=== PATIENT | female | born 1965 | race Caucasian/White ===

== ENCOUNTER 2020-07-16 10:24 | Emergency (ER) | payer OTHER, SELFPAY ==
[2020-07-16 10:58] VITALS: BP 149/71; PULSE 76; RESP 18; TEMP 36.6; O2SAT 99; BMI 25.2
--- NOTE | 2020-07-16 10:58 | ED_ITS ---
HPI - General Adult General Chief complaint: Back Pain/Injury Stated complaint: BODY PAIN Time Seen by Provider: 07/16/20 10:48 Source: patient Mode of arrival: ambulatory Limitations: language barrier (Cymro-speaking) History of Present Illness HPI narrative: 54yoF c PMHx of fibromyalgia presenting to the ED with complaints of a fibromyalgia flare up body aches to her entire body for the past 2 weeks worse today. Reports she was seen at [facility] over a week ago and was prescribed tramadol and no symptomatic relief. Then went to her primary care provider a telehealth call and they prescribed her muscle relaxer Robaxin and she has been taking that along with Motrin Tylenol and no symptomatic relief. She reports she is also taking gabapentin in the past and no symptomatic relief of her fibromyalgia. Denies any additional complaints or concerns at this time. Reports she has not followed up with a acidity tester. Related Data Previous Rx's Medication Instructions Recorded oxycodone-acetaminophen [Percocet] 1 tab PO Q6H PRN #10 tab 07/16/20 prednisone 40 mg PO DAILY 5 Days #10 tab 07/16/20 Allergies Allergy/AdvReac Type Severity Reaction Status Date / Time duloxetine [From CYMBALTA] Allergy Mild ITCHING Unverified 05/18/20 18:40 ibuprofen [From MOTRIN] Allergy Unknown ITCHING Verified 07/16/20 11:01 ibuprofen Allergy Unknown Unknown Uncoded 07/16/20 11:01 Review of Systems Review of Systems: Constitutional : No trauma, No Weight loss, No Fever, No Chills, ENT/Mouth : No Hearing loss, No Ear Pain, No Nasal Congestion, No Sinus Pain, No Hoarseness, No sore throat, No Rhinorrhea, No Swallowing Difficulty Cardiovascular : No Chest Pain, No SOB Respiratory : No Cough, No Dyspnea Gastrointestinal : No Nausea, No Vomiting, No Diarrhea, No abdominal Pain, No Hematochezia, No Melena Genitourinary : No Dysuria, No Urinary Frequency, No Hematuria, No Urinary or Bowel Incontinence/retention Musculoskeletal : + Back pain, + neck pain, + joint stiffness, No joint swelling Skin : No Skin Lesions, No rash or signs of infection Neuro : No Weakness, No radiation, No Numbness, No Paresthesias, No headache, no loss of bowel or bladder incontinence, no saddle anesthesia Denies history of IV drug usage. Yes all other systems are reviewed and are negative [facility] Past Medical History Attestation statement: The following information was validated with the patient. Medical History (Updated 07/16/20 @ 11:05 by RHIANNA Hernandez) Anxiety Asthma Depression Fibromyalgia Insomnia Surgical History History of partial hysterectomy Social History Social History Advance Directives: No Advance Directives Information Provided: Yes Physical Exam Vital Signs: Vital Signs: vital signs have been reviewed as normal and appeared to be correct. Blood pressure normal. Heart rate normal. Respiration rate normal. Temperature normal. Oxygen saturation normal. Appearance: Alert. Oriented X3. No acute distress. Head: Normal external exam. Normocephalic. Atraumatic. No Covarrubias signs noted. No raccoon eyes noted Eyes: PERRLA. EOMI. Conjunctiva and sclera normal. Eyelids normal. ENT: EAC normal. TM's Normal. Pharynx normal. Uvula midline. Moist mucous membranes. No trismus noted. No drooling noted. No muffled voice noted. Neck: Normal inspection. Neck supple. FROM. No adenopathy. Thyroid Normal. No meningeal signs. No neck mass noted. CVS: Normal heart rate and rhythm. Heart sound normal. No murmurs noted. Pulses normal throughout. Respiratory: No respiratory distress. Painless inspiration. Breath sounds normal. No wheezes/rales/rhonchi noted. Chest nontender. No accessory muscle usage noted or decreased air movement noted. Abdomen: Soft and nontender. Bowel sounds normal in all 4 quadrants. No distention noted. No organomegaly noted. No visible injury noted. Back: No CVA tenderness. Full range of motion noted. No obvious deformities, or edema. Mild para-spinal muscular tenderness from lumbar region to coccyx. Full ROM in back and lower extremities. 5/5 strength hip extension/flexion, abduction, adduction. Mild Lumbar pain with hip flexion against resistance. Straight leg raise test negative on right; Straight leg raise test negative on left; Reflexes normal ankle and knee bilaterally; EHL motor strength normal bilaterally Skin: Skin warm and dry. Normal skin color. Normal skin turgor. No rashes/lesions/lacerations noted. Extremities: No lower extremity edema. Extremities exhibit normal range of motion. Extremities nontender. Neuro: Oriented X 3. No motor deficit. No sensory deficit. Reflexes normal. Course Course Course Narrative: Pt c likely muscular pain/fibromyalgia flare up, but could be herniated disc. Neuro exam shows no deficits. Not c/w AAA/epidural abscess/dissection.No high risk Hx (Incont, fever, immunosupp, recent surgery/LP, coag, signif trauma, wt loss, puls mass, hx/o Ca, TB, or IVDU) to warrant MRI/CT today. Not c/w Pyelo/UTI/kidney stone/spinal fx. Not cauda equina syndrome. DC c meds and f/u. Medical Decision Making Medical Records Medical records reviewed: Yes I reviewed the patient's medical records. Discharge Plan Discharge Clinical Impression: Fibromyalgia, Muscle ache Patient Disposition: Home, Self-Care Instructions: Fibromyalgia (ED), Trigger Point Pain (ED), Trigger Point Injection (DC) Additional Instructions: Francisco klein [facility] en [address] [place] [address], [address] en [facility]. Mclain n?dougie es [phone]. You should follow-up with Rheumatology at [address] [place] [address], [address] in [facility]. Their number is [phone]. Prescriptions: New oxycodone-acetaminophen [Percocet] 5-325 mg tablet 1 tab PO Q6H PRN (Reason: pain) Qty: 10 RF: 0 prednisone 20 mg tablet 40 mg PO DAILY 5 Days Qty: 10 RF: 0 Referrals: Han Curiel MD [Physician] - 2 days Bobby Araujo MD [Physician] - 2 days Print Language: Cymro
== END 2020-07-16 11:10 | disposition home or self-care (01) ==
LOC: HO.ED 11:06
PROVIDERS: Emergency Provider Emergency Medicine; PCP Internal Medicine
DX: M79.7 Fibromyalgia (principal); Z79.899 Other long term (current) drug therapy
CPT/HCPCS: 99283

== ENCOUNTER 2020-11-05 15:43 | Emergency (ER) | payer OTHER, SELFPAY ==
--- NOTE | ~2020-11-05 | XR_ITS ---
EXAMINATION: XR ABDOMEN KUB CLINICAL INDICATION: Assess stool burden COMPARISON: None TECHNIQUE: AP view of the abdomen. FINDINGS: Relative mild stool burden throughout the colon. The bowel gas pattern is normal with no evidence of ileus or obstruction. No unusual soft tissue calcifications are noted. The bones are unremarkable. XR/XR KUB IMPRESSION: As above.
[2020-11-05 16:04] VITALS: PULSE 86; RESP 16; TEMP 37.3; BMI 25.4
[2020-11-05 18:38] LABS: Glucose Urine UA NEG (NEG); Leukocyte Esterase Urine NEG (NEG); Nitrite Urine NEG (NEG); PH 5.5 (5.0-8.0); Specific Gravity - Urine 1.025 (1.005-1.025); Urine Blood NEG (NEG); Urine Ketones NEG (NEG); Urine Protein NEG (NEG-TRACE)
[2020-11-05 18:40] LABS: Appearance Urine CLEAR; Color Urine YELLOW
--- NOTE | 2020-11-05 18:51 | ED.ABDPAIN ---
HPI - Abdominal Pain General Chief Complaint: Abdominal Pain Stated Complaint: Abdominal pain Time Seen by Provider: 11/05/20 18:50 Source: patient and certified court interpreter Mode of arrival: ambulatory Limitations: no limitations and language barrier History of Present Illness HPI narrative: 55 yo female with past medical history of anxiety, asthma, depression, fibromyalgia, insomnia, gastric ulcers on prilosec here with complaints of LUQ abdominal pain x 3 days with nausea, constipation. Worsened with eating so decreased PO intake. No vomiting, urinary symptoms, fevers, chills. Related Data Previous Rx's Medication Instructions Recorded oxycodone-acetaminophen [Percocet] 1 tab PO Q6H PRN #10 tab 07/16/20 prednisone 40 mg PO DAILY 5 Days #10 tab 07/16/20 docusate sodium [Colace] 100 mg PO BID #20 cap 11/05/20 polyethylene glycol 3350 [Miralax] 17 g PO DAILY #119 g 11/05/20 sucralfate [Carafate] 1 g PO TID #20 tab 11/05/20 Allergies Allergy/AdvReac Type Severity Reaction Status Date / Time duloxetine [From CYMBALTA] Allergy Mild ITCHING Unverified 05/18/20 18:40 ibuprofen [From MOTRIN] Allergy Unknown ITCHING Verified 07/16/20 11:01 ibuprofen Allergy Unknown Unknown Uncoded 07/16/20 11:01 Review of Systems Review of Systems Yes all other systems are reviewed and are negative Constitutional: Reports no additional constitutional complaints, Denies body ache(s), Denies chills, Denies fever(s), Denies headache(s) and Denies weakness Eyes: Reports no additional eye complaints and Denies change in vision Reports system reviewed and no additional complaints, except as documented, Denies dizziness, Denies headache(s), Denies nasal congestion, Denies nasal discharge and Denies neck pain Cardiovascular: Reports no additional cardiovascular complaints, Denies chest pain, Denies leg edema and Denies dyspnea Respiratory: Reports no additional respiratory complaints, Denies cough and Denies dyspnea Gastrointestinal: Reports no additional gastrointestinal complaints, Reports abdominal pain, Reports constipation, Denies diarrhea, Reports nausea and Denies vomiting Genitourinary: Reports no additional female genitourinary complaints and Denies urinary incontinence Musculoskeletal: Reports no additional musculoskeletal complaints, Denies back pain, Denies arthralgias, Denies joint swelling, Denies neck pain, Denies numbness and Denies tingling Skin/Breast: Reports system reviewed and no additional complaints, except as docu and Denies rash Reports system reviewed and no additional complaints, except as documented, Denies Abnormal speech present, Denies dizziness, Denies headache(s), Denies numbness, Denies tingling and Denies weakness Physical Exam Vital Signs: Vital Signs: Last Vital Signs Temp 99.2 F 11/05/20 16:04 Pulse 86 11/05/20 16:04 Resp 16 11/05/20 20:59 BP 152/88 H 11/05/20 20:59 Body Mass Index 25.4 Const: General: cooperative, healthy appearing, comfortable and no acute distress Orientation/consciousness: patient oriented x3 Limitations: no limitations HENMT: Head: Yes normal to inspection Ears: hearing grossly normal bilaterally General nose exam: Normal external nose present Face and sinus: Yes normal facial exam Mouth: Normal oral and palatal mucosa present Throat: Yes posterior oropharynx normal Eyes: General: appearance normal, both eyes and all related structures Pupils: Equal, round and reactive pupils present Neck: Neck: Yes normal visual inspection Chest: Chest palpation & inspection: normal inspection of the chest Resp: Effort & Inspection: normal respiratory effort Auscultation: clear to auscultation bilaterally Cardio: Rate: regular rate Rhythm: regular rhythm Peripheral pulses: Peripheral pulses 2+ throughout GI: Inspection: Yes normal to inspection Palpation (GI): Soft to palpation and Tenderness to palpation present (GI) (mild LUQ and epigastric. No rebound or guarding. ) Auscultation: normal bowel sounds Back/Spine/Pelvis: Thoracic/Lumbar Spine: thoracic and lumbar spine normal to inspection Skin: General skin exam: no rashes or lesions noted Neuro: General: patient oriented x3, no focal motor deficits and normal sensation to monofilament Cranial nerves: Yes Equal, round and reactive pupils present Cognition (Neuro): normal cognition Speech: No Abnormal speech present Gait exam (Neuro): Normal gait present Motor exam (neuro): 5/5 motor strength present throughout Extrem: General: Yes normal to inspection Course Course Course Narrative: 55 yo female here with LUQ abdominal pain, nausea, and constipation x 3 days. No rebound or guarding. Will need labs, UA, EKG, PPI/antiemetic/Gi cocktail. 2129-labs unremarkable. Urine negative. KUB consistent constipation. Patient reports pain resolved. Tolerating p.o.. Currently on omeprazole. Will add Carafate refer to GI. Reviewed worrisome signs symptoms would return to the emergency department. comfortable with discharge home. MDM - Abdominal Pain MDM Narrative Medical decision making narrative: pancreatitis, renal colic, pyelo, gastritis vs gerd less likely pancreatitis with normal lipase, improving symptoms, less likely renal colic/pyelo with normal UA Medical Records Attestation: I reviewed the patient's medical records. Lab Data Attestation: I reviewed the patient's lab results. Result diagrams: 11/05/20 18:47 11/05/20 18:47 Labs: Lab Results 11/05/20 11/05/20 11/05/20 Range/Units 18:31 18:47 18:47 WBC 7.1 (4.8-10.8) X10*3/uL RBC 4.56 (4.20-5.50) X10*6/uL Hgb 12.9 (12.0-16.0) g/dl Hct 39.1 (37-47) % MCV 85.7 (80-98) fL MCH 28.3 (27.0-33.0) pg MCHC 33.0 (31.0-35.0) g/dl RDW 13.4 (11.0-16.0) % Plt Count 309 (160-400) X10*3/uL MPV 9.6 (9.4-12.3) fL Immature Gran % (Auto) 0.3 (0.0-0.4) % Neut % (Auto) 54.7 (45-73) % Lymph % (Auto) 34.0 (20-40) % Bacon % (Auto) 7.9 (2-11) % Eos % (Auto) 2.8 (0-4) % Baso % (Auto) 0.3 (0-2) % Lymph # (Auto) 2.4 (1.2-4.9) X10*3/uL Bacon # (Auto) 0.6 (0.1-1.2) X10*3/uL Eos # (Auto) 0.2 (0.0-0.4) X10*3/uL Baso # (Auto) 0.0 (0.0-0.2) X10*3/uL Abs Immat Gran (auto) 0.02 (0.00-0.03) X10*3/uL Absolute Neuts (auto) 3.9 (2.0-8.3) X10*3/uL Absolute Nucleated RBC 0.000 (0.0-0.012) X10*3/uL Nucleated RBC % (auto) 0.0 (0.0-0.2) /100WBC Hold Blue Top SEE NOTE Sodium (135-145) mmol/L Potassium (3.3-5.1) mmol/L Chloride (96-108) mmol/L Carbon Dioxide (22-29) mmol/L Anion Gap (12-20) BUN (9-16) mg/dL Creatinine (0.5-1.4) mg/dL Estim Creat Clear Calc Estimated GFR Random Glucose (60-115) mg/dL Calcium (8.4-10.2) mg/dL Total Bilirubin (0.0-1.0) mg/dL Direct Bilirubin (0.0-0.5) mg/dL AST (5-31) U/L ALT (0-31) U/L Alkaline Phosphatase (39-117) U/L Total Protein (6.5-8.0) g/dL Albumin (3.5-5.0) g/dL Lipase (8-78) U/L Urine Color YELLOW Urine Appearance CLEAR Urine pH 5.5 (5.0-8.0) Ur Specific Gaines 1.025 (1.005-1.025) Urine Protein NEG (NEG-TRACE) MG/DL Urine Glucose (UA) NEG (NEG) MG/DL Urine Ketones NEG (NEG) MG/DL Urine Blood NEG (NEG) Urine Nitrite NEG (NEG) Ur Leukocyte Esterase NEG (NEG) 11/05/20 Range/Units 18:47 WBC (4.8-10.8) X10*3/uL RBC (4.20-5.50) X10*6/uL Hgb (12.0-16.0) g/dl Hct (37-47) % MCV (80-98) fL MCH (27.0-33.0) pg MCHC (31.0-35.0) g/dl RDW (11.0-16.0) % Plt Count (160-400) X10*3/uL MPV (9.4-12.3) fL Immature Gran % (Auto) (0.0-0.4) % Neut % (Auto) (45-73) % Lymph % (Auto) (20-40) % Bacon % (Auto) (2-11) % Eos % (Auto) (0-4) % Baso % (Auto) (0-2) % Lymph # (Auto) (1.2-4.9) X10*3/uL Bacon # (Auto) (0.1-1.2) X10*3/uL Eos # (Auto) (0.0-0.4) X10*3/uL Baso # (Auto) (0.0-0.2) X10*3/uL Abs Immat Gran (auto) (0.00-0.03) X10*3/uL Absolute Neuts (auto) (2.0-8.3) X10*3/uL Absolute Nucleated RBC (0.0-0.012) X10*3/uL Nucleated RBC % (auto) (0.0-0.2) /100WBC Hold Blue Top Sodium 140 (135-145) mmol/L Potassium 4.1 (3.3-5.1) mmol/L Chloride 104 (96-108) mmol/L Carbon Dioxide 25 (22-29) mmol/L Anion Gap 15 (12-20) BUN 14 (9-16) mg/dL Creatinine 0.77 (0.5-1.4) mg/dL Estim Creat Clear Calc 73.7 Estimated GFR > 60 Random Glucose 128 H (60-115) mg/dL Calcium 9.3 (8.4-10.2) mg/dL Total Bilirubin 0.2 (0.0-1.0) mg/dL Direct Bilirubin < 0.2 (0.0-0.5) mg/dL AST 32 H (5-31) U/L ALT 36 H (0-31) U/L Alkaline Phosphatase 84 (39-117) U/L Total Protein 7.5 (6.5-8.0) g/dL Albumin 4.5 (3.5-5.0) g/dL Lipase 42 (8-78) U/L Urine Color Urine Appearance Urine pH (5.0-8.0) Ur Specific Gaines (1.005-1.025) Urine Protein (NEG-TRACE) MG/DL Urine Glucose (UA) (NEG) MG/DL Urine Ketones (NEG) MG/DL Urine Blood (NEG) Urine Nitrite (NEG) Ur Leukocyte Esterase (NEG) Imaging Data Abdominal x-ray: Attestation: I personally reviewed and interpreted this imaging study as follows: Radiologist's impression: EXAMINATION: XR ABDOMEN KUB CLINICAL INDICATION: Assess stool burden COMPARISON: None TECHNIQUE: AP view of the abdomen. FINDINGS: Relative mild stool burden throughout the colon. The bowel gas pattern is normal with no evidence of ileus or obstruction. No unusual soft tissue calcifications are noted. The bones are unremarkable. XR/XR KUB IMPRESSION: As above. Discharge Plan Discharge Clinical Impression: Constipation, Gastritis Patient Disposition: Home, Self-Care Instructions: Gastritis (ED), Constipation (ED) Prescriptions: New polyethylene glycol 3350 [Miralax] 17 gram/dose powder 17 g PO DAILY Qty: 119 RF: 0 docusate sodium [Colace] 100 mg capsule 100 mg PO BID Qty: 20 RF: 0 sucralfate [Carafate] 1 gram tablet 1 g PO TID Qty: 20 RF: 0 No Action oxycodone-acetaminophen [Percocet] 5-325 mg tablet 1 tab PO Q6H PRN (Reason: pain) Qty: 10 RF: 0 prednisone 20 mg tablet 40 mg PO DAILY 5 Days Qty: 10 RF: 0 Referrals: Jeff Ontiveros MD [Physician] - 2 days Interventions: ED Discharge Assessment Last Done: 11/05/20 22:14 Discharge Date/Time: 11/05/20 22:15 Print Language: English [facility] Past Medical History Attestation statement: The following information was validated with the patient. Source: old records reviewed and nursing notes reviewed Medical History Anxiety Asthma Depression Fibromyalgia Insomnia Surgical History History of partial hysterectomy Social History Social History Smoked in Last 30 Days: No Advance Directives: No Advance Directives Information Provided: Yes
[2020-11-05 18:55] LABS: MANUAL DIFF FLAG NO
[2020-11-05 18:56] LABS: Basophils Percent Auto 0.3 % (0-2); Eosinophils Absolute Auto 0.2 X10*3/uL (0.0-0.4); Eosinophils Percent Auto 2.8 % (0-4); Hematocrit 39.1 % (37-47); Hemoglobin 12.9 g/dl (12.0-16.0); Imm Gran Abs Auto 0.02 X10*3/uL (0.00-0.03); Imm Gran Pct Auto 0.3 % (0.0-0.4); Lymphocytes Absolute Auto 2.4 X10*3/uL (1.2-4.9); Mean Corpuscular Hemoglobin 28.3 pg (27.0-33.0); Mean Corpuscular Volume 85.7 fL (80-98); Mean Platelet Volume 9.6 fL (9.4-12.3); Monocytes Absolute Auto 0.6 X10*3/uL (0.1-1.2); Monocytes Percent Auto 7.9 % (2-11); Neutrophils Absolute Auto 3.9 X10*3/uL (2.0-8.3); Neutrophils Percent Auto 54.7 % (45-73); Platelet Count 309 X10*3/uL (160-400); Red Blood Count 4.56 X10*6/uL (4.20-5.50); Red Cell Distribution Width 13.4 % (11.0-16.0); White Blood Count 7.1 X10*3/uL (4.8-10.8)
--- NOTE | 2020-11-05 18:56 | ECG_ITS ---
Test Reason : ABD PAIN Blood Pressure : / mmHG Vent. Rate : 073 BPM Atrial Rate : 073 BPM P-R Int : 160 ms QRS Dur : 080 ms QT Int : 390 ms P-R-T Axes : 046 062 042 degrees QTc Int : 429 ms Normal sinus rhythm Normal ECG No previous ECGs available Referred By: Millicent Knox Electronically Signed By:Willian Melissa
[2020-11-05] MEDS: Lidocaine HCl Viscous 2 % 15 ML SOLUTION MUCOUS MEM (19:12)
[2020-11-05] MEDS: Magnesium Hydrox/Alum Hydrox 30 ML ORAL.SUSP PO (19:12)
[2020-11-05] MEDS: ondansetron HCL 4 MG/2 ML VIAL IVPUSH (19:12)
[2020-11-05] MEDS: Famotidine/PF 20 MG/2 ML VIAL IVPUSH (19:12)
[2020-11-05 19:23] LABS: Alanine Aminotransferase 36 U/L (0-31); Albumin Level 4.5 g/dL (3.5-5.0); Alkaline Phosphatase 84 U/L (39-117); Anion Gap 15 (12-20); Aspartate Amino Transferase 32 U/L (5-31); Bilirubin Direct < 0.2 mg/dL (0.0-0.5); Bilirubin Total 0.2 mg/dL (0.0-1.0); Blood Urea Nitrogen 14 mg/dL (9-16); Calcium 9.3 mg/dL (8.4-10.2); Carbon Dioxide 25 mmol/L (22-29); Chloride 104 mmol/L (96-108); Creatinine Clr Calc Pharmacy 73.7; Estimated Glomerular Filt Rate > 60; Glucose Random 128 mg/dL (60-115); Potassium 4.1 mmol/L (3.3-5.1); Sodium 140 mmol/L (135-145); Total Protein 7.5 g/dL (6.5-8.0)
[2020-11-05 20:18] LABS: Lipase 42 U/L (8-78)
[2020-11-05 20:59] VITALS: BP 152/88; RESP 16
== END 2020-11-05 22:15 | disposition home or self-care (01) ==
PROVIDERS: Nurse Practitioner Family; Emergency Provider Internal Medicine
DX: K59.00 Constipation, unspecified (principal); K29.70 Gastritis, unspecified, without bleeding; J45.909 Unspecified asthma, uncomplicated; F41.9 Anxiety disorder, unspecified
CPT/HCPCS: 36415; 74018; 80053; 80076; 81003; 82248; 83690; 85025; 93005; 96374; 96375; 99284; J2405

== ENCOUNTER 2020-11-15 10:57 | Outpatient (REF) | payer OTHER, SELFPAY ==
--- NOTE | ~2020-11-15 | XR_ITS ---
EXAMINATION: THORACIC AND LUMBAR SPINE X-RAY CLINICAL INFORMATION: Pain COMPARISON: None TECHNIQUE: 2 views of the thoracic spine and 3 views of the lumbar spine FINDINGS: Thoracic spine: Bone alignment is normal. No fracture or dislocation is seen. Disc spaces are normal. Paraspinal soft tissues are normal. Lumbar spine: Bone alignment is normal. No fracture or dislocation is seen. Disc spaces are normal. There may be facet arthritis of the lower lumbar spine. XR/XR thoracic spine 2V IMPRESSION: Thoracic spine: Unremarkable exam. Mild facet arthritis of the lower lumbar spine.
--- NOTE | ~2020-11-15 | XR_ITS ---
EXAMINATION: THORACIC AND LUMBAR SPINE X-RAY CLINICAL INFORMATION: Pain COMPARISON: None TECHNIQUE: 2 views of the thoracic spine and 3 views of the lumbar spine FINDINGS: Thoracic spine: Bone alignment is normal. No fracture or dislocation is seen. Disc spaces are normal. Paraspinal soft tissues are normal. Lumbar spine: Bone alignment is normal. No fracture or dislocation is seen. Disc spaces are normal. There may be facet arthritis of the lower lumbar spine. XR/XR lumbar spine 2-3V IMPRESSION: Thoracic spine: Unremarkable exam. Mild facet arthritis of the lower lumbar spine.
[2020-11-15 12:49] LABS: MANUAL DIFF FLAG NO
[2020-11-15 12:54] LABS: Basophils Percent Auto 0.4 % (0-2); Eosinophils Percent Auto 0.4 % (0-4); Hematocrit 41.6 % (37-47); Hemoglobin 13.2 g/dl (12.0-16.0); Imm Gran Abs Auto 0.03 X10*3/uL (0.00-0.03); Imm Gran Pct Auto 0.4 % (0.0-0.4); Lymphocytes Absolute Auto 1.6 X10*3/uL (1.2-4.9); Lymphocytes Percent Auto 21.5 % (20-40); Mean Corpuscular HGB Conc 31.7 g/dl (31.0-35.0); Mean Corpuscular Hemoglobin 27.7 pg (27.0-33.0); Mean Corpuscular Volume 87.2 fL (80-98); Mean Platelet Volume 9.7 fL (9.4-12.3); Monocytes Absolute Auto 0.5 X10*3/uL (0.1-1.2); Monocytes Percent Auto 7.4 % (2-11); Neutrophils Absolute Auto 5.1 X10*3/uL (2.0-8.3); Neutrophils Percent Auto 69.9 % (45-73); Platelet Count 355 X10*3/uL (160-400); Red Blood Count 4.77 X10*6/uL (4.20-5.50); Red Cell Distribution Width 13.2 % (11.0-16.0); White Blood Count 7.3 X10*3/uL (4.8-10.8)
[2020-11-15 13:13] LABS: Alanine Aminotransferase 19 U/L (0-31); Albumin Level 4.9 g/dL (3.5-5.0); Alkaline Phosphatase 88 U/L (39-117); Anion Gap 14 (12-20); Aspartate Amino Transferase 21 U/L (5-31); Bilirubin Total 0.4 mg/dL (0.0-1.0); Blood Urea Nitrogen 20 mg/dL (9-16); C Reactive Protein 0.37 mg/dL (< or = 0.50); Calcium 10.1 mg/dL (8.4-10.2); Carbon Dioxide 29 mmol/L (22-29); Chloride 102 mmol/L (96-108); Estimated Glomerular Filt Rate > 60; Glucose Random 122 mg/dL (60-115); Potassium 4.7 mmol/L (3.3-5.1); Sodium 140 mmol/L (135-145); Total Protein 7.9 g/dL (6.5-8.0)
[2020-11-15 13:50] LABS: Thyroid Stimulating Hormone 0.44 uIU/mL (0.32-4.0)
[2020-11-15 13:53] LABS: Erythrocyte Sedimentation Rate 11 MM/HR (0-20)
[2020-11-17 13:57] LABS: Anti Nuclear Antibody Screen NEGATIVE (NEGATIVE)
[2020-11-19 22:02] LABS: Cyclic Citrullinated Peptide <16 UNITS
[2020-11-24 07:22] LABS: Vitamin D 25-OH, D2 5 ng/mL; Vitamin D 25-OH, D3 12 ng/mL; Vitamin D 25-OH, Total 17 ng/mL (30-100)
== END 2020-11-15 10:58 | disposition home or self-care (01) ==
LOC: HO.LAB 10:57
PROVIDERS: PCP Internal Medicine; Visit Provider Student in an Organized Health Care Education/Training Program
DX: M25.50 Pain in unspecified joint (principal); M79.7 Fibromyalgia
CPT/HCPCS: 36415; 72070; 72100; 80053; 82306; 84443; 85025; 85652; 86038; 86039; 86140; 86200; 99202

== ENCOUNTER 2021-01-08 11:13 | Outpatient (REF) | payer OTHER, SELFPAY ==
[2021-01-08 11:37] LABS: COVID-19 Test Negative (Negative)
== END 2021-01-08 11:14 | disposition home or self-care (01) ==
LOC: HO.LAB 11:13
PROVIDERS: Visit Provider Internal Medicine
DX: Z20.822 Contact with and (suspected) exposure to COVID-19 (principal)
CPT/HCPCS: 36415; 87635; C9803

== ENCOUNTER 2021-01-24 09:35 | Emergency (ER) | payer OTHER, SELFPAY ==
--- NOTE | ~2021-01-24 | XR_ITS ---
EXAMINATION: LEFT HAND AND WRIST X-RAY CLINICAL INFORMATION: Pain post fall COMPARISON: None TECHNIQUE: 4 views of the left hand and wrist FINDINGS: Bone alignment is normal. No fracture or dislocation is seen. Joint spaces are normal. Soft tissues are normal. XR/XR hand wrist LT IMPRESSION: Unremarkable exam.
[2021-01-24 09:43] VITALS: BP 137/89; PULSE 83; RESP 18; TEMP 36.3; O2SAT 97; BMI 27.2
--- NOTE | 2021-01-24 10:03 | ED.EXTPRO ---
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 No head injury or loss of consciousness. Here with persistent pain despite Tylenol <KWABENA Ramirez Last Filed: 01/24/21 12:04> Related Data Home medications: Home Medications Medication Instructions Recorded Confirmed alprazolam 2 mg tablet 2 mg PO BEDTIME 11/15/20 11/15/20 sertraline 50 mg tablet 50 mg PO DAILY 11/15/20 11/15/20 zolpidem 10 mg tablet 10 mg PO BEDTIME PRN 11/15/20 11/15/20 Previous Rx's Medication Instructions Recorded docusate sodium [Colace] 100 mg PO BID #20 cap 11/05/20 polyethylene glycol 3350 [Miralax] 17 g PO DAILY #119 g 11/05/20 cholecalciferol (vitamin D3) 50 50 mcg PO DAILY #90 cap 01/26/21 mcg (2,000 unit) capsule <KWABENA Ramirez Last Filed: 01/24/21 12:04> Allergies/Adverse reactions: Allergies Allergy/AdvReac Type Severity Reaction Status Date / Time duloxetine [From CYMBALTA] Allergy Mild ITCHING Verified 01/26/21 08:46 ibuprofen [From MOTRIN] Allergy Unknown ITCHING Verified 01/26/21 08:46 ibuprofen Allergy Unknown Unknown Uncoded 07/16/20 11:01 <Nisha Rocha NP - Last Filed: 01/24/21 12:04> Review of Systems Review of Systems: Yes all other systems are reviewed and are negative <Nisha Rocha NP - Last Filed: 01/24/21 12:04> Constitutional: Constitutional: Reports no additional constitutional complaints, Denies body ache(s), Denies chills, Denies fever(s), Denies headache(s) and Denies weakness <Nisha Rocha NP - Last Filed: 01/24/21 12:04> Eyes: Eyes: Reports no additional eye complaints and Denies change in vision <Nisha Rocha NP - Last Filed: 01/24/21 12:04> ENT: Reports system reviewed and no additional complaints, except as documented, Denies dizziness, Denies headache(s), Denies nasal congestion, Denies nasal discharge and Denies neck pain <Nisha Rocha NP - Last Filed: 01/24/21 12:04> Cardiovascular: Cardiovascular: Reports no additional cardiovascular complaints, Denies chest pain, Denies leg edema and Denies dyspnea <Nisha Rocha NP - Last Filed: 01/24/21 12:04> Respiratory: Respiratory: Reports no additional respiratory complaints, Denies cough and Denies dyspnea <Nisha Rocha NP - Last Filed: 01/24/21 12:04> Gastrointestinal: Gastrointestinal: Reports no additional gastrointestinal complaints, Denies abdominal pain, Denies diarrhea, Denies nausea and Denies vomiting <Nisha Rocha NP - Last Filed: 01/24/21 12:04> Genitourinary: Genitourinary: Reports no additional female genitourinary complaints and Denies urinary incontinence <Nisha Rocha NP - Last Filed: 01/24/21 12:04> Musculoskeletal: Musculoskeletal: Reports no additional musculoskeletal complaints, Denies back pain, Reports arthralgias, Reports joint swelling, Reports limited range of motion, Denies neck pain, Denies numbness and Denies tingling <Nisha Rocha NP - Last Filed: 01/24/21 12:04> Integumentary/Breasts: Skin/Breast: Reports system reviewed and no additional complaints, except as docu and Denies rash <Nisha Rocha NP - Last Filed: 01/24/21 12:04> Neurologic: Reports system reviewed and no additional complaints, except as documented, Denies Abnormal speech present, Denies dizziness, Denies headache(s), Denies numbness, Denies tingling and Denies weakness <Nisha Rocha NP - Last Filed: 01/24/21 12:04> [facility] Past Medical History Attestation statement: The following information was validated with the patient. <Nisha Rocha NP - Last Filed: 01/24/21 12:04> Source: old records reviewed and nursing notes reviewed <Nisha Rocha NP - Last Filed: 01/24/21 12:04> Medical History: Medical History Anxiety Asthma Depression Fibromyalgia Insomnia <Nisha Rocha NP - Last Filed: 01/24/21 12:04> Surgical History: Surgical History H/O knee surgery History of partial hysterectomy Hx of tubal ligation <Nisha Rocha NP - Last Filed: 01/24/21 12:04> Family History Family History: Family History Mother Diabetes HTN (hypertension) CVD (cardiovascular disease) Father Arthritis CVD (cardiovascular disease) <Nisha Rocha NP - Last Filed: 01/24/21 12:04> Social History Social History: Social History (Updated 01/26/21 @ 08:47 by Leslie Strange CMA) Household Members: Spouse Housing: Apartment Alcohol intake: current Patient Tobacco Use Status: Never used Tobacco Use of substances other than those prescribed or required for medical reasons: No Current occupational status: disabled <Nisha Rocha NP - Last Filed: 01/24/21 12:04> Physical Exam Vital Signs: Vital Signs: Last Vital Signs Temp 97.4 F 01/24/21 09:43 Pulse 83 01/24/21 09:43 Resp 18 01/24/21 09:43 BP 137/89 01/24/21 09:43 Pulse Ox 97 01/24/21 09:43 Body Mass Index 27.2 <Nisha Rocha NP - Last Filed: 01/24/21 12:04> Vital Signs: Last Vital Signs Temp 97.4 F 01/24/21 09:43 Pulse 83 01/24/21 09:43 Resp 18 01/24/21 09:43 BP 137/89 01/24/21 09:43 Pulse Ox 97 01/24/21 09:43 Body Mass Index 27.2 <Siddhartha Webber MD - Last Filed: 02/16/21 15:08> Const: General: cooperative, healthy appearing, comfortable and no acute distress <Nisha Rocha NP - Last Filed: 01/24/21 12:04> Orientation/consciousness: patient oriented x3 <Nisha Rocha NP - Last Filed: 01/24/21 12:04> Limitations: no limitations <Nisha Rocha NP - Last Filed: 01/24/21 12:04> HENMT: Head: Yes normal to inspection <Nisha Rocha NP - Last Filed: 01/24/21 12:04> Ears: hearing grossly normal bilaterally <Nisha Rocha NP - Last Filed: 01/24/21 12:04> General nose exam: Normal external nose present <Nisha Rocha NP - Last Filed: 01/24/21 12:04> Face and sinus: Yes normal facial exam <Nisha Rocha NP - Last Filed: 01/24/21 12:04> Mouth: Normal oral and palatal mucosa present <Nisha Rocha NP - Last Filed: 01/24/21 12:04> Throat: Yes posterior oropharynx normal <Nisha Rocha NP - Last Filed: 01/24/21 12:04> Eyes: General: appearance normal, both eyes and all related structures <Nisha Rocha NP - Last Filed: 01/24/21 12:04> Pupils: Equal, round and reactive pupils present <Nisha Rocha NP - Last Filed: 01/24/21 12:04> Neck: Neck: Yes normal visual inspection <Nisha Rocha NP - Last Filed: 01/24/21 12:04> Chest: Chest palpation & inspection: normal inspection of the chest <Nisha Rocha NP - Last Filed: 01/24/21 12:04> Resp: Effort & Inspection: normal respiratory effort <Nisha Rocha NP - Last Filed: 01/24/21 12:04> Auscultation: clear to auscultation bilaterally <Nisha Rocha NP - Last Filed: 01/24/21 12:04> Cardio: Rate: regular rate <Nisha Rocha NP - Last Filed: 01/24/21 12:04> Rhythm: regular rhythm <Nisha Rocha NP - Last Filed: 01/24/21 12:04> Peripheral pulses: Peripheral pulses 2+ throughout <Nisha Rocha NP - Last Filed: 01/24/21 12:04> GI: Inspection: Yes normal to inspection <Nisha Rocha NP - Last Filed: 01/24/21 12:04> Palpation (GI): Soft to palpation and nontender <Nisha Rocha NP - Last Filed: 01/24/21 12:04> Auscultation: normal bowel sounds <Nisha Rocha NP - Last Filed: 01/24/21 12:04> Back/Spine/Pelvis: Thoracic/Lumbar Spine: thoracic and lumbar spine normal to inspection <Nisha Rocha NP - Last Filed: 01/24/21 12:04> Skin: General skin exam: no rashes or lesions noted <Nisha Rocha NP - Last Filed: 01/24/21 12:04> Neuro: General: patient oriented x3, no focal motor deficits and normal sensation to monofilament <Nisha Rocha NP - Last Filed: 01/24/21 12:04> Cranial nerves: Yes Equal, round and reactive pupils present <Nisha Rocha NP - Last Filed: 01/24/21 12:04> Cognition (Neuro): normal cognition <Nisha Rocha NP - Last Filed: 01/24/21 12:04> Speech: No Abnormal speech present <KWABENA Ramirez Last Filed: 01/24/21 12:04> Gait exam (Neuro): Normal gait present <Nisha Rocha NP - Last Filed: 01/24/21 12:04> Motor exam (neuro): 5/5 motor strength present throughout <Nisha Rocha NP - Last Filed: 01/24/21 12:04> Extrem: Other: Tenderness over the distal radial aspect of the left wrist extending to the 1st digit with pain with flexion and extension of the digit. No obvious deformity, swelling. Normal cap refill No snuffbox tenderness <KWABENA Ramirez Last Filed: 01/24/21 12:04> General: Yes normal to inspection <KWABENA Ramirez Last Filed: 01/24/21 12:04> Course Course Course Narrative: Mechanical fall now with left hand and wrist pain. Will need x-rays 1200-X-RAY SHOWS NO ACUTE FINDING. LIKELY SPRAIN. Patient placed in a wrist splint. Will have follow-up with primary care doctor for continued pain. Reviewed worrisome signs symptoms and when to return to the emergency department. Comfortable discharge home. <Nisha Rocha NP - Last Filed: 01/24/21 12:04> I have reviewed the chart <Siddhartha Webber MD - Last Filed: 02/16/21 15:08> Procedures Procedure Narrative Procedure Narrative: Velcro wrist splint <Nisha Rocha NP - Last Filed: 01/24/21 12:04> MDM - Extremity (Nontraumatic) Medical Records Attestation: I reviewed the patient's medical records. <Nisha Rocha NP - Last Filed: 01/24/21 12:04> Lab Data Attestation: I reviewed the patient's lab results. <KWABENA Ramirez Last Filed: 01/24/21 12:04> Imaging Data left hand/wrist x-ray: Attestation: I personally reviewed and interpreted this imaging study as follows: <Nisha Rocha NP - Last Filed: 01/24/21 12:04> Radiologist's impression: [place] [id number] [facility] [place], [place] [id number] ReportSigned Patient: Sis CelestinMR#: [id number]: [id number]:[id number]/Sex: 55 / FADM Date: 01/24/21Loc: HO.EDAttending Dr: Ordering Physician: NISHA ROCHA NP Date of Service: 01/24/21 Procedure(s): XR hand wrist LT Accession Number(s): [id number] cc: NISHA ROCHA NP~ EXAMINATION: LEFT HAND AND WRIST X-RAY CLINICAL INFORMATION: Pain post fall COMPARISON: None TECHNIQUE: 4 views of the left hand and wrist FINDINGS: Bone alignment is normal. No fracture or dislocation is seen. Joint spaces are normal. Soft tissues are normal. XR/XR hand wrist LT IMPRESSION: Unremarkable exam. <Nisha Rocha NP - Last Filed: 01/24/21 12:04> Discharge Plan Discharge Clinical Impression: Sprain and strain of wrist <Nisha Rocha NP - Last Filed: 01/24/21 12:04> Patient Disposition: Home, Self-Care <Nisha Rocha NP - Last Filed: 01/24/21 12:04> Instructions: Wrist Sprain (ED) <Nisha Rocha NP - Last Filed: 01/24/21 12:04> Additional Instructions: Ice, elevation, splint for comfort, continue Tylenol Follow-up with primary care doctor 1-2 days for persistent pain <Nisha Rocha NP - Last Filed: 01/24/21 12:04> Prescriptions: No Action polyethylene glycol 3350 [Miralax] 17 gram/dose powder 17 g PO DAILY Qty: 119 RF: 0 docusate sodium [Colace] 100 mg capsule 100 mg PO BID Qty: 20 RF: 0 alprazolam [Xanax] 2 mg tablet 2 mg PO BEDTIME RF: 0 zolpidem [Ambien] 10 mg tablet 10 mg PO BEDTIME PRNRF: 0 sertraline [Zoloft] 50 mg tablet 50 mg PO DAILY RF: 0 cholecalciferol (vitamin D3) 50 mcg (2,000 unit) capsule 50 mcg PO DAILY Qty: 90 RF: 1 <Nisha Rocha NP - Last Filed: 01/24/21 12:04> Referrals: Physician,Unknown [Primary Care Provider] - 2 days <Nisha Rocha NP - Last Filed: 01/24/21 12:04> Interventions: ED Discharge Assessment Last Done: 01/24/21 10:39 <Nisha Rocha NP - Last Filed: 01/24/21 12:04> Discharge Date/Time: 01/24/21 10:39 <Nisha Rocha NP - Last Filed: 01/24/21 12:04> Print Language: Georgian <Nisha Rocha NP - Last Filed: 01/24/21 12:04>
== END 2021-01-24 10:39 | disposition home or self-care (01) ==
PROVIDERS: Emergency Provider Emergency Medicine
DX: S69.92XA Unspecified injury of left wrist, hand and finger(s), initial encounter (principal); M25.532 Pain in left wrist; W01.0XXA Fall on same level from slipping, tripping and stumbling without subsequent striking against object, initial encounter; Y93.9 Activity, unspecified; Y92.9 Unspecified place or not applicable; Y99.9 Unspecified external cause status; Z79.899 Other long term (current) drug therapy
CPT/HCPCS: 29125; 73110; 73130; 99284

== ENCOUNTER → 2021-01-26 08:40 | Outpatient (BNVA) | payer OTHER, SELFPAY | PROVIDERS: Visit Provider Student in an Organized Health Care Education/Training Program | DX: M25.50 Pain in unspecified joint (principal); M79.7 Fibromyalgia; Z79.899 Other long term (current) drug therapy | CPT/HCPCS: 99212 ==

== ENCOUNTER 2022-09-24 14:23 | Emergency (ER) | payer OTHER, SELFPAY ==
--- NOTE | ~2022-09-24 | XR_ITS ---
EXAMINATION: XR CHEST CLINICAL INFORMATION: Short of breath. Cough. COMPARISON: None TECHNIQUE: Frontal view of the chest was obtained. FINDINGS: The lungs are well expanded. There is no focal consolidation, edema, or effusion. No pneumothorax. The cardiomediastinal silhouette is within normal limits. No acute osseous abnormality. XR/XR chest 1V IMPRESSION: Clear lungs.
[2022-09-24 14:33] VITALS: BP 141/80; BP 148/90; PULSE 80; PULSE 82; RESP 18; TEMP 37.2; O2SAT 100; O2SAT 99; BMI 27.4
--- NOTE | 2022-09-24 16:31 | ED.URI ---
HPI - URI/Sore Throat General Chief Complaint: Upper Respiratory Symptoms Stated Complaint: +COVID,SOB,NAUSEA,DIARRHEA Time Seen by Provider: 09/24/22 15:56 Source: patient Mode of arrival: EMS Limitations: no limitations History of Present Illness HPI Narrative: Patient comes to the emergency room complaining of cough. Patient states that a week ago she tested positive for COVID. Since then he continues coughing. Patient has history of asthma and has been using her inhaler more than usual. Patient denies shortness of breath or chest pain. Patient states she is tired of coughing, when she coughs all her muscles in the back hurt, states that she has fibromyalgia and coughing exacerbates the pain Related Data Home Medications Medication Instructions Recorded Confirmed alprazolam 2 mg tablet (Xanax) 2 mg PO BEDTIME 11/15/20 11/15/20 sertraline 50 mg tablet (Zoloft) 50 mg PO DAILY 11/15/20 11/15/20 zolpidem 10 mg tablet (Ambien) 10 mg PO BEDTIME PRN 11/15/20 11/15/20 Previous Rx's Medication Instructions Recorded docusate sodium 100 mg capsule 100 mg PO BID #20 caps 11/05/20 (Colace) polyethylene glycol 3350 17 17 g PO DAILY #119 grams 11/05/20 gram/dose oral powder (Miralax) cholecalciferol (vitamin D3) 50 50 mcg PO DAILY #90 caps 01/26/21 mcg (2,000 unit) capsule albuterol sulfate 90 mcg/actuation 2 puff inhalation Q4-6H PRN 09/24/22 aerosol inhaler shortness of breath or wheezing #8.5 grams codeine 10 mg-guaifenesin 200 mg/5 10 ml PO Q4-6H PRN cough #473 mL 09/24/22 mL oral liquid (Coditussin AC) prednisone 50 mg tablet 50 mg PO DAILY #5 tabs 09/24/22 Allergies Allergy/AdvReac Type Severity Reaction Status Date / Time duloxetine [From CYMBALTA] Allergy Mild ITCHING Verified 01/26/21 08:46 ibuprofen [From MOTRIN] Allergy Unknown ITCHING Verified 01/26/21 08:46 ibuprofen Allergy Unknown Unknown Uncoded 07/16/20 11:01 Review of Systems Review of Systems: Constitutional : No Weight loss, No Fever, No Chills, No Night Sweats, No Fatigue, No Malaise ENT/Mouth : No Hearing loss, No Ear Pain, No Nasal Congestion, No Sinus Pain, No Hoarseness, No sore throat, No Rhinorrhea, No Swallowing Difficulty Eyes: No Eye Pain, No Swelling, No Redness, No Foreign Body, No Discharge, No Vision Changes Cardiovascular : No Chest Pain, No SOB, No Dyspnea on Exertion, No Orthopnea, No Edema, No Palpitations Respiratory : Complaining of productive cough, wheezing that responded well to albuterol Gastrointestinal : No Nausea, No Vomiting, No Diarrhea, No Constipation, No abdominal Pain, No Hematochezia, No Melena Genitourinary : no irregular bleeding, No Dysuria, No Urinary Frequency, No Hematuria, No Urinary Incontinence, No Urgency, No Flank Pain, No Urinary Flow Changes, No Hesitancy Musculoskeletal : No joint pain, No Myalgias, No Joint Swelling Skin : No Skin Lesions, No rash Neuro : No Weakness, No Numbness, No Paresthesias, No Loss of Consciousness, No Dizziness, No Headache Psych : No Anxiety/Panic, No Depression, No SI/HI/AH/VH, No Social Issues, Heme/Lymph: No Bruising, No Bleeding,No Lymphadenopathy Endocrine : No Polyuria, No Polydipsia, No Temperature Intolerance [facility] Past Medical History Medical History Anxiety Asthma Depression Fibromyalgia Insomnia Surgical History H/O knee surgery History of partial hysterectomy Hx of tubal ligation Family History Family History Mother Diabetes HTN (hypertension) CVD (cardiovascular disease) Father Arthritis CVD (cardiovascular disease) Social History Social History (Updated 01/26/21 @ 08:47 by Leslie Strange CMA) Household Members: Spouse Housing: Apartment Alcohol intake: current Patient Tobacco Use Status: Never used Tobacco Advance Directives: No Advance Directives Information Provided: Yes Current occupational status: disabled Physical Exam Vital Signs: Vital Signs: Last Vital Signs Temp 98.9 F 09/24/22 14:33 Pulse 82 09/24/22 14:33 Resp 18 09/24/22 14:33 BP 148/90 H 09/24/22 14:33 Pulse Ox 100 09/24/22 14:33 O2 Del Method 09/24/22 14:33 BMI result Body Mass Index 27.4 Const: Other: Appearance: Alert. Oriented X3. No acute distress. Well-appearing Eyes: Pupils equal, round and reactive to light. ENT: Pharynx normal. Neck: Normal inspection. Neck supple. No lymph nodes noted. No crepitus CVS: Normal heart rate and rhythm. Pulses normal. Normal S1 and S2 Respiratory: No respiratory distress. Breath sounds normal. No Wheezing. No rales Abdomen: Soft and nontender. No rigidity. No distention. Skin: Skin warm and dry. Normal skin color. Normal skin turgor. Extremities: No lower extremity edema. No Lacerations. No Rash Neuro: Oriented X 3. No motor deficit. No sensory deficit. Moving all extremities. No slurred speech. CN 2 through 12 grossly intact Psych: calm, cooperative, anxious Course Course Course Narrative: -discussed chest x-ray with the patient, no acute findings. -vitals normal, blood pressure 148/90, heart rate 82, respirations 18, temperature 98.9 degrees, oxygen saturation 100% on room air -discussed with the patient the coughing last for several more weeks. -wells criteria for pulmonary embolism is 0. Patient has no symptoms of PE Medical Decision Making Medical Decision Making MDM Narrative: Patient likely has viral bronchitis Differential Diagnosis Differential Diagnoses: The differential diagnosis associated with the presentation includes (COVID, viral URI, pneumonia, bronchitis) Independent Interpretation I performed an independent interpretation of an: Plain X-Ray (My interpretation of chest x-ray: No infiltrates) Radiology Impression Discussion of test interpretation with radiology: I have reviewed the radiologist's reading. Radiologist Impression: FINDINGS: Right hand: No fracture or dislocation. Appropriate alignment. Joint spaces are maintained. Soft tissue gas in the thenar region. No radiopaque foreign body. Left hand: No fracture or dislocation. Appropriate alignment. Joint spaces are maintained. The soft tissues are unremarkable. No radiopaque foreign body. XR/XR hand LT min 3V IMPRESSION: Soft tissue gas in the right thenar region. No radiopaque foreign body. No fracture or malalignment. Discharge Plan Discharge Clinical Impression: Viral bronchitis Patient Disposition: Home, Self-Care Instructions: Acute Bronchitis (ED) Additional Instructions: Please follow-up with your primary care physician tomorrow. If you have any worsening or new symptoms, please return to the emergency room or call 911 Prescriptions: New Coditussin AC 10-200 mg/5 mL liquid 10 ml PO Q4-6H PRN (Reason: cough) Qty: 473 0RF prednisone 50 mg tablet 50 mg PO DAILY Qty: 5 0RF albuterol sulfate 90 mcg/actuation HFA aerosol inhaler 2 puff inhalation Q4-6H PRN (Reason: shortness of breath or wheezing) Qty: 8.5 0RF No Action polyethylene glycol 3350 [Miralax] 17 gram/dose powder 17 g PO DAILY Qty: 119 0RF docusate sodium [Colace] 100 mg capsule 100 mg PO BID Qty: 20 0RF alprazolam [Xanax] 2 mg tablet 2 mg PO BEDTIME zolpidem [Ambien] 10 mg tablet 10 mg PO BEDTIME PRN sertraline [Zoloft] 50 mg tablet 50 mg PO DAILY cholecalciferol (vitamin D3) 50 mcg (2,000 unit) capsule 50 mcg PO DAILY Qty: 90 1RF
[2022-09-24 16:41] VITALS: BP 141/84; PULSE 70; RESP 20; TEMP 36.7; O2SAT 99
[2022-09-24] MEDS: predniSONE 20 MG TABLET 60 MG PO (16:43)
== END 2022-09-24 16:54 | disposition home or self-care (01) ==
PROVIDERS: Emergency Provider Emergency Medicine
DX: U07.1 COVID-19 (principal); J20.8 Acute bronchitis due to other specified organisms; R05.9 Cough, unspecified
CPT/HCPCS: 71045; 99283; 99284

== ENCOUNTER 2022-11-24 06:50 | Inpatient (IN) | payer OTHER, SELFPAY ==
[2022-11-24] VITALS (10 sets, daily range): BP systolic 116–173; BP diastolic 67–90; PULSE 78–128; RESP 15–27; TEMP 36.4–38.2; O2SAT 96–98; BMI 26.5
--- NOTE | 2022-11-24 | ECG_ITS ---
Test Reason : CP Blood Pressure : / mmHG Vent. Rate : 128 BPM Atrial Rate : 128 BPM P-R Int : 134 ms QRS Dur : 078 ms QT Int : 310 ms P-R-T Axes : 057 059 -11 degrees QTc Int : 452 ms Sinus tachycardia Cannot rule out Inferior infarct , age undetermined Nonspecific ST and T wave abnormality Abnormal ECG When compared with ECG of 24-NOV-2022 07:46, Vent. rate has increased BY 47 BPM Non-specific change in ST segment in Anterior leads T wave inversion now evident in Inferior leads Nonspecific T wave abnormality now evident in Anterolateral leads Referred By: Ryne Ford Electronically Signed By:HAIDER WYMAN
--- NOTE | ~2022-11-24 | XR_ITS ---
EXAMINATION: XR CHEST CLINICAL INFORMATION: Altered mental status COMPARISON: None chest x-ray 09/24/2022 TECHNIQUE: Frontal view of the chest was obtained. FINDINGS: The lungs are well-expanded and clear of acute process. There is an 8 mm oval density right midlung, question calcified nodule. Heart size and progress clarities normal. No gross bony abnormality seen. XR/XR chest 1V IMPRESSION: 1. No acute cardiopulmonary process seen. 2. 8 mm oval density right midlung, question calcified nodule. It is new since last exam 09/24/2022. Likely artifact.
--- NOTE | ~2022-11-24 | US_ITS ---
EXAMINATION: US ABDOMEN LIMITED CLINICAL INFORMATION: Altered mental status. Elevated LFTs. COMPARISON: None available. TECHNIQUE: Real-time imaging of the right upper quadrant abdominal viscera. FINDINGS: PANCREAS: The head and the body of the pancreas are homogeneous. The tail is obscured by overlying gas. LIVER: The liver is normal in size. The liver contour is normal. Parenchymal echogenicity is mildly increased. No focal hepatic lesion. There is no intrahepatic biliary duct dilatation seen. GALLBLADDER: Normal. The gallbladder is physiologically distended without evidence of stones, sludge, polyps, wall thickening or pericholecystic fluid. COMMON BILE DUCT: Normal in caliber measuring 0.3 cm in diameter. RIGHT KIDNEY: No hydronephrosis. No renal calculi or focal parenchymal lesions. The kidney measures 9.3 cm in maximum dimension. There is an echogenic stone midpole measuring 0.4 x 0.2 x 0.2 cm. FREE FLUID: None. US/US abdomen limited IMPRESSION: 1. Mildly echogenic liver without focal lesion. 2. Small echogenic stone midpole right kidney without caliectasis or hydronephrosis. 3. The visualized pancreas, gallbladder, CBD, and the right kidney are unremarkable.
--- NOTE | ~2022-11-24 | CT_ITS ---
EXAMINATION: CT HEAD WITHOUT CONTRAST CLINICAL INFORMATION: Hallucinations COMPARISON: None available. TECHNIQUE: Contiguous axial imaging was performed from the skull base to vertex without intravenous administration of contrast. This CT examination was performed using dose optimization techniques as appropriate, variously including the following: *Automated exposure control *Adjustment of mA and/or kV according to patient size (this includes techniques or standardized protocols for targeted exams where dose is matched to indication/reason for exam; i.e. extremities or head) *Use of iterative reconstruction technique DLP: 680 mGy-cm FINDINGS: The brain parenchyma has normal attenuation. The melissa-white matter differentiation is well preserved. No evidence of an acute major vascular territory infarction. No intracranial hemorrhage, extra-axial fluid collection, focal mass effect or midline shift. The ventricles have normal size and configuration; no hydrocephalus. The brainstem and cerebellum have a normal appearance. The cerebellar tonsils are in normal position. The calvarium is intact. The visualized paranasal sinuses, mastoid air cells and middle ear cavities are well aerated. The orbits and globes are unremarkable. The temporomandibular joints are normal. CT/CT head/brain wo IV con IMPRESSION: No evidence of mass, hemorrhage or infarction. No acute intracranial pathology.
--- NOTE | 2022-11-24 07:37 | ECG_ITS ---
Test Reason : AMS Blood Pressure : / mmHG Vent. Rate : 081 BPM Atrial Rate : 081 BPM P-R Int : 146 ms QRS Dur : 088 ms QT Int : 396 ms P-R-T Axes : 052 045 043 degrees QTc Int : 460 ms Normal sinus rhythm Normal ECG When compared with ECG of 05-NOV-2020 21:04, No significant change was found Referred By: Bharat Parry Electronically Signed By:SHYAM PARRISH MD
--- NOTE | 2022-11-24 07:39 | ED.AMS ---
HPI - Altered Mental Status General Chief Complaint: Altered Mental Status Stated Complaint: AMS,HALLUCINATING,SSO PER EMS Time Seen by Provider: 11/24/22 07:52 Source: patient, EMS and translator/interpreter Mode of arrival: EMS Limitations: no limitations History of Present Illness HPI narrative: A 57-year-old female history of fibromyalgia, anxiety, depression presented today for feeling confused and visual hallucinations sometimes. Patient with known history of anxiety and depression taking antipsychotic medication that the patient stopped 1 week ago without consulting her doctor, patient has been feeling disoriented and confused, patient sometimes have a visual hallucination seeing people at home that they do not exist, no auditory hallucination, patient feels spacey. Patient at the moment declined any headache, nausea, vomiting, CP, abdominal pain, fever, chills. Patient had headache 2 days ago but resolved now. No SI, no HI. Related Data Home Medications Medication Instructions Recorded Confirmed alprazolam 2 mg tablet (Xanax) 2 mg PO BEDTIME 11/15/20 11/15/20 sertraline 50 mg tablet (Zoloft) 50 mg PO DAILY 11/15/20 11/15/20 zolpidem 10 mg tablet (Ambien) 10 mg PO BEDTIME PRN 11/15/20 11/15/20 Previous Rx's Medication Instructions Recorded docusate sodium 100 mg capsule 100 mg PO BID #20 caps 11/05/20 (Colace) polyethylene glycol 3350 17 17 g PO DAILY #119 grams 11/05/20 gram/dose oral powder (Miralax) cholecalciferol (vitamin D3) 50 50 mcg PO DAILY #90 caps 01/26/21 mcg (2,000 unit) capsule albuterol sulfate 90 mcg/actuation 2 puff inhalation Q4-6H PRN 09/24/22 aerosol inhaler shortness of breath or wheezing #8.5 grams benzonatate 100 mg capsule 100 mg PO TID PRN cough #10 caps 09/24/22 codeine 10 mg-guaifenesin 100 mg/5 5 ml PO Q6H PRN cough #118 mL 09/24/22 mL oral liquid codeine 10 mg-guaifenesin 200 mg/5 10 ml PO Q4-6H PRN cough #473 mL 09/24/22 mL oral liquid (Coditussin AC) prednisone 50 mg tablet 50 mg PO DAILY #5 tabs 09/24/22 Allergies Allergy/AdvReac Type Severity Reaction Status Date / Time duloxetine [From CYMBALTA] Allergy Mild ITCHING Verified 01/26/21 08:46 ibuprofen [From MOTRIN] Allergy Unknown ITCHING Verified 01/26/21 08:46 ibuprofen Allergy Unknown Unknown Uncoded 07/16/20 11:01 Review of Systems Review of Systems: All other systems are reviewed and are negative Constitutional: Reports as per HPI and Reports no additional constitutional complaints Eyes: Reports as per HPI and Reports no additional eye complaints Reports system reviewed and no additional complaints, except as documented Cardiovascular: Reports as per HPI and Reports no additional cardiovascular complaints Respiratory: Reports as per HPI and Reports no additional respiratory complaints Gastrointestinal: Reports as per HPI and Reports no additional gastrointestinal complaints Genitourinary: Reports no additional female genitourinary complaints Musculoskeletal: Reports no additional musculoskeletal complaints Skin/Breast: Reports system reviewed and no additional complaints, except as docu Psychiatric: Reports no additional psychiatric complaints Endocrine: Reports no additional endocrine complaints Hematologic/Lymphatic: Reports no additional hematologic/lymphatic complaints Allergic/Immunologic: Reports no additional allergic/immunologic complaints Reports system reviewed and no additional complaints, except as documented and Reports Abnormal speech present [facility] Past Medical History Medical History Anxiety Asthma Depression Fibromyalgia Insomnia Surgical History H/O knee surgery History of partial hysterectomy Hx of tubal ligation Family History Family History Mother Diabetes HTN (hypertension) CVD (cardiovascular disease) Father Arthritis CVD (cardiovascular disease) Social History Social History Household Members: Spouse Housing: Apartment Alcohol intake: current Alcohol intake frequency: does not drink Patient Tobacco Use Status: Never used Tobacco Smoked in Last 30 Days: No Use of substances other than those prescribed or required for medical reasons: No Advance Directives: No Advance Directives Information Provided: No Current occupational status: disabled Physical Exam ED Vital Signs: Vital Signs - 24 hr 11/24/22 07:13 11/24/22 07:26 11/24/22 11:14 Temperature 97.9 F 97.9 F 99.7 F Pulse Rate 80 80 85 Respiratory Rate 16 16 19 Blood Pressure 150/76 H 150/76 H 147/79 H Pulse Oximetry 97 97 96 Oxygen Delivery Method Room Air Room Air Room Air BMI result Body Mass Index 26.5 Vital signs have been reviewed as appeared to be correct. Blood pressure normal. Heart rate normal. Respiration rate normal. Temperature normal. Oxygen saturation normal. Appearance: Alert. Oriented X3. No acute distress. Head: Normal external exam. Normocephalic. Atraumatic. No Covarrubias signs noted. No raccoon eyes noted Eyes: PERRLA. EOMI. Conjunctiva and sclera normal. Eyelids normal. ENT: TM's Normal. Pharynx normal. Uvula midline. Moist mucous membranes. No trismus noted. No drooling noted. No muffled voice noted. Neck: Normal inspection. Neck supple. FROM. No adenopathy. Thyroid Normal. No meningeal signs. No neck mass noted. CVS: Normal heart rate and rhythm. Heart sound normal. No murmurs noted. Pulses normal throughout. Respiratory: No respiratory distress. Painless inspiration. Breath sounds normal. No wheezes/rales/rhonchi noted. Chest nontender. No accessory muscle usage noted or decreased air movement noted. Abdomen: Soft and nontender. Bowel sounds normal in all 4 quadrants. No distention noted. No organomegaly noted. No visible injury noted. Back: No CVA tenderness. Full range of motion noted. Skin: Skin warm and dry. Normal skin color. Normal skin turgor. No rashes/lesions/lacerations noted. Extremities: No lower extremity edema. Extremities exhibit normal range of motion. Extremities nontender. Neuro: Oriented X 3. Cranial nerve exam: II-XII are grossly intact No motor deficit. No sensory deficit. Reflexes normal. Course Course Course Narrative: Acute mental status change, patient discontinued her own anti depression medications including Xanax patient may be suffering from benzo withdrawal. Acute elevation of LFTs hepatic panel is pending with nonsignificant hepatic ultrasound, hypokalemia will replete potassium, patient with UTI no SIRs criteria. Elevation of troponin with no delta change. Medical Decision Making Differential Diagnosis Differential Diagnoses: The differential diagnosis associated with the presentation includes (Acute psychosis, benzos withdrawal, acute liver disease, UTI, sepsis.) Admission/Observation Consideration of admission/observation: Escalation of care including admission/observation considered Consult Healthcare Provider Management of the patient was discussed with: Hospitalist Lab Data MDM Lab Attestation statement: I reviewed the patient's lab results. 11/24/22 07:56 11/24/22 07:56 Labs: Lab Results 11/24/22 11/24/22 11/24/22 Range/Units 07:56 07:56 07:56 WBC 13.9 H (4.8-10.8) X10*3/uL RBC 4.86 (4.20-5.50) X10*6/uL Hgb 13.1 (12.0-16.0) g/dl Hct 39.3 (37.0-47.0) % MCV 80.9 (80.0-98.0) fL MCH 27.0 (27.0-33.0) pg MCHC 33.3 (31.0-35.0) g/dl RDW 14.4 (11.0-16.0) % Plt Count 324 (160-400) X10*3/uL MPV 9.7 (9.4-12.3) fL Immature Gran % (Auto) 0.6 H (0.0-0.4) % Neut % (Auto) 80.4 H (45-73) % Lymph % (Auto) 9.7 L (20-40) % [place]ke[place] % (Auto) 9.1 (2-11) % Eos % (Auto) 0.1 (0-4) % Baso % (Auto) 0.1 (0-2) % Lymph # (Auto) 1.4 (1.2-4.9) X10*3/uL [place] # (Auto) 1.3 H (0.1-1.2) X10*3/uL Eos # (Auto) 0.0 (0.0-0.4) X10*3/uL Baso # (Auto) 0.0 (0.0-0.2) X10*3/uL Abs Immat Gran (auto) 0.09 H (0.00-0.03) X10*3/uL Absolute Neuts (auto) 11.2 H (2.0-8.3) x10*3/uL Absolute Nucleated RBC 0.000 (0.0-0.012) X10*3/uL Nucleated RBC % (auto) 0.0 (0.0-0.2) /100WBC Sodium 134 L (135-145) mmol/L Potassium 3.2 L D (3.3-5.1) mmol/L Chloride 98 (96-108) mmol/L Carbon Dioxide 22 (22-29) mmol/L Anion Gap 17 (12-20) BUN 10 (9-16) mg/dL Creatinine 0.80 (0.5-1.4) mg/dL Estim Creat Clear Calc 70.6 Estimated GFR > 60 Random Glucose 113 (60-115) mg/dL Calcium 9.3 D (8.4-10.2) mg/dL Total Bilirubin 0.7 (0.0-1.0) mg/dL Direct Bilirubin 0.2 (0.0-0.5) mg/dL AST 249 H (5-31) U/L ALT 66 H (0-31) U/L Alkaline Phosphatase 69 (39-117) U/L Ammonia (13-55) umol/L Troponin I High Sens 45.8 H (<3.5-17.0) ng/L Total Protein 7.2 (6.5-8.0) g/dL Albumin 4.6 (3.5-5.0) g/dL Lipase 14 (8-78) U/L Urine Color Urine Appearance Urine pH (5.0-9.0) Ur Specific [place] (1.005-1.025) Urine Protein (Neg-Trace) mg/dL Urine Glucose (UA) (Negative) mg/dL Urine Ketones (Negative) mg/dL Urine Blood (Negative) Urine Nitrite (Negative) Ur Leukocyte Esterase (Negative) Urine RBC (0-2) /HPF Urine WBC (0-5) /HPF Ur Squamous Epith Cells (0-2) /HPF Urine Bacteria (None Seen) Hyaline Casts (0-2) /LPF 11/24/22 11/24/22 11/24/22 Range/Units 11:22 11:22 11:22 WBC (4.8-10.8) X10*3/uL RBC (4.20-5.50) X10*6/uL Hgb (12.0-16.0) g/dl Hct (37.0-47.0) % MCV (80.0-98.0) fL MCH (27.0-33.0) pg MCHC (31.0-35.0) g/dl RDW (11.0-16.0) % Plt Count (160-400) X10*3/uL MPV (9.4-12.3) fL Immature Gran % (Auto) (0.0-0.4) % Neut % (Auto) (45-73) % Lymph % (Auto) (20-40) % [place]ke[place] % (Auto) (2-11) % Eos % (Auto) (0-4) % Baso % (Auto) (0-2) % Lymph # (Auto) (1.2-4.9) X10*3/uL [place] # (Auto) (0.1-1.2) X10*3/uL Eos # (Auto) (0.0-0.4) X10*3/uL Baso # (Auto) (0.0-0.2) X10*3/uL Abs Immat Gran (auto) (0.00-0.03) X10*3/uL Absolute Neuts (auto) (2.0-8.3) x10*3/uL Absolute Nucleated RBC (0.0-0.012) X10*3/uL Nucleated RBC % (auto) (0.0-0.2) /100WBC Sodium (135-145) mmol/L Potassium (3.3-5.1) mmol/L Chloride (96-108) mmol/L Carbon Dioxide (22-29) mmol/L Anion Gap (12-20) BUN (9-16) mg/dL Creatinine (0.5-1.4) mg/dL Estim Creat Clear Calc Estimated GFR Random Glucose (60-115) mg/dL Calcium (8.4-10.2) mg/dL Total Bilirubin (0.0-1.0) mg/dL Direct Bilirubin (0.0-0.5) mg/dL AST (5-31) U/L ALT (0-31) U/L Alkaline Phosphatase (39-117) U/L Ammonia 26 (13-55) umol/L Troponin I High Sens 44.3 H (<3.5-17.0) ng/L Total Protein (6.5-8.0) g/dL Albumin (3.5-5.0) g/dL Lipase (8-78) U/L Urine Color Yellow Urine Appearance Cloudy Urine pH 6.5 (5.0-9.0) Ur Specific [place] 1.020 (1.005-1.025) Urine Protein 30 (1+) H (Neg-Trace) mg/dL Urine Glucose (UA) Negative (Negative) mg/dL Urine Ketones >=160 (Negative) mg/dL Urine Blood Moderate (2+) H (Negative) Urine Nitrite Negative (Negative) Ur Leukocyte Esterase Small (1+) H (Negative) Urine RBC 0-2 (0-2) /HPF Urine WBC 11-20 H (0-5) /HPF Ur Squamous Epith Cells 6-10 (0-2) /HPF Urine Bacteria 3+ (None Seen) Hyaline Casts 6-10 (0-2) /LPF Independent Interpretation I performed an independent interpretation of an: EKG (Normal sinus rhythm at 81 beats per minute, normal intervals, normal axis deviation, no ST-T changes.), Plain X-Ray (Chest: No acute intrathoracic pathology.), Ultrasound (Hepatobiliary ultrasound: No acute pathology.) and CT Scan (Head: No acute intracranial pathology.) Radiology Impression Discussion of test interpretation with radiology: I have reviewed the radiologist's reading. Prescription Management I considered prescription management with: Other (Anxiety) Discharge Plan Discharge Clinical Impression: LFT elevation, Acute alteration in mental status, Hypokalemia, UTI (urinary tract infection) Patient Disposition: Admitted As Inpatient Prescriptions: No Action polyethylene glycol 3350 [Miralax] 17 gram/dose powder 17 g PO DAILY Qty: 119 0RF docusate sodium [Colace] 100 mg capsule 100 mg PO BID Qty: 20 0RF Coditussin AC 10-200 mg/5 mL liquid 10 ml PO Q4-6H PRN (Reason: cough) Qty: 473 0RF prednisone 50 mg tablet 50 mg PO DAILY Qty: 5 0RF albuterol sulfate 90 mcg/actuation HFA aerosol inhaler 2 puff inhalation Q4-6H PRN (Reason: shortness of breath or wheezing) Qty: 8.5 0RF codeine-guaifenesin 10-100 mg/5 mL liquid 5 ml PO Q6H PRN (Reason: cough) Qty: 118 0RF benzonatate 100 mg capsule 100 mg PO TID PRN (Reason: cough) Qty: 10 0RF alprazolam [Xanax] 2 mg tablet 2 mg PO BEDTIME zolpidem [Ambien] 10 mg tablet 10 mg PO BEDTIME PRN sertraline [Zoloft] 50 mg tablet 50 mg PO DAILY cholecalciferol (vitamin D3) 50 mcg (2,000 unit) capsule 50 mcg PO DAILY Qty: 90 1RF
[2022-11-24 08:00] LABS: MANUAL DIFF FLAG NO
[2022-11-24 08:19] LABS: Alanine Aminotransferase 66 U/L (0-31); Albumin Level 4.6 g/dL (3.5-5.0); Alkaline Phosphatase 69 U/L (39-117); Anion Gap 17 (12-20); Aspartate Amino Transferase 249 U/L (5-31); Bilirubin Direct 0.2 mg/dL (0.0-0.5); Bilirubin Total 0.7 mg/dL (0.0-1.0); Blood Urea Nitrogen 10 mg/dL (9-16); Calcium 9.3 mg/dL (8.4-10.2); Carbon Dioxide 22 mmol/L (22-29); Chloride 98 mmol/L (96-108); Creatinine Clr Calc Pharmacy 70.6; Estimated Glomerular Filt Rate > 60; Glucose Random 113 mg/dL (60-115); Lipase 14 U/L (8-78); Potassium 3.2 mmol/L (3.3-5.1); Sodium 134 mmol/L (135-145); Total Protein 7.2 g/dL (6.5-8.0)
[2022-11-24 08:22] LABS: Troponin-I High Sensitivity 45.8 ng/L (<3.5-17.0)
[2022-11-24 08:24] LABS: Basophils Percent Auto 0.1 % (0-2); Eosinophils Percent Auto 0.1 % (0-4); Hematocrit 39.3 % (37.0-47.0); Hemoglobin 13.1 g/dl (12.0-16.0); Imm Gran Abs Auto 0.09 X10*3/uL (0.00-0.03); Imm Gran Pct Auto 0.6 % (0.0-0.4); Lymphocytes Absolute Auto 1.4 X10*3/uL (1.2-4.9); Lymphocytes Percent Auto 9.7 % (20-40); Mean Corpuscular HGB Conc 33.3 g/dl (31.0-35.0); Mean Corpuscular Volume 80.9 fL (80.0-98.0); Mean Platelet Volume 9.7 fL (9.4-12.3); Monocytes Absolute Auto 1.3 X10*3/uL (0.1-1.2); Monocytes Percent Auto 9.1 % (2-11); Neutrophils Absolute Auto 11.2 x10*3/uL (2.0-8.3); Neutrophils Percent Auto 80.4 % (45-73); Platelet Count 324 X10*3/uL (160-400); Red Blood Count 4.86 X10*6/uL (4.20-5.50); Red Cell Distribution Width 14.4 % (11.0-16.0); White Blood Count 13.9 X10*3/uL (4.8-10.8)
--- NOTE | 2022-11-24 09:21 | PC.NURSE ---
Patient resting comfortably easily aroused . Portuguese speaking reports right sided neck pain 9/10 will CTM
--- NOTE | 2022-11-24 09:48 | PC.NURSE ---
Patient sleeping is easily aroused no distress noted will CTM
--- NOTE | 2022-11-24 10:14 | PC.NURSE ---
Bedside Us performed will CTM
--- NOTE | 2022-11-24 11:23 | PC.NURSE ---
Pt one assisted to bathroom, obtained urine specimen. Pt asking if she is at [facility] or [facility] Pt lying in bed with eyes closed talking to herself. Unable to assess mental status at this time properly due to Guinean speaking. Patient able to follow commands and understand some vincentian. Pt denies pain at this time.
[2022-11-24 11:28] LABS: Appearance Urine Cloudy; Color Urine Yellow; Glucose Urine UA Negative (Negative); Leukocyte Esterase Urine Small (1+) (Negative); Nitrite Urine Negative (Negative); PH 6.5 (5.0-9.0); UMIC TRIGGER UACC YES; Urine Blood Moderate (2+) (Negative); Urine Ketones >=160 mg/dL (Negative); Urine Protein 30 (1+) mg/dL (Neg-Trace)
[2022-11-24 11:34] LABS: Ammonia 26 umol/L (13-55)
[2022-11-24 11:42] LABS: Bacteria Urine 3+ (None Seen); RBC Urine 0-2 /HPF (0-2); UACC Culture Trigger YES
[2022-11-24 11:51] LABS: Troponin-I High Sensitivity 44.3 ng/L (<3.5-17.0)
--- NOTE | 2022-11-24 12:42 | PM.IMHP ---
History of Present Illness Date of Service: 11/24/22 Attending physician on admission: Ryne Ford Chief Complaint: AMS Pt is a 57-year-old female with a PMH significant for?fibromyalgia, anxiety, and depression who presents to the ED by EMS with?confusion and auditory and visual hallucinations. Patient is a poor historian and HPI difficult to obtain. It is also unclear what events precipitated the call to EMS or who even made the call. Pt apparently lives alone in an apartment. Patient's daughter listed as primary contact. Attempt was made to speak with her to get a better medical and psychological history of her mother, but so far have not been able to make contact. Patient is alert to person only. Patient observed looking at and speaking to people who are not present. Patient states that she is hearing voices that tell her to run back and forth in the hallway. Denies the voices are telling her to harm herself or others. Patient states that she has been hearing voices and seeing people ?since my ?. Patient states that she has not been taking her medications for over a week stating they are ?trash? and ?from the devil? and wishes them to be out of her system. Of note, patient has been taking 2 mg of Xanax daily. Patient also states she has been drinking heavily until she loses consciousness for a long time though she is uncertain how long it has been since her last drink. Complains of dizziness and lightheadedness with standing, and occasional palpitations. In the ED patient was afebrile but slightly hypertensive at 150/76. Labs were significant for leukocytosis of 13.9, sodium of 134, potassium 3.2, transaminitis of AST 249, ALT of 66, bilirubin and alk false WNL, ammonia WNL in 26, troponin elevated at 45.8 with repeat flat at 44.3. UA positive for protein, blood, small amount of leukocyte esterase, WBC 11-20, bacteria 3+. CXR showed no acute cardiopulmonary process seen, though reveals a new 8 mm oval density in the right midlung new since last exam on 09/24/2022, likely artifact. CT?negative for acute intracranial pathology: No evidence of mass, hemorrhage, or infarction. Abdominal ultrasound largely unremarkable: showed mildly echogenic liver without focal lesion, and nonobstructing echogenic stone pole right kidney. EKG demonstrated normal sinus rhythm with no evidence of ST elevations or depressions. Pt was treated with IVF, potassium chloride, and ceftriaxone. Pt will be admitted to the hospital for further evaluation and treatment of altered mental status. Review of Systems Review of Systems: Difficult to obtain due to patient's mentation [facility] Medical History Anxiety Asthma Depression Fibromyalgia Insomnia Family History Mother Diabetes HTN (hypertension) CVD (cardiovascular disease) Father Arthritis CVD (cardiovascular disease) Surgical History H/O knee surgery History of partial hysterectomy Hx of tubal ligation Social History Household Members: Spouse Housing: Apartment Alcohol intake: current Alcohol intake frequency: does not drink Patient Tobacco Use Status: Never used Tobacco Smoked in Last 30 Days: No Use of substances other than those prescribed or required for medical reasons: No Advance Directives: No Advance Directives Information Provided: No Current occupational status: disabled Meds Allergies Allergy/AdvReac Type Severity Reaction Status Date / Time duloxetine [From CYMBALTA] Allergy Mild ITCHING Verified 01/26/21 08:46 ibuprofen [From MOTRIN] Allergy Unknown ITCHING Verified 01/26/21 08:46 ibuprofen Allergy Unknown Unknown Uncoded 07/16/20 11:01 Active Medications: Current Medications Ceftriaxone Sodium 1 gm/ (Sodium Chloride) 50 mls @ 100 mls/hr IV ONCE ONE Stop: 11/24/22 12:49 Sodium Chloride (Ns) 1,000 mls @ 999 mls/hr IV .Q1H1M ONE Stop: 11/24/22 13:28 Pharmacy Consult (Consult Rx Perform Med Rec) 1 each MISCELLANE ONCE PRN PRN Reason: Consult order Home Medications Medication Instructions Recorded Confirmed Last Taken Type alprazolam 2 mg tablet (Xanax) 2 mg PO BEDTIME 11/15/20 11/15/20 Unknown History sertraline 50 mg tablet (Zoloft) 50 mg PO DAILY 11/15/20 11/15/20 Unknown History zolpidem 10 mg tablet (Ambien) 10 mg PO BEDTIME PRN 11/15/20 11/15/20 Unknown History Physical Exam Vital Signs and Narrative: Vital Signs: Last Vital Signs Temp 99.7 F 11/24/22 11:14 Pulse 85 11/24/22 11:14 Resp 19 11/24/22 11:14 BP 147/79 H 11/24/22 11:14 Pulse Ox 96 11/24/22 11:14 O2 Del Method Room Air 11/24/22 11:14 BMI result Body Mass Index 26.5 Constitutional: Alert, confused, in no acute distress. No tremors noted. Mental Status: Oriented to person only. Eyes: Pupils are equal, round, and reactive to light. Ear, Nose, and Throat: Oropharynx clear, mucous membranes moist. Ears and nose without deformities. Trachea midline. Respiratory: Clear to auscultation bilaterally. No wheezing, rales, or rhonchi. Cardiovascular: S1, S2 regular. No murmurs, rubs, or gallops. Gastrointestinal: Abdomen soft, non-distended, with mild left-sided tenderness. Normal bowel sounds. Neurologic: Cranial nerves II-XII are grossly intact bilaterally. No focal neurological deficits. Moves all extremities spontaneously. Skin: No rashes or lesions noted. Musculoskeletal: No cyanosis or clubbing. Extremities: No edema. Psychiatric: Pt seen speaking and looking at people not in the room. Results Labs 11/24/22 07:56 11/24/22 07:56 Labs: Laboratory Results - last 24 hr 11/24/22 11/24/22 11/24/22 07:56 07:56 07:56 MCV 80.9 MCH 27.0 MCHC 33.3 RDW 14.4 Plt Count 324 MPV 9.7 Immature Gran % (Auto) 0.6 H Neut % (Auto) 80.4 H Lymph % (Auto) 9.7 L Major % (Auto) 9.1 Eos % (Auto) 0.1 Baso % (Auto) 0.1 Lymph # (Auto) 1.4 Major # (Auto) 1.3 H Eos # (Auto) 0.0 Baso # (Auto) 0.0 Abs Immat Gran (auto) 0.09 H Absolute Neuts (auto) 11.2 H Absolute Nucleated RBC 0.000 Nucleated RBC % (auto) 0.0 Anion Gap 17 Estim Creat Clear Calc 70.6 Estimated GFR > 60 Random Glucose 113 Calcium 9.3 D Total Bilirubin 0.7 Direct Bilirubin 0.2 AST 249 H ALT 66 H Alkaline Phosphatase 69 Ammonia Troponin I High Sens 45.8 H Total Protein 7.2 Albumin 4.6 Lipase 14 Urine Color Urine Appearance Urine pH Ur Specific [place] Urine Protein Urine Glucose (UA) Urine Ketones Urine Blood Urine Nitrite Ur Leukocyte Esterase Urine RBC Urine WBC Ur Squamous Epith Cells Urine Bacteria Hyaline Casts 11/24/22 11/24/22 11/24/22 11:22 11:22 11:22 MCV MCH MCHC RDW Plt Count MPV Immature Gran % (Auto) Neut % (Auto) Lymph % (Auto) Major % (Auto) Eos % (Auto) Baso % (Auto) Lymph # (Auto) Major # (Auto) Eos # (Auto) Baso # (Auto) Abs Immat Gran (auto) Absolute Neuts (auto) Absolute Nucleated RBC Nucleated RBC % (auto) Anion Gap Estim Creat Clear Calc Estimated GFR Random Glucose Calcium Total Bilirubin Direct Bilirubin AST ALT Alkaline Phosphatase Ammonia 26 Troponin I High Sens 44.3 H Total Protein Albumin Lipase Urine Color Yellow Urine Appearance Cloudy Urine pH 6.5 Ur Specific [place] 1.020 Urine Protein 30 (1+) H Urine Glucose (UA) Negative Urine Ketones >=160 Urine Blood Moderate (2+) H Urine Nitrite Negative Ur Leukocyte Esterase Small (1+) H Urine RBC 0-2 Urine WBC 11-20 H Ur Squamous Epith Cells 6-10 Urine Bacteria 3+ Hyaline Casts 6-10 Imaging Radiologist's Impressions: Impressions Chest X-Ray 11/24/22 07:44 IMPRESSION: 1. No acute cardiopulmonary process seen. 2. 8 mm oval density right midlung, question calcified nodule. It is new since last exam 09/24/2022. Likely artifact. Head CT 11/24/22 08:11 IMPRESSION: No evidence of mass, hemorrhage or infarction. No acute intracranial pathology. Abdomen Ultrasound 11/24/22 10:08 IMPRESSION: 1. Mildly echogenic liver without focal lesion. 2. Small echogenic stone midpole right kidney without caliectasis or hydronephrosis. 3. The visualized pancreas, gallbladder, CBD, and the right kidney are unremarkable. Assessment and Plan (1) Acute alteration in mental status: Status: Acute Plan Pt is a 57-year-old female with a PMH significant for?fibromyalgia, anxiety, and depression who presents to the ED by EMS with?confusion and auditory and visual hallucinations. Patient be admitted to the hospital for treatment further evaluation of acute altered mental status of unclear etiology. Altered mental status Etiology unclear: psychosis vs benzo withdrawal vs encephalopathy Pt with confusion, auditory and visual hallucinations Will check tox screen including acetaminophen, alcohol, and salicylate levels Ammonia WNL Lactic acid WNL Monitor CIWA scale Psychiatry consult Admit to telemetry Transaminitis AST elevated at 249 and ALT of 66 Alk-phos, bilirubin, ammonia WNL Abdominal ultrasound unremarkable Will check hepatitis panel Follow CMP Question of UTI UA positive for protein, moderate blood, small leukocyte esterase, WBC 11-20, 6-10 epithelial cells, and 3+ bacteria. ?contaminated Patient cannot provide accurate HPI Will treat empirically with ceftriaxone Follow cultures Full Code Attending:?Dr. Ford DVT Prophylaxis: Lovenox Pt will require a hospitalization of at least two nights for treatment and further evaluation of?acute altered mental status of unclear etiology. Time Spent With Patient Time: Total time managing care of this patient today ____ minutes. Quality Stroke Does the patient have a stroke diagnosis?: No VTE Prior VTE?: No VTE Risk Level:: Medical - moderate - high VTE Device Contraindication: Treatment Not Indicated VTE Drug Contraindication: N/A - Med Ordered
[2022-11-24] MEDS: 0.9 % Sodium Chloride 1,000 ML 999 ML IV (13:08)
[2022-11-24 13:19] LABS: Lactic Acid 0.8 mmol/L (0.5-2.0)
[2022-11-24 13:19] LABS: COVID-19 Test Negative (Negative); IDNOW Serial# 08D9AD1C
[2022-11-24 14:00] LABS: Acetaminophen LAB < 17 mcg/mL (<30); Salicylate < 5.0 mg/dL (15-30)
[2022-11-24] MEDS: Potassium Chloride Packet 20 MEQ PACKET 40 MEQ PO (14:00)
[2022-11-24] MEDS: cefTRIAXone sodium 1 GM in 0.9 % Sodium Chloride 50 ML IV (14:01)
[2022-11-24 14:05] LABS: Amphetamine Screen Urine Not Detected (Not Detect); Barbiturates, Urine Not Detected (Not Detect); Benzodiazepines Screen Urine POSITIVE (Not Detect); Cannabinoid Screen Urine POSITIVE (Not Detect); Cocaine Screen Urine Not Detected (Not Detect); Fentanyl, urine Not Detected (Not Detect); Opiate Screen Urine Not Detected (Not Detect); Phencyclidine Screen Urine Not Detected (Not Detect)
--- NOTE | 2022-11-24 14:15 | PC.NURSE ---
Pt medicated per provider order. Pt continues to talk to herself.
[2022-11-24 14:19] LABS: Ethanol < 10 mg/dL
--- NOTE | 2022-11-24 14:32 | PHA.MEDREC ---
Pharmacy Consult ? Medication Reconciliation Pharmacy has completed the medication reconciliation. Utilized freelance interpreter/translator services. Spoke to patient to confirm meds, however patient did not seem fully reliable. Patient didn't know any medications names on their own, but would seem to remember and confirm the medication if the name was provided and what it was for. Used claim history and called patient's pharmacy to confirm medications. Patient states that they take both ramelteon and zolpidem, with both medications prescribed by the same Dr. Muñoz and have been filled for months as per claim history.
--- NOTE | 2022-11-24 14:41 | PC.NURSE ---
Pt vitals taken and patient now febrile, hypertensive.
[2022-11-24 14:44] LABS: INTERNATIONAL NORM RATIO 1.2 (0.9-1.1); Prothrombin Time 14.2 SEC (10.0-13.1)
[2022-11-24] MEDS: Enoxaparin Sodium 40 MG/0.4 ML SYRINGE SUBCUT (14:46)
--- NOTE | 2022-11-24 15:03 | PC.NURSE ---
Pt medicated per provider order. Provider at bedside updated on patient status. Pt currently oriented to person, with auditory hallucinations. No new orders at this time.
[2022-11-24 15:16] LABS: Alanine Aminotransferase 70 U/L (0-31); Albumin Level 4.7 g/dL (3.5-5.0); Alkaline Phosphatase 72 U/L (39-117); Anion Gap 23 (12-20); Aspartate Amino Transferase 242 U/L (5-31); Bilirubin Total 0.7 mg/dL (0.0-1.0); Blood Urea Nitrogen 9 mg/dL (9-16); C Reactive Protein 3.64 mg/dL (< or = 0.50); Calcium 9.1 mg/dL (8.4-10.2); Carbon Dioxide 18 mmol/L (22-29); Chloride 100 mmol/L (96-108); Creatinine Clr Calc Pharmacy 73.4; Estimated Glomerular Filt Rate > 60; Glucose Random 114 mg/dL (60-115); Potassium 3.5 mmol/L (3.3-5.1); Sodium 137 mmol/L (135-145); Total Protein 7.4 g/dL (6.5-8.0)
--- NOTE | 2022-11-24 15:24 | PC.NURSE ---
RN to RN report given.
--- NOTE | 2022-11-24 15:25 | PC.NURSE ---
pt remains oriented to person, tachycardic on monitor, appears more agitated increased hallucinations, grabbing at the air, flushed appearance, afebrile, provider notified, pt transporting to unit.
[2022-11-24 15:37] LABS: Procalcitonin 0.02 ng/mL
[2022-11-24] MEDS: 0.9 % Sodium Chloride Flush 3 ML SYRINGE IVFLUSH ×2 (16:21→20:52)
[2022-11-24] MEDS: LORazepam 2 MG/ML VIAL IVPUSH (16:21)
[2022-11-24] MEDS: Thiamine HCL 500 MG in 0.9 % Sodium Chloride 100 ML 210 MG IV (17:42)
[2022-11-24] MEDS: Acetaminophen 325 MG TABLET 650 MG PO (20:51)
[2022-11-25] MEDS: Thiamine HCL 500 MG in 0.9 % Sodium Chloride 100 ML 210 MG IV ×3 (00:21→16:27)
[2022-11-25 03:44] VITALS: BP 121/67; PULSE 99; RESP 16; TEMP 36.2; O2SAT 97
[2022-11-25 03:53] LABS: HBS Num1 2.42 mIU/mL (0-7.99); HBc Num1 0.15 S/CO (0.00-0.79); HBsAGNum1 0.51 S/CO (0.00-0.99); Hepatitis B Core Antibody Nonreactive (Nonreactive); Hepatitis B Surface Antigen Negative (Negative); ~HepC Num1 0.14 S/CO (0.00-0.79); ~Hepatitis B Surface Antibody NONREACTIVE (Nonreactive); ~Hepatitis C Antibody Nonreactive (Nonreactive)
[2022-11-25 05:14] LABS: Hepatitis A Antibody IgM 0.18 Index (0-0.79); ~Hepatitis A Antibody IgM Nonreactive (Nonreactive)
[2022-11-25] MEDS: Omeprazole 20 MG CAPSULE.DR PO (05:56)
--- NOTE | 2022-11-25 06:27 | PM.EVENT ---
Event Note Date of Service: 11/25/22 Event Note: Blood cultures came back this morning positive for Gram-positive cocci in clusters. Patient started on vancomycin, blood cultures repeated Time Spent With Patient Time: Total time managing care of this patient today ____ minutes.
[2022-11-25] MEDS: 0.9 % Sodium Chloride Flush 3 ML SYRINGE IVFLUSH ×3 (07:52→20:40)
[2022-11-25 07:54] VITALS: BP 124/69; PULSE 96; RESP 18; O2SAT 96
[2022-11-25] MEDS: Cholecalciferol (Vitamin D3) 25 MCG TABLET 50 MCG PO (08:08)
[2022-11-25] MEDS: Pravastatin Sodium 20 MG TABLET PO (08:08)
[2022-11-25 08:18] LABS: Hematocrit 35.6 % (37.0-47.0); Hemoglobin 12.1 g/dl (12.0-16.0); Mean Corpuscular Volume 82.4 fL (80.0-98.0); Mean Platelet Volume 10.3 fL (9.4-12.3); Platelet Count 311 X10*3/uL (160-400); Red Blood Count 4.32 X10*6/uL (4.20-5.50); Red Cell Distribution Width 14.6 % (11.0-16.0); White Blood Count 9.2 X10*3/uL (4.8-10.8)
[2022-11-25] MEDS: vancomycin HCL 1,000 MG, vancomycin HCL 750 MG in 0.9 % Sodium Chloride 500 ML 267.5 MG IV (09:05)
[2022-11-25 09:06] LABS: Alanine Aminotransferase 67 U/L (0-31); Alkaline Phosphatase 62 U/L (39-117); Anion Gap 14 (12-20); Aspartate Amino Transferase 190 U/L (5-31); Bilirubin Total 0.8 mg/dL (0.0-1.0); Blood Urea Nitrogen 10 mg/dL (9-16); Calcium 8.6 mg/dL (8.4-10.2); Carbon Dioxide 23 mmol/L (22-29); Chloride 108 mmol/L (96-108); Creatinine Clr Calc Pharmacy 78.5; Estimated Glomerular Filt Rate > 60; Glucose Random 113 mg/dL (60-115); Potassium 3.7 mmol/L (3.3-5.1); Sodium 141 mmol/L (135-145); Total Protein 6.2 g/dL (6.5-8.0)
--- NOTE | 2022-11-25 09:33 | PHA.PROG ---
Admission Date/Time: November 24, 2022 13:50 Indication: Bacteremia Weight in k.771 kg Adjusted body weight in K.368 [place] body weight in K.56 Obesity Dosing Indication % IBW:Not obese Serum Creatinine - Last 168 Hours 11/24/22 11/24/22 11/25/22 07:56 14:02 07:39 Creatinine 0.80 0.77 0.72 Estimated CrCl and GFR - Last 168 Hours 11/24/22 11/24/22 11/25/22 07:56 14:02 07:39 Estim Creat Clear Calc 70.6 73.4 78.5 Estimated GFR > 60 > 60 > 60 Vancomycin Loading Dose: 1750 mg Current Vancomycin Dosing Regimen: 1000 mg Q12H Vancomycin Monitoring using AUC goal of 400 - 600 range with trough as surrogate marker: 548 mg/L/hr Date and Time for next Vancomycin Level to be drawn: 11/26 @1900 Pharmacist Comments on Vancomycin Plan: Vancomycin dosing will take advantage of [employer] as a clinical decision support tool that uses Bayesian modeling to calculate individual patient's pharmacokinetic parameters and forecast the patient's drug concentration time course with the target goal AUC 24 range of 400 - 600 mg/L/hr.
[2022-11-25 11:12] VITALS: BP 129/67; PULSE 89; RESP 17; TEMP 37.7; O2SAT 96
--- NOTE | 2022-11-25 11:56 | MHC.CM.PN ---
with interprtator met with pt who lives alone pt has no servcies and will need a ride home she says her brother has her marion ..pt is covid vax doesnt remember her pcp dc plan home ,pt needs to be seen by care team
--- NOTE | 2022-11-25 12:17 | P.PNIM_ITS ---
Subjective Subjective Date of Service: 11/25/22 Review of Systems Follow-up encephalopathy Feeling better but just tired Denies nausea, vomiting, diarrhea Physical Exam Vital Signs: Vital Signs: Last Vital Signs Temp 99.8 F 11/25/22 11:12 Pulse 89 11/25/22 11:12 Resp 17 11/25/22 11:12 BP 129/67 11/25/22 11:12 Pulse Ox 96 11/25/22 11:12 O2 Del Method Room Air 11/25/22 11:12 BMI result Body Mass Index 26.5 Appearing in no acute distress lung sounds are clear to auscultation heart regular rate rhythm, clear S1, S2 positive bowel sounds, abdomen is soft, nontender neuro patient is alert x3, no focal deficits Objective Data Active Medications Acetaminophen (Acetaminophen 325 Mg Tablet) 650 mg PO Q8H PRN PRN Reason: Fever Last Admin: 11/24/22 20:51 Dose: 650 mg Documented By: MARIA G Albuterol Sulfate (Albuterol Sulfate 90 Mcg 8 Gm Inhaler) 2 puff INHALE Q4H PRN PRN Reason: shortness of breath or wheezing Enoxaparin Sodium (Enoxaparin Sodium 40 Mg/0.4 Ml Syringe) 40 mg SUBCUT Q24H [facility] Last Admin: 11/24/22 14:46 Dose: 40 mg Documented By: WENDY Thiamine HCl 500 mg/ Sodium (Chloride) 105 mls @ 210 mls/hr IV Q8H [facility] Stop: 11/26/22 08:29 Last Infusion: 11/25/22 09:03 Dose: 0 mls/hr Documented By: NOHEMY Thiamine HCl 250 mg/ Sodium (Chloride) 102.5 mls @ 202 mls/hr IV DAILY@1600 [facility] Stop: 11/30/22 16:31 Ceftriaxone Sodium 1 gm/ (Sodium Chloride) 50 mls @ 100 mls/hr IV Q24H [facility] Vancomycin HCl 1,000 mg/ (Sodium Chloride) 270 mls @ 270 mls/hr IV Q12H [facility] Loratadine (Loratadine 10 Mg Tablet) 10 mg PO DAILY PRN PRN Reason: allergies Lorazepam (Lorazepam 2 Mg/Ml Vial) 1 mg IVPUSH Q4H PRN PRN Reason: CIWA of 8 or greater Omeprazole (Omeprazole 20 Mg Capsule.Dr) 20 mg PO DAILY@0630 [facility] Last Admin: 11/25/22 05:56 Dose: 20 mg Documented By: MARIA G Pharmacy Consult (Consult Rx Perform Med Rec) 1 each MISCELLANE ONCE PRN PRN Reason: Consult order Pharmacy Consult (Consult Rx Vancomycin Dosing) 1 each MISCELLANE DAILY PRN PRN Reason: Consult order Pravastatin Sodium (Pravastatin Sodium 20 Mg Tablet) 20 mg PO DAILY [facility] Last Admin: 11/25/22 08:08 Dose: 20 mg Documented By: NOHEMY Sodium Chloride (0.9 % Sodium Chloride Flush 3 Ml Syringe) 3 ml IVFLUSH QSHIFT [facility] Last Admin: 11/25/22 07:52 Dose: 3 ml Documented By: NOHEMY Thiamine HCl (Thiamine Hcl 100 Mg Tablet) 100 mg PO DAILY [facility] Vitamin D (Cholecalciferol (Vitamin D3) 25 Mcg Tablet) 50 mcg PO DAILY [facility] Last Admin: 11/25/22 08:08 Dose: 50 mcg Documented By: NOHEMY Labs 11/25/22 07:39 11/25/22 07:39 Labs: Laboratory Results - last 24 hr 11/24/22 11/24/22 11/24/22 07:56 11:22 11:22 MCV MCH MCHC RDW Plt Count MPV Absolute Nucleated RBC Nucleated RBC % (auto) PT INR Anion Gap Estim Creat Clear Calc Estimated GFR Random Glucose Lactic Acid Calcium Total Bilirubin AST ALT Alkaline Phosphatase C-Reactive Protein Total Protein Albumin Procalcitonin Salicylates Urine Opiates Screen Not Detected Urine Fentanyl Screen Not Detected Acetaminophen Ur Barbiturates Screen Not Detected Ur Phencyclidine Scrn Not Detected Ur Amphetamines Screen Not Detected U Benzodiazepines Scrn POSITIVE H Urine Cocaine Screen Not Detected U Marijuana (THC) Screen POSITIVE H Ethyl Alcohol < 10 COVID-19 ([facility]) COVID-19 Clin Com Hepatitis A IgM Ab Nonreactive Hep Bs Antigen Negative Hep Bs Antibody NONREACTIVE Hep B Core Total Ab Nonreactive Hepatitis C Ab (EIA) Nonreactive 11/24/22 11/24/22 11/24/22 12:51 12:52 13:27 MCV MCH MCHC RDW Plt Count MPV Absolute Nucleated RBC Nucleated RBC % (auto) PT INR Anion Gap Estim Creat Clear Calc Estimated GFR Random Glucose Lactic Acid 0.8 Calcium Total Bilirubin AST ALT Alkaline Phosphatase C-Reactive Protein Total Protein Albumin Procalcitonin Salicylates < 5.0 L Urine Opiates Screen Urine Fentanyl Screen Acetaminophen < 17 Ur Barbiturates Screen Ur Phencyclidine Scrn Ur Amphetamines Screen U Benzodiazepines Scrn Urine Cocaine Screen U Marijuana (THC) Screen Ethyl Alcohol COVID-19 ([facility]) Negative COVID-19 Clin Com See Note Hepatitis A IgM Ab Hep Bs Antigen Hep Bs Antibody Hep B Core Total Ab Hepatitis C Ab (EIA) 11/24/22 11/24/22 11/25/22 14:02 14:25 07:39 MCV 82.4 MCH 28.0 MCHC 34.0 RDW 14.6 Plt Count 311 MPV 10.3 Absolute Nucleated RBC 0.000 Nucleated RBC % (auto) 0.0 PT 14.2 H INR 1.2 H Anion Gap 23 H Estim Creat Clear Calc 73.4 Estimated GFR > 60 Random Glucose 114 Lactic Acid Calcium 9.1 Total Bilirubin 0.7 AST 242 H ALT 70 H Alkaline Phosphatase 72 C-Reactive Protein 3.64 H Total Protein 7.4 Albumin 4.7 Procalcitonin 0.02 Salicylates Urine Opiates Screen Urine Fentanyl Screen Acetaminophen Ur Barbiturates Screen Ur Phencyclidine Scrn Ur Amphetamines Screen U Benzodiazepines Scrn Urine Cocaine Screen U Marijuana (THC) Screen Ethyl Alcohol COVID-19 ([facility]) COVID-19 Clin Com Hepatitis A IgM Ab Hep Bs Antigen Hep Bs Antibody Hep B Core Total Ab Hepatitis C Ab (EIA) 11/25/22 07:39 MCV MCH MCHC RDW Plt Count MPV Absolute Nucleated RBC Nucleated RBC % (auto) PT INR Anion Gap 14 Estim Creat Clear Calc 78.5 Estimated GFR > 60 Random Glucose 113 Lactic Acid Calcium 8.6 Total Bilirubin 0.8 AST 190 H ALT 67 H Alkaline Phosphatase 62 C-Reactive Protein Total Protein 6.2 L Albumin 4.0 Procalcitonin Salicylates Urine Opiates Screen Urine Fentanyl Screen Acetaminophen Ur Barbiturates Screen Ur Phencyclidine Scrn Ur Amphetamines Screen U Benzodiazepines Scrn Urine Cocaine Screen U Marijuana (THC) Screen Ethyl Alcohol COVID-19 ([facility]) COVID-19 Clin Com Hepatitis A IgM Ab Hep Bs Antigen Hep Bs Antibody Hep B Core Total Ab Hepatitis C Ab (EIA) Microbiology Microbiology Results: Microbiology 11/24/22 Unknown Urine Culture - Preliminary Urine clean catch - Urine melissa top Culture too young to evaluate. 11/24/22 12:51 Blood Culture - Preliminary Blood - Venous Prelim: GPC Gram Stain only Assessment and Plan (1) Acute alteration in mental status: Status: Acute Plan 57-year-old female with a PMH significant for?fibromyalgia, anxiety, and depression who presents to the ED by EMS with?confusion and auditory and visual hallucinations.? Patient be admitted to the hospital for treatment further evaluation of acute altered mental status of unclear etiology. GPC bacteremia 1/2 empirically treat with Vancomycin If positive and not a contaminant, obtain echo Acute encephalopathy, likely secondary to benzodiazepine withdrawal Pt with confusion, auditory and visual hallucinations which have resolved Will check tox screen including acetaminophen, alcohol, and salicylate levels Ammonia WNL Monitor CIWA scale Psychiatry consult pending for medication management Admit to telemetry IV thiamine Transaminitis echogenic liver AST elevated at 249 and ALT of 66 Alk-phos, bilirubin, ammonia WNL Abdominal ultrasound unremarkable hepatitis panel neg UTI Rocephin Follow cultures Hx of alcohol abuse patient reported not drinking since August 2022 utox neg Full Code Attending:?Dr. Ford DVT Prophylaxis: Lovenox Pt will require a hospitalization of at least two nights for treatment and further evaluation of?acute altered?mental status of unclear etiology. Time Spent With Patient Time: Total time managing care of this patient today ____ minutes. Quality Stroke Does the patient have a stroke diagnosis?: No VTE Prior VTE?: No VTE Risk Level:: Medical - moderate - high VTE Device Contraindication: Treatment Not Indicated VTE Drug Contraindication: N/A - Med Ordered
[2022-11-25] MEDS: Enoxaparin Sodium 40 MG/0.4 ML SYRINGE SUBCUT (13:56)
[2022-11-25] MEDS: cefTRIAXone sodium 1 GM in 0.9 % Sodium Chloride 50 ML IV (13:56)
[2022-11-25] MEDS: Acetaminophen 325 MG TABLET 650 MG PO (14:26)
[2022-11-25] MEDS: Throat Lozenge, Medicated LOZENGE 1 LOZENGE MUCOUS MEM (14:30)
[2022-11-25 15:27] VITALS: BP 137/78; PULSE 90; RESP 18; TEMP 37.1; O2SAT 98
[2022-11-25] MEDS: LORazepam 2 MG/ML VIAL 1 MG IVPUSH ×2 (16:34→20:27)
[2022-11-25 19:53] VITALS: BP 145/89; PULSE 98; RESP 18; TEMP 37; O2SAT 99
[2022-11-25] MEDS: vancomycin HCL 1,000 MG in 0.9 % Sodium Chloride 250 ML 270 MG IV (20:34)
[2022-11-26] VITALS: BP 108/67; PULSE 87; RESP 15; TEMP 36.7; O2SAT 97
[2022-11-26] MEDS: Thiamine HCL 500 MG in 0.9 % Sodium Chloride 100 ML 210 MG IV ×2 (02:16→10:01)
[2022-11-26] MEDS: LORazepam 2 MG/ML VIAL 1 MG IVPUSH ×2 (02:16→10:00)
[2022-11-26 03:41] VITALS: BP 116/61; PULSE 87; RESP 15; O2SAT 97
[2022-11-26] MEDS: Omeprazole 20 MG CAPSULE.DR PO (05:40)
[2022-11-26 07:40] VITALS: BP 138/79; PULSE 87; RESP 20; TEMP 37; O2SAT 97
[2022-11-26 08:02] LABS: Alanine Aminotransferase 64 U/L (0-31); Albumin Level 3.5 g/dL (3.5-5.0); Alkaline Phosphatase 53 U/L (39-117); Anion Gap 12 (12-20); Aspartate Amino Transferase 149 U/L (5-31); Bilirubin Direct 0.2 mg/dL (0.0-0.5); Bilirubin Total 0.4 mg/dL (0.0-1.0); Blood Urea Nitrogen 8 mg/dL (9-16); Calcium 8.3 mg/dL (8.4-10.2); Carbon Dioxide 25 mmol/L (22-29); Chloride 110 mmol/L (96-108); Creatinine Clr Calc Pharmacy 81.9; Creatinine Clr Calc Pharmacy 85.7; Estimated Glomerular Filt Rate > 60; Glucose Random 103 mg/dL (60-115); Potassium 3.8 mmol/L (3.3-5.1); Sodium 143 mmol/L (135-145); Total Protein 5.5 g/dL (6.5-8.0)
[2022-11-26] MEDS: 0.9 % Sodium Chloride Flush 3 ML SYRINGE IVFLUSH ×2 (10:01→13:15)
[2022-11-26] MEDS: Cholecalciferol (Vitamin D3) 25 MCG TABLET 50 MCG PO (10:01)
[2022-11-26] MEDS: Pravastatin Sodium 20 MG TABLET PO (10:02)
[2022-11-26] MEDS: vancomycin HCL 1,000 MG in 0.9 % Sodium Chloride 250 ML 270 MG IV (10:46)
--- NOTE | 2022-11-26 10:57 | P.CNPS_ITS ---
History of Present Illness Date of Service: 11/26/2022 Chief Complaint: anxiety, depression Reason for Consult: Auditory and visual perceptual alterations. Requesting physician: Johnathan Asif Sources of Information: patient interviewed and chart reviewed Additional Sources of Information: Pb Muñoz MOTH EXTERMINATOR- Out patient prescribing clinician, Pt has been in treatment for many years, history dates to 2019. She has never stopped medications. Trials that did not help included mirtazapine, escitalopram. Pt is highly anxious, team has attempted to stop benzodiazepines in the past- tapering will be supported by her team. Alprazolam, Duloxetine, Ambien, Ramelteon since [address] and stable[address] Discussed alternatives- possible viibryd, trintellix and change to prn low dose klonopin. HPI Narrative: 57 yo female, history of fibromyalgia, anxiety depression, presented with auditory and visual perceptual alterations. Pt asked and received ebd teacher services. Reports to team stopping Alprazolam 2 mg tid prn 2 days prior to admission, along with Duloxetine, Ambien, Ramelteon. Reports drinking alcohol as well. Found to have leukocytosis, transamniasemia, fever and probable UTI which is being treated. States she felt tired and nauseated as rationale for stopping medications. States she did not know she could not stop Alprazolam without withdrawal risk. Reports her living situation increases her anxiety as she lives in public housing with several neighbors with addiction issues-she stays mostly in her home, but needs to walk her dogs and finds drugs, needles and feels increasingly unsafe in the area. She would like to continue with Mr. Muñoz, begin psychotherapy, and begin work with a team to help her find safe housing. Past Psychiatric History: IP: Denies OP: Pb Muñoz-psychopharmacology [phone] Medical Evaluation Reviewed: Yes Personal & Social History: Lives alone in public housing. Two daughters, one brother who live close by and are a good support. [facility] Medical History (Updated 11/26/22 @ 11:38 by Haily Dotson APRN) Alcohol abuse Anxiety Asthma Depression Fibromyalgia Insomnia Surgical History H/O knee surgery History of partial hysterectomy Hx of tubal ligation Family History: denies Social History: Lives alone with her dogs Two daughters and one brother are a support Substance History: BAL <10. 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 Denies regular use of alcohol. AST- 242, 190, 149 ALT 70, 67, 64 Trauma History: identifies current housing situation as traumatic Diagnostics Vital Signs (24Hr): Vital Signs - 24 hr 11/25/22 11:12 11/25/22 15:27 11/25/22 19:53 Temperature 99.8 F 98.7 F 98.6 F Pulse Rate 89 90 98 Respiratory Rate 17 18 18 Blood Pressure 129/67 137/78 145/89 H Pulse Oximetry 96 98 99 Oxygen Delivery Method Room Air Room Air Room Air 11/26/22 00:00 11/26/22 03:41 11/26/22 07:40 Temperature 98.0 F 98.6 F Pulse Rate 87 87 87 Respiratory Rate 15 15 20 Blood Pressure 108/67 116/61 138/79 Pulse Oximetry 97 97 97 Oxygen Delivery Method Room Air Room Air Room Air BMI result Body Mass Index 26.5 Labs 11/25/22 07:39 11/26/22 07:37 Labs: Laboratory Results - last 48 hr 11/24/22 11/24/22 11/24/22 07:56 11:22 11:22 WBC RBC Hgb Hct MCV MCH MCHC RDW Plt Count MPV Absolute Nucleated RBC Nucleated RBC % (auto) PT INR Sodium Potassium Chloride Carbon Dioxide Anion Gap BUN Creatinine Estim Creat Clear Calc Estimated GFR Random Glucose Lactic Acid Calcium Total Bilirubin Direct Bilirubin AST ALT Alkaline Phosphatase Ammonia 26 Troponin I High Sens C-Reactive Protein Total Protein Albumin Procalcitonin Urine Color Urine Appearance Urine pH Ur Specific [place] Urine Protein Urine Glucose (UA) Urine Ketones Urine Blood Urine Nitrite Ur Leukocyte Esterase Urine RBC Urine WBC Ur Squamous Epith Cells Urine Bacteria Hyaline Casts Salicylates Urine Opiates Screen Urine Fentanyl Screen Acetaminophen Ur Barbiturates Screen Ur Phencyclidine Scrn Ur Amphetamines Screen U Benzodiazepines Scrn Urine Cocaine Screen U Marijuana (THC) Screen Ethyl Alcohol < 10 COVID-19 ([facility]) COVID-19 Clin Com Hepatitis A IgM Ab Nonreactive Hep Bs Antigen Negative Hep Bs Antibody NONREACTIVE Hep B Core Total Ab Nonreactive Hepatitis C Ab (EIA) Nonreactive 11/24/22 11/24/22 11/24/22 11:22 11:22 11:22 WBC RBC Hgb Hct MCV MCH MCHC RDW Plt Count MPV Absolute Nucleated RBC Nucleated RBC % (auto) PT INR Sodium Potassium Chloride Carbon Dioxide Anion Gap BUN Creatinine Estim Creat Clear Calc Estimated GFR Random Glucose Lactic Acid Calcium Total Bilirubin Direct Bilirubin AST ALT Alkaline Phosphatase Ammonia Troponin I High Sens 44.3 H C-Reactive Protein Total Protein Albumin Procalcitonin Urine Color Yellow Urine Appearance Cloudy Urine pH 6.5 Ur Specific [place] 1.020 Urine Protein 30 (1+) H Urine Glucose (UA) Negative Urine Ketones >=160 Urine Blood Moderate (2+) H Urine Nitrite Negative Ur Leukocyte Esterase Small (1+) H Urine RBC 0-2 Urine WBC 11-20 H Ur Squamous Epith Cells 6-10 Urine Bacteria 3+ Hyaline Casts 6-10 Salicylates Urine Opiates Screen Not Detected Urine Fentanyl Screen Not Detected Acetaminophen Ur Barbiturates Screen Not Detected Ur Phencyclidine Scrn Not Detected Ur Amphetamines Screen Not Detected U Benzodiazepines Scrn POSITIVE H Urine Cocaine Screen Not Detected U Marijuana (THC) Screen POSITIVE H Ethyl Alcohol COVID-19 ([facility]) COVID-19 Clin Com Hepatitis A IgM Ab Hep Bs Antigen Hep Bs Antibody Hep B Core Total Ab Hepatitis C Ab (EIA) 11/24/22 11/24/22 11/24/22 12:51 12:52 13:27 WBC RBC Hgb Hct MCV MCH MCHC RDW Plt Count MPV Absolute Nucleated RBC Nucleated RBC % (auto) PT INR Sodium Potassium Chloride Carbon Dioxide Anion Gap BUN Creatinine Estim Creat Clear Calc Estimated GFR Random Glucose Lactic Acid 0.8 Calcium Total Bilirubin Direct Bilirubin AST ALT Alkaline Phosphatase Ammonia Troponin I High Sens C-Reactive Protein Total Protein Albumin Procalcitonin Urine Color Urine Appearance Urine pH Ur Specific [place] Urine Protein Urine Glucose (UA) Urine Ketones Urine Blood Urine Nitrite Ur Leukocyte Esterase Urine RBC Urine WBC Ur Squamous Epith Cells Urine Bacteria Hyaline Casts Salicylates < 5.0 L Urine Opiates Screen Urine Fentanyl Screen Acetaminophen < 17 Ur Barbiturates Screen Ur Phencyclidine Scrn Ur Amphetamines Screen U Benzodiazepines Scrn Urine Cocaine Screen U Marijuana (THC) Screen Ethyl Alcohol COVID-19 ([facility]) Negative COVID-19 Clin Com See Note Hepatitis A IgM Ab Hep Bs Antigen Hep Bs Antibody Hep B Core Total Ab Hepatitis C Ab (EIA) 11/24/22 11/24/22 11/25/22 14:02 14:25 07:39 WBC 9.2 RBC 4.32 Hgb 12.1 Hct 35.6 L MCV 82.4 MCH 28.0 MCHC 34.0 RDW 14.6 Plt Count 311 MPV 10.3 Absolute Nucleated RBC 0.000 Nucleated RBC % (auto) 0.0 PT 14.2 H INR 1.2 H Sodium 137 Potassium 3.5 Chloride 100 Carbon Dioxide 18 L Anion Gap 23 H BUN 9 Creatinine 0.77 Estim Creat Clear Calc 73.4 Estimated GFR > 60 Random Glucose 114 Lactic Acid Calcium 9.1 Total Bilirubin 0.7 Direct Bilirubin AST 242 H ALT 70 H Alkaline Phosphatase 72 Ammonia Troponin I High Sens C-Reactive Protein 3.64 H Total Protein 7.4 Albumin 4.7 Procalcitonin 0.02 Urine Color Urine Appearance Urine pH Ur Specific [place] Urine Protein Urine Glucose (UA) Urine Ketones Urine Blood Urine Nitrite Ur Leukocyte Esterase Urine RBC Urine WBC Ur Squamous Epith Cells Urine Bacteria Hyaline Casts Salicylates Urine Opiates Screen Urine Fentanyl Screen Acetaminophen Ur Barbiturates Screen Ur Phencyclidine Scrn Ur Amphetamines Screen U Benzodiazepines Scrn Urine Cocaine Screen U Marijuana (THC) Screen Ethyl Alcohol COVID-19 ([facility]) COVID-19 Clin Com Hepatitis A IgM Ab Hep Bs Antigen Hep Bs Antibody Hep B Core Total Ab Hepatitis C Ab (EIA) 11/25/22 11/26/22 11/26/22 07:39 07:37 07:37 WBC RBC Hgb Hct MCV MCH MCHC RDW Plt Count MPV Absolute Nucleated RBC Nucleated RBC % (auto) PT INR Sodium 141 143 Potassium 3.7 3.8 Chloride 108 110 H Carbon Dioxide 23 25 Anion Gap 14 12 BUN 10 8 L Creatinine 0.72 0.69 0.66 Estim Creat Clear Calc 78.5 81.9 85.7 Estimated GFR > 60 > 60 > 60 Random Glucose 113 103 Lactic Acid Calcium 8.6 8.3 L Total Bilirubin 0.8 0.4 Direct Bilirubin 0.2 AST 190 H 149 H ALT 67 H 64 H Alkaline Phosphatase 62 53 Ammonia Troponin I High Sens C-Reactive Protein Total Protein 6.2 L 5.5 L Albumin 4.0 3.5 Procalcitonin Urine Color Urine Appearance Urine pH Ur Specific [place] Urine Protein Urine Glucose (UA) Urine Ketones Urine Blood Urine Nitrite Ur Leukocyte Esterase Urine RBC Urine WBC Ur Squamous Epith Cells Urine Bacteria Hyaline Casts Salicylates Urine Opiates Screen Urine Fentanyl Screen Acetaminophen Ur Barbiturates Screen Ur Phencyclidine Scrn Ur Amphetamines Screen U Benzodiazepines Scrn Urine Cocaine Screen U Marijuana (THC) Screen Ethyl Alcohol COVID-19 ([facility]) COVID-19 Clin Com Hepatitis A IgM Ab Hep Bs Antigen Hep Bs Antibody Hep B Core Total Ab Hepatitis C Ab (EIA) Imaging Radiology Impressions: ITS Impressions Chest X-Ray 11/24/22 07:44 IMPRESSION: 1. No acute cardiopulmonary process seen. 2. 8 mm oval density right midlung, question calcified nodule. It is new since last exam 09/24/2022. Likely artifact. Head CT 11/24/22 08:11 IMPRESSION: No evidence of mass, hemorrhage or infarction. No acute intracranial pathology. Abdomen Ultrasound 11/24/22 10:08 IMPRESSION: 1. Mildly echogenic liver without focal lesion. 2. Small echogenic stone midpole right kidney without caliectasis or hydronephrosis. 3. The visualized pancreas, gallbladder, CBD, and the right kidney are unremarkable. Mental Status Exam Mental Status Exam Patient Appearance: Fatigued Patient Orientation: Person, Place, Time and Situation Level of Consciousness: Alert Patient Behavior: Talkative and Good Eye Contact Mood Description: Withdrawn, Anxious, Sad and Apprehensive Affect Description: Flat Patient Cognition Impaired: No Ability to Follow Directions: Good Speech Pattern: Spontaneous Speech Memory Description: Episodic Impaired Hallucinations: None (denies today) Delusions: Not Present Thought Process: Distracted and Rumination Thought Content: positive for Circumstantial and positive for Suicidal Ideation (denies) Judgement: Fair Medications Medications Current Medications Acetaminophen (Acetaminophen 325 Mg Tablet) 650 mg PO Q8H PRN PRN Reason: Fever Last Admin: 11/25/22 14:26 Dose: 650 mg Albuterol Sulfate (Albuterol Sulfate 90 Mcg 8 Gm Inhaler) 2 puff INHALE Q4H PRN PRN Reason: shortness of breath or wheezing Benzocaine (Throat Lozenge, Medicated Lozenge) 1 lozenge MUCOUS MEM Q2H PRN PRN Reason: Sore Throat Last Admin: 11/25/22 14:30 Dose: 1 lozenge Enoxaparin Sodium (Enoxaparin Sodium 40 Mg/0.4 Ml Syringe) 40 mg SUBCUT Q24H REINIER Last Admin: 11/25/22 13:56 Dose: 40 mg Thiamine HCl 250 mg/ Sodium (Chloride) 102.5 mls @ 202 mls/hr IV DAILY@1600 [facility] Stop: 11/30/22 16:31 Ceftriaxone Sodium 1 gm/ (Sodium Chloride) 50 mls @ 100 mls/hr IV Q24H [facility] Last Infusion: 11/25/22 14:32 Dose: Infused Vancomycin HCl 1,000 mg/ (Sodium Chloride) 270 mls @ 270 mls/hr IV Q12H [facility] Last Admin: 11/26/22 10:46 Dose: 270 mls/hr Loratadine (Loratadine 10 Mg Tablet) 10 mg PO DAILY PRN PRN Reason: allergies Lorazepam (Lorazepam 2 Mg/Ml Vial) 1 mg IVPUSH Q4H PRN PRN Reason: CIWA of 8 or greater Last Admin: 11/26/22 10:00 Dose: 1 mg Omeprazole (Omeprazole 20 Mg Capsule.Dr) 20 mg PO DAILY@0630 [facility] Last Admin: 11/26/22 05:40 Dose: 20 mg Pharmacy Consult (Consult Rx Perform Med Rec) 1 each MISCELLANE ONCE PRN PRN Reason: Consult order Pharmacy Consult (Consult Rx Vancomycin Dosing) 1 each MISCELLANE DAILY PRN PRN Reason: Consult order Pravastatin Sodium (Pravastatin Sodium 20 Mg Tablet) 20 mg PO DAILY [facility] Last Admin: 11/26/22 10:02 Dose: 20 mg Sodium Chloride (0.9 % Sodium Chloride Flush 3 Ml Syringe) 3 ml IVFLUSH QSHIFT [facility] Last Admin: 11/26/22 10:01 Dose: 3 ml Thiamine HCl (Thiamine Hcl 100 Mg Tablet) 100 mg PO DAILY [facility] Vitamin D (Cholecalciferol (Vitamin D3) 25 Mcg Tablet) 50 mcg PO DAILY [facility] Last Admin: 11/26/22 10:01 Dose: 50 mcg Allergies Allergies Allergy/AdvReac Type Severity Reaction Status Date / Time duloxetine [From CYMBALTA] Allergy Mild ITCHING Verified 01/26/21 08:46 ibuprofen [From MOTRIN] Allergy Unknown ITCHING Verified 01/26/21 08:46 ibuprofen Allergy Unknown Unknown Uncoded 07/16/20 11:01 Assessment & Plan Assessment & Plan (1) Depression: Status: Acute Code(s): F32.9 - Major depressive disorder, single episode, unspecified (2) Anxiety: Status: Acute Code(s): F41.9 - Anxiety disorder, unspecified (3) UTI (urinary tract infection): Status: Acute Code(s): N39.0 - Urinary tract infection, site not specified (4) Fibromyalgia: Status: Acute Code(s): M79.7 - Fibromyalgia (5) Alcohol abuse: Status: Acute Code(s): F10.10 - Alcohol abuse, uncomplicated Plan 57 yo female, history of fibromyalgia, depression, anxiety to [facility] with auditory and visual perceptual alterations, most likely due to abrupt cessation of med regime-Alprazolam, Ambien, Ramelteon, Cymbalta she reports due to feeling tired and with nausea. Pt responded to treatment for withdrawal and UTI rx. She asks to change medication regime as she believes current combination is not helpful. Care discussed with termite exterminator out patient prescribing clinician Pb Muñoz APRN. Discussed low dose Klonopin, and Viibryd or Trintellix trial as pt has had previous trials that have not been a success. Plan: Viibryd 10 mg daily Klonopin 0.25 mg tid prn anxiety Addiction consult-?debt recovery officer for increased support Pt requests assignment of a psychotherapist-Discussed with her medication provider's office. They will refer her when she is discharged. MVI 1 daily Total time managing care of this patient today 60 minutes. Patient educated on: medication risk/benefits Informed Consent: further education needed
--- NOTE | 2022-11-26 11:00 | MHC.RECOVRN ---
Met with pt in 470, along with educational interpreter, after consult placed to Addiction Medicine for alcohol use. Pt sitting in bed, awake, alert, easily engages in conversation. Pt reports feeling okay, continues to experience benzodiazepine withdrawal. Pt denies alcohol use, reports historically has consumed alcohol socially. Pt reports being prescribed alprazolam, 2 mg TID x years. Pt reports taking medications as prescribed and has never purchased illicit benzodiazepines. Pt reports at this time she just wants to stop taking so many pills. She reports stopping the medication on Friday, 11/22, and began feeling withdrawal symptoms over the weekend and came to the hospital. Pt educated on risks involved with benzodiazepine withdrawal, verbalizes understanding. Pt denies questions or concerns for t/w. Provided with t/w contact information if needed.
[2022-11-26 11:19] VITALS: BP 133/67; PULSE 86; RESP 17; TEMP 36.8; O2SAT 97
--- NOTE | 2022-11-26 13:00 | HO.PM.IMPN ---
Subjective Subjective Date of Service: 11/26/22 Review of Systems Follow-up encephalopathy Feeling better Denies nausea, vomiting, diarrhea Physical Exam Vital Signs: Vital Signs: Last Vital Signs Temp 98.3 F 11/26/22 11:19 Pulse 86 11/26/22 11:19 Resp 17 11/26/22 11:19 BP 133/67 11/26/22 11:19 Pulse Ox 97 11/26/22 11:19 O2 Del Method Room Air 11/26/22 11:19 BMI result Body Mass Index 26.5 Objective Data Active Medications Acetaminophen (Acetaminophen 325 Mg Tablet) 650 mg PO Q8H PRN PRN Reason: Fever Last Admin: 11/25/22 14:26 Dose: 650 mg Documented By: NOHEMY Albuterol Sulfate (Albuterol Sulfate 90 Mcg 8 Gm Inhaler) 2 puff INHALE Q4H PRN PRN Reason: shortness of breath or wheezing Benzocaine (Throat Lozenge, Medicated Lozenge) 1 lozenge MUCOUS MEM Q2H PRN PRN Reason: Sore Throat Last Admin: 11/25/22 14:30 Dose: 1 lozenge Documented By: NOHEMY Clonazepam (Clonazepam 0.125 Mg Tab.Rapdis) 0.25 mg PO TID PRN PRN Reason: Anxiety Enoxaparin Sodium (Enoxaparin Sodium 40 Mg/0.4 Ml Syringe) 40 mg SUBCUT Q24H [facility] Last Admin: 11/25/22 13:56 Dose: 40 mg Documented By: NOHEMY Thiamine HCl 250 mg/ Sodium (Chloride) 102.5 mls @ 202 mls/hr IV DAILY@1600 [facility] Stop: 11/30/22 16:31 Ceftriaxone Sodium 1 gm/ (Sodium Chloride) 50 mls @ 100 mls/hr IV Q24H [facility] Last Infusion: 11/25/22 14:32 Dose: 0 mls/hr Documented By: NOHEMY Vancomycin HCl 1,000 mg/ (Sodium Chloride) 270 mls @ 270 mls/hr IV Q12H [facility] Last Infusion: 11/26/22 11:53 Dose: 0 mls/hr Documented By: VIN Loratadine (Loratadine 10 Mg Tablet) 10 mg PO DAILY PRN PRN Reason: allergies Lorazepam (Lorazepam 2 Mg/Ml Vial) 1 mg IVPUSH Q4H PRN PRN Reason: CIWA of 8 or greater Last Admin: 11/26/22 10:00 Dose: 1 mg Documented By: VIN Multivitamins/Vitamin C (Multivitamin Tablet) 1 tab PO DAILY [facility] Omeprazole (Omeprazole 20 Mg Capsule.) 20 mg PO DAILY@0630 [facility] Last Admin: 11/26/22 05:40 Dose: 20 mg Documented By: BELKYS Pharmacy Consult (Consult Rx Perform Med Rec) 1 each MISCELLANE ONCE PRN PRN Reason: Consult order Pharmacy Consult (Consult Rx Vancomycin Dosing) 1 each MISCELLANE DAILY PRN PRN Reason: Consult order Pravastatin Sodium (Pravastatin Sodium 20 Mg Tablet) 20 mg PO DAILY [facility] Last Admin: 11/26/22 10:02 Dose: 20 mg Documented By: VIN Sodium Chloride (0.9 % Sodium Chloride Flush 3 Ml Syringe) 3 ml IVFLUSH QSHIFT [facility] Last Admin: 11/26/22 10:01 Dose: 3 ml Documented By: VIN Thiamine HCl (Thiamine Hcl 100 Mg Tablet) 100 mg PO DAILY [facility] Vilazodone HCl (Vilazodone Hcl 10 Mg Tablet) 10 mg PO DAILY [facility] Vitamin D (Cholecalciferol (Vitamin D3) 25 Mcg Tablet) 50 mcg PO DAILY [facility] Last Admin: 11/26/22 10:01 Dose: 50 mcg Documented By: VIN Labs 11/25/22 07:39 11/26/22 07:37 Labs: Laboratory Results - last 24 hr 11/26/22 11/26/22 07:37 07:37 Anion Gap 12 Estim Creat Clear Calc 81.9 85.7 Estimated GFR > 60 > 60 Random Glucose 103 Calcium 8.3 L Total Bilirubin 0.4 Direct Bilirubin 0.2 AST 149 H ALT 64 H Alkaline Phosphatase 53 Total Protein 5.5 L Albumin 3.5 Microbiology Microbiology Results: Microbiology 11/25/22 07:39 Blood Culture - Preliminary Blood - Venous No growth after 24 hours. 11/25/22 07:39 Blood Culture - Preliminary Blood - Venous No growth after 24 hours. 11/24/22 Unknown Urine Culture - Final Urine clean catch - Urine melissa top 11/24/22 12:51 Blood Culture - Final Blood - Venous Coag negative Staphylococcus 11/24/22 13:27 Blood Culture - Preliminary Blood - Venous No growth after 24 hours. Assessment and Plan Time Spent With Patient Time: Total time managing care of this patient today ____ minutes. Quality Stroke Does the patient have a stroke diagnosis?: No VTE Prior VTE?: No VTE Risk Level:: Medical - moderate - high VTE Device Contraindication: Treatment Not Indicated VTE Drug Contraindication: N/A - Med Ordered
--- NOTE | 2022-11-26 13:03 | P.DS_ITS ---
DS: Providers Provider Date of Service: 11/26/22 Date of admission: 11/24/22 13:50 Primary care physician: [facility] Consults: 11/24/22 13:50 Consult to Psychiatry Routine Consulting Provider: Psych Covering Reason for consultation: AMS, auditory and visual hallucinations 11/24/22 15:57 Addiction Medicine Routine Consulting Provider: Addiction Covering Reason for consultation: etoh 11/26/22 08:08 Consult to Psychiatry Routine Consulting Provider: Psych Covering Reason for consultation: medication management Has provider been notified: No 11/26/22 11:48 Addiction Medicine Routine Consulting Provider: Addiction Covering Reason for consultation: alcohol, benzodiazepine use Has provider been notified: No DS: Diagnosis Discharge Diagnosis (1) Depression: Status: Acute (2) Anxiety: Status: Acute (3) UTI (urinary tract infection): Status: Acute (4) Fibromyalgia: Status: Acute (5) Alcohol abuse: Status: Acute DS: Summary Hospital Course Hospital Course: HP as per admitting provider Pt is a 57-year-old female with a PMH significant for?fibromyalgia, anxiety, and depression who presents to the ED by EMS with?confusion and auditory and visual hallucinations.? Patient is a poor historian and HPI difficult to obtain.? It is also unclear what events precipitated the call to EMS or who even made the call. Pt apparently lives alone in an apartment. Patient's daughter listed as primary contact.? Attempt was made to speak with her to get a better medical and psychological history of her mother, but so far have not been able to make contact. Patient is alert to person only.? Patient observed looking at and speaking to people who are not present.? Patient states that she is hearing voices that tell her to run back and forth in the hallway.? Denies the voices are telling her to harm herself or others.? Patient states that she has been hearing voices and seeing people ?since my ?.? Patient states that she has not been taking her medications for over a week stating they are ?trash? and ?from the devil? and wishes them to be out of her system.? Of note, patient has been taking 2 mg of Xanax daily.? Patient also states she has been drinking heavily until she loses consciousness for a long time though she is uncertain how long it has been since her last drink. Complains of dizziness and lightheadedness with standing, and occasional palpitations. In the ED patient was afebrile but slightly hypertensive at 150/76. Labs were significant for leukocytosis of 13.9, sodium of 134, potassium 3.2, transaminitis of AST 249, ALT of 66, bilirubin and alk false WNL, ammonia WNL in 26, troponin elevated at 45.8 with repeat flat at 44.3.? UA positive for protein, blood, small amount of leukocyte esterase, WBC 11-20, bacteria 3+. CXR showed no acute cardiopulmonary process seen, though reveals a new 8 mm oval density in the right midlung new since last exam on 09/24/2022, likely artifact. CT?negative for acute intracranial pathology:? No evidence of mass, hemorrhage, or infarction.? Abdominal ultrasound largely unremarkable: showed mildly echogenic liver without focal lesion, and nonobstructing echogenic stone pole right kidney. EKG demonstrated normal sinus rhythm with no evidence of ST elevations or depressions. Pt was treated with IVF, potassium chloride, and ceftriaxone. Pt will be admitted to the hospital for further evaluation and treatment of altered mental status . Acute encephalopathy, likely secondary to benzodiazepine withdrawal.Pt with confusion, auditory and visual hallucinations which have resolved. Ammonia, CIWA, U tox negative. Seen and evaluated by psychiatric team. Started on as needed Klonopin and Viibryd. She is to follow-up with her outpatient therapist Transaminitis. Past history of alcohol abuse. Echogenic liver. Liver enzymes trending down. Abdominal ultrasound unremarkable. Hepatitis panel negative. UTI. Ceftin 3 days History of alcohol abuse. Patient reported not drinking since August of 2022, U tox negative Time Spent with Patient Time attestation: Total time managing care of this patient today ____ minutes. Discharge coordination time: Greater than 30 minutes Quality: Safe Use of Opioids Does Pt have an Active Cancer Diagnosis on the Problem List?: No Quality: Stroke Does the patient have a stroke diagnosis?: No Physical Exam Vital Signs: Vital Signs: Last Vital Signs Temp 98.3 F 11/26/22 11:19 Pulse 86 11/26/22 11:19 Resp 17 11/26/22 11:19 BP 133/67 11/26/22 11:19 Pulse Ox 97 11/26/22 11:19 O2 Del Method Room Air 11/26/22 11:19 BMI result Body Mass Index 26.5 Appearing in no acute distress head is normocephalic atraumatic eyes pupils are PERRLA sclera is anicteric mouth throat mucous membranes are intact and moist neck is supple no lymphadenopathy, no JVD noted lung sounds are clear to auscultation heart regular rate rhythm, clear S1, S2 positive bowel sounds, abdomen is soft, nontender neuro patient is alert x3, no focal deficits DS: Data Data Completed and Pending Labs on day of discharge: Laboratory Results - last 24 hr 11/26/22 11/26/22 07:37 07:37 Sodium 143 Potassium 3.8 Chloride 110 H Carbon Dioxide 25 Anion Gap 12 BUN 8 L Creatinine 0.69 0.66 Estim Creat Clear Calc 81.9 85.7 Estimated GFR > 60 > 60 Random Glucose 103 Calcium 8.3 L Total Bilirubin 0.4 Direct Bilirubin 0.2 AST 149 H ALT 64 H Alkaline Phosphatase 53 Total Protein 5.5 L Albumin 3.5 Preliminary micro results at discharge 11/25/22 07:39 Blood Culture - Preliminary Blood - Venous No growth after 24 hours. 11/25/22 07:39 Blood Culture - Preliminary Blood - Venous No growth after 24 hours. 11/24/22 13:27 Blood Culture - Preliminary Blood - Venous No growth after 24 hours. Discharge Plan Discharge Anticipated Discharge Date/Time: 11/26/22 13:03 Patient Disposition: Home, Self-Care Discharge Diagnosis: Acute encephalopathy Benzodiazepine withdrawal Transaminitis UTI Referrals: [place],[facility], [facility] [Primary Care Provider] - 1 Week Discharge Medications: New clonazepam 0.125 mg Tablet,Disintegrating 0.25 mg PO TID PRN (Reason: Anxiety) Qty: 24 0RF vilazodone [Viibryd] 10 mg Tablet 10 mg PO DAILY Qty: 30 0RF cefuroxime axetil 500 mg tablet 500 mg PO Q12H Qty: 9 0RF Continued albuterol sulfate 90 mcg/actuation HFA aerosol inhaler 2 puff inhalation Q4-6H PRN (Reason: shortness of breath or wheezing) Qty: 8.5 0RF omeprazole 20 mg capsule,delayed release(DR/EC) 20 mg PO DAILY@0630 pravastatin 20 mg tablet 20 mg PO DAILY alprazolam 2 mg tablet 2 mg PO TID PRN (Reason: anxiety) celecoxib 100 mg capsule 100 mg PO BID fluticasone propionate 50 mcg/actuation spray,suspension 2 spray intranasal DAILY loratadine 10 mg tablet 10 mg PO DAILY PRN (Reason: allergies) duloxetine 30 mg capsule,delayed release(DR/EC) 30 mg PO DAILY Rx Instructions: take with 60mg dose duloxetine 60 mg capsule,delayed release(DR/EC) 60 mg PO BID ramelteon 8 mg tablet 8 mg PO BEDTIME zolpidem [Ambien] 10 mg tablet 10 mg PO BEDTIME PRN (Reason: Insomnia) cholecalciferol (vitamin D3) 50 mcg (2,000 unit) capsule 50 mcg PO DAILY Qty: 90 1RF Discharge Orders: Discharge Order (Routine); Ordered 11/26/22 Ordered By: Tricia Mar Diet: Advance to usual diet Activity on Discharge: As tolerated Stand Alone Forms: Patient Portal Discharge page Care Plan Goals: Complete resolution of symptoms Health Concerns: Acute encephalopathy Benzodiazepine withdrawal Transaminitis UTI Plan of Treatment: Follow-up with primary care provider as needed Follow-up with medication administration support for referral for a therapist Take all medications as prescribed Assessment: See discharge summary Discharge Date/Time: 11/26/22 14:55
[2022-11-26] MEDS: Acetaminophen 325 MG TABLET 650 MG PO (13:09)
[2022-11-26] MEDS: cefTRIAXone sodium 1 GM in 0.9 % Sodium Chloride 50 ML IV (13:10)
[2022-11-26] MEDS: Enoxaparin Sodium 40 MG/0.4 ML SYRINGE SUBCUT (13:10)
--- NOTE | 2022-11-26 13:32 | MHC.CM.PN ---
DP: PT HAS BEEN MEDICALLY CLEARED FOR DC HOME, NO SERVICES. RN AWARE. DAUGHTER WILL TRANSPORT HOME.
== END 2022-11-26 14:55 | disposition home or self-care (01) | DRG 52 ==
LOC: HO.ED 12:31 → HO.EDOVER 13:59 → HO.IMC 14:17
PROVIDERS: Family Medicine; Internal Medicine; Admitting Provider Student in an Organized Health Care Education/Training Program; Emergency Provider Emergency Medicine; Visit Provider Nurse Practitioner Acute Care
DX: G92.8 Other toxic encephalopathy (principal); E87.6 Hypokalemia; T42.4X6A Underdosing of benzodiazepines, initial encounter; N39.0 Urinary tract infection, site not specified; M79.7 Fibromyalgia; F17.210 Nicotine dependence, cigarettes, uncomplicated; F10.11 Alcohol abuse, in remission; F41.9 Anxiety disorder, unspecified; F13.931 Sedative, hypnotic or anxiolytic use, unspecified with withdrawal delirium; F32.9 Major depressive disorder, single episode, unspecified; Z20.822 Contact with and (suspected) exposure to COVID-19; Z71.6 Tobacco abuse counseling; Z88.6 Allergy status to analgesic agent; Z88.8 Allergy status to other drugs, medicaments and biological substances; Z79.51 Long term (current) use of inhaled steroids; Z79.899 Other long term (current) drug therapy
CPT/HCPCS: 36415; 70450; 71045; 76705; 80048; 80053; 80076; 80143; 80179; 80307; 81001; 82077; 82140; 82565; 83605; 83690; 84145; 84484; 85025; 85027; 85610; 86140; 86704; 86706; 86709; 86803; 87040; 87086; 87147; 87205; 87340; 87635; 93005; 96360; 99285; J0696; J1650; J2060; J3370; J3411

== ENCOUNTER 2023-01-11 11:21 | Emergency (ER) | payer OTHER, SELFPAY ==
--- NOTE | ~2023-01-11 | CT_ITS ---
EXAMINATION: Head and cervical spine CT without IV contrast CLINICAL INFORMATION: Fall COMPARISON: Previous head CT October 2022 TECHNIQUE: Axial images through the head and cervical spine without IV contrast. Sagittal and coronal reconstructions on the technologist workstation were performed. This CT examination was performed using dose optimization techniques as appropriate, variously including the following: *Automated exposure control *Adjustment of mA and/or kV according to patient size (this includes techniques or standardized protocols for targeted exams where dose is matched to indication/reason for exam; i.e. extremities or head) *Use of iterative reconstruction technique DLP 9 6 2 mg/cm FINDINGS: Head CT: There is no evidence of an extra-axial collection. There is no evidence of intra-axial or extra-axial hemorrhage. The ventricles and extra-axial CSF spaces are appropriate. Condon-white matter differentiation is normal. No mass, mass effect or infarct. Review of bone windows is normal. No skull fracture. Cervical spine CT: Bone alignment is normal. No fracture or dislocation. There is degenerative spondylosis at C4-C5 and C5-C6. There is disc space narrowing at C5-C6. Prevertebral soft tissues are normal. Visualized lung apices are clear. CT/CT head/brain wo IV con IMPRESSION: Head CT: Unremarkable exam Cervical spine CT: Degenerative changes. No fracture or dislocation.
--- NOTE | ~2023-01-11 | XR_ITS ---
EXAMINATION: XR KNEE, RIGHT CLINICAL INFORMATION: Pain post fall COMPARISON: None available. TECHNIQUE: Two views of the right knee. FINDINGS: Bones and soft tissues are normal. No fracture or joint effusion. Alignment is anatomic. Joint spaces are well maintained. No abnormal soft tissue calcification. XR/XR knee RT 2V IMPRESSION: Normal right knee.
--- NOTE | ~2023-01-11 | CT_ITS ---
EXAMINATION: Head and cervical spine CT without IV contrast CLINICAL INFORMATION: Fall COMPARISON: Previous head CT October 2022 TECHNIQUE: Axial images through the head and cervical spine without IV contrast. Sagittal and coronal reconstructions on the technologist workstation were performed. This CT examination was performed using dose optimization techniques as appropriate, variously including the following: *Automated exposure control *Adjustment of mA and/or kV according to patient size (this includes techniques or standardized protocols for targeted exams where dose is matched to indication/reason for exam; i.e. extremities or head) *Use of iterative reconstruction technique DLP 9 6 2 mg/cm FINDINGS: Head CT: There is no evidence of an extra-axial collection. There is no evidence of intra-axial or extra-axial hemorrhage. The ventricles and extra-axial CSF spaces are appropriate. Condon-white matter differentiation is normal. No mass, mass effect or infarct. Review of bone windows is normal. No skull fracture. Cervical spine CT: Bone alignment is normal. No fracture or dislocation. There is degenerative spondylosis at C4-C5 and C5-C6. There is disc space narrowing at C5-C6. Prevertebral soft tissues are normal. Visualized lung apices are clear. CT/CT cervical spine wo IV con IMPRESSION: Head CT: Unremarkable exam Cervical spine CT: Degenerative changes. No fracture or dislocation.
--- NOTE | ~2023-01-11 | XR_ITS ---
EXAMINATION: XR HIP, RIGHT CLINICAL INFORMATION: Fall. Right hip pain. COMPARISON: None available. TECHNIQUE: Two views of the right hip and one view of the pelvis. FINDINGS: Bones and soft tissues are normal. No fracture. Alignment is anatomic. Hip joint space is maintained. XR/XR hip RT w [id number] IMPRESSION: Normal right hip.
[2023-01-11 11:27] VITALS: BP 126/73; BP 129/82; PULSE 76; PULSE 82; RESP 16; TEMP 36.6; O2SAT 98; O2SAT 99; BMI 27.8
--- NOTE | 2023-01-11 12:08 | ED.FALL ---
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 Patient was watering her plants outside wearing slipper patient missed a step and fell backward hitting her head and neck and having pain and in a right hip and right knee. No LOC but patient feels dizzy. No CP, no SOB. Related Data Home Medications Medication Instructions Recorded Confirmed zolpidem 10 mg tablet (Ambien) 10 mg PO BEDTIME PRN Insomnia 11/15/20 11/24/22 alprazolam 2 mg tablet 2 mg PO TID PRN anxiety 11/24/22 11/24/22 celecoxib 100 mg capsule 100 mg PO BID 11/24/22 11/24/22 duloxetine 30 mg capsule,delayed 30 mg PO DAILY 11/24/22 11/24/22 release duloxetine 60 mg capsule,delayed 60 mg PO BID 11/24/22 11/24/22 release fluticasone propionate 50 2 spray intranasal DAILY 11/24/22 11/24/22 mcg/actuation nasal spray,suspension loratadine 10 mg tablet 10 mg PO DAILY PRN allergies 11/24/22 11/24/22 omeprazole 20 mg capsule,delayed 20 mg PO DAILY@0630 11/24/22 11/24/22 release pravastatin 20 mg tablet 20 mg PO DAILY 11/24/22 11/24/22 ramelteon 8 mg tablet 8 mg PO BEDTIME 11/24/22 11/24/22 Previous Rx's Medication Instructions Recorded cholecalciferol (vitamin D3) 50 50 mcg PO DAILY #90 caps 01/26/21 mcg (2,000 unit) capsule albuterol sulfate 90 mcg/actuation 2 puff inhalation Q4-6H PRN 09/24/22 aerosol inhaler shortness of breath or wheezing #8.5 grams cefuroxime axetil 500 mg tablet 500 mg PO Q12H #9 tabs 11/26/22 clonazepam 0.125 mg disintegrating 0.25 mg PO TID PRN Anxiety #24 tabs 11/26/22 tablet vilazodone 10 mg tablet (Viibryd) 10 mg PO DAILY #30 tabs 11/26/22 Allergies Allergy/AdvReac Type Severity Reaction Status Date / Time duloxetine [From CYMBALTA] Allergy Mild ITCHING Verified 01/11/23 11:31 ibuprofen [From MOTRIN] Allergy Unknown ITCHING Verified 01/11/23 11:31 ibuprofen Allergy Unknown Unknown Uncoded 01/11/23 11:31 Review of Systems Review of Systems: All other systems are reviewed and are negative Constitutional: Reports as per HPI and Reports no additional constitutional complaints Eyes: Reports as per HPI and Reports no additional eye complaints Reports system reviewed and no additional complaints, except as documented Cardiovascular: Reports as per HPI and Reports no additional cardiovascular complaints Respiratory: Reports as per HPI and Reports no additional respiratory complaints Gastrointestinal: Reports as per HPI and Reports no additional gastrointestinal complaints Genitourinary: Reports no additional female genitourinary complaints Musculoskeletal: Reports no additional musculoskeletal complaints Skin/Breast: Reports system reviewed and no additional complaints, except as docu Psychiatric: Reports no additional psychiatric complaints Endocrine: Reports no additional endocrine complaints Hematologic/Lymphatic: Reports no additional hematologic/lymphatic complaints Allergic/Immunologic: Reports no additional allergic/immunologic complaints Reports system reviewed and no additional complaints, except as documented and Reports Abnormal speech present [facility] Past Medical History Medical History Alcohol abuse Anxiety Asthma Depression Fibromyalgia Insomnia Surgical History H/O knee surgery History of partial hysterectomy Hx of tubal ligation Family History Family History Mother Diabetes HTN (hypertension) CVD (cardiovascular disease) Father Arthritis CVD (cardiovascular disease) Social History Social History Household Members: None Housing: Apartment Do you presently have visiting nurse or other home services: Yes Unable to assess alcohol history related to: Unknown Alcohol intake: current Alcohol intake frequency: a few times a month Patient Tobacco Use Status: Current someday Tobacco user Smoked in Last 30 Days: No Use of substances other than those prescribed or required for medical reasons: No Advance Directives: Yes Advance Directives on File: Yes Advance Directives Date on File: 11/27/22 service: No Current occupational status: disabled Physical Exam Vital Signs: Vital Signs: Last Vital Signs Temp 97.9 F 01/11/23 11:27 Pulse 82 01/11/23 11:27 Resp 16 01/11/23 11:27 BP 126/73 01/11/23 11:27 Pulse Ox 99 01/11/23 11:27 BMI result Body Mass Index 27.8 Vital signs have been reviewed as appeared to be correct. Blood pressure normal. Heart rate normal. Respiration rate normal. Temperature normal. Oxygen saturation normal. Appearance: Alert. Oriented X3. No acute distress. Head: Normal external exam. Normocephalic. Atraumatic. No Covarrubias signs noted. No raccoon eyes noted Eyes: PERRLA. EOMI. Conjunctiva and sclera normal. Eyelids normal. ENT: TM's Normal. Pharynx normal. Uvula midline. Moist mucous membranes. No trismus noted. No drooling noted. No muffled voice noted. Neck: Normal inspection. Neck supple. FROM. No adenopathy. Thyroid Normal. No meningeal signs. No neck mass noted. CVS: Normal heart rate and rhythm. Heart sound normal. No murmurs noted. Pulses normal throughout. Respiratory: No respiratory distress. Painless inspiration. Breath sounds normal. No wheezes/rales/rhonchi noted. Chest nontender. No accessory muscle usage noted or decreased air movement noted. Abdomen: Soft and nontender. Bowel sounds normal in all 4 quadrants. No distention noted. No organomegaly noted. No visible injury noted. Back: No CVA tenderness. Full range of motion noted. Skin: Skin warm and dry. Normal skin color. Normal skin turgor. No rashes/lesions/lacerations noted. Extremities: No lower extremity edema. Extremities exhibit normal range of motion. Extremities nontender. Neuro: Oriented X 3. Cranial nerve exam: II-XII are grossly intact No motor deficit. No sensory deficit. Reflexes normal. Course Course Course Narrative: 57-year-old female status post mechanical fall unremarkable radiographic studies, able to tolerate p.o. intake and able to ambulate in the emergency department. Medications Administered Discontinued Medications Generic Name Dose Route Start Last Admin Trade Name Freq PRN Reason Stop Dose Admin Oxycodone HCl 5 mg 01/11/23 12:57 01/11/23 13:32 Oxycodone Hcl Immed Release 5 Mg Tablet PO 01/11/23 12:58 5 mg ONCE ONE Administration Medical Decision Making Differential Diagnosis Differential Diagnoses: The differential diagnosis associated with the presentation includes (Mechanical fall, intracranial bleed, cervical spine injury, right hip fracture, right knee fracture.) Independent Interpretation I performed an independent interpretation of an: Plain X-Ray (Right hip/right knee: No fracture dislocation.) and CT Scan (Head and cervical spine: No acute intracranial or C-spine injuries.) Radiology Impression Discussion of test interpretation with radiology: I have reviewed the radiologist's reading. Discharge Plan Discharge Clinical Impression: Closed head injury, Contusion of neck, Contusion of hip, right, Contusion of right knee Patient Disposition: Home, Self-Care Instructions: Head Injury (ED), Contusion in Adults (ED), Hip Contusion (ED) Additional Instructions: Take Tylenol 500 mg tablet every 8 hours if needed pain Prescriptions: No Action albuterol sulfate 90 mcg/actuation HFA aerosol inhaler 2 puff inhalation Q4-6H PRN (Reason: shortness of breath or wheezing) Qty: 8.5 0RF omeprazole 20 mg capsule,delayed release(DR/EC) 20 mg PO DAILY@0630 pravastatin 20 mg tablet 20 mg PO DAILY alprazolam 2 mg tablet 2 mg PO TID PRN (Reason: anxiety) celecoxib 100 mg capsule 100 mg PO BID fluticasone propionate 50 mcg/actuation spray,suspension 2 spray intranasal DAILY loratadine 10 mg tablet 10 mg PO DAILY PRN (Reason: allergies) duloxetine 30 mg capsule,delayed release(DR/EC) 30 mg PO DAILY Rx Instructions: take with 60mg dose duloxetine 60 mg capsule,delayed release(DR/EC) 60 mg PO BID ramelteon 8 mg tablet 8 mg PO BEDTIME clonazepam 0.125 mg Tablet,Disintegrating 0.25 mg PO TID PRN (Reason: Anxiety) Qty: 24 0RF vilazodone [Viibryd] 10 mg Tablet 10 mg PO DAILY Qty: 30 0RF cefuroxime axetil 500 mg tablet 500 mg PO Q12H Qty: 9 0RF zolpidem [Ambien] 10 mg tablet 10 mg PO BEDTIME PRN (Reason: Insomnia) cholecalciferol (vitamin D3) 50 mcg (2,000 unit) capsule 50 mcg PO DAILY Qty: 90 1RF Referrals: Jodie Farnsworth MD [Primary Care Provider] -
[2023-01-11] MEDS: oxyCODONE HCl Immed Release 5 MG TABLET PO (13:32)
[2023-01-11 15:25] VITALS: BP 130/74; PULSE 72; RESP 16; TEMP 36.4; O2SAT 99
[2023-01-11 18:00] VITALS: BP 130/81; PULSE 91; RESP 16; TEMP 36.5; O2SAT 98
== END 2023-01-11 18:34 | disposition home or self-care (01) ==
PROVIDERS: Emergency Provider Emergency Medicine; PCP Internal Medicine
DX: S09.90XA Unspecified injury of head, initial encounter (principal); S10.93XA Contusion of unspecified part of neck, initial encounter; S70.01XA Contusion of right hip, initial encounter; S80.01XA Contusion of right knee, initial encounter; W10.9XXA Fall (on) (from) unspecified stairs and steps, initial encounter; Y93.89 Activity, other specified; Y92.017 Garden or yard in single-family (private) house as the place of occurrence of the external cause; Y99.9 Unspecified external cause status
CPT/HCPCS: 70450; 72125; 73502; 73560; 99284

== ENCOUNTER 2023-02-20 12:37 | Emergency (ER) | payer OTHER, SELFPAY ==
--- NOTE | 2023-02-20 | ECG_ITS ---
Test Reason : DIZZINESS Blood Pressure : / mmHG Vent. Rate : 061 BPM Atrial Rate : 061 BPM P-R Int : 170 ms QRS Dur : 086 ms QT Int : 414 ms P-R-T Axes : 016 029 035 degrees QTc Int : 416 ms Normal sinus rhythm Normal ECG When compared with ECG of 24-NOV-2022 19:54, Vent. rate has decreased BY 67 BPM Nonspecific T wave abnormality no longer evident in Lateral leads Referred By: Generic ED Physician Electronically Signed By:HAIDER WYMAN
--- NOTE | ~2023-02-20 | CT_ITS ---
EXAMINATION: CT ANGIOGRAM NECK WITH CONTRAST CT ANGIOGRAM BRAIN WITH CONTRAST CLINICAL INFORMATION: Severe headache. Reports left-sided weakness. COMPARISON: Head CT 01/11/2023. TECHNIQUE: Test bolus sequences followed by intravenous administration 70 mL of Omnipaque 350. Helical imaging was performed in the axial plane from the thoracic inlet to the skull vertex. Delayed postcontrast imaging of the head was also performed. The data was processed at the seating and mobility technologist workstation for generation of MIP sequences. Angled MIPs and volume rendered reformatted images were also generated at an offline 3D workstation. Stenoses are assessed in accordance with NASCET criteria unless otherwise indicated. This CT examination was performed using dose optimization techniques as appropriate, variously including the following: *Automated exposure control *Adjustment of mA and/or kV according to patient size (this includes techniques or standardized protocols for targeted exams where dose is matched to indication/reason for exam; i.e. extremities or head) *Use of iterative reconstruction technique DLP: 2106 mGy-cm FINDINGS: Head CT: There is no intracranial hemorrhage, large acute infarction, or mass lesion. The ventricles are normal in size and configuration without evidence of hydrocephalus. There is no abnormal intracranial enhancement. The dural venous sinuses appear patent. The visualized paranasal sinuses and mastoid air cells are clear. Neck CTA: Mild atheromatous changes are seen at the carotid bifurcations. The common and internal carotid arteries are patent. Both vertebral arteries are patent. Head CTA: No large vessel occlusion is seen. The vertebral basilar system and rigging slinger are patent. Both posterior communicating arteries are present. The intracranial ICAs, ACAs, and MCAs are patent. No aneurysm is seen. Non-vascular findings: Cervical soft tissues are within normal limits. There is no consolidation within the upper lungs. Multilevel degenerative changes are seen within the spine. CT/CT angio head neck IMPRESSION: CT HEAD: No intracranial hemorrhage or large acute infarction. CTA NECK: No hemodynamically significant stenosis in the major arteries of the neck. CTA HEAD: No large vessel occlusion or significant stenosis within the intracranial circulation. This critical result was discussed with Dr. Lepe on 02/20/2023 4:24 PM, and it was ascertained that the content and urgency of the report was understood at the time of direct communication.
[2023-02-20 12:43] VITALS: BP 119/79; PULSE 70; O2SAT 100
[2023-02-20 12:48] VITALS: BP 130/83; PULSE 66; RESP 20; TEMP 37.1; O2SAT 100; BMI 27.3
[2023-02-20 13:11] LABS: Hematocrit 36.8 % (37.0-47.0); Hemoglobin 12.2 g/dl (12.0-16.0); Mean Corpuscular HGB Conc 33.2 g/dl (31.0-35.0); Mean Corpuscular Hemoglobin 27.2 pg (27.0-33.0); Mean Corpuscular Volume 82.1 fL (80.0-98.0); Mean Platelet Volume 9.7 fL (9.4-12.3); Platelet Count 273 X10*3/uL (160-400); Red Blood Count 4.48 X10*6/uL (4.20-5.50); Red Cell Distribution Width 13.7 % (11.0-16.0); White Blood Count 5.7 X10*3/uL (4.8-10.8)
[2023-02-20 13:25] LABS: Alanine Aminotransferase 11 U/L (0-31); Albumin Level 4.1 g/dL (3.5-5.0); Alkaline Phosphatase 66 U/L (39-117); Anion Gap 14 (12-20); Aspartate Amino Transferase 19 U/L (5-31); Bilirubin Total 0.3 mg/dL (0.0-1.0); Blood Urea Nitrogen 10 mg/dL (9-16); Calcium 9.7 mg/dL (8.4-10.2); Carbon Dioxide 22 mmol/L (22-29); Chloride 107 mmol/L (96-108); Creatinine Clr Calc Pharmacy 88.9; Estimated Glomerular Filt Rate > 60; Glucose Fasting 101 mg/dL (60-99); Potassium 3.6 mmol/L (3.3-5.1); Sodium 139 mmol/L (135-145); Total Protein 6.9 g/dL (6.5-8.0)
--- NOTE | 2023-02-20 13:50 | ED.NEUROSD ---
HPI - Neuro Symptoms/Deficit General Chief Complaint: Neuro Symptoms/Deficit Stated Complaint: left sided headache, numbness and dizziness Time Seen by Provider: 02/20/23 12:58 Source: patient, old records reviewed (DC summary from October) and drawer in Mode of arrival: EMS Limitations: other (very poor historian) History of Present Illness HPI Narrative: 57 yo female with hx of fibromyalgia prior ETOH abuse, asthma, GERD, benzo withdrawal, who comes in with c/o 1 week L sided numbness, weakness and severe headache that was atrauamtic. She denies new falls, not on thinners. She has not had fevers she is very vague about her symptoms and states she was here just last month and that she was admitted and it was due to seizure medications. She states she lives alone but her daughter checks on her. She cannot tell me much else about why today she came in if it has been 1 week. Onset (ago): week(s) (1) Location: left face, left arm, left leg and ataxia History of same: No Severity: moderate Quality: weak and numb Relieving factors: rest Context: other (patient cannot quantify) On Anticoagulants: No Associated symptoms: headaches and vertigo Treatments Prior to Arrival: none Related Data Home Medications Medication Instructions Recorded Confirmed zolpidem 10 mg tablet (Ambien) 10 mg PO BEDTIME PRN Insomnia 11/15/20 11/24/22 alprazolam 2 mg tablet 2 mg PO TID PRN anxiety 11/24/22 11/24/22 celecoxib 100 mg capsule 100 mg PO BID 11/24/22 11/24/22 duloxetine 30 mg capsule,delayed 30 mg PO DAILY 11/24/22 11/24/22 release duloxetine 60 mg capsule,delayed 60 mg PO BID 11/24/22 11/24/22 release fluticasone propionate 50 2 spray intranasal DAILY 11/24/22 11/24/22 mcg/actuation nasal spray,suspension loratadine 10 mg tablet 10 mg PO DAILY PRN allergies 11/24/22 11/24/22 omeprazole 20 mg capsule,delayed 20 mg PO DAILY@0630 11/24/22 11/24/22 release pravastatin 20 mg tablet 20 mg PO DAILY 11/24/22 11/24/22 ramelteon 8 mg tablet 8 mg PO BEDTIME 11/24/22 11/24/22 Previous Rx's Medication Instructions Recorded cholecalciferol (vitamin D3) 50 50 mcg PO DAILY #90 caps 01/26/21 mcg (2,000 unit) capsule albuterol sulfate 90 mcg/actuation 2 puff inhalation Q4-6H PRN 09/24/22 aerosol inhaler shortness of breath or wheezing #8.5 grams cefuroxime axetil 500 mg tablet 500 mg PO Q12H #9 tabs 11/26/22 clonazepam 0.125 mg disintegrating 0.25 mg PO TID PRN Anxiety #24 tabs 11/26/22 tablet vilazodone 10 mg tablet (Viibryd) 10 mg PO DAILY #30 tabs 11/26/22 Allergies Allergy/AdvReac Type Severity Reaction Status Date / Time duloxetine [From CYMBALTA] Allergy Mild ITCHING Verified 01/11/23 11:31 ibuprofen [From MOTRIN] Allergy Unknown ITCHING Verified 01/11/23 11:31 ibuprofen Allergy Unknown Unknown Uncoded 01/11/23 11:31 Review of Systems Review of Systems: Constitutional : No Fever, No Chills, No Fatigue ENT/Mouth : No sore throat, No Rhinorrhea Eyes: No Eye Pain, No Swelling, No Redness Cardiovascular : No Chest Pain, No SOB, No Dyspnea on Exertion Respiratory : No Cough, No Sputum Gastrointestinal : No Nausea, No Vomiting, No Diarrhea, No abdominal Pain Genitourinary : No Dysuria, No Urinary Frequency, No Hematuria, Musculoskeletal : No joint pain, No Myalgias, No Joint Swelling Skin : No Skin Lesions, No rash Neuro : pos Weakness, pos Numbness, pos Dizziness, positive Headache Psych : No Anxiety/Panic, No Depression Heme/Lymph: No Bruising, No Bleeding,No Lymphadenopathy Endocrine : No Polyuria, No Polydipsia All other systems reviewed and are negative [facility] Past Medical History Medical History Alcohol abuse Anxiety Asthma Depression Fibromyalgia Insomnia Surgical History H/O knee surgery History of partial hysterectomy Hx of tubal ligation Family History Family History Mother Diabetes HTN (hypertension) CVD (cardiovascular disease) Father Arthritis CVD (cardiovascular disease) Social History Social History Household Members: None Housing: Apartment Do you presently have visiting nurse or other home services: Yes Unable to assess alcohol history related to: Unknown Alcohol intake: current Alcohol intake frequency: a few times a month Patient Tobacco Use Status: Current someday Tobacco user Advance Directives: Yes Advance Directives on File: Yes Advance Directives Date on File: 11/27/22 service: No Current occupational status: disabled Physical Exam Vital Signs: Vital Signs: Last Vital Signs Temp 97.6 F 02/20/23 16:15 Pulse 65 02/20/23 16:15 Resp 14 02/20/23 16:15 BP 151/84 H 02/20/23 16:15 Pulse Ox 99 02/20/23 16:15 O2 Del Method Room Air 02/20/23 16:15 BMI result Body Mass Index 27.3 Const: Other: Appearance: Alert. Oriented X3. No acute distress. anxious Eyes: Pupils equal, round and reactive to light. ENT: Pharynx normal. Neck: Normal inspection. Neck supple. CVS: Normal heart rate and rhythm. Pulses normal. Respiratory: No respiratory distress. Breath sounds normal. Abdomen: Soft and nontender. Skin: Skin warm and dry. Normal skin color. Normal skin turgor. Extremities: No lower extremity edema. No calf ttp Neuro: Oriented X 3. very poor effort on exam she initially had symmetric face during the whole interview but then when asked to smile she seemed to be trying to make the L side of the face droop, poor effort in all extremities throughout, poor attempt at legs. Course Course Course Narrative: spoke to patient about CTA no deficits now acting normal no facial droop - doubt with 1 week of symptoms and negative CTA that she has had a stroke with the c/o L sided deficits that she reportedly had which are now resolved, she is no longer having her facial droop which seemed force and she is symmetric Medications Administered Discontinued Medications Generic Name Dose Route Start Last Admin Trade Name Freq PRN Reason Stop Dose Admin Sodium Chloride 1,000 mls @ 999 mls/hr 02/20/23 14:00 02/20/23 15:23 Ns IV 02/20/23 15:00 Infused .Q1H1M REINIER Infusion Iohexol 100 ml 02/20/23 15:24 02/20/23 15:24 Iohexol 350 Mg/Ml 100 Ml Infus..Btl IV 02/20/23 15:25 70 ml ONCE ONE Administration Medical Decision Making Medical Decision Making [facility] Narrative: 57 yo female with hx of fibromyalgia prior ETOH abuse, asthma, GERD, benzo withdrawal here with severe headache and reported L sided weakness x 1 week though she is not giving me a good effort at all right now and she seems to be trying to make the L side of the face droop. At this time I will try to contact the family as she is a poor historian. I am going to obtain labs, hydrate her and given symptoms x 1 week I will get CTA of the head and neck which should show some pathology of it has been 7 days. Possible stroke, depression, intoxication, electrolyte abnormality. Differential Diagnosis Differential Diagnoses: The differential diagnosis associated with the presentation includes withdrawal, stroke, toxic or metabolic encephalopathy, migraine, depression Lab Data [facility] Lab Attestation statement: I reviewed the patient's lab results. 02/20/23 13:04 02/20/23 13:04 Labs: Lab Results 02/20/23 02/20/23 02/20/23 Range/Units 13:04 13:04 13:53 WBC 5.7 (4.8-10.8) X10*3/uL RBC 4.48 (4.20-5.50) X10*6/uL Hgb 12.2 (12.0-16.0) g/dl Hct 36.8 L (37.0-47.0) % MCV 82.1 (80.0-98.0) fL MCH 27.2 (27.0-33.0) pg MCHC 33.2 (31.0-35.0) g/dl RDW 13.7 (11.0-16.0) % Plt Count 273 (160-400) X10*3/uL MPV 9.7 (9.4-12.3) fL Absolute Nucleated RBC 0.000 (0.0-0.012) X10*3/uL Nucleated RBC % (auto) 0.0 (0.0-0.2) /100WBC PT 12.1 (10.0-13.1) SEC INR 1.1 (0.9-1.1) Sodium 139 (135-145) mmol/L Potassium 3.6 (3.3-5.1) mmol/L Chloride 107 (96-108) mmol/L Carbon Dioxide 22 (22-29) mmol/L Anion Gap 14 (12-20) BUN 10 (9-16) mg/dL Creatinine 0.67 (0.5-1.4) mg/dL Estim Creat Clear Calc 88.9 Estimated GFR > 60 Fasting Glucose 101 H (60-99) mg/dL Calcium 9.7 D (8.4-10.2) mg/dL Magnesium (1.6-2.6) mg/dL Total Bilirubin 0.3 (0.0-1.0) mg/dL AST 19 (5-31) U/L ALT 11 (0-31) U/L Alkaline Phosphatase 66 (39-117) U/L Troponin I High Sens (<3.5-17.0) ng/L Total Protein 6.9 (6.5-8.0) g/dL Albumin 4.1 (3.5-5.0) g/dL Urine Color Urine Appearance Urine pH (5.0-9.0) Ur Specific Warren (1.005-1.025) Urine Protein (Neg-Trace) mg/dL Urine Glucose (UA) (Negative) mg/dL Urine Ketones (Negative) mg/dL Urine Blood (Negative) Urine Nitrite (Negative) Ur Leukocyte Esterase (Negative) Salicylates (15-30) mg/dL Urine Opiates Screen (Not Detect) Urine Fentanyl Screen (Not Detect) Acetaminophen (<30) mcg/mL Ur Barbiturates Screen (Not Detect) Ur Phencyclidine Scrn (Not Detect) Ur Amphetamines Screen (Not Detect) U Benzodiazepines Scrn (Not Detect) Urine Cocaine Screen (Not Detect) U Marijuana (THC) Screen (Not Detect) Ethyl Alcohol mg/dL 02/20/23 02/20/23 02/20/23 Range/Units 13:53 13:53 13:53 WBC (4.8-10.8) X10*3/uL RBC (4.20-5.50) X10*6/uL Hgb (12.0-16.0) g/dl Hct (37.0-47.0) % MCV (80.0-98.0) fL MCH (27.0-33.0) pg MCHC (31.0-35.0) g/dl RDW (11.0-16.0) % Plt Count (160-400) X10*3/uL MPV (9.4-12.3) fL Absolute Nucleated RBC (0.0-0.012) X10*3/uL Nucleated RBC % (auto) (0.0-0.2) /100WBC PT (10.0-13.1) SEC INR (0.9-1.1) Sodium (135-145) mmol/L Potassium (3.3-5.1) mmol/L Chloride (96-108) mmol/L Carbon Dioxide (22-29) mmol/L Anion Gap (12-20) BUN (9-16) mg/dL Creatinine (0.5-1.4) mg/dL Estim Creat Clear Calc Estimated GFR Fasting Glucose (60-99) mg/dL Calcium (8.4-10.2) mg/dL Magnesium 2.1 (1.6-2.6) mg/dL Total Bilirubin (0.0-1.0) mg/dL AST (5-31) U/L ALT (0-31) U/L Alkaline Phosphatase (39-117) U/L Troponin I High Sens < 2.7 D (<3.5-17.0) ng/L Total Protein (6.5-8.0) g/dL Albumin (3.5-5.0) g/dL Urine Color Urine Appearance Urine pH (5.0-9.0) Ur Specific Warren (1.005-1.025) Urine Protein (Neg-Trace) mg/dL Urine Glucose (UA) (Negative) mg/dL Urine Ketones (Negative) mg/dL Urine Blood (Negative) Urine Nitrite (Negative) Ur Leukocyte Esterase (Negative) Salicylates < 5.0 L (15-30) mg/dL Urine Opiates Screen (Not Detect) Urine Fentanyl Screen (Not Detect) Acetaminophen < 17 (<30) mcg/mL Ur Barbiturates Screen (Not Detect) Ur Phencyclidine Scrn (Not Detect) Ur Amphetamines Screen (Not Detect) U Benzodiazepines Scrn (Not Detect) Urine Cocaine Screen (Not Detect) U Marijuana (THC) Screen (Not Detect) Ethyl Alcohol < 10 mg/dL 02/20/23 02/20/23 Range/Units 14:28 14:28 WBC (4.8-10.8) X10*3/uL RBC (4.20-5.50) X10*6/uL Hgb (12.0-16.0) g/dl Hct (37.0-47.0) % MCV (80.0-98.0) fL MCH (27.0-33.0) pg MCHC (31.0-35.0) g/dl RDW (11.0-16.0) % Plt Count (160-400) X10*3/uL MPV (9.4-12.3) fL Absolute Nucleated RBC (0.0-0.012) X10*3/uL Nucleated RBC % (auto) (0.0-0.2) /100WBC PT (10.0-13.1) SEC INR (0.9-1.1) Sodium (135-145) mmol/L Potassium (3.3-5.1) mmol/L Chloride (96-108) mmol/L Carbon Dioxide (22-29) mmol/L Anion Gap (12-20) BUN (9-16) mg/dL Creatinine (0.5-1.4) mg/dL Estim Creat Clear Calc Estimated GFR Fasting Glucose (60-99) mg/dL Calcium (8.4-10.2) mg/dL Magnesium (1.6-2.6) mg/dL Total Bilirubin (0.0-1.0) mg/dL AST (5-31) U/L ALT (0-31) U/L Alkaline Phosphatase (39-117) U/L Troponin I High Sens (<3.5-17.0) ng/L Total Protein (6.5-8.0) g/dL Albumin (3.5-5.0) g/dL Urine Color Yellow Urine Appearance Clear Urine pH 7.0 (5.0-9.0) Ur Specific Warren <= 1.005 (1.005-1.025) Urine Protein Negative (Neg-Trace) mg/dL Urine Glucose (UA) Negative (Negative) mg/dL Urine Ketones Negative (Negative) mg/dL Urine Blood Negative (Negative) Urine Nitrite Negative (Negative) Ur Leukocyte Esterase Negative (Negative) Salicylates (15-30) mg/dL Urine Opiates Screen Not Detected (Not Detect) Urine Fentanyl Screen Not Detected (Not Detect) Acetaminophen (<30) mcg/mL Ur Barbiturates Screen Not Detected (Not Detect) Ur Phencyclidine Scrn Not Detected (Not Detect) Ur Amphetamines Screen Not Detected (Not Detect) U Benzodiazepines Scrn POSITIVE H (Not Detect) Urine Cocaine Screen Not Detected (Not Detect) U Marijuana (THC) Screen Not Detected (Not Detect) Ethyl Alcohol mg/dL Independent Interpretation I performed an independent interpretation of an: EKG and CT Scan Interpretation: Rate:61 Rhythm: NSR [place]: normal Normal P waves. Normal CELIO. Normal QRS complex. ST T wave : normal no KEM qTC: normal prior studies: no acute ischemia The study has been interpreted contemporaneously by me. Radiology Impression Discussion of test interpretation with radiology: I discussed test interpretation with the radiologist and I have reviewed the radiologist's reading. Radiologist Impression: no acute findings on CT scan per radiologist Independent Historian Clinical information obtained from an independent historian. History obtained from or confirmed by: Other (daughter Ruby) daughter notes that the patient has been off this week and she has had a headache and has been dizzy - daughter notes she was walking off yesterday. External Record Review External record reviewed: Inpatient record DC summary from October Social Determinants Patient?s care significantly limited by Social Determinants of Health including: Problems related to primary support group Discharge Plan Discharge Clinical Impression: Acute headache Qualifiers: Headache type: unspecified Intractability: not intractable Qualified Code(s): R51.9 - Headache, unspecified Patient Disposition: Home, Self-Care Instructions: Acute Headache (ED) Additional Instructions: mary an?lisis de esme y las tomograf?as computarizadas de hooper letha y terri, incluidos los vasos sangu?neos, fueron normales. usted no tiene signos de accidente cerebrovascular leandro. regrese si los s?ntomas empeoran, el dolor, la confusi?n, el aumento de los s?ntomas o cualquier otra inquietud. Prescriptions: No Action albuterol sulfate 90 mcg/actuation HFA aerosol inhaler 2 puff inhalation Q4-6H PRN (Reason: shortness of breath or wheezing) Qty: 8.5 0RF omeprazole 20 mg capsule,delayed release(DR/EC) 20 mg PO DAILY@0630 pravastatin 20 mg tablet 20 mg PO DAILY alprazolam 2 mg tablet 2 mg PO TID PRN (Reason: anxiety) celecoxib 100 mg capsule 100 mg PO BID fluticasone propionate 50 mcg/actuation spray,suspension 2 spray intranasal DAILY loratadine 10 mg tablet 10 mg PO DAILY PRN (Reason: allergies) duloxetine 30 mg capsule,delayed release(DR/EC) 30 mg PO DAILY Rx Instructions: take with 60mg dose duloxetine 60 mg capsule,delayed release(DR/EC) 60 mg PO BID ramelteon 8 mg tablet 8 mg PO BEDTIME clonazepam 0.125 mg Tablet,Disintegrating 0.25 mg PO TID PRN (Reason: Anxiety) Qty: 24 0RF vilazodone [Viibryd] 10 mg Tablet 10 mg PO DAILY Qty: 30 0RF cefuroxime axetil 500 mg tablet 500 mg PO Q12H Qty: 9 0RF zolpidem [Ambien] 10 mg tablet 10 mg PO BEDTIME PRN (Reason: Insomnia) cholecalciferol (vitamin D3) 50 mcg (2,000 unit) capsule 50 mcg PO DAILY Qty: 90 1RF Print Language: Yoruba
[2023-02-20 13:55] VITALS: BP 122/75; PULSE 66; RESP 18; O2SAT 94
[2023-02-20 14:05] LABS: INTERNATIONAL NORM RATIO 1.1 (0.9-1.1); Prothrombin Time 12.1 SEC (10.0-13.1)
[2023-02-20] MEDS: 0.9 % Sodium Chloride 1,000 ML 999 ML IV (14:24)
[2023-02-20 14:36] LABS: Appearance Urine Clear; Color Urine Yellow; Glucose Urine UA Negative (Negative); Leukocyte Esterase Urine Negative (Negative); Nitrite Urine Negative (Negative); Specific Gravity - Urine <= 1.005 (1.005-1.025); Urine Blood Negative (Negative); Urine Ketones Negative (Negative); Urine Protein Negative (Neg-Trace)
[2023-02-20 14:44] LABS: Ethanol < 10 mg/dL; Magnesium 2.1 mg/dL (1.6-2.6)
--- NOTE | 2023-02-20 14:44 | PC.NURSE ---
able to stand and pivot to use commode, steady on feet
[2023-02-20 14:45] LABS: Troponin-I High Sensitivity < 2.7 ng/L (<3.5-17.0)
[2023-02-20 14:49] LABS: Amphetamine Screen Urine Not Detected (Not Detect); Barbiturates, Urine Not Detected (Not Detect); Benzodiazepines Screen Urine POSITIVE (Not Detect); Cannabinoid Screen Urine Not Detected (Not Detect); Cocaine Screen Urine Not Detected (Not Detect); Fentanyl, urine Not Detected (Not Detect); Opiate Screen Urine Not Detected (Not Detect); Phencyclidine Screen Urine Not Detected (Not Detect)
[2023-02-20 15:02] VITALS: BP 153/86; PULSE 63; RESP 12; TEMP 36.6; O2SAT 100
[2023-02-20] MEDS: iohexoL 350 MG/ML 100 ML INFUS..BTL IV (15:24)
[2023-02-20 15:47] LABS: Acetaminophen LAB < 17 mcg/mL (<30); Salicylate < 5.0 mg/dL (15-30)
[2023-02-20 16:15] VITALS: BP 151/84; PULSE 65; RESP 14; TEMP 36.4; O2SAT 99
--- NOTE | 2023-02-20 16:39 | PC.NURSE ---
ambulated with strong steady gait
== END 2023-02-20 16:53 | disposition home or self-care (01) ==
PROVIDERS: Emergency Provider Emergency Medicine; PCP Internal Medicine
DX: R51.9 Headache, unspecified (principal); F17.200 Nicotine dependence, unspecified, uncomplicated; Z79.899 Other long term (current) drug therapy
CPT/HCPCS: 36415; 70496; 70498; 80053; 80143; 80179; 80307; 81003; 83735; 84484; 85027; 85610; 93005; 96360; 99284; 99285; Q9967

== ENCOUNTER 2023-04-09 08:18 | Outpatient (REF) | payer OTHER, SELFPAY ==
--- NOTE | ~2023-04-09 | XR_ITS ---
EXAMINATION: XR KNEE, LEFT XR SHOULDER, LEFT CLINICAL INDICATION: Pain. COMPARISON: None available. TECHNIQUE: Left knee 4 views and left shoulder 4 views. FINDINGS: LEFT KNEE: The tricompartment joint space is maintained normal. No visible acute fracture, dislocation or subluxation seen. No bony erosive changes. The soft tissues are normal. LEFT SHOULDER: The glenohumeral and AC joint space is normal. No visible fracture, dislocation or subluxation seen. There is a round soft tissue calcification adjacent to the greater tuberosity likely calcific bursitis. There are more linear calcifications seen deeper to the round calcification on axillary view may represent calcific tendinitis as well. XR/XR shoulder LT min 2V IMPRESSION: Unremarkable left knee. Likely calcific bursitis lateral to humeral head. Suspect calcific tendinitis as well. No acute fracture or dislocation seen.
--- NOTE | ~2023-04-09 | XR_ITS ---
EXAMINATION: XR KNEE, LEFT XR SHOULDER, LEFT CLINICAL INDICATION: Pain. COMPARISON: None available. TECHNIQUE: Left knee 4 views and left shoulder 4 views. FINDINGS: LEFT KNEE: The tricompartment joint space is maintained normal. No visible acute fracture, dislocation or subluxation seen. No bony erosive changes. The soft tissues are normal. LEFT SHOULDER: The glenohumeral and AC joint space is normal. No visible fracture, dislocation or subluxation seen. There is a round soft tissue calcification adjacent to the greater tuberosity likely calcific bursitis. There are more linear calcifications seen deeper to the round calcification on axillary view may represent calcific tendinitis as well. XR/XR knee LT 3V IMPRESSION: Unremarkable left knee. Likely calcific bursitis lateral to humeral head. Suspect calcific tendinitis as well. No acute fracture or dislocation seen.
== END 2023-04-09 08:19 | disposition home or self-care (01) ==
LOC: HO.XRAY 08:18
PROVIDERS: PCP Internal Medicine; Visit Provider Internal Medicine Rheumatology
DX: M25.512 Pain in left shoulder (principal); M25.562 Pain in left knee
CPT/HCPCS: 73030; 73562; 99212

== ENCOUNTER 2023-04-09 08:18 | Outpatient (AMB) | payer OTHER, SELFPAY ==
[2023-04-09 08:21] VITALS: BP 118/72; PULSE 62; TEMP 36.6; O2SAT 98; BMI 26.4
--- NOTE | 2023-04-09 08:21 | MHC.OFFVIS ---
Intake Vital Signs 04/09/23 08:21 Height 5 ft 3 in Weight 148 lb 12.992 oz BMI 26.4 BP 118/72 Blood Pressure Location Rt brachial Position Sitting Pulse 62 Pulse Source Pulse Oximeter Temp 97.9 F Temp Source Skin Pulse Oximetry (%) 98 Intake Visit Reasons: joint pain Intake Note: Pt seen today for joint pain. C/o pain in neck, shoulders and legs. 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 Drum Operator Name: Chelle [id number] Information Interpreted: clinical only Accompanied by: Daughter Allergies duloxetine [From CYMBALTA] Allergy (Mild, Verified 04/09/23 08:23) ITCHING ibuprofen [From MOTRIN] Allergy (Unknown, Verified 04/09/23 08:23) ITCHING ibuprofen Allergy (Unknown, Uncoded 04/09/23 08:23) Unknown Medication List - Last Reconciled 04/09/23 by Danny Flowers MD albuterol sulfate 90 mcg/actuation 2 puffs inhalation Q4-6H PRN alprazolam 2 mg PO TID PRN cholecalciferol (vitamin D3) 50 mcg PO DAILY fluticasone propionate 50 mcg/actuation 2 sprays intranasal DAILY gabapentin 200 mg PO BID loratadine 10 mg PO DAILY PRN omeprazole 20 mg PO DAILY@0630 pravastatin 20 mg PO DAILY zolpidem (Ambien) 10 mg PO BEDTIME PRN HPI HPI Comments History of Present Illness Details The patient returns to Rheumatology for evaluation of her fibromyalgia. The visit is facilitated through the use of the translating service. 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 The patient had been seen in the past for fibromyalgia. She had been on Cymbalta and gabapentin in the past. Notes from the primary office indicates she was put on some Celebrex and Cymbalta but apparently she had side effects so she stopped the Cymbalta. She does not recall ever starting the Celebrex. She is presently taking 100 mg daily of the gabapentin and it is not helping her much. She had been in the hospital in October with confusion. There was suspicion that she had benzodiazepine withdrawal symptoms. She claims to be taking some Ambien at night but does not recall any other prescriptions that she is on. She says her widespread pains continue in the neck, shoulders, hands, lower back, lateral hips and knees. Most problematic seems to be the upper arms. This is painful when she lifts her arms up to the horizontal. There is also some hand paresthesias at times accompanying the arm pain. She also has some right buttock and left knee pain. [facility] Medical History (Updated 04/09/23 @ 09:10 by Danny Flowers MD) Alcohol abuse Anxiety Asthma Depression Fibromyalgia Insomnia Surgical History H/O knee surgery History of partial hysterectomy Hx of tubal ligation Family History Mother Diabetes HTN (hypertension) CVD (cardiovascular disease) Father Arthritis CVD (cardiovascular disease) Social History Household Members: None Housing: Apartment Do you presently have visiting nurse or other home services: Yes Unable to assess alcohol history related to: Unknown Alcohol intake: current Alcohol intake frequency: a few times a month Patient Tobacco Use Status: Current someday Tobacco user Advance Directives Date on File: 11/27/22 service: No Current occupational status: disabled Review of Systems Const Details: Low energy. Negative for appetite change, weight change, fever, chills, malaise Eyes Details: Negative for vision change, dry eyes,headaches and dizziness Card Details: Negative chest pain, edema and syncope Resp Details: Negative for SOB, cough and wheezing GI Details: Negative indigestion/heartburn, nausea, abdominal pain, bowel changes, diarrhea, constipation and bloody stool. Psych Details: Anxiety and depression symptoms continue. She does see psychiatry. Endo Details: Negative for polyuria and polydypsia Chiki/Lymph Details: Negative for excessive bruising or bleeding. Physical Exam Vital Signs: Last Vital Signs Temp 97.9 F 04/09/23 08:21 Pulse 62 04/09/23 08:21 BP 118/72 04/09/23 08:21 Pulse Ox 98 04/09/23 08:21 BMI result Body Mass Index 26.4 APPEARANCE: Patient in no acute distress EYES no redness, pupils equal and reactive to light, eyelids normal. No temporal artery tenderness, redness or swelling. EXTREMITIES: No edema, no calf tenderness, normal peripheral pulses. NEURO: Oriented and alert x3. No focal weakness. Reflexes symmetric. Gait normal. SKIN: No inflammatory or neoplastic lesions. Normal color and turgor JOINT EXAM:?? Cervical Spine:.? Mild pain with more than 10 degrees of lateral abduction or 15 degrees of rotation. Fibt-ok-vtgsfvjd cervical muscle tenderness. Thoracic Spine:.? No scoliosis.? No tenderness on palpation. Lumbar Spine:.? Alignment normal.? Lumbar pain with flexion at 45 degrees or any attempted hyperextension. Iqdk-cn-dwtikgmd muscle tenderness. Chest Wall:.? No tenderness, swelling, increased warmth or erythema. Hands:.? There is pain with any motion of the fingers and rather diffuse tenderness in joints, soft tissues, and tendons. No areas of bony or soft tissue swelling, increased warmth or erythema. Able to make a full fist and has a good network security officer strength. Wrists:.? Mild pain with flexion or extension at 75 degrees. Mild dorsal tenderness without swelling, increased warmth or erythema. Elbows:. Normal pain-free range of motion with mild lateral epicondylar tenderness. Over the joint spaces there is no tenderness, swelling, increased warmth or erythema. Shoulders:.? Mild to moderate pain with abduction at 90 degrees or with any attempted internal or external rotation. There is kuxw-lp-yhudzrnc anterior, subacromial and posterior tenderness. There is no swelling or adenopathy. Weakness is hard to assess because of the pain. Hips:.? Lzdb-bo-edlozpfb lumbar pain with attempts at internal or external rotation. No groin pain with motion. Hip bursa:.? Moderate bilateral trochanteric tenderness. Knees:.??Right: Normal pain-free range of motion without tenderness or swelling. Left: Mild to moderate pain with more than 45 degrees flexion or extension. Most pains on the medial and lateral aspects. There is slight medial tenderness without redness or effusion. No popliteal swelling or tenderness. Ankles:.? Normal pain-free range of motion without tenderness, swelling, increased warmth or erythema. Feet:.? Normal pain-free range of motion with mild tenderness across the instep and MTP region. No areas of swelling, increased warmth or erythema. Tender points:teaw-mi-nymdzvnj tenderness to digital palpation at the occiput, trapezius, second rib, lateral epicondyle, knees, greater trochanter and gluteal area bilaterally. ? Assessment & Plan Assessment & Plan (1) Shoulder pain, bilateral: Code(s): M25.511 - Pain in right shoulder; M25.512 - Pain in left shoulder (2) Knee pain, left: Code(s): M25.562 - Pain in left knee (3) Fibromyalgia: Code(s): M79.7 - Fibromyalgia Plan She again has many areas of tenderness and many areas of pain. This is all consistent with fibromyalgia. The shoulders have some painful range of motion suggesting some rotator cuff tendinitis and/or impingement. The left knee has more pain than the right, also suggesting perhaps other pathology. I suspect she is worse because she is now off an antidepressant. It is unclear why that was not resumed or whether there was a side effect with the Cymbalta. I would encourage her to follow through with behavioral health and her primary doctor to perhaps get her back on an antidepressant regimen. We will get x-rays of the shoulders and that left knee. We might consider physical therapy to help her out or a corticosteroid injection if there is inflammatory symptoms. The lack of swelling today goes more for fibromyalgia and perhaps some OA. I will get back to her with recommendations after the lab and x-rays return. Today's visit including reviewing her old record, history, and exam took 42 minutes. Orders: Orders C Reactive Protein Today M25.511 - Pain in right shoulder, M25.512 - Pain in left shoulder Erythrocyte Sedimentation Rate Today M25.511 - Pain in right shoulder, M25.512 - Pain in left shoulder XR shoulder LT min 2V Today M25.511 - Pain in right shoulder, M25.512 - Pain in left shoulder XR knee LT 3V Today M25.562 - Pain in left knee PT Evaluation and Treatment 12/06/20 M25.50 - Pain in unspecified joint, M79.7 - Fibromyalgia Coding Level of Care Code Est Pt Level 5 (57851) Diagnoses Shoulder pain, bilateral M25.511; M25.512 Knee pain, left M25.562 Fibromyalgia M79.7
== END 2023-04-09 09:19 | disposition home or self-care (01) ==
PROVIDERS: PCP Internal Medicine; Visit Provider Internal Medicine Rheumatology
DX: M79.7 Fibromyalgia (principal); M25.511 Pain in right shoulder; M25.512 Pain in left shoulder; M25.562 Pain in left knee
CPT/HCPCS: 99215

== ENCOUNTER 2023-04-09 09:23 | Outpatient (REF) | payer OTHER, SELFPAY ==
[2023-04-09 11:31] LABS: Erythrocyte Sedimentation Rate 13 MM/HR (0-20)
== END 2023-04-09 09:24 | disposition home or self-care (01) ==
LOC: HO.10HDL 09:23
PROVIDERS: Visit Provider Internal Medicine Rheumatology
DX: M25.511 Pain in right shoulder (principal); M25.512 Pain in left shoulder
CPT/HCPCS: 36415; 85652; 86140

== ENCOUNTER 2023-07-20 23:01 | Emergency (ER) | payer OTHER, SELFPAY ==
--- NOTE | 2023-07-20 | ECG_ITS ---
Test Reason : SOB, DIZZINESS Blood Pressure : / mmHG Vent. Rate : 072 BPM Atrial Rate : 072 BPM P-R Int : 176 ms QRS Dur : 086 ms QT Int : 396 ms P-R-T Axes : 034 047 037 degrees QTc Int : 433 ms Normal sinus rhythm Normal ECG When compared with ECG of 20-FEB-2023 12:55, No significant change was found Referred By: Oidlia Ramirez Electronically Signed By:LADARIUS TABARES MD
--- NOTE | ~2023-07-20 | XR_ITS ---
EXAMINATION: XR CHEST CLINICAL INFORMATION: Chest pain COMPARISON: 11/24/2022 TECHNIQUE: Frontal view of the chest was obtained. FINDINGS: No significant abnormality is noted involving the heart, lungs, mediastinum, bony thorax or soft tissues. The previously seen seen ovoid density in the right midlung is not seen on the current study XR/XR chest 1V IMPRESSION: No acute intrathoracic disease.
[2023-07-20 23:03] VITALS: O2SAT 98
[2023-07-20 23:07] VITALS: BMI 27.5
[2023-07-20 23:14] VITALS: BP 168/85; PULSE 75; RESP 20; TEMP 36.9; O2SAT 100
[2023-07-20 23:31] LABS: MANUAL DIFF FLAG NO
[2023-07-20 23:32] LABS: Basophils Percent Auto 0.1 % (0-2); Eosinophils Percent Auto 0.1 % (0-4); Hematocrit 37.4 % (37.0-47.0); Hemoglobin 12.4 g/dl (12.0-16.0); Imm Gran Abs Auto 0.04 X10*3/uL (0.00-0.03); Imm Gran Pct Auto 0.4 % (0.0-0.4); Lymphocytes Absolute Auto 1.5 X10*3/uL (1.2-4.9); Lymphocytes Percent Auto 14.3 % (20-40); Mean Corpuscular HGB Conc 33.2 g/dl (31.0-35.0); Mean Corpuscular Hemoglobin 27.3 pg (27.0-33.0); Mean Corpuscular Volume 82.2 fL (80.0-98.0); Mean Platelet Volume 9.9 fL (9.4-12.3); Monocytes Absolute Auto 1.1 X10*3/uL (0.1-1.2); Monocytes Percent Auto 10.3 % (2-11); Neutrophils Absolute Auto 7.9 x10*3/uL (2.0-8.3); Neutrophils Percent Auto 74.8 % (45-73); Platelet Count 220 X10*3/uL (160-400); Red Blood Count 4.55 X10*6/uL (4.20-5.50); Red Cell Distribution Width 14.9 % (11.0-16.0); White Blood Count 10.6 X10*3/uL (4.8-10.8)
[2023-07-20 23:49] LABS: Alanine Aminotransferase 15 U/L (0-31); Albumin Level 4.4 g/dL (3.5-5.0); Alkaline Phosphatase 77 U/L (39-117); Anion Gap 18 (12-20); Aspartate Amino Transferase 22 U/L (5-31); Bilirubin Total 0.4 mg/dL (0.0-1.0); Blood Urea Nitrogen 8 mg/dL (9-16); Calcium 9.6 mg/dL (8.4-10.2); Carbon Dioxide 22 mmol/L (22-29); Chloride 105 mmol/L (96-108); Creatinine Clr Calc Pharmacy 71.8; Estimated Glomerular Filt Rate > 60; Glucose Random 137 mg/dL (60-115); Magnesium 1.9 mg/dL (1.6-2.6); Sodium 141 mmol/L (135-145); Total Protein 7.9 g/dL (6.5-8.0)
[2023-07-20 23:55] LABS: Troponin-I High Sensitivity 10.3 ng/L (<3.5-17.0)
--- NOTE | 2023-07-21 00:01 | ED_ITS ---
HPI - General Adult General Chief complaint: Dyspnea Stated complaint: diff breathing Time Seen by Provider: 07/20/23 23:06 Source: patient Mode of arrival: EMS Limitations: no limitations History of Present Illness HPI narrative: The emergency room complaining of 1 day of chest tightness, shortness of breath. Patient states that she does have history of asthma. Patient states that she does not have any albuterol inhalers at home. Patient states the last week she was placed on antibiotics for a sinus infection. Related Data Home Medications Medication Instructions Recorded Confirmed zolpidem 10 mg tablet (Ambien) 10 mg PO BEDTIME PRN Insomnia 11/15/20 04/09/23 alprazolam 2 mg tablet 2 mg PO TID PRN anxiety 11/24/22 04/09/23 fluticasone propionate 50 2 spray intranasal DAILY 11/24/22 04/09/23 mcg/actuation nasal spray,suspension loratadine 10 mg tablet 10 mg PO DAILY PRN allergies 11/24/22 04/09/23 omeprazole 20 mg capsule,delayed 20 mg PO DAILY@0630 11/24/22 04/09/23 release pravastatin 20 mg tablet 20 mg PO DAILY 11/24/22 04/09/23 gabapentin 100 mg capsule 200 mg PO BID 04/09/23 04/09/23 Previous Rx's Medication Instructions Recorded cholecalciferol (vitamin D3) 50 50 mcg PO DAILY #90 caps 01/26/21 mcg (2,000 unit) capsule albuterol sulfate 90 mcg/actuation 2 puff inhalation Q4-6H PRN 09/24/22 aerosol inhaler shortness of breath or wheezing #8.5 grams albuterol sulfate 90 mcg/actuation 2 puff inhalation Q4-6H PRN 07/21/23 aerosol inhaler shortness of breath or wheezing #6.7 grams prednisone 50 mg tablet 50 mg PO DAILY #4 tabs 07/21/23 Allergies Allergy/AdvReac Type Severity Reaction Status Date / Time duloxetine [From CYMBALTA] Allergy Mild ITCHING Verified 04/09/23 08:23 ibuprofen [From MOTRIN] Allergy Unknown ITCHING Verified 04/09/23 08:23 ibuprofen Allergy Unknown Unknown Uncoded 04/09/23 08:23 Review of Systems 2 Review of Systems: Constitutional : No Weight loss, No Fever, No Chills, No Night Sweats, No Fatigue, No Malaise ENT/Mouth : No Hearing loss, No Ear Pain, No Nasal Congestion, No Sinus Pain, No Hoarseness, No sore throat, No Rhinorrhea, No Swallowing Difficulty Eyes: No Eye Pain, No Swelling, No Redness, No Foreign Body, No Discharge, No Vision Changes Cardiovascular : No Chest Pain, No SOB, No Dyspnea on Exertion, No Orthopnea, No Edema, No Palpitations Respiratory : No Cough, No Sputum, Complaining of chest tightness and wheezing, no dyspnea Gastrointestinal : No Nausea, No Vomiting, No Diarrhea, No Constipation, No abdominal Pain, No Hematochezia, No Melena Genitourinary : no irregular bleeding, No Dysuria, No Urinary Frequency, No Hematuria, No Urinary Incontinence, No Urgency, No Flank Pain, No Urinary Flow Changes, No Hesitancy Musculoskeletal : No joint pain, No Myalgias, No Joint Swelling Skin : No Skin Lesions, No rash Neuro : No Weakness, No Numbness, No Paresthesias, No Loss of Consciousness, No Dizziness, No Headache Psych : No Anxiety/Panic, No Depression, No SI/HI/AH/VH, No Social Issues, Heme/Lymph: No Bruising, No Bleeding,No Lymphadenopathy Endocrine : No Polyuria, No Polydipsia, No Temperature Intolerance [facility] Past Medical History Medical History Alcohol abuse Asthma Anxiety Insomnia Depression Fibromyalgia Surgical History H/O knee surgery History of partial hysterectomy Hx of tubal ligation Family History Family History Mother Diabetes HTN (hypertension) CVD (cardiovascular disease) Father Arthritis CVD (cardiovascular disease) Social History Social History Household Members: None Housing: Apartment Do you presently have visiting nurse or other home services: Yes Unable to assess alcohol history related to: Unknown Alcohol intake: current Alcohol intake frequency: a few times a month Patient Tobacco Use Status: Current someday Tobacco user Advance Directives: Yes Advance Directives on File: Yes Advance Directives Date on File: 11/27/22 service: No Current occupational status: disabled Physical Exam ED Vital Signs: Vital Signs - 24 hr 07/20/23 23:14 Temperature 98.4 F Pulse Rate 75 Respiratory Rate 20 Blood Pressure 168/85 H Pulse Oximetry 100 Oxygen Delivery Method Room Air BMI result Body Mass Index 27.5 Const Other: Appearance: Alert. Oriented X3. No acute distress. Eyes: Pupils equal, round and reactive to light. ENT: Pharynx normal. Neck: Normal inspection. Neck supple. No lymph nodes noted. No crepitus CVS: Normal heart rate and rhythm. Pulses normal. Normal S1 and S2 Respiratory: No respiratory distress. minimal bilateral wheezing, good air movement, no rales or crackles, oxygen saturation 100% on room air. Abdomen: Soft and nontender. No rigidity. No distention. Skin: Skin warm and dry. Normal skin color. Normal skin turgor. Extremities: No lower extremity edema. No Lacerations. No Rash Neuro: Oriented X 3. No motor deficit. No sensory deficit. Moving all extremities. No slurred speech. CN 2 through 12 grossly intact Psych: calm, cooperative, normal affect Course Course Course Narrative: - I discussed the physical exam with the patient, patient has mild wheezing, mild asthma exacerbation. - Patient receiving IV Solu-Medrol, nebulization treatment. - Of patient's vital stable. Medications Administered Discontinued Medications Generic Name Dose Route Start Last Admin Trade Name Freq PRN Reason Stop Dose Admin Methylprednisolone Sodium Succinate 125 mg 07/20/23 23:57 07/21/23 00:11 Methylprednisolone Sod Succ 125 Mg/2 Ml Vial IVPUSH 07/20/23 23:58 125 mg ONCE ONE Administration Medical Decision Making Medical Decision Making [facility] Narrative: - My interpretation of labs: Normal hematology and chemistry, troponin negative. - My interpretation of chest x-ray: No pneumonia, no infiltrates or fractured ribs - my interpretation EKG, normal sinus rhythm, heart rate 72, no ST segment depression or elevation, no T-wave inversion, nonspecific T-wave inversion in III, QTC 433 - patient had very mild symptoms on arrival, no hypoxia, patient improved with the above-mentioned treatment. Differential Diagnosis Differential Diagnoses: The differential diagnosis associated with the presentation includes ( Asthma, pneumonia, viral syndrome ACS) Admission/Observation Consideration of admission/observation: Escalation of care including admission/observation considered ( given patient's history constellation of symptoms, admission was considered on arrival) Lab Data [facility] Lab Attestation statement: I reviewed the patient's lab results. 07/20/23 23:27 07/20/23 23:27 Labs: Lab Results 07/20/23 Range/Units 23:27 WBC 10.6 (4.8-10.8) X10*3/uL RBC 4.55 (4.20-5.50) X10*6/uL Hgb 12.4 (12.0-16.0) g/dl Hct 37.4 (37.0-47.0) % MCV 82.2 (80.0-98.0) fL MCH 27.3 (27.0-33.0) pg MCHC 33.2 (31.0-35.0) g/dl RDW 14.9 (11.0-16.0) % Plt Count 220 (160-400) X10*3/uL MPV 9.9 (9.4-12.3) fL Immature Gran % (Auto) 0.4 (0.0-0.4) % Neut % (Auto) 74.8 H (45-73) % Lymph % (Auto) 14.3 L (20-40) % [place] % (Auto) 10.3 (2-11) % Eos % (Auto) 0.1 (0-4) % Baso % (Auto) 0.1 (0-2) % Lymph # (Auto) 1.5 (1.2-4.9) X10*3/uL [place] # (Auto) 1.1 (0.1-1.2) X10*3/uL Eos # (Auto) 0.0 (0.0-0.4) X10*3/uL Baso # (Auto) 0.0 (0.0-0.2) X10*3/uL Abs Immat Gran (auto) 0.04 H (0.00-0.03) X10*3/uL Absolute Neuts (auto) 7.9 (2.0-8.3) x10*3/uL Absolute Nucleated RBC 0.000 (0.0-0.012) X10*3/uL Nucleated RBC % (auto) 0.0 (0.0-0.2) /100WBC APTT 24.0 L (26.0-36.4) SEC Sodium 141 (135-145) mmol/L Potassium 4.0 (3.3-5.1) mmol/L Chloride 105 (96-108) mmol/L Carbon Dioxide 22 (22-29) mmol/L Anion Gap 18 (12-20) BUN 8 L (9-16) mg/dL Creatinine 0.80 (0.5-1.4) mg/dL Estim Creat Clear Calc 71.8 Estimated GFR > 60 Random Glucose 137 H (60-115) mg/dL Calcium 9.6 (8.4-10.2) mg/dL Magnesium 1.9 (1.6-2.6) mg/dL Total Bilirubin 0.4 (0.0-1.0) mg/dL AST 22 (5-31) U/L ALT 15 (0-31) U/L Alkaline Phosphatase 77 (39-117) U/L Troponin I High Sens 10.3 D (<3.5-17.0) ng/L Total Protein 7.9 (6.5-8.0) g/dL Albumin 4.4 (3.5-5.0) g/dL Independent Interpretation I performed an independent interpretation of an: Plain X-Ray Radiology Impression Discussion of test interpretation with radiology: I have reviewed the radiologist's reading. Radiologist Impression: FINDINGS: No significant abnormality is noted involving the heart, lungs, mediastinum, bony thorax or soft tissues. The previously seen seen ovoid density in the right midlung is not seen on the current study XR/XR chest 1V IMPRESSION: No acute intrathoracic disease. Discharge Plan Discharge Clinical Impression: Asthma Patient Disposition: Home, Self-Care Instructions: Asthma (ED) Additional Instructions: Please follow-up with your primary care physician tomorrow. If you have any worsening or new symptoms, please return to the emergency room or call 911 Prescriptions: New prednisone 50 mg tablet 50 mg PO DAILY Qty: 4 0RF albuterol sulfate 90 mcg/actuation HFA aerosol inhaler 2 puff inhalation Q4-6H PRN (Reason: shortness of breath or wheezing) Qty: 6.7 0RF No Action albuterol sulfate 90 mcg/actuation HFA aerosol inhaler 2 puff inhalation Q4-6H PRN (Reason: shortness of breath or wheezing) Qty: 8.5 0RF omeprazole 20 mg capsule,delayed release(DR/EC) 20 mg PO DAILY@0630 pravastatin 20 mg tablet 20 mg PO DAILY alprazolam 2 mg tablet 2 mg PO TID PRN (Reason: anxiety) fluticasone propionate 50 mcg/actuation spray,suspension 2 spray intranasal DAILY loratadine 10 mg tablet 10 mg PO DAILY PRN (Reason: allergies) zolpidem [Ambien] 10 mg tablet 10 mg PO BEDTIME PRN (Reason: Insomnia) cholecalciferol (vitamin D3) 50 mcg (2,000 unit) capsule 50 mcg PO DAILY Qty: 90 1RF gabapentin 100 mg capsule 200 mg PO BID
[2023-07-21] MEDS: methylPREDNISolone Sod Succ 125 MG/2 ML VIAL IVPUSH (00:11)
[2023-07-21] MEDS: Albuterol Sulfate (0.083%) 2.5 MG/3 ML VIAL.NEB INHALE (00:16)
[2023-07-21 00:17] VITALS: PULSE 75; RESP 18; O2SAT 100
[2023-07-21 00:39] LABS: COVID-19 Test Negative (Negative); IDNOW Serial# 08D9AD1C; IDNOW Serial# BCCEAD1C; Influenza A Negative (Negative); Influenza B2 Negative (Negative)
== END 2023-07-21 01:42 | disposition home or self-care (01) ==
PROVIDERS: Emergency Provider Emergency Medicine; PCP Internal Medicine
DX: R06.02 Shortness of breath (principal); R42 Dizziness and giddiness; F17.210 Nicotine dependence, cigarettes, uncomplicated; Z71.6 Tobacco abuse counseling; Z11.52 Encounter for screening for COVID-19; Z20.822 Contact with and (suspected) exposure to COVID-19; Z79.899 Other long term (current) drug therapy
CPT/HCPCS: 36415; 71045; 80053; 83735; 84484; 85025; 85730; 87502; 87635; 93005; 94640; 99285; J2930

== ENCOUNTER 2023-07-23 00:21 | Emergency (ER) | payer OTHER, SELFPAY ==
[2023-07-23 00:42] VITALS: BP 146/72; BP 148/90; PULSE 84; PULSE 98; RESP 18; TEMP 36.8; O2SAT 96; O2SAT 98; BMI 28.3
--- NOTE | 2023-07-23 01:31 | ED.GENADULT ---
HPI - General Adult General Chief complaint: General Medical Stated complaint: Hyporhermia Time Seen by Provider: 07/23/23 00:42 History of Present Illness HPI narrative: Patient is a 57-year-old female with a history of being homeless. Was out in the cold rain in snow. Subsequently was noted to have a low temperature. Sent to the emergency department for further evaluation. Patient has no specific complaint other than feeling cold. Related Data Home Medications Medication Instructions Recorded Confirmed zolpidem 10 mg tablet (Ambien) 10 mg PO BEDTIME PRN Insomnia 11/15/20 04/09/23 alprazolam 2 mg tablet 2 mg PO TID PRN anxiety 11/24/22 04/09/23 fluticasone propionate 50 2 spray intranasal DAILY 11/24/22 04/09/23 mcg/actuation nasal spray,suspension loratadine 10 mg tablet 10 mg PO DAILY PRN allergies 11/24/22 04/09/23 omeprazole 20 mg capsule,delayed 20 mg PO DAILY@0630 11/24/22 04/09/23 release pravastatin 20 mg tablet 20 mg PO DAILY 11/24/22 04/09/23 gabapentin 100 mg capsule 200 mg PO BID 04/09/23 04/09/23 Previous Rx's Medication Instructions Recorded cholecalciferol (vitamin D3) 50 50 mcg PO DAILY #90 caps 01/26/21 mcg (2,000 unit) capsule albuterol sulfate 90 mcg/actuation 2 puff inhalation Q4-6H PRN 09/24/22 aerosol inhaler shortness of breath or wheezing #8.5 grams albuterol sulfate 90 mcg/actuation 2 puff inhalation Q4-6H PRN 07/21/23 aerosol inhaler shortness of breath or wheezing #6.7 grams prednisone 50 mg tablet 50 mg PO DAILY #4 tabs 07/21/23 Allergies Allergy/AdvReac Type Severity Reaction Status Date / Time duloxetine [From CYMBALTA] Allergy Mild ITCHING Verified 07/23/23 00:42 ibuprofen [From MOTRIN] Allergy Unknown ITCHING Verified 07/23/23 00:42 ibuprofen Allergy Unknown Unknown Uncoded 04/09/23 08:23 Review of Systems Review of Systems: No fever no chills no chest pain or shortness breath PMFSH Past Medical History Attestation statement: The following information was validated with the patient. Medical History Alcohol abuse Asthma Anxiety Insomnia Depression Fibromyalgia Surgical History H/O knee surgery Hx of tubal ligation History of partial hysterectomy Family History Family History Mother Diabetes HTN (hypertension) CVD (cardiovascular disease) Father Arthritis CVD (cardiovascular disease) Social History Household Members: None Housing: Apartment Do you presently have visiting nurse or other home services: Yes Unable to assess alcohol history related to: Unknown Alcohol intake: current Alcohol intake frequency: a few times a month Patient Tobacco Use Status: Current someday Tobacco user Advance Directives: Yes Advance Directives on File: Yes Advance Directives Date on File: 11/27/22 service: No Current occupational status: disabled Physical Exam ED Vital Signs: Vital Signs - 24 hr 07/23/23 00:42 Temperature 98.2 F Pulse Rate 84 Respiratory Rate 18 Blood Pressure 146/72 H Pulse Oximetry 96 Oxygen Delivery Method Room Air BMI result Body Mass Index 28.3 Appearance: Alert. Oriented X3. No acute distress. Eyes: Pupils equal, round and reactive to light. ENT: Pharynx normal. Neck: Normal inspection. Neck supple. No lymph nodes noted. No crepitus CVS: Normal heart rate and rhythm. Pulses normal. Normal S1 and S2 Respiratory: No respiratory distress. Breath sounds normal. No Wheezing. No rales Abdomen: Soft and nontender. No rigidity. No distention. good BS x4 Skin: Skin warm and dry. Normal skin color. Normal skin turgor. Extremities: No lower extremity edema. Neurovascular intact to all extremities. No Lacerations. No Rash Neuro: Oriented X 3. No motor deficit. No sensory deficit. Moving all extermities. No slurred speech Medical Decision Making Medical Decision Making MDM Narrative: Patient's temperature in the emergency department was 98.2. There is no evidence for hypothermia. Patient was given warm drinks and food. Monitor in the emergency department. Will discharge patient to the waiting room. The patient can be kept for residence a cold night. She is currently in stable condition. Differential Diagnosis Differential Diagnoses: The differential diagnosis associated with the presentation includes Hypothermia secondary to exposure Admission/Observation Consideration of admission/observation: Escalation of care including admission/observation considered No need for admission Lab Data MDM Lab Attestation statement: I reviewed the patient's lab results. Discharge Plan Discharge Clinical Impression: Hypothermia Patient Disposition: Home, Self-Care Instructions: Acute Hypothermia (ED) Prescriptions: No Action albuterol sulfate 90 mcg/actuation HFA aerosol inhaler 2 puff inhalation Q4-6H PRN (Reason: shortness of breath or wheezing) Qty: 8.5 0RF omeprazole 20 mg capsule,delayed release(DR/EC) 20 mg PO DAILY@0630 pravastatin 20 mg tablet 20 mg PO DAILY alprazolam 2 mg tablet 2 mg PO TID PRN (Reason: anxiety) fluticasone propionate 50 mcg/actuation spray,suspension 2 spray intranasal DAILY loratadine 10 mg tablet 10 mg PO DAILY PRN (Reason: allergies) prednisone 50 mg tablet 50 mg PO DAILY Qty: 4 0RF albuterol sulfate 90 mcg/actuation HFA aerosol inhaler 2 puff inhalation Q4-6H PRN (Reason: shortness of breath or wheezing) Qty: 6.7 0RF zolpidem [Ambien] 10 mg tablet 10 mg PO BEDTIME PRN (Reason: Insomnia) cholecalciferol (vitamin D3) 50 mcg (2,000 unit) capsule 50 mcg PO DAILY Qty: 90 1RF gabapentin 100 mg capsule 200 mg PO BID
--- NOTE | 2023-07-23 02:07 | PC.NURSE ---
Pt A&Ox3, denies any pain, denies SI/HI. Attempt made to contact family member but no answer. Wet clothing sent to pod to be dried.
== END 2023-07-23 02:15 | disposition home or self-care (01) ==
PROVIDERS: Emergency Provider Emergency Medicine Emergency Medical Services
DX: T68.XXXA Hypothermia, initial encounter (principal); X31.XXXA Exposure to excessive natural cold, initial encounter
CPT/HCPCS: 99282; 99284

== ENCOUNTER 2023-07-23 03:47 | Inpatient (IN) | payer OTHER, SELFPAY ==
--- NOTE | 2023-07-23 | ECG_ITS ---
Test Reason : MED CLEAR Blood Pressure : / mmHG Vent. Rate : 080 BPM Atrial Rate : 080 BPM P-R Int : 148 ms QRS Dur : 078 ms QT Int : 372 ms P-R-T Axes : 054 053 049 degrees QTc Int : 429 ms Normal sinus rhythm Normal ECG When compared with ECG of 20-JUL-2023 23:18, No significant change was found Referred By: Arlette Lepe Electronically Signed By:LADARIUS TABARES MD
--- NOTE | ~2023-07-23 | CT_ITS ---
EXAMINATION: CT HEAD WITHOUT CONTRAST CLINICAL INFORMATION: Fall, hit back of head, some confusion COMPARISON: CTA head and neck on 02/20/2023 TECHNIQUE: Contiguous axial imaging was performed from the skull base to vertex without intravenous administration of contrast. This CT examination was performed using dose optimization techniques as appropriate, variously including the following: *Automated exposure control *Adjustment of mA and/or kV according to patient size (this includes techniques or standardized protocols for targeted exams where dose is matched to indication/reason for exam; i.e. extremities or head) *Use of iterative reconstruction technique DLP: 581.34 mGy-cm FINDINGS: No acute intracranial hemorrhage or infarct. The melissa-white matter differentiation is preserved. No midline shift or hydrocephalus. No acute extra-axial fluid collections. The osseous structures are unremarkable. No orbital pathology. The paranasal sinuses and mastoid air cells are clear. CT/CT head/brain wo IV con IMPRESSION: No acute intracranial pathology.
--- NOTE | ~2023-07-23 | XR_ITS ---
EXAMINATION: XR ELBOW, LEFT CLINICAL INFORMATION: Fall COMPARISON: None available. TECHNIQUE: Four views of the left elbow. FINDINGS: The alignment is normal. No evidence of joint fluid. No acute fracture. No suspicious focal lesion. There are proliferative changes associated with the lateral epicondyles and the medial aspect of the proximal ulna XR/XR elbow LT min 3V IMPRESSION: No acute fracture or subluxation. No evidence of hemarthrosis
[2023-07-23 03:53] VITALS: BP 182/82; PULSE 102; RESP 20; TEMP 36.9; O2SAT 99; BMI 26.5
[2023-07-23 04:00] VITALS: BP 144/84; PULSE 83; RESP 17; TEMP 36.9; O2SAT 98
--- NOTE | 2023-07-23 04:16 | MHC.EDTECH ---
Patient is changed over into Behavioral Health attire. All items are in Laundry room
--- NOTE | 2023-07-23 04:22 | PC.NURSE ---
Pt is unable to provide urine sample at this time.
[2023-07-23 04:27] LABS: Hematocrit 36.7 % (37.0-47.0); Hemoglobin 12.3 g/dl (12.0-16.0); Mean Corpuscular HGB Conc 33.5 g/dl (31.0-35.0); Mean Corpuscular Hemoglobin 27.5 pg (27.0-33.0); Mean Corpuscular Volume 81.9 fL (80.0-98.0); Mean Platelet Volume 9.3 fL (9.4-12.3); Platelet Count 314 X10*3/uL (160-400); Red Blood Count 4.48 X10*6/uL (4.20-5.50); White Blood Count 13.1 X10*3/uL (4.8-10.8)
[2023-07-23 04:42] LABS: Alanine Aminotransferase 18 U/L (0-31); Albumin Level 4.7 g/dL (3.5-5.0); Alkaline Phosphatase 75 U/L (39-117); Anion Gap 17 (12-20); Aspartate Amino Transferase 31 U/L (5-31); Bilirubin Total 0.4 mg/dL (0.0-1.0); Blood Urea Nitrogen 19 mg/dL (9-16); Calcium 9.6 mg/dL (8.4-10.2); Carbon Dioxide 24 mmol/L (22-29); Chloride 105 mmol/L (96-108); Creatinine Clr Calc Pharmacy 72.5; Estimated Glomerular Filt Rate > 60; Ethanol < 10 mg/dL; Glucose Random 125 mg/dL (60-115); Potassium 3.2 mmol/L (3.3-5.1); Sodium 143 mmol/L (135-145); Total Protein 7.9 g/dL (6.5-8.0)
[2023-07-23 04:43] LABS: COVID-19 Test Negative (Negative); IDNOW Serial# BCCEAD1C
--- NOTE | 2023-07-23 05:58 | PC.NURSE ---
Pt sleeping at the bedside in no apparent distress when suddenly pt is screaming and yelling as if pt is arguing with someone. Upon doing the assessment pt is noted to be having an angry outburst in her sleep. This episode lasted about a minute.
--- NOTE | 2023-07-23 06:22 | ED.PSYCH ---
HPI - Psych General Chief Complaint: Psychiatric Symptoms Stated Complaint: crisis eval Time Seen by Provider: 07/23/23 04:02 History of Present Illness HPI Narrative: Patient is a 57-year-old female with a history of depression, fibromyalgia, anxiety patient recently lost her home. Was found earlier to be extremely cold. Upon arrival in the emergency department earlier patient temperature was actually normal. She was discharged. She was not looking right at the waiting room. With increasing anxiety. Patient appears agitated. She was sent back in to the emergency department for further evaluation Related Data Home Medications Medication Instructions Recorded Confirmed zolpidem 10 mg tablet (Ambien) 10 mg PO BEDTIME PRN Insomnia 11/15/20 04/09/23 alprazolam 2 mg tablet 2 mg PO TID PRN anxiety 11/24/22 04/09/23 fluticasone propionate 50 2 spray intranasal DAILY 11/24/22 04/09/23 mcg/actuation nasal spray,suspension loratadine 10 mg tablet 10 mg PO DAILY PRN allergies 11/24/22 04/09/23 omeprazole 20 mg capsule,delayed 20 mg PO DAILY@0630 11/24/22 04/09/23 release pravastatin 20 mg tablet 20 mg PO DAILY 11/24/22 04/09/23 gabapentin 100 mg capsule 200 mg PO BID 04/09/23 04/09/23 Previous Rx's Medication Instructions Recorded cholecalciferol (vitamin D3) 50 50 mcg PO DAILY #90 caps 01/26/21 mcg (2,000 unit) capsule albuterol sulfate 90 mcg/actuation 2 puff inhalation Q4-6H PRN 09/24/22 aerosol inhaler shortness of breath or wheezing #8.5 grams albuterol sulfate 90 mcg/actuation 2 puff inhalation Q4-6H PRN 07/21/23 aerosol inhaler shortness of breath or wheezing #6.7 grams prednisone 50 mg tablet 50 mg PO DAILY #4 tabs 07/21/23 Allergies Allergy/AdvReac Type Severity Reaction Status Date / Time duloxetine [From CYMBALTA] Allergy Mild ITCHING Verified 07/23/23 00:42 ibuprofen [From MOTRIN] Allergy Unknown ITCHING Verified 07/23/23 00:42 ibuprofen Allergy Unknown Unknown Uncoded 04/09/23 08:23 Review of Systems Review of Systems: No fever or chills no chest pain or shortness of breath no nausea no vomiting Yes all other systems are reviewed and are negative [facility] Past Medical History Medical History Alcohol abuse Asthma Anxiety Insomnia Depression Fibromyalgia Surgical History H/O knee surgery Hx of tubal ligation History of partial hysterectomy Family History Family History Mother Diabetes HTN (hypertension) CVD (cardiovascular disease) Father Arthritis CVD (cardiovascular disease) Social History Household Members: None Housing: Apartment Do you presently have visiting nurse or other home services: Yes Unable to assess alcohol history related to: Unknown Alcohol intake: current Alcohol intake frequency: does not drink Patient Tobacco Use Status: Current someday Tobacco user Smoked in Last 30 Days: No Use of substances other than those prescribed or required for medical reasons: No Advance Directives: Yes Advance Directives on File: Yes Advance Directives Date on File: 11/27/22 Patient : No service: No Current occupational status: disabled Physical Exam Vital Signs: Vital Signs: Last Vital Signs Temp 98.5 F 07/23/23 04:00 Pulse 83 07/23/23 04:00 Resp 17 07/23/23 04:00 BP 144/84 H 07/23/23 04:00 Pulse Ox 98 07/23/23 04:00 O2 Del Method Room Air 07/23/23 04:00 BMI result Body Mass Index 26.5 Appearance: Alert. Oriented X3. No acute distress. Eyes: Pupils equal, round and reactive to light. ENT: Pharynx normal. Neck: Normal inspection. Neck supple. No lymph nodes noted. No crepitus CVS: Normal heart rate and rhythm. Pulses normal. Normal S1 and S2 Respiratory: No respiratory distress. Breath sounds normal. No Wheezing. No rales Abdomen: Soft and nontender. No rigidity. No distention. good BS x4 Skin: Skin warm and dry. Normal skin color. Normal skin turgor. Extremities: No lower extremity edema. Neurovascular intact to all extremities. No Lacerations. No Rash Neuro: Oriented X 3. No motor deficit. No sensory deficit. Moving all extermities. No slurred speech Medical Decision Making Medical Decision Making MDM Narrative: Patient well appearing no acute distress. Positive anxiety positive depression not suicidal will get crisis to evaluate patient Differential Diagnosis Depression anxiety Lab Data 07/23/23 04:20 07/23/23 04:20 Labs: Lab Results 07/23/23 Range/Units 04:20 WBC 13.1 H (4.8-10.8) X10*3/uL RBC 4.48 (4.20-5.50) X10*6/uL Hgb 12.3 (12.0-16.0) g/dl Hct 36.7 L (37.0-47.0) % MCV 81.9 (80.0-98.0) fL MCH 27.5 (27.0-33.0) pg MCHC 33.5 (31.0-35.0) g/dl RDW 15.0 (11.0-16.0) % Plt Count 314 D (160-400) X10*3/uL MPV 9.3 L (9.4-12.3) fL Absolute Nucleated RBC 0.000 (0.0-0.012) X10*3/uL Nucleated RBC % (auto) 0.0 (0.0-0.2) /100WBC Sodium 143 (135-145) mmol/L Potassium 3.2 L (3.3-5.1) mmol/L Chloride 105 (96-108) mmol/L Carbon Dioxide 24 (22-29) mmol/L Anion Gap 17 (12-20) BUN 19 H (9-16) mg/dL Creatinine 0.78 (0.5-1.4) mg/dL Estim Creat Clear Calc 72.5 Estimated GFR > 60 Random Glucose 125 H (60-115) mg/dL Calcium 9.6 (8.4-10.2) mg/dL Total Bilirubin 0.4 (0.0-1.0) mg/dL AST 31 (5-31) U/L ALT 18 (0-31) U/L Alkaline Phosphatase 75 (39-117) U/L Total Protein 7.9 (6.5-8.0) g/dL Albumin 4.7 (3.5-5.0) g/dL Ethyl Alcohol < 10 mg/dL COVID-19 ([facility]) Negative (Negative) COVID-19 Clin Com See Note Discharge Plan Discharge Clinical Impression: Depression, Anxiety Patient Disposition: Still a Patient Prescriptions: No Action albuterol sulfate 90 mcg/actuation HFA aerosol inhaler 2 puff inhalation Q4-6H PRN (Reason: shortness of breath or wheezing) Qty: 8.5 0RF omeprazole 20 mg capsule,delayed release(DR/EC) 20 mg PO DAILY@0630 pravastatin 20 mg tablet 20 mg PO DAILY alprazolam 2 mg tablet 2 mg PO TID PRN (Reason: anxiety) fluticasone propionate 50 mcg/actuation spray,suspension 2 spray intranasal DAILY loratadine 10 mg tablet 10 mg PO DAILY PRN (Reason: allergies) prednisone 50 mg tablet 50 mg PO DAILY Qty: 4 0RF albuterol sulfate 90 mcg/actuation HFA aerosol inhaler 2 puff inhalation Q4-6H PRN (Reason: shortness of breath or wheezing) Qty: 6.7 0RF zolpidem [Ambien] 10 mg tablet 10 mg PO BEDTIME PRN (Reason: Insomnia) cholecalciferol (vitamin D3) 50 mcg (2,000 unit) capsule 50 mcg PO DAILY Qty: 90 1RF gabapentin 100 mg capsule 200 mg PO BID Interventions: [place]-Suicide Risk Severity Scale Last Done: 07/23/23 04:21
[2023-07-23] MEDS: Haloperidol Lactate 5 MG/ML VIAL IM (07:37)
[2023-07-23] MEDS: LORazepam 2 MG/ML VIAL IM (07:37)
[2023-07-23 08:14] LABS: Amphetamine Screen Urine Not Detected (Not Detect); Barbiturates, Urine Not Detected (Not Detect); Benzodiazepines Screen Urine Not Detected (Not Detect); Cannabinoid Screen Urine Not Detected (Not Detect); Cocaine Screen Urine Not Detected (Not Detect); Fentanyl, urine Not Detected (Not Detect); Opiate Screen Urine Not Detected (Not Detect); Phencyclidine Screen Urine Not Detected (Not Detect)
[2023-07-23 09:52] VITALS: BP 119/69; PULSE 84; RESP 16; TEMP 36.6; O2SAT 97
--- NOTE | 2023-07-24 01:51 | PC.ADMIT ---
Sis is a 57 year old female admitted to [facility] with a signed CV at 2310 via W/C from the POD, chemical restrained in the ER D/T increase in agitation at 0730. Precipitating factors for admit was increase in anxiety, irritability and agitation. Recent homelessness, and loss of car. DX Depression. She is [place]e speaking but is able to understand some [place]. POC goal includes mood stabilization, medication evaluation and diagnostic clarification. Sis completed admission assessment, she is A/O, calm/cooperative, denies thoughts of self harm, VSS, afebrile, gait steady with good trunk control. No prescribed HS meds at this time. Denies SI, Reports AH in the form of whispers. Skin assessment /sharps check completed, noted wound to RA elbow area, sustained from fall 2 weeks ago, estimated [id number], with yellow exudate, area cleansed and dressed, no other skin issues assessed. She denies having family, although crisis assessment notes two adult daughters. Sis was given tour of unit, provided with snacks, and retired to her assigned room. Order in place for 15 min unit safety observation.
[2023-07-24] MEDS: Omeprazole 20 MG CAPSULE.DR PO (06:12)
[2023-07-24] MEDS: Cholecalciferol (Vitamin D3) 25 MCG TABLET 50 MCG PO (08:36)
[2023-07-24] MEDS: Pravastatin Sodium 20 MG TABLET PO (08:36)
[2023-07-24] MEDS: Gabapentin 300 MG CAPSULE PO ×3 (08:37→23:05)
[2023-07-24 08:40] VITALS: BP 116/71; PULSE 88; RESP 18; TEMP 36.2; O2SAT 97
[2023-07-24 08:48] LABS: Estimated Average Glucose 120 mg/dL; Hemoglobin A1c % 5.8 % (<6.0)
[2023-07-24 08:58] LABS: Cholesterol 186 mg/dL (<200); HDL Cholesterol 62 mg/dL (>40); LDL Cholesterol Calculated 113 mg/dL (<100); Magnesium 2.2 mg/dL (1.6-2.6); Triglycerides 55 mg/dL (<150)
--- NOTE | 2023-07-24 09:00 | HO.PSYADMNOT ---
HPI Date of Service: 07/24/23 Chief Complaint: Depression Sources of Information: patient interviewed, chart reviewed and crisis/core team assessment reviewed HPI Subjective Notes: Espinal Warning and Conditional Voluntary Narrative: Seen with woods manager Patient is a 57-year-old, Hungarian-speaking female with history of depression, anxiety, fibromyalgia, seen for consult 11/26/2022, who was found outside, cold and confused and brought to the emergency room, and now presents for depression, SI and some confusion. Patient reports that about 1 month ago, while walking her dog, she fell outside and hit the back of her head. She said she did not go to the hospital. Othwerwise, Patient reports that she was taking her medications and overall doing okay until last week when she lost her apartment, saying she could not afford rent was evicted. Since then she has been streets and not taking any medications. She says she cannot remember how she got to the hospital and is not sure how long she has been here. Patient reports that she became depressed, wanting to . She endorses auditory hallucinations from time to time that her only present when she is upset. She denies any alcohol or drug use saying she only used years ago (though during consult in October patient acknowledged drinking alcohol, using drugs though past/present UDS negative). Discussed depression and patient says that typically she does not like medications for depression or anxiety since it only makes her worse however she reports insomnia, low appetite and agrees to start Remeron since it can also help with depression and anxiety. Alert/oriented: Patient knows the month, day of the week, holiday, year, that she is in [place] at the hospital, her name, and address Past Psychiatric History: IP: Denies OP: [facility] [phone] Medical Evaluation Reviewed: Yes [facility] Medical History (Updated 07/24/23 @ 12:03 by Ousmane Terrazas MD) MDD (major depressive disorder), recurrent, severe, with psychosis Alcohol abuse Asthma Anxiety Insomnia Depression Fibromyalgia Surgical History H/O knee surgery Hx of tubal ligation History of partial hysterectomy Family History: denies Social History: Lives alone with her dogs Currently says no family support; in the past patient reported Two daughters and one brother are a support Substance History: Reports alcohol/drugs years ago Trauma History: identifies current housing situation as traumatic Diagnostics Vital Signs (24Hr): Vital Signs - 24 hr 07/23/23 09:52 Temperature 97.9 F Pulse Rate 84 Respiratory Rate 16 Blood Pressure 119/69 Pulse Oximetry 97 Oxygen Delivery Method Room Air BMI result Body Mass Index 26.5 Labs 07/23/23 04:20 07/23/23 04:20 Labs: Laboratory Results - last 48 hr 07/23/23 07/23/23 07/24/23 04:20 07:56 08:29 WBC 13.1 H RBC 4.48 Hgb 12.3 Hct 36.7 L MCV 81.9 MCH 27.5 MCHC 33.5 RDW 15.0 Plt Count 314 D MPV 9.3 L Absolute Nucleated RBC 0.000 Nucleated RBC % (auto) 0.0 Sodium 143 Potassium 3.2 L Chloride 105 Carbon Dioxide 24 Anion Gap 17 BUN 19 H Creatinine 0.78 Estim Creat Clear Calc 72.5 Estimated GFR > 60 Random Glucose 125 H Estimat Average Glucose 120 Hemoglobin A1c % 5.8 Calcium 9.6 Magnesium 2.2 Total Bilirubin 0.4 AST 31 ALT 18 Alkaline Phosphatase 75 Total Protein 7.9 Albumin 4.7 Triglycerides 55 Cholesterol 186 LDL Cholesterol, Calc 113 H HDL Cholesterol 62 Urine Opiates Screen Not Detected Urine Fentanyl Screen Not Detected Ur Barbiturates Screen Not Detected Ur Phencyclidine Scrn Not Detected Ur Amphetamines Screen Not Detected U Benzodiazepines Scrn Not Detected Urine Cocaine Screen Not Detected U Marijuana (THC) Screen Not Detected Ethyl Alcohol < 10 COVID-19 ([facility]) Negative COVID-19 Clin Com See Note Meds/Allergies Meds Home Medications Medication Instructions Recorded Confirmed Type alprazolam 2 mg tablet 2 mg PO TID PRN anxiety 07/23/23 07/23/23 History cholecalciferol (vitamin D3) 50 50 mcg PO DAILY 07/23/23 07/23/23 History mcg (2,000 unit) tablet (Vitamin D3) cyanocobalamin (vitamin B-12) 500 500 mcg PO DAILY 07/23/23 07/23/23 History mcg tablet (Vitamin B-12) duloxetine 60 mg capsule,delayed 120 mg PO DAILY 07/23/23 07/23/23 History release fluticasone propionate 50 2 spray intranasal DAILY 07/23/23 07/23/23 History mcg/actuation nasal spray,suspension gabapentin 300 mg capsule 300 mg PO TID 07/23/23 07/23/23 History omeprazole 20 mg capsule,delayed 20 mg PO DAILY 07/23/23 07/23/23 History release pravastatin 20 mg tablet 20 mg DAILY 07/23/23 07/23/23 History ramelteon 8 mg tablet 8 mg PO BEDTIME 07/23/23 07/23/23 History zolpidem 10 mg tablet 10 mg PO BEDTIME PRN Insomnia 07/23/23 07/23/23 History Allergies Allergies Allergy/AdvReac Type Severity Reaction Status Date / Time duloxetine [From CYMBALTA] Allergy Mild ITCHING Verified 07/23/23 00:42 ibuprofen [From MOTRIN] Allergy Unknown ITCHING Verified 07/23/23 00:42 ibuprofen Allergy Unknown Unknown Uncoded 04/09/23 08:23 Mental Status Exam Mental Status Exam Narrative: Pt is alert and oriented; behavior is cooperative, calm, isolative lying in bed;patient is not in distress; dressed in hospital attire with unkempt hair, face mask over her chin; mood is described as depressed and affect congruent, downcast, tearful; eye contact appropriate; Speech a little latent, soft spoken, low volume, normal prosody some; psychomotor retardation present; thought process goal directed; Thought content is on being homeless, depressed; otherwise pertinent to relevant topics and without any delusional content, paranoid ideations or grandiosity; positive for SI saying I want to ; no HI. Intermittent AH. Patients insight and judgment impaired Assessment & Plan Assessment & Plan (1) MDD (major depressive disorder), recurrent, severe, with psychosis: Status: Acute Code(s): F33.3 - Major depressive disorder, recurrent, severe with psychotic symptoms (2) Confusion: Status: Acute Code(s): R41.0 - Disorientation, unspecified (3) Fibromyalgia: Status: Acute Code(s): M79.7 - Fibromyalgia Plan Seen with woods manager Patient is a 57-year-old, Hungarian-speaking female with history of depression, anxiety, fibromyalgia, seen for consult 11/26/2022, who was found outside, cold and confused and brought to the emergency room, and now presents for depression, SI and some confusion. Patient reports that about 1 month ago, while walking her dog, she fell outside and hit the back of her head. She said she did not go to the hospital. Othwerwise, Patient reports that she was taking her medications and overall doing okay until last week when she lost her apartment, saying she could not afford rent was evicted. Since then she has been streets and not taking any medications. She says she cannot remember how she got to the hospital and is not sure how long she has been here. Patient reports that she became depressed, wanting to . She endorses auditory hallucinations from time to time that her only present when she is upset. She denies any alcohol or drug use saying she only used years ago (though during consult in October patient acknowledged drinking alcohol, using drugs though past/present UDS negative). Discussed depression and patient says that typically she does not like medications for depression or anxiety since it only makes her worse however she reports insomnia, low appetite and agrees to start Remeron since it can also help with depression and anxiety. Alert/oriented: Patient knows the month, day of the week, holiday, year, that she is in [place] at the hospital, her name, and address Impression/plan: Vital stable; benign neuro exam in the ED; UA/UDS WNL; labs grossly WNL however mildly hypokalemic; will see if can do an added on for potassium and will redraw labs including CBC Patient did hit her head about a month ago; discussed with hospitalist who agreed with there being some utility for head CT; discussed this with patient, including exposure to radiation and she agreed with procedure Will otherwise continue home medications and start mirtazapine for depression/anxiety and insomnia and low appetite Currently says no family support; in the past patient reported Two daughters and one brother are a support Plan: CV Q 15 minute checks Ordered head CT since patient fell and hit back of head a month ago and presents now with some confusion Home medications restarted Will add mirtazapine 7.5 q.h.s. for depression/anxiety/insomnia and low appetite Ordered added on to labs drawn today to check potassium Repeat CMP, CBC Patient educated on: diagnosis, medication risk/benefits, substance abuse and medical condition Informed Consent: understands, does not understand and further education needed Reason for continued inpatient stay Substantial Risk for: inability to function and rapid decompensation Statement Statement: I have reviewed the history and physical and performed a pertinent examination on my patient. No changes have occurred unless specified. If the History and Physical was not performed prior to admission, the Hospitalist's service will be consulted for completing the admission physical. Time Spent With Patient Time: Total time managing care of this patient today ____ minutes.
[2023-07-24 09:15] LABS: Free T4 (Free Thyroxine) 1.14 ng/dL (0.71-1.85); Thyroid Stimulating Hormone 0.83 uIU/mL (0.32-4.0)
[2023-07-24 09:30] LABS: Folate 14.3 ng/mL (> or = 4.0); Vitamin B12 824 pg/mL (200-900)
[2023-07-24] MEDS: Cyanocobalamin (Vitamin B-12) 500 MCG TABLET PO (10:47)
[2023-07-24] MEDS: Fluticasone Propionate Nasal 16 GM SPRAY 2 SPRAY NOSTRIL-B (10:47)
[2023-07-24 12:23] LABS: Potassium 3.7 mmol/L (3.3-5.1)
[2023-07-24] MEDS: Acetaminophen 325 MG TABLET 650 MG PO (15:49)
[2023-07-24 18:00] VITALS: BP 125/67; PULSE 78; RESP 16; TEMP 36.8; O2SAT 99
[2023-07-24] MEDS: Albuterol Sulfate 90 MCG 8 GM INHALER 2 PUFF INHALE (18:31)
[2023-07-24 19:30] VITALS: BP 126/67; PULSE 120
[2023-07-24 21:15] VITALS: BP 136/70; PULSE 87
[2023-07-24] MEDS: LORazepam 1 MG TABLET PO (21:35)
[2023-07-24] MEDS: Mirtazapine 7.5 MG TABLET PO (23:04)
[2023-07-25] MEDS: Omeprazole 20 MG CAPSULE.DR PO (06:55)
[2023-07-25] MEDS: Cyanocobalamin (Vitamin B-12) 500 MCG TABLET PO (08:13)
[2023-07-25] MEDS: Fluticasone Propionate Nasal 16 GM SPRAY 2 SPRAY NOSTRIL-B (08:13)
[2023-07-25] MEDS: Pravastatin Sodium 20 MG TABLET PO (08:13)
[2023-07-25] MEDS: Gabapentin 300 MG CAPSULE PO ×3 (08:13→21:04)
[2023-07-25] MEDS: Cholecalciferol (Vitamin D3) 25 MCG TABLET 50 MCG PO (08:13)
[2023-07-25 08:14] LABS: MANUAL DIFF FLAG NO
[2023-07-25 08:15] VITALS: BP 147/71; PULSE 75; RESP 18; TEMP 36.6; O2SAT 97
[2023-07-25 08:17] LABS: Basophils Percent Auto 0.8 % (0-2); Eosinophils Absolute Auto 0.1 X10*3/uL (0.0-0.4); Eosinophils Percent Auto 2.1 % (0-4); Hematocrit 36.3 % (37.0-47.0); Hemoglobin 11.8 g/dl (12.0-16.0); Imm Gran Abs Auto 0.02 X10*3/uL (0.00-0.03); Imm Gran Pct Auto 0.4 % (0.0-0.4); Lymphocytes Absolute Auto 2.2 X10*3/uL (1.2-4.9); Lymphocytes Percent Auto 41.3 % (20-40); Mean Corpuscular HGB Conc 32.5 g/dl (31.0-35.0); Mean Corpuscular Hemoglobin 27.8 pg (27.0-33.0); Mean Corpuscular Volume 85.6 fL (80.0-98.0); Mean Platelet Volume 9.6 fL (9.4-12.3); Monocytes Absolute Auto 0.6 X10*3/uL (0.1-1.2); Monocytes Percent Auto 10.8 % (2-11); Neutrophils Absolute Auto 2.4 x10*3/uL (2.0-8.3); Neutrophils Percent Auto 44.6 % (45-73); Platelet Count 283 X10*3/uL (160-400); Red Blood Count 4.24 X10*6/uL (4.20-5.50); Red Cell Distribution Width 14.9 % (11.0-16.0); White Blood Count 5.3 X10*3/uL (4.8-10.8)
[2023-07-25 08:32] LABS: Alanine Aminotransferase 20 U/L (0-31); Albumin Level 3.8 g/dL (3.5-5.0); Alkaline Phosphatase 59 U/L (39-117); Anion Gap 10 (12-20); Aspartate Amino Transferase 29 U/L (5-31); Bilirubin Total 0.4 mg/dL (0.0-1.0); Blood Urea Nitrogen 12 mg/dL (9-16); Carbon Dioxide 30 mmol/L (22-29); Chloride 109 mmol/L (96-108); Creatinine Clr Calc Pharmacy 70.6; Estimated Glomerular Filt Rate > 60; Glucose Random 107 mg/dL (60-115); Potassium 4.1 mmol/L (3.3-5.1); Sodium 145 mmol/L (135-145); Total Protein 6.6 g/dL (6.5-8.0)
--- NOTE | 2023-07-25 09:35 | HO.PSYCHPN ---
Subjective Subjective Date of Service: 07/25/23 Reason For Visit: Depression Interim History: met with patient; discussed with team: Seen with tower supervisor Patient remains depressed. Remains anxious. Passive wish. Talks little. Gave permission to call her daughter Reviewed Head CT and unremarkable; reviewed labs, WBC, potassium WNL Mental Status Exam Mental Status Exam Narrative: Pt is alert and oriented; behavior is cooperative, calm, isolative;patient is not in distress; dressed in hospital attire with unkempt; mood is described as depressed and affect congruent, downcast, tearful; eye contact appropriate; Speech a little latent, soft spoken, low volume, normal prosody some; psychomotor retardation present; thought process goal directed; Thought content is on being homeless, depressed; otherwise pertinent to relevant topics and without any delusional content, paranoid ideations or grandiosity; No current SI expressed. No HI. No AH. Patients insight and judgment impaired Diagnostics Vital Signs (24Hr): Vital Signs - 24 hr 07/24/23 18:00 07/24/23 19:30 07/24/23 21:15 Temperature 98.2 F Pulse Rate 78 120 H 87 Respiratory Rate 16 Blood Pressure 125/67 126/67 136/70 Pulse Oximetry 99 Oxygen Delivery Method Room Air 07/25/23 08:15 Temperature 97.8 F Pulse Rate 75 Respiratory Rate 18 Blood Pressure 147/71 H Pulse Oximetry 97 Oxygen Delivery Method Room Air BMI result Body Mass Index 26.5 Labs 07/25/23 08:08 07/25/23 08:08 Labs: Laboratory Results - last 48 hr 07/24/23 07/25/23 08:29 08:08 WBC 5.3 RBC 4.24 Hgb 11.8 L Hct 36.3 L MCV 85.6 MCH 27.8 MCHC 32.5 RDW 14.9 Plt Count 283 MPV 9.6 Immature Gran % (Auto) 0.4 Neut % (Auto) 44.6 L Lymph % (Auto) 41.3 H [place] % (Auto) 10.8 Eos % (Auto) 2.1 Baso % (Auto) 0.8 Lymph # (Auto) 2.2 [place] # (Auto) 0.6 Eos # (Auto) 0.1 Baso # (Auto) 0.0 Abs Immat Gran (auto) 0.02 Absolute Neuts (auto) 2.4 Absolute Nucleated RBC 0.000 Nucleated RBC % (auto) 0.0 Sodium 145 Potassium 3.7 4.1 Chloride 109 H Carbon Dioxide 30 H Anion Gap 10 L BUN 12 Creatinine 0.80 Estim Creat Clear Calc 70.6 Estimated GFR > 60 Random Glucose 107 Estimat Average Glucose 120 Hemoglobin A1c % 5.8 Calcium 9.0 D Magnesium 2.2 Total Bilirubin 0.4 AST 29 ALT 20 Alkaline Phosphatase 59 Total Protein 6.6 Albumin 3.8 Triglycerides 55 Cholesterol 186 LDL Cholesterol, Calc 113 H HDL Cholesterol 62 Vitamin B12 824 Folate 14.3 TSH 0.83 Free T4 1.14 Imaging Radiology Impressions: ITS Impressions Head CT 07/24/23 11:53 IMPRESSION: No acute intracranial pathology. Medications Medications Current Medications Acetaminophen (Acetaminophen 325 Mg Tablet) 650 mg PO Q6H PRN PRN Reason: Headache/Pain Mild Scale (1-3) Last Admin: 07/24/23 15:49 Dose: 650 mg Al Hydroxide/Mg Hydroxide (Magnesium Hydrox/Alum Hydrox 30 Ml Oral.Susp) 30 ml PO Q6H PRN PRN Reason: Heartburn/Nausea Albuterol Sulfate (Albuterol Sulfate 90 Mcg 8 Gm Inhaler) 2 puff INHALE RQ4H PRN PRN Reason: Shortness of Breath Last Admin: 07/24/23 18:31 Dose: 2 puff Cyanocobalamin (Cyanocobalamin (Vitamin B-12) 500 Mcg Tablet) 500 mcg PO DAILY [facility] Last Admin: 07/25/23 08:13 Dose: 500 mcg Fluticasone Propionate (Fluticasone Propionate Nasal 16 Gm [place]) 2 spray NOSTRIL-B DAILY [facility] Last Admin: 07/25/23 08:13 Dose: 2 spray Gabapentin (Gabapentin 300 Mg Capsule) 300 mg PO TID [facility] Last Admin: 07/25/23 08:13 Dose: 300 mg Haloperidol (Haloperidol 5 Mg Tablet) 5 mg PO Q4H PRN PRN Reason: agitation Hydroxyzine HCl (Hydroxyzine Hcl 25 Mg Tablet) 25 mg PO Q6H PRN PRN Reason: Anxiety Magnesium Hydroxide (Milk Of Magnesia 30 Ml Oral.Susp) 30 ml PO DAILY PRN PRN Reason: Constipation Mirtazapine (Mirtazapine 7.5 Mg Tablet) 7.5 mg PO BEDTIME [facility] Last Admin: 07/24/23 23:04 Dose: 7.5 mg Omeprazole (Omeprazole 20 Mg Capsule.) 20 mg PO DAILY@0630 [facility] Last Admin: 07/25/23 06:55 Dose: 20 mg Pravastatin Sodium (Pravastatin Sodium 20 Mg Tablet) 20 mg PO DAILY [facility] Last Admin: 07/25/23 08:13 Dose: 20 mg Trazodone HCl (Trazodone Hcl 50 Mg Tablet) 50 mg PO BEDTIME MRX1 PRN PRN Reason: Insomnia Vitamin D (Cholecalciferol (Vitamin D3) 25 Mcg Tablet) 50 mcg PO DAILY [facility] Last Admin: 07/25/23 08:13 Dose: 50 mcg Allergies Allergies Allergy/AdvReac Type Severity Reaction Status Date / Time duloxetine [From CYMBALTA] Allergy Mild ITCHING Verified 07/23/23 00:42 ibuprofen [From MOTRIN] Allergy Unknown ITCHING Verified 07/23/23 00:42 ibuprofen Allergy Unknown Unknown Uncoded 04/09/23 08:23 Assessment & Plan Assessment & Plan (1) MDD (major depressive disorder), recurrent, severe, with psychosis: Status: Acute Code(s): F33.3 - Major depressive disorder, recurrent, severe with psychotic symptoms (2) Confusion: Status: Acute Code(s): R41.0 - Disorientation, unspecified (3) Fibromyalgia: Status: Acute Code(s): M79.7 - Fibromyalgia Plan Seen with tower supervisor Patient is a 57-year-old, Lao-speaking female with history of depression, anxiety, fibromyalgia, seen for consult 11/26/2022, who was found outside, cold and confused and brought to the emergency room, and now presents for depression, SI and some confusion. Patient reports that about 1 month ago, while walking her dog, she fell outside and hit the back of her head. She said she did not go to the hospital. Othwerwise, Patient reports that she was taking her medications and overall doing okay until last week when she lost her apartment, saying she could not afford rent was evicted. Since then she has been streets and not taking any medications. She says she cannot remember how she got to the hospital and is not sure how long she has been here. Patient reports that she became depressed, wanting to . She endorses auditory hallucinations from time to time that her only present when she is upset. She denies any alcohol or drug use saying she only used years ago (though during consult in October patient acknowledged drinking alcohol, using drugs though past/present UDS negative). Discussed depression and patient says that typically she does not like medications for depression or anxiety since it only makes her worse however she reports insomnia, low appetite and agrees to start Remeron since it can also help with depression and anxiety. Alert/oriented: Patient knows the month, day of the week, holiday, year, that she is in [place] at the hospital, her name, and address Impression/plan: Vital stable; benign neuro exam in the ED; UA/UDS WNL; labs grossly WNL however mildly hypokalemic; will see if can do an added on for potassium and will redraw labs including CBC Patient did hit her head about a month ago; discussed with hospitalist who agreed with there being some utility for head CT; discussed this with patient, including exposure to radiation and she agreed with procedure Will otherwise continue home medications and start mirtazapine for depression/anxiety and insomnia and low appetite Currently says no family support; in the past patient reported Two daughters and one brother are a support Hospital course: 07/25 continue current treatment plan Reviewed Head CT and unremarkable; reviewed labs, WBC, potassium WNL Plan: CV Q [address]: unremarkable Home medications restarted Continue mirtazapine 7.5 q.h.s. for depression/anxiety/insomnia and low appetite Ordered added on to labs drawn today to check potassium Repeat CMP, CBC Patient educated on: diagnosis and medication risk/benefits Informed Consent: understands Reason for continued inpatient stay Substantial Risk for: harm to self Time Spent With Patient Time: Total time managing care of this patient today ____ minutes.
[2023-07-25] MEDS: Acetaminophen 325 MG TABLET 650 MG PO (16:25)
[2023-07-25] MEDS: hydrOXYzine HCL 25 MG TABLET PO (16:25)
[2023-07-25 16:55] VITALS: BP 134/76; PULSE 83; RESP 18; TEMP 36.6; O2SAT 99
[2023-07-25] MEDS: Mirtazapine 7.5 MG TABLET PO (21:04)
[2023-07-26] MEDS: Omeprazole 20 MG CAPSULE.DR PO (06:29)
[2023-07-26] MEDS: Pravastatin Sodium 20 MG TABLET PO (08:38)
[2023-07-26] MEDS: Gabapentin 300 MG CAPSULE PO ×3 (08:38→21:08)
[2023-07-26] MEDS: Cholecalciferol (Vitamin D3) 25 MCG TABLET 50 MCG PO (08:38)
[2023-07-26] MEDS: Cyanocobalamin (Vitamin B-12) 500 MCG TABLET PO (08:38)
[2023-07-26 09:13] VITALS: BP 137/70; PULSE 70; RESP 18; TEMP 36.6; O2SAT 98
[2023-07-26] MEDS: Fluticasone Propionate Nasal 16 GM SPRAY 2 SPRAY NOSTRIL-B (09:32)
--- NOTE | 2023-07-26 16:01 | HO.PSYCHPN ---
Subjective Subjective Date of Service: 07/26/23 Reason For Visit: Depression Subjective Notes: Conditional Voluntary Healthcare Proxy: No Guardianship: No Medical Problems Affecting Mental Status: No Interim History: met with patient. Discussed with Nursing. Overall patient has been tearful. Reports feeling that she is not doing that well. Significant difficulty explaining why. Did endorse feeling scared. Again difficulty elaborating on same. Reports sleep has been broken. Was asking about speaking with family and felt reassured when shown pay phones in the hallway. No evidence of SI or overt psychosis. Medication Compliance: Yes Side effects from medications: No Attending Groups: Intermittent Review of Systems Acute medical concerns: No Review of Systems Review of Systems Unremarkable Mental Status Exam Mental Status Exam Narrative: Pt is alert and oriented; behavior is cooperative, calm, isolative lying in bed;patient is not in distress; dressed in hospital attire with unkempt hair, mood is described as depressed and affect congruent, downcast, tearful; eye contact appropriate; Speech a little latent, soft spoken, low volume, normal prosody some; psychomotor retardation present; thought process goal directed; Thought content is on being homeless, depressed; otherwise pertinent to relevant topics and without any delusional content, paranoid ideations or grandiosity; No current SI epressed. No HI. Denied AH today. Patients insight and judgment impaired Diagnostics Vital Signs (24Hr): Vital Signs - 24 hr 07/25/23 16:55 07/26/23 09:13 Temperature 97.8 F 98 F Pulse Rate 83 70 Respiratory Rate 18 18 Blood Pressure 134/76 137/70 Pulse Oximetry 99 98 Oxygen Delivery Method Room Air Room Air BMI result Body Mass Index 26.5 Labs 07/25/23 08:08 07/25/23 08:08 Labs: Laboratory Results - last 48 hr 07/25/23 08:08 WBC 5.3 RBC 4.24 Hgb 11.8 L Hct 36.3 L MCV 85.6 MCH 27.8 MCHC 32.5 RDW 14.9 Plt Count 283 MPV 9.6 Immature Gran % (Auto) 0.4 Neut % (Auto) 44.6 L Lymph % (Auto) 41.3 H [place] % (Auto) 10.8 Eos % (Auto) 2.1 Baso % (Auto) 0.8 Lymph # (Auto) 2.2 [place] # (Auto) 0.6 Eos # (Auto) 0.1 Baso # (Auto) 0.0 Abs Immat Gran (auto) 0.02 Absolute Neuts (auto) 2.4 Absolute Nucleated RBC 0.000 Nucleated RBC % (auto) 0.0 Sodium 145 Potassium 4.1 Chloride 109 H Carbon Dioxide 30 H Anion Gap 10 L BUN 12 Creatinine 0.80 Estim Creat Clear Calc 70.6 Estimated GFR > 60 Random Glucose 107 Calcium 9.0 D Total Bilirubin 0.4 AST 29 ALT 20 Alkaline Phosphatase 59 Total Protein 6.6 Albumin 3.8 Imaging Radiology Impressions: ITS Impressions Head CT 07/24/23 11:53 IMPRESSION: No acute intracranial pathology. Medications Medications Current Medications Acetaminophen (Acetaminophen 325 Mg Tablet) 650 mg PO Q6H PRN PRN Reason: Headache/Pain Mild Scale (1-3) Last Admin: 07/25/23 16:25 Dose: 650 mg Al Hydroxide/Mg Hydroxide (Magnesium Hydrox/Alum Hydrox 30 Ml Oral.Susp) 30 ml PO Q6H PRN PRN Reason: Heartburn/Nausea Albuterol Sulfate (Albuterol Sulfate 90 Mcg 8 Gm Inhaler) 2 puff INHALE RQ4H PRN PRN Reason: Shortness of Breath Last Admin: 07/24/23 18:31 Dose: 2 puff Cyanocobalamin (Cyanocobalamin (Vitamin B-12) 500 Mcg Tablet) 500 mcg PO DAILY [facility] Last Admin: 07/26/23 08:38 Dose: 500 mcg Fluticasone Propionate (Fluticasone Propionate Nasal 16 Gm [place]) 2 spray NOSTRIL-B DAILY [facility] Last Admin: 07/26/23 09:32 Dose: 2 spray Gabapentin (Gabapentin 300 Mg Capsule) 300 mg PO TID [facility] Last Admin: 07/26/23 14:47 Dose: 300 mg Haloperidol (Haloperidol 5 Mg Tablet) 5 mg PO Q4H PRN PRN Reason: agitation Hydroxyzine HCl (Hydroxyzine Hcl 25 Mg Tablet) 25 mg PO Q6H PRN PRN Reason: Anxiety Last Admin: 07/25/23 16:25 Dose: 25 mg Magnesium Hydroxide (Milk Of Magnesia 30 Ml Oral.Susp) 30 ml PO DAILY PRN PRN Reason: Constipation Mirtazapine (Mirtazapine 7.5 Mg Tablet) 7.5 mg PO BEDTIME [facility] Last Admin: 07/25/23 21:04 Dose: 7.5 mg Omeprazole (Omeprazole 20 Mg Capsule.) 20 mg PO DAILY@0630 [facility] Last Admin: 07/26/23 06:29 Dose: 20 mg Pravastatin Sodium (Pravastatin Sodium 20 Mg Tablet) 20 mg PO DAILY [facility] Last Admin: 07/26/23 08:38 Dose: 20 mg Trazodone HCl (Trazodone Hcl 50 Mg Tablet) 50 mg PO BEDTIME MRX1 PRN PRN Reason: Insomnia Vitamin D (Cholecalciferol (Vitamin D3) 25 Mcg Tablet) 50 mcg PO DAILY [facility] Last Admin: 07/26/23 08:38 Dose: 50 mcg Allergies Allergies Allergy/AdvReac Type Severity Reaction Status Date / Time duloxetine [From CYMBALTA] Allergy Mild ITCHING Verified 07/23/23 00:42 ibuprofen [From MOTRIN] Allergy Unknown ITCHING Verified 07/23/23 00:42 ibuprofen Allergy Unknown Unknown Uncoded 04/09/23 08:23 Assessment & Plan Assessment & Plan (1) MDD (major depressive disorder), recurrent, severe, with psychosis: Status: Acute Code(s): F33.3 - Major depressive disorder, recurrent, severe with psychotic symptoms (2) Confusion: Status: Acute Code(s): R41.0 - Disorientation, unspecified (3) Fibromyalgia: Status: Acute Code(s): M79.7 - Fibromyalgia Plan Seen with county extension agent Patient is a 57-year-old, Argentine-speaking female with history of depression, anxiety, fibromyalgia, seen for consult 11/26/2022, who was found outside, cold and confused and brought to the emergency room, and now presents for depression, SI and some confusion. Patient reports that about 1 month ago, while walking her dog, she fell outside and hit the back of her head. She said she did not go to the hospital. Othwerwise, Patient reports that she was taking her medications and overall doing okay until last week when she lost her apartment, saying she could not afford rent was evicted. Since then she has been streets and not taking any medications. She says she cannot remember how she got to the hospital and is not sure how long she has been here. Patient reports that she became depressed, wanting to . She endorses auditory hallucinations from time to time that her only present when she is upset. She denies any alcohol or drug use saying she only used years ago (though during consult in October patient acknowledged drinking alcohol, using drugs though past/present UDS negative). Discussed depression and patient says that typically she does not like medications for depression or anxiety since it only makes her worse however she reports insomnia, low appetite and agrees to start Remeron since it can also help with depression and anxiety. Alert/oriented: Patient knows the month, day of the week, holiday, year, that she is in [place] at the hospital, her name, and address Impression/plan: Vital stable; benign neuro exam in the ED; UA/UDS WNL; labs grossly WNL however mildly hypokalemic; will see if can do an added on for potassium and will redraw labs including CBC Patient did hit her head about a month ago; discussed with hospitalist who agreed with there being some utility for head CT; discussed this with patient, including exposure to radiation and she agreed with procedure Will otherwise continue home medications and start mirtazapine for depression/anxiety and insomnia and low appetite Currently says no family support; in the past patient reported Two daughters and one brother are a support Plan: CV Q 15 minute checks Ordered head CT since patient fell and hit back of head a month ago and presents now with some confusion Home medications restarted Will add mirtazapine 7.5 q.h.s. for depression/anxiety/insomnia and low appetite Ordered added on to labs drawn today to check potassium Repeat CMP, CBC 07/26/23: no changes as just started remeron Reason for continued inpatient stay Substantial Risk for: harm to self Time Spent With Patient Time: Total time managing care of this patient today ____ minutes.
[2023-07-26 16:25] VITALS: BP 131/68; PULSE 77; RESP 16; TEMP 36.8; O2SAT 99
[2023-07-26] MEDS: Mirtazapine 7.5 MG TABLET PO (21:08)
[2023-07-26] MEDS: HaloperidoL 5 MG TABLET PO (21:21)
[2023-07-26] MEDS: hydrOXYzine HCL 25 MG TABLET PO (21:21)
[2023-07-26] MEDS: Magnesium Hydrox/Alum Hydrox 30 ML ORAL.SUSP PO (21:22)
[2023-07-27] MEDS: Omeprazole 20 MG CAPSULE.DR PO (06:01)
[2023-07-27] MEDS: Cyanocobalamin (Vitamin B-12) 500 MCG TABLET PO (08:41)
[2023-07-27] MEDS: Gabapentin 300 MG CAPSULE PO ×3 (08:41→22:12)
[2023-07-27] MEDS: Pravastatin Sodium 20 MG TABLET PO (08:41)
[2023-07-27] MEDS: Cholecalciferol (Vitamin D3) 25 MCG TABLET 50 MCG PO (08:41)
[2023-07-27 08:45] VITALS: BP 127/69; PULSE 93; RESP 18; TEMP 36.6; O2SAT 97
[2023-07-27] MEDS: HaloperidoL 5 MG TABLET PO ×2 (09:09→22:10)
[2023-07-27] MEDS: Fluticasone Propionate Nasal 16 GM SPRAY 2 SPRAY NOSTRIL-B (09:18)
--- NOTE | 2023-07-27 14:59 | P.PNPSI_ITS ---
Subjective Subjective Date of Service: 07/27/23 Reason For Visit: Depression Interim History: Met with patient. Discussed with Nursing. Tearful and complaining of AH today (non command- name) Feeling scared. No SI. Did endorse feeling scared. Sleep very poor. Depressed. Agreed to med changes- haldol scheduled and remeron increased at bedtime. Review of Systems Review of Systems Unremarkable Mental Status Exam Mental Status Exam Narrative: Pt is alert and oriented; behavior is cooperative, calm, isolative lying in bed;patient is in distress; dressed in hospital attire with unkempt hair, mood is described as depressed and affect congruent, downcast, tearful; eye contact appropriate; Speech a little latent, soft spoken, low volume, normal prosody some; psychomotor retardation present; thought process goal directed; Thought content is on being homeless, depressed; otherwise pertinent to relevant topics and without any delusional content, paranoid ideations or grandiosity; No current SI expressed. No HI. Endorsed AH today. Patients insight and judgment impaired Diagnostics Vital Signs (24Hr): Vital Signs - 24 hr 07/26/23 16:25 07/27/23 08:45 Temperature 98.2 F 97.8 F Pulse Rate 77 93 Respiratory Rate 16 18 Blood Pressure 131/68 127/69 Pulse Oximetry 99 97 Oxygen Delivery Method Room Air Room Air BMI result Body Mass Index 26.5 Labs 07/25/23 08:08 07/25/23 08:08 Imaging Radiology Impressions: ITS Impressions Head CT 07/24/23 11:53 IMPRESSION: No acute intracranial pathology. Medications Medications Current Medications Acetaminophen (Acetaminophen 325 Mg Tablet) 650 mg PO Q6H PRN PRN Reason: Headache/Pain Mild Scale (1-3) Last Admin: 07/25/23 16:25 Dose: 650 mg Al Hydroxide/Mg Hydroxide (Magnesium Hydrox/Alum Hydrox 30 Ml Oral.Susp) 30 ml PO Q6H PRN PRN Reason: Heartburn/Nausea Last Admin: 07/26/23 21:22 Dose: 30 ml Albuterol Sulfate (Albuterol Sulfate 90 Mcg 8 Gm Inhaler) 2 puff INHALE RQ4H PRN PRN Reason: Shortness of Breath Last Admin: 07/24/23 18:31 Dose: 2 puff Cyanocobalamin (Cyanocobalamin (Vitamin B-12) 500 Mcg Tablet) 500 mcg PO DAILY [facility] Last Admin: 07/27/23 08:41 Dose: 500 mcg Fluticasone Propionate (Fluticasone Propionate Nasal 16 Gm [place]) 2 spray NOSTRIL-B DAILY [facility] Last Admin: 07/27/23 09:18 Dose: 2 spray Gabapentin (Gabapentin 300 Mg Capsule) 300 mg PO TID [facility] Last Admin: 07/27/23 14:37 Dose: 300 mg Haloperidol (Haloperidol 5 Mg Tablet) 5 mg PO Q4H PRN PRN Reason: agitation Last Admin: 07/27/23 09:09 Dose: 5 mg Hydroxyzine HCl (Hydroxyzine Hcl 25 Mg Tablet) 25 mg PO Q6H PRN PRN Reason: Anxiety Last Admin: 07/26/23 21:21 Dose: 25 mg Magnesium Hydroxide (Milk Of Magnesia 30 Ml Oral.Susp) 30 ml PO DAILY PRN PRN Reason: Constipation Mirtazapine (Mirtazapine 7.5 Mg Tablet) 7.5 mg PO BEDTIME [facility] Last Admin: 07/26/23 21:08 Dose: 7.5 mg Omeprazole (Omeprazole 20 Mg Capsule.Dr) 20 mg PO DAILY@0630 [facility] Last Admin: 07/27/23 06:01 Dose: 20 mg Pravastatin Sodium (Pravastatin Sodium 20 Mg Tablet) 20 mg PO DAILY [facility] Last Admin: 07/27/23 08:41 Dose: 20 mg Trazodone HCl (Trazodone Hcl 50 Mg Tablet) 50 mg PO BEDTIME MRX1 PRN PRN Reason: Insomnia Vitamin D (Cholecalciferol (Vitamin D3) 25 Mcg Tablet) 50 mcg PO DAILY [facility] Last Admin: 07/27/23 08:41 Dose: 50 mcg Allergies Allergies Allergy/AdvReac Type Severity Reaction Status Date / Time duloxetine [From CYMBALTA] Allergy Mild ITCHING Verified 07/23/23 00:42 ibuprofen [From MOTRIN] Allergy Unknown ITCHING Verified 07/23/23 00:42 ibuprofen Allergy Unknown Unknown Uncoded 04/09/23 08:23 Assessment & Plan Assessment & Plan (1) MDD (major depressive disorder), recurrent, severe, with psychosis: Status: Acute Code(s): F33.3 - Major depressive disorder, recurrent, severe with psychotic symptoms (2) Confusion: Status: Acute Code(s): R41.0 - Disorientation, unspecified (3) Fibromyalgia: Status: Acute Code(s): M79.7 - Fibromyalgia Plan Seen with art glass setter Patient is a 57-year-old, Korean-speaking female with history of depression, anxiety, fibromyalgia, seen for consult 11/26/2022, who was found outside, cold and confused and brought to the emergency room, and now presents for depression, SI and some confusion. Patient reports that about 1 month ago, while walking her dog, she fell outside and hit the back of her head. She said she did not go to the hospital. Othwerwise, Patient reports that she was taking her medications and overall doing okay until last week when she lost her apartment, saying she could not afford rent was evicted. Since then she has been streets and not taking any medications. She says she cannot remember how she got to the hospital and is not sure how long she has been here. Patient reports that she became depressed, wanting to . She endorses auditory hallucinations from time to time that her only present when she is upset. She denies any alcohol or drug use saying she only used years ago (though during consult in October patient acknowledged drinking alcohol, using drugs though past/present UDS negative). Discussed depression and patient says that typically she does not like medications for depression or anxiety since it only makes her worse however she reports insomnia, low appetite and agrees to start Remeron since it can also help with depression and anxiety. Alert/oriented: Patient knows the month, day of the week, holiday, year, that she is in [place] at the hospital, her name, and address Impression/plan: Vital stable; benign neuro exam in the ED; UA/UDS WNL; labs grossly WNL however mildly hypokalemic; will see if can do an added on for potassium and will redraw labs including CBC Patient did hit her head about a month ago; discussed with hospitalist who agreed with there being some utility for head CT; discussed this with patient, including exposure to radiation and she agreed with procedure Will otherwise continue home medications and start mirtazapine for depression/anxiety and insomnia and low appetite Currently says no family support; in the past patient reported Two daughters and one brother are a support Plan: CV Q 15 minute checks Ordered head CT since patient fell and hit back of head a month ago and presents now with some confusion Home medications restarted Will add mirtazapine 7.5 q.h.s. for depression/anxiety/insomnia and low appetite Ordered added on to labs drawn today to check potassium Repeat CMP, CBC 07/26/23: no changes as just started remeron 07/27/23: Agreed to med changes- haldol 5 scheduled and remeron increased to 15 at bedtime. Reason for continued inpatient stay Substantial Risk for: inability to function Time Spent With Patient Time: Total time managing care of this patient today ____ minutes.
[2023-07-27 16:16] VITALS: BP 120/51; PULSE 91; RESP 17; TEMP 36.8; O2SAT 97
[2023-07-27 19:13] LABS: COVID-19 Test Negative (Negative); IDNOW Serial# 6674DD1D
--- NOTE | 2023-07-27 19:18 | PC.NURSE ---
PT WAS FOUND VOMITING IN HER BATHROOM. SHE ALSO REPORTED THE CHILLS. COVID SWAB NEGATIVE. VSS.
[2023-07-27] MEDS: Mirtazapine 15 MG TABLET PO (22:11)
[2023-07-28] MEDS: Omeprazole 20 MG CAPSULE.DR PO (06:00)
[2023-07-28 08:26] VITALS: BP 126/64; PULSE 82; RESP 16; TEMP 36.9; O2SAT 96
--- NOTE | 2023-07-28 08:40 | P.PNPSI_ITS ---
Subjective Subjective Date of Service: 07/28/23 Reason For Visit: Depression Interim History: Met with patient; discussed with team; seen with american sign language interpreter Remains depressed; says can hear auditory hallucinations of her name. Reports much trouble sleeping. Denies any SI. Reviewed medications and changes made over the weekend. Patient agreed to DC Haldol and try Zyprexa instead due to insomnia. Social work obtain collateral from patient's daughter who reports that patient lost son 5 years ago; more recently patient lost mother with whom she lived likely significantly contributing to the depression. But also, daughter reports patient has not not lost her home or car.... Which is what patient reported. Daughter says patient has history of abusing alcohol and her medication and thinks this is what has been occurring. Mental Status Exam Mental Status Exam Narrative: Pt is alert and oriented; behavior is cooperative, calm, isolative; patient is not in distress; dressed in hospital attire with unkempt; mood is described as depressed and affect congruent, downcast, anxious; eye contact appropriate; Speech a little latent, soft spoken, low volume, normal prosody; psychomotor retardation present; thought process goal directed; Thought content is on depression; No SI; No HI. Continues to report AH. Patients insight and judgment impaired Diagnostics Vital Signs (24Hr): Vital Signs - 24 hr 07/27/23 08:45 07/27/23 16:16 07/28/23 08:26 Temperature 97.8 F 98.2 F 96.9 F Pulse Rate 93 91 82 Respiratory Rate 18 17 16 Blood Pressure 127/69 120/51 L 126/64 Pulse Oximetry 97 97 96 Oxygen Delivery Method Room Air Room Air Room Air BMI result Body Mass Index 26.5 Labs 07/25/23 08:08 07/25/23 08:08 Labs: Laboratory Results - last 48 hr 07/27/23 18:54 COVID-19 ([facility]) Negative COVID-19 Clin Com See Note Imaging Radiology Impressions: ITS Impressions Head CT 07/24/23 11:53 IMPRESSION: No acute intracranial pathology. Medications Medications Current Medications Acetaminophen (Acetaminophen 325 Mg Tablet) 650 mg PO Q6H PRN PRN Reason: Headache/Pain Mild Scale (1-3) Last Admin: 07/25/23 16:25 Dose: 650 mg Al Hydroxide/Mg Hydroxide (Magnesium Hydrox/Alum Hydrox 30 Ml Oral.Susp) 30 ml PO Q6H PRN PRN Reason: Heartburn/Nausea Last Admin: 07/26/23 21:22 Dose: 30 ml Albuterol Sulfate (Albuterol Sulfate 90 Mcg 8 Gm Inhaler) 2 puff INHALE RQ4H PRN PRN Reason: Shortness of Breath Last Admin: 07/24/23 18:31 Dose: 2 puff Cyanocobalamin (Cyanocobalamin (Vitamin B-12) 500 Mcg Tablet) 500 mcg PO DAILY [facility] Last Admin: 07/27/23 08:41 Dose: 500 mcg Fluticasone Propionate (Fluticasone Propionate Nasal 16 Gm [place]) 2 spray NOSTRIL-B DAILY [facility] Last Admin: 07/27/23 09:18 Dose: 2 spray Gabapentin (Gabapentin 300 Mg Capsule) 300 mg PO TID [facility] Last Admin: 07/27/23 22:12 Dose: 300 mg Haloperidol (Haloperidol 5 Mg Tablet) 5 mg PO Q4H PRN PRN Reason: agitation Last Admin: 07/27/23 09:09 Dose: 5 mg Haloperidol (Haloperidol 5 Mg Tablet) 5 mg PO BEDTIME [facility] Last Admin: 07/27/23 22:10 Dose: 5 mg Hydroxyzine HCl (Hydroxyzine Hcl 25 Mg Tablet) 25 mg PO Q6H PRN PRN Reason: Anxiety Last Admin: 07/26/23 21:21 Dose: 25 mg Magnesium Hydroxide (Milk Of Magnesia 30 Ml Oral.Susp) 30 ml PO DAILY PRN PRN Reason: Constipation Mirtazapine (Mirtazapine 15 Mg Tablet) 15 mg PO BEDTIME [facility] Last Admin: 07/27/23 22:11 Dose: 15 mg Omeprazole (Omeprazole 20 Mg Capsule.Dr) 20 mg PO DAILY@0630 [facility] Last Admin: 07/28/23 06:00 Dose: 20 mg Pravastatin Sodium (Pravastatin Sodium 20 Mg Tablet) 20 mg PO DAILY [facility] Last Admin: 07/27/23 08:41 Dose: 20 mg Trazodone HCl (Trazodone Hcl 50 Mg Tablet) 50 mg PO BEDTIME MRX1 PRN PRN Reason: Insomnia Vitamin D (Cholecalciferol (Vitamin D3) 25 Mcg Tablet) 50 mcg PO DAILY [facility] Last Admin: 07/27/23 08:41 Dose: 50 mcg Allergies Allergies Allergy/AdvReac Type Severity Reaction Status Date / Time duloxetine [From CYMBALTA] Allergy Mild ITCHING Verified 07/23/23 00:42 ibuprofen [From MOTRIN] Allergy Unknown ITCHING Verified 07/23/23 00:42 ibuprofen Allergy Unknown Unknown Uncoded 04/09/23 08:23 Assessment & Plan Assessment & Plan (1) MDD (major depressive disorder), recurrent, severe, with psychosis: Status: Acute Code(s): F33.3 - Major depressive disorder, recurrent, severe with psychotic symptoms (2) Confusion: Status: Acute Code(s): R41.0 - Disorientation, unspecified (3) Fibromyalgia: Status: Acute Code(s): M79.7 - Fibromyalgia Plan Seen with american sign language interpreter Patient is a 57-year-old, [place]inamese-speaking female with history of depression, anxiety, fibromyalgia, seen for consult 11/26/2022, who was found outside, cold and confused and brought to the emergency room, and now presents for depression, SI and some confusion. Patient reports that about 1 month ago, while walking her dog, she fell outside and hit the back of her head. She said she did not go to the hospital. Othwerwise, Patient reports that she was taking her medications and overall doing okay until last week when she lost her apartment, saying she could not afford rent was evicted. Since then she has been streets and not taking any medications. She says she cannot remember how she got to the hospital and is not sure how long she has been here. Patient reports that she became depressed, wanting to . She endorses auditory hallucinations from time to time that her only present when she is upset. She denies any alcohol or drug use saying she only used years ago (though during consult in October patient acknowledged drinking alcohol, using drugs though past/present UDS negative). Discussed depression and patient says that typically she does not like medications for depression or anxiety since it only makes her worse however she reports insomnia, low appetite and agrees to start Remeron since it can also help with depression and anxiety. Alert/oriented: Patient knows the month, day of the week, holiday, year, that she is in [place] at the hospital, her name, and address Impression/plan: Vital stable; benign neuro exam in the ED; UA/UDS WNL; labs grossly WNL however mildly hypokalemic; will see if can do an added on for potassium and will redraw labs including CBC Patient did hit her head about a month ago; discussed with hospitalist who agreed with there being some utility for head CT; discussed this with patient, including exposure to radiation and she agreed with procedure Will otherwise continue home medications and start mirtazapine for depression/anxiety and insomnia and low appetite Currently says no family support; in the past patient reported Two daughters and one brother are a support Hospital course: 07/25 continue current treatment plan Reviewed Head CT and unremarkable; reviewed labs, WBC, potassium WNL 07/28 Over the weekend patient started on Haldol for AH and mirtazapine increased. Remains depressed; says can hear auditory hallucinations of her name being called. Reports much trouble sleeping. Denies any SI. Reviewed medications and changes made over the weekend. Patient agreed to DC Haldol and try Zyprexa instead due to insomnia. Social work obtain collateral from patient's daughter who reports that patient lost son 5 years ago; more recently patient lost mother with whom she lived likely significantly contributing to the depression. But also, daughter reports patient has not not lost her home or car.... Which is what patient reported. Daughter says patient has history of abusing alcohol and her medication and thinks this is what has been occurring. -will taper and dc gabapentin -order MOCA Plan: CV Q 15 minute checks DC Haldol; patient remains with AH Will start Zyprexa 5 mg q.h.s. for AH and insomnia Will taper off gabapentin; although patient has fibromyalgia, concern remains that patient is abusing her medication, along with alcohol, significantly contributing to psychiatric problems head CT: unremarkable Home medications restarted Continue mirtazapine 15 q.h.s. for depression/anxiety/insomnia and low appetite Ordered added on to labs drawn today to check potassium Repeat CMP, CBC Patient educated on: diagnosis and medication risk/benefits Informed Consent: understands, does not understand and further education needed Reason for continued inpatient stay Substantial Risk for: inability to function Time Spent With Patient Time: Total time managing care of this patient today ____ minutes.
[2023-07-28] MEDS: Cholecalciferol (Vitamin D3) 25 MCG TABLET 50 MCG PO (09:33)
[2023-07-28] MEDS: Fluticasone Propionate Nasal 16 GM SPRAY 2 SPRAY NOSTRIL-B (09:34)
[2023-07-28] MEDS: Cyanocobalamin (Vitamin B-12) 500 MCG TABLET PO (09:34)
[2023-07-28] MEDS: Gabapentin 300 MG CAPSULE PO ×2 (09:34→14:14)
[2023-07-28] MEDS: Pravastatin Sodium 20 MG TABLET PO (09:34)
[2023-07-28] MEDS: Acetaminophen 325 MG TABLET 650 MG PO (09:44)
[2023-07-28] MEDS: Magnesium Hydrox/Alum Hydrox 30 ML ORAL.SUSP PO (09:44)
[2023-07-28 18:55] VITALS: BP 142/65; PULSE 86; RESP 16; TEMP 2.3; TEMP 36.2; O2SAT 96
[2023-07-28] MEDS: OLANZapine 5 MG TABLET PO (20:24)
[2023-07-28] MEDS: Gabapentin 100 MG CAPSULE 200 MG PO (20:24)
[2023-07-28] MEDS: Mirtazapine 15 MG TABLET PO (20:24)
[2023-07-29] MEDS: Omeprazole 20 MG CAPSULE.DR PO (06:14)
[2023-07-29 08:00] VITALS: BP 141/61; PULSE 87; RESP 16; TEMP 36.9; O2SAT 99
[2023-07-29] MEDS: Acetaminophen 325 MG TABLET 650 MG PO (08:55)
[2023-07-29] MEDS: Gabapentin 100 MG CAPSULE 200 MG PO ×3 (08:56→19:54)
[2023-07-29] MEDS: Cholecalciferol (Vitamin D3) 25 MCG TABLET 50 MCG PO (08:56)
[2023-07-29] MEDS: Cyanocobalamin (Vitamin B-12) 500 MCG TABLET PO (08:57)
[2023-07-29] MEDS: Pravastatin Sodium 20 MG TABLET PO (08:57)
[2023-07-29] MEDS: Fluticasone Propionate Nasal 16 GM SPRAY 2 SPRAY NOSTRIL-B (08:59)
[2023-07-29 11:59] LABS: Influenza A PCR NEGATIVE (Negative); Influenza B PCR NEGATIVE (Negative); Resp Syncy Virus RNA Qual PCR NEGATIVE (Negative); SARS COV2 PCR INHOUSE NEGATIVE (Negative)
--- NOTE | 2023-07-29 14:03 | PC.NURSE ---
Pt participated in [facility] screen on this date, pt scored 19/30 indicatinf mild cognitive impairment. MD and nursing aware of results
[2023-07-29 16:40] VITALS: BP 141/79; PULSE 88; RESP 16; TEMP 36.6; O2SAT 99
--- NOTE | 2023-07-29 17:19 | P.PNPSI_ITS ---
Subjective Subjective Date of Service: 07/29/23 Reason For Visit: Depression Interim History: Met with patient; discussed with team P atient?reports?feeling?a?little?better?today.??Still?AH?but?not?as?loud;?VH?of?s eeing?shadows. S ays?she?is?less?depressed?and?no?SI?but?still?pretty?anxious.??Shared?daughter's ?report?that?patient?is?not?evicted A nd?still?has?her?car?which?was?relieving?for?patient.??Paper Cleaner?asked?why?she?was? confused?about?this. P atient?is?not?sure?why?and?says?that?she?was?depressed,?went?into?the?street?wit h?her?medications?and?maybe I t?was?because?she?did?not?take?enough?medication;?mortgage underwriter?offered?that?maybe?she? took?too?much?to?which?she?agreed?was?possible. Patient?continues?to?deny?any?alcohol?or?drug?abuse. Patient?has?a?personal?care?attendant;?helps?her?with?groceries,?other?daily?tomi ing?activities [place]?done?and? Mental Status Exam Mental Status Exam Narrative: Pt is alert and oriented; behavior is cooperative, calm, isolative; patient is not in distress; dressed in hospital attire with unkempt; mood is described as little?better and affect congruent, downcast, anxious; eye contact appropriate; Speech a little latent, soft spoken, low volume, normal prosody; psychomotor retardation present; thought process goal directed; Thought content is on depression; No SI; No HI. Continues to report AH?but?less. Patients insight and judgment impaired Diagnostics Vital Signs (24Hr): Vital Signs - 24 hr 07/28/23 18:55 07/29/23 08:00 Temperature 36.2 F L 98.4 F Pulse Rate 86 87 Respiratory Rate 16 16 Blood Pressure 142/65 H 141/61 H Pulse Oximetry 96 99 Oxygen Delivery Method Room Air Room Air BMI result Body Mass Index 26.5 Labs 07/25/23 08:08 07/25/23 08:08 Labs: Laboratory Results - last 48 hr 07/27/23 07/29/23 18:54 Unknown COVID-19 ([facility]) Negative COVID-19 Clin Com See Note Influenza Type A (PCR) NEGATIVE Influenza Type B (PCR) NEGATIVE RSV RNA Qual (PCR) NEGATIVE SARS-CoV-2 RNA (RT-PCR) NEGATIVE Imaging Radiology Impressions: ITS Impressions Head CT 07/24/23 11:53 IMPRESSION: No acute intracranial pathology. Medications Medications Current Medications Acetaminophen (Acetaminophen 325 Mg Tablet) 650 mg PO Q6H PRN PRN Reason: Headache/Pain Mild Scale (1-3) Last Admin: 07/29/23 08:55 Dose: 650 mg Al Hydroxide/Mg Hydroxide (Magnesium Hydrox/Alum Hydrox 30 Ml Oral.Susp) 30 ml PO Q6H PRN PRN Reason: Heartburn/Nausea Last Admin: 07/28/23 09:44 Dose: 30 ml Albuterol Sulfate (Albuterol Sulfate 90 Mcg 8 Gm Inhaler) 2 puff INHALE RQ4H PRN PRN Reason: Shortness of Breath Last Admin: 07/24/23 18:31 Dose: 2 puff Clonidine HCl (Clonidine Hcl 0.1 Mg Tablet) 0.1 mg PO BEDTIME REINIER; Protocol Cyanocobalamin (Cyanocobalamin (Vitamin B-12) 500 Mcg Tablet) 500 mcg PO DAILY [facility] Last Admin: 07/29/23 08:57 Dose: 500 mcg Fluticasone Propionate (Fluticasone Propionate Nasal 16 Gm [place]) 2 spray NOSTRIL-B DAILY RE[facility] Last Admin: 07/29/23 08:59 Dose: 2 spray Gabapentin (Gabapentin 100 Mg Capsule) 200 mg PO TID REINIER Last Admin: 07/29/23 15:16 Dose: 200 mg Hydroxyzine HCl (Hydroxyzine Hcl 25 Mg Tablet) 25 mg PO Q6H PRN PRN Reason: Anxiety Last Admin: 07/26/23 21:21 Dose: 25 mg Magnesium Hydroxide (Milk Of Magnesia 30 Ml Oral.Susp) 30 ml PO DAILY PRN PRN Reason: Constipation Mirtazapine (Mirtazapine 15 Mg Tablet) 15 mg PO BEDTIME REINIER Last Admin: 07/28/23 20:24 Dose: 15 mg Olanzapine (Olanzapine 5 Mg Tablet) 5 mg PO BEDTIME REINIER Last Admin: 07/28/23 20:24 Dose: 5 mg Omeprazole (Omeprazole 20 Mg Capsule.Dr) 20 mg PO DAILY@0630 [facility] Last Admin: 07/29/23 06:14 Dose: 20 mg Pravastatin Sodium (Pravastatin Sodium 20 Mg Tablet) 20 mg PO DAILY [facility] Last Admin: 07/29/23 08:57 Dose: 20 mg Trazodone HCl (Trazodone Hcl 50 Mg Tablet) 50 mg PO BEDTIME MRX1 PRN PRN Reason: Insomnia Vitamin D (Cholecalciferol (Vitamin D3) 25 Mcg Tablet) 50 mcg PO DAILY [facility] Last Admin: 07/29/23 08:56 Dose: 50 mcg Allergies Allergies Allergy/AdvReac Type Severity Reaction Status Date / Time duloxetine [From CYMBALTA] Allergy Mild ITCHING Verified 07/23/23 00:42 ibuprofen [From MOTRIN] Allergy Unknown ITCHING Verified 07/23/23 00:42 ibuprofen Allergy Unknown Unknown Uncoded 04/09/23 08:23 Assessment & Plan Assessment & Plan (1) MDD (major depressive disorder), recurrent, severe, with psychosis: Status: Acute Code(s): F33.3 - Major depressive disorder, recurrent, severe with psychotic symptoms (2) Fibromyalgia: Status: Acute Code(s): M79.7 - Fibromyalgia (3) Cognitive impairment: Status: Acute Code(s): R41.89 - Other symptoms and signs involving cognitive functions and awareness Plan Seen with optical designer Patient is a 57-year-old, [place]ian-speaking female with history of depression, anxiety, fibromyalgia, seen for consult 11/26/2022, who was found outside, cold and confused and brought to the emergency room, and now presents for depression, SI and some confusion. Patient reports that about 1 month ago, while walking her dog, she fell outside and hit the back of her head. She said she did not go to the hospital. Othwerwise, Patient reports that she was taking her medications and overall doing okay until last week when she lost her apartment, saying she could not afford rent was evicted. Since then she has been streets and not taking any medications. She says she cannot remember how she got to the hospital and is not sure how long she has been here. Patient reports that she became depressed, wanting to . She endorses auditory hallucinations from time to time that her only present when she is upset. She denies any alcohol or drug use saying she only used years ago (though during consult in October patient acknowledged drinking alcohol, using drugs though past/present UDS negative). Discussed depression and patient says that typically she does not like medications for depression or anxiety since it only makes her worse however she reports insomnia, low appetite and agrees to start Remeron since it can also help with depression and anxiety. Alert/oriented: Patient knows the month, day of the week, holiday, year, that she is in [place] at the hospital, her name, and address Impression/plan: Vital stable; benign neuro exam in the ED; UA/UDS WNL; labs grossly WNL however mildly hypokalemic; will see if can do an added on for potassium and will redraw labs including CBC Patient did hit her head about a month ago; discussed with hospitalist who agreed with there being some utility for head CT; discussed this with patient, including exposure to radiation and she agreed with procedure Will otherwise continue home medications and start mirtazapine for depression/anxiety and insomnia and low appetite Currently says no family support; in the past patient reported Two daughters and one brother are a support Hospital course: 07/25 continue current treatment plan Reviewed Head CT and unremarkable; reviewed labs, WBC, potassium WNL 07/28 Over the weekend patient started on Haldol for AH and mirtazapine increased. Remains depressed; says can hear auditory hallucinations of her name being called. Reports much trouble sleeping. Denies any SI. Reviewed medications and changes made over the weekend. Patient agreed to DC Haldol and try Zyprexa instead due to insomnia. Social work obtain collateral from patient's daughter who reports that patient lost son 5 years ago; more recently patient lost mother with whom she lived likely significantly contributing to the depression. But also, daughter reports patient has not not lost her home or car.... Which is what patient reported. Daughter says patient has history of abusing alcohol and her medication and thinks this is what has been occurring. -will taper and dc gabapentin -order MOCA 09/28?patient's?mood?is?a?little?better;?still?depressed,?no?SI.??AH?of?her?name? but?less?audible.??Baseline?some?cognitive?impairment [place]?;? p atient?has?needed?a?[facility]?to?help?with?daily?living?activities?even?though?in?her? 50s.??concern?for?alcohol?abuse?and?potentially Over?taking?prescription?medication?which?include?Xanax?and?Ambien Plan: CV Q 15 minute checks Add Clonidine 0.1mg qhs for insomnia Zyprexa 5 mg q.h.s. for AH and insomnia Will taper off gabapentin; although patient has fibromyalgia, concern remains that patient is abusing her medication, along with alcohol, significantly contributing to psychiatric problems; if can secure daily VNA will continue head CT: unremarkable Home medications restarted Continue mirtazapine 15 q.h.s. for depression/anxiety/insomnia and low appetite Ordered added on to labs drawn today to check potassium Repeat CMP, CBC Patient educated on: diagnosis and medication risk/benefits Informed Consent: understands and further education needed Reason for continued inpatient stay Substantial Risk for: inability to function Time Spent With Patient Time: Total time managing care of this patient today ____ minutes.
[2023-07-29] MEDS: Mirtazapine 15 MG TABLET PO (19:54)
[2023-07-29] MEDS: cloNIDine HCL 0.1 MG TABLET PO (19:54)
[2023-07-29] MEDS: OLANZapine 5 MG TABLET PO (19:54)
[2023-07-30] MEDS: Omeprazole 20 MG CAPSULE.DR PO (06:07)
[2023-07-30 08:00] VITALS: BP 108/58; PULSE 95; RESP 16; TEMP 37; O2SAT 98
[2023-07-30] MEDS: Gabapentin 100 MG CAPSULE 200 MG PO ×3 (08:20→20:30)
[2023-07-30] MEDS: Acetaminophen 325 MG TABLET 650 MG PO (08:20)
[2023-07-30] MEDS: Cyanocobalamin (Vitamin B-12) 500 MCG TABLET PO (08:20)
[2023-07-30] MEDS: Pravastatin Sodium 20 MG TABLET PO (08:21)
[2023-07-30] MEDS: Cholecalciferol (Vitamin D3) 25 MCG TABLET 50 MCG PO (08:21)
[2023-07-30] MEDS: Fluticasone Propionate Nasal 16 GM SPRAY 2 SPRAY NOSTRIL-B (08:22)
--- NOTE | 2023-07-30 14:49 | HO.PSYCHPN ---
Subjective Subjective Date of Service: 07/30/23 Reason For Visit: Depression Subjective Notes: Conditional Voluntary Interim History: Reviewed with . auto body estimator present. Patient reports she feels she continues to struggle with depression and anxiety . Pt stated, I want to leave. I'm worried about my apartment because I'm backed up on rent but my daughters are going to pay it for me. I get sad around the holidays because I lost a son around this time . Pt reports she continues to have auditory and visual hallucinations. Medication Compliance: Yes Review of Systems Constitutional: Reports as per HPI Eyes: Reports as per HPI Reports as per HPI Cardiovascular: Reports as per HPI Respiratory: Reports as per HPI Gastrointestinal: Reports as per HPI Genitourinary: Reports as per HPI Musculoskeletal: Reports as per HPI Skin/Breast: Reports as per HPI Reports as per HPI Psychiatric: Reports as per HPI Endocrine: Reports as per HPI Hematologic/Lymphatic: Reports as per HPI Allergic/Immunologic: Reports as per HPI Mental Status Exam Mental Status Exam Narrative: Pt is alert and oriented; behavior is cooperative, calm; dressed in hospital attire; mood is described as depressed and anxious ; eye contact appropriate; Speech a little latent, soft spoken, low volume, normal prosody; thought process goal directed; Thought content is on depression; denies SI/HI. Reports auditory and visual hallucinations. Diagnostics Vital Signs (24Hr): Vital Signs - 24 hr 07/29/23 16:40 07/30/23 08:00 Temperature 97.8 F 98.6 F Pulse Rate 88 95 Respiratory Rate 16 16 Blood Pressure 141/79 H 108/58 L Pulse Oximetry 99 98 Oxygen Delivery Method Room Air Room Air BMI result Body Mass Index 26.5 Labs 07/25/23 08:08 07/25/23 08:08 Labs: Laboratory Results - last 48 hr 07/29/23 Unknown Influenza Type A (PCR) NEGATIVE Influenza Type B (PCR) NEGATIVE RSV RNA Qual (PCR) NEGATIVE SARS-CoV-2 RNA (RT-PCR) NEGATIVE Imaging Radiology Impressions: ITS Impressions Head CT 07/24/23 11:53 IMPRESSION: No acute intracranial pathology. Medications Medications Current Medications Acetaminophen (Acetaminophen 325 Mg Tablet) 650 mg PO Q6H PRN PRN Reason: Headache/Pain Mild Scale (1-3) Last Admin: 07/30/23 08:20 Dose: 650 mg Al Hydroxide/Mg Hydroxide (Magnesium Hydrox/Alum Hydrox 30 Ml Oral.Susp) 30 ml PO Q6H PRN PRN Reason: Heartburn/Nausea Last Admin: 07/28/23 09:44 Dose: 30 ml Albuterol Sulfate (Albuterol Sulfate 90 Mcg 8 Gm Inhaler) 2 puff INHALE RQ4H PRN PRN Reason: Shortness of Breath Last Admin: 07/24/23 18:31 Dose: 2 puff Clonidine HCl (Clonidine Hcl 0.1 Mg Tablet) 0.1 mg PO BEDTIME [facility]CLUDES [facility]; Protocol Last Admin: 07/29/23 19:54 Dose: 0.1 mg Cyanocobalamin (Cyanocobalamin (Vitamin B-12) 500 Mcg Tablet) 500 mcg PO DAILY [facility]CLUDES [facility] Last Admin: 07/30/23 08:20 Dose: 500 mcg Fluticasone Propionate (Fluticasone Propionate Nasal 16 Gm [place]) 2 spray NOSTRIL-B DAILY [facility] Last Admin: 07/30/23 08:22 Dose: 2 spray Gabapentin (Gabapentin 100 Mg Capsule) 200 mg PO TID COUNT INCLUDES [facility] Last Admin: 07/30/23 14:25 Dose: 200 mg Hydroxyzine HCl (Hydroxyzine Hcl 25 Mg Tablet) 25 mg PO Q6H PRN PRN Reason: Anxiety Last Admin: 07/26/23 21:21 Dose: 25 mg Magnesium Hydroxide (Milk Of Magnesia 30 Ml Oral.Susp) 30 ml PO DAILY PRN PRN Reason: Constipation Mirtazapine (Mirtazapine 15 Mg Tablet) 15 mg PO BEDTIME COUNT [facility]CLUDES [facility] Last Admin: 07/29/23 19:54 Dose: 15 mg Olanzapine (Olanzapine 5 Mg Tablet) 5 mg PO BEDTIME [facility]CLUD[facility] Last Admin: 07/29/23 19:54 Dose: 5 mg Omeprazole (Omeprazole 20 Mg Capsule.Dr) 20 mg PO DAILY@0630 [facility] Last Admin: 07/30/23 06:07 Dose: 20 mg Pravastatin Sodium (Pravastatin Sodium 20 Mg Tablet) 20 mg PO DAILY [facility]CLUD[facility] Last Admin: 07/30/23 08:21 Dose: 20 mg Trazodone HCl (Trazodone Hcl 50 Mg Tablet) 50 mg PO BEDTIME MRX1 PRN PRN Reason: Insomnia Vitamin D (Cholecalciferol (Vitamin D3) 25 Mcg Tablet) 50 mcg PO DAILY [facility]CLUD[facility] Last Admin: 07/30/23 08:21 Dose: 50 mcg Allergies Allergies Allergy/AdvReac Type Severity Reaction Status Date / Time duloxetine [From CYMBALTA] Allergy Mild ITCHING Verified 07/23/23 00:42 ibuprofen [From MOTRIN] Allergy Unknown ITCHING Verified 07/23/23 00:42 ibuprofen Allergy Unknown Unknown Uncoded 04/09/23 08:23 Assessment & Plan Assessment & Plan (1) MDD (major depressive disorder), recurrent, severe, with psychosis: Status: Acute Code(s): F33.3 - Major depressive disorder, recurrent, severe with psychotic symptoms (2) Fibromyalgia: Status: Acute Code(s): M79.7 - Fibromyalgia (3) Cognitive impairment: Status: Acute Code(s): R41.89 - Other symptoms and signs involving cognitive functions and awareness Plan Seen with auto body estimator Patient is a 57-year-old, [place] Citizen-speaking female with history of depression, anxiety, fibromyalgia, seen for consult 11/26/2022, who was found outside, cold and confused and brought to the emergency room, and now presents for depression, SI and some confusion. Patient reports that about 1 month ago, while walking her dog, she fell outside and hit the back of her head. She said she did not go to the hospital. Othwerwise, Patient reports that she was taking her medications and overall doing okay until last week when she lost her apartment, saying she could not afford rent was evicted. Since then she has been streets and not taking any medications. She says she cannot remember how she got to the hospital and is not sure how long she has been here. Patient reports that she became depressed, wanting to . She endorses auditory hallucinations from time to time that her only present when she is upset. She denies any alcohol or drug use saying she only used years ago (though during consult in October patient acknowledged drinking alcohol, using drugs though past/present UDS negative). Discussed depression and patient says that typically she does not like medications for depression or anxiety since it only makes her worse however she reports insomnia, low appetite and agrees to start Remeron since it can also help with depression and anxiety. Alert/oriented: Patient knows the month, day of the week, holiday, year, that she is in [place] at the hospital, her name, and address Impression/plan: Vital stable; benign neuro exam in the ED; UA/UDS WNL; labs grossly WNL however mildly hypokalemic; will see if can do an added on for potassium and will redraw labs including CBC Patient did hit her head about a month ago; discussed with hospitalist who agreed with there being some utility for head CT; discussed this with patient, including exposure to radiation and she agreed with procedure Will otherwise continue home medications and start mirtazapine for depression/anxiety and insomnia and low appetite Currently says no family support; in the past patient reported Two daughters and one brother are a support Hospital course: 07/25 continue current treatment plan Reviewed Head CT and unremarkable; reviewed labs, WBC, potassium WNL 07/28 Over the weekend patient started on Haldol for AH and mirtazapine increased. Remains depressed; says can hear auditory hallucinations of her name being called. Reports much trouble sleeping. Denies any SI. Reviewed medications and changes made over the weekend. Patient agreed to DC Haldol and try Zyprexa instead due to insomnia. Social work obtain collateral from patient's daughter who reports that patient lost son 5 years ago; more recently patient lost mother with whom she lived likely significantly contributing to the depression. But also, daughter reports patient has not not lost her home or car.... Which is what patient reported. Daughter says patient has history of abusing alcohol and her medication and thinks this is what has been occurring. -will taper and dc gabapentin -order MOCA 07/29?patient's?mood?is?a?little?better;?still?depressed,?no?SI.??AH?of?her?name?but?less?audible.??Baseline?some?cognitive?impairment [place]?;? patient?has?needed?a?TRANSITION NURSE?to?help?with?daily?living?activities?even?though?in?her?50s.??concern?for?alcohol?abuse?and?potentially Over?taking?prescription?medication?which?include?Xanax?and?M[place]usien 07/30: Continue current tx plan. Plan: CV Q 15 minute checks Add Clonidine 0.1mg qhs for insomnia Zyprexa 5 mg q.h.s. for AH and insomnia Will taper off gabapentin; although patient has fibromyalgia, concern remains that patient is abusing her medication, along with alcohol, significantly contributing to psychiatric problems; if can secure daily VNA will continue head CT: unremarkable Home medications restarted Continue mirtazapine 15 q.h.s. for depression/anxiety/insomnia and low appetite Ordered added on to labs drawn today to check potassium Repeat CMP, CBC Patient educated on: diagnosis, medication risk/benefits and therapeutic strategies Reason for continued inpatient stay Substantial Risk for: med/psych decompensation Time Spent With Patient Time: Total time managing care of this patient today _30___ minutes.
[2023-07-30 16:45] VITALS: BP 132/67; PULSE 76; RESP 16; TEMP 36.4; O2SAT 98
[2023-07-30] MEDS: OLANZapine 5 MG TABLET PO (20:30)
[2023-07-30] MEDS: cloNIDine HCL 0.1 MG TABLET PO (20:31)
[2023-07-30] MEDS: Mirtazapine 15 MG TABLET PO (20:31)
[2023-07-30] MEDS: Magnesium Hydrox/Alum Hydrox 30 ML ORAL.SUSP PO (20:37)
[2023-07-30] MEDS: traZODone HCL 50 MG TABLET PO (22:21)
[2023-07-30] MEDS: hydrOXYzine HCL 25 MG TABLET PO (22:21)
[2023-07-31] MEDS: Omeprazole 20 MG CAPSULE.DR PO (05:44)
[2023-07-31 07:00] VITALS: BMI 27.7
[2023-07-31 08:15] VITALS: BP 107/65; PULSE 77; RESP 18; TEMP 36.5; O2SAT 99
[2023-07-31] MEDS: Pravastatin Sodium 20 MG TABLET PO (09:07)
[2023-07-31] MEDS: Cyanocobalamin (Vitamin B-12) 500 MCG TABLET PO (09:07)
[2023-07-31] MEDS: Gabapentin 100 MG CAPSULE 200 MG PO ×3 (09:07→20:33)
[2023-07-31] MEDS: Cholecalciferol (Vitamin D3) 25 MCG TABLET 50 MCG PO (09:07)
[2023-07-31] MEDS: Fluticasone Propionate Nasal 16 GM SPRAY 2 SPRAY NOSTRIL-B (09:13)
--- NOTE | 2023-07-31 09:22 | P.PNPSI_ITS ---
Subjective Subjective Date of Service: 07/31/23 Reason For Visit: Depression Interim History: Met with patient; discussed with team; family meeting with daughter Ruby Daughter reports seems to be some hx of confusion over past few years, but not sure to what degree; patient's other daughter has been helping to organize daily living activities, paying bills... But again not sure to what degree. reviewed hx of admission in October for delirium, etoh abuse at which time patient said she was drinking heavily... Still not sleeping well dc'd clonidine qhs since not helping with insomnia agrees to increase Trazodone to 100mg (50mg helped a little) increasing mirtazapine to 30mg for continued depression/anxiety will further taper down Gabapentin since not sure if will have daily VNA and concern for overtaking meds Mental Status Exam Mental Status Exam Narrative: Pt is alert and oriented; behavior is cooperative, calm, isolative; patient is not in distress; dressed in hospital attire with unkempt; mood is described as little?better and affect congruent, downcast, anxious; eye contact appropriate; Speech a little latent, soft spoken, low volume, normal prosody; psychomotor retardation present; thought process goal directed; Thought content is on depression; No SI; No HI. Continues to report AH?but?less. Patients insight and judgment impaired Diagnostics Vital Signs (24Hr): Vital Signs - 24 hr 07/30/23 16:45 07/31/23 08:15 Temperature 97.5 F 97.7 F Pulse Rate 76 77 Respiratory Rate 16 18 Blood Pressure 132/67 107/65 Pulse Oximetry 98 99 Oxygen Delivery Method Room Air Room Air BMI result Body Mass Index 26.5 Labs 07/25/23 08:08 07/25/23 08:08 Labs: Laboratory Results - last 48 hr 07/29/23 Unknown Influenza Type A (PCR) NEGATIVE Influenza Type B (PCR) NEGATIVE RSV RNA Qual (PCR) NEGATIVE SARS-CoV-2 RNA (RT-PCR) NEGATIVE Imaging Radiology Impressions: ITS Impressions Head CT 07/24/23 11:53 IMPRESSION: No acute intracranial pathology. Medications Medications Current Medications Acetaminophen (Acetaminophen 325 Mg Tablet) 650 mg PO Q6H PRN PRN Reason: Headache/Pain Mild Scale (1-3) Last Admin: 07/30/23 08:20 Dose: 650 mg Al Hydroxide/Mg Hydroxide (Magnesium Hydrox/Alum Hydrox 30 Ml Oral.Susp) 30 ml PO Q6H PRN PRN Reason: Heartburn/Nausea Last Admin: 07/30/23 20:37 Dose: 30 ml Albuterol Sulfate (Albuterol Sulfate 90 Mcg 8 Gm Inhaler) 2 puff INHALE RQ4H PRN PRN Reason: Shortness of Breath Last Admin: 07/24/23 18:31 Dose: 2 puff Clonidine HCl (Clonidine Hcl 0.1 Mg Tablet) 0.1 mg PO BEDTIME [facility]; Protocol Last Admin: 07/30/23 20:31 Dose: 0.1 mg Cyanocobalamin (Cyanocobalamin (Vitamin B-12) 500 Mcg Tablet) 500 mcg PO DAILY [facility] Last Admin: 07/31/23 09:07 Dose: 500 mcg Fluticasone Propionate (Fluticasone Propionate Nasal 16 Gm [place]) 2 spray NOSTRIL-B DAILY [facility] Last Admin: 07/31/23 09:13 Dose: 2 spray Gabapentin (Gabapentin 100 Mg Capsule) 200 mg PO TID [facility] Last Admin: 07/31/23 09:07 Dose: 200 mg Hydroxyzine HCl (Hydroxyzine Hcl 25 Mg Tablet) 25 mg PO Q6H PRN PRN Reason: Anxiety Last Admin: 07/30/23 22:21 Dose: 25 mg Magnesium Hydroxide (Milk Of Magnesia 30 Ml Oral.Susp) 30 ml PO DAILY PRN PRN Reason: Constipation Mirtazapine (Mirtazapine 15 Mg Tablet) 15 mg PO BEDTIME [facility] Last Admin: 07/30/23 20:31 Dose: 15 mg Olanzapine (Olanzapine 5 Mg Tablet) 5 mg PO BEDTIME [facility] Last Admin: 07/30/23 20:30 Dose: 5 mg Omeprazole (Omeprazole 20 Mg Capsule.Dr) 20 mg PO DAILY@0630 [facility] Last Admin: 07/31/23 05:44 Dose: 20 mg Pravastatin Sodium (Pravastatin Sodium 20 Mg Tablet) 20 mg PO DAILY [facility] Last Admin: 07/31/23 09:07 Dose: 20 mg Trazodone HCl (Trazodone Hcl 50 Mg Tablet) 50 mg PO BEDTIME MRX1 PRN PRN Reason: Insomnia Last Admin: 07/30/23 22:21 Dose: 50 mg Vitamin D (Cholecalciferol (Vitamin D3) 25 Mcg Tablet) 50 mcg PO DAILY [facility] Last Admin: 07/31/23 09:07 Dose: 50 mcg Allergies Allergies Allergy/AdvReac Type Severity Reaction Status Date / Time duloxetine [From CYMBALTA] Allergy Mild ITCHING Verified 07/23/23 00:42 ibuprofen [From MOTRIN] Allergy Unknown ITCHING Verified 07/23/23 00:42 ibuprofen Allergy Unknown Unknown Uncoded 04/09/23 08:23 Assessment & Plan Assessment & Plan (1) MDD (major depressive disorder), recurrent, severe, with psychosis: Status: Acute Code(s): F33.3 - Major depressive disorder, recurrent, severe with psychotic symptoms (2) Fibromyalgia: Status: Acute Code(s): M79.7 - Fibromyalgia (3) Cognitive impairment: Status: Acute Code(s): R41.89 - Other symptoms and signs involving cognitive functions and awareness Plan Seen with occupational therapy director Patient is a 57-year-old, Czech-speaking female with history of depression, anxiety, fibromyalgia, seen for consult 11/26/2022, who was found outside, cold and confused and brought to the emergency room, and now presents for depression, SI and some confusion. Patient reports that about 1 month ago, while walking her dog, she fell outside and hit the back of her head. She said she did not go to the hospital. Othwerwise, Patient reports that she was taking her medications and overall doing okay until last week when she lost her apartment, saying she could not afford rent was evicted. Since then she has been streets and not taking any medications. She says she cannot remember how she got to the hospital and is not sure how long she has been here. Patient reports that she became depressed, wanting to . She endorses auditory hallucinations from time to time that her only present when she is upset. She denies any alcohol or drug use saying she only used years ago (though during consult in October patient acknowledged drinking alcohol, using drugs though past/present UDS negative). Discussed depression and patient says that typically she does not like medications for depression or anxiety since it only makes her worse however she reports insomnia, low appetite and agrees to start Remeron since it can also help with depression and anxiety. Alert/oriented: Patient knows the month, day of the week, holiday, year, that she is in [place] at the hospital, her name, and address Impression/plan: Vital stable; benign neuro exam in the ED; UA/UDS WNL; labs grossly WNL however mildly hypokalemic; will see if can do an added on for potassium and will redraw labs including CBC Patient did hit her head about a month ago; discussed with hospitalist who agreed with there being some utility for head CT; discussed this with patient, including exposure to radiation and she agreed with procedure Will otherwise continue home medications and start mirtazapine for depression/anxiety and insomnia and low appetite Currently says no family support; in the past patient reported Two daughters and one brother are a support Hospital course: 07/25 continue current treatment plan Reviewed Head CT and unremarkable; reviewed labs, WBC, potassium WNL 07/28 Over the weekend patient started on Haldol for AH and mirtazapine increased. Remains depressed; says can hear auditory hallucinations of her name being called. Reports much trouble sleeping. Denies any SI. Reviewed medications and changes made over the weekend. Patient agreed to DC Haldol and try Zyprexa instead due to insomnia. Social work obtain collateral from patient's daughter who reports that patient lost son 5 years ago; more recently patient lost mother with whom she lived likely significantly contributing to the depression. But also, daughter reports patient has not not lost her home or car.... Which is what patient reported. Daughter says patient has history of abusing alcohol and her medication and thinks this is what has been occurring. -will taper and dc gabapentin -order MOCA 09/28?patient's?mood?is?a?little?better;?still?depressed,?no?SI.??AH?of?her?name? but?less?audible.??Baseline?some?cognitive?impairment [place]?;? 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 50s.??concern?for?alcohol?abuse?and?potentially Over?taking?prescription?medication?which?include?Xanax?and?Ambien 07/30: Continue current tx plan. 07/31 family meeting; seems that there has been some cognitive decline at least this past year if not for longer, but it is not clear to what degree. At last medical admission in October patient acknowledged that she had been drinking heavily. She does not remember this accurately and so remains a limited historian. It is unclear what her baseline is and unclear if she has been struggling with cognitive issues or psychosis outside of depression. -Still not sleeping well; agreed to medication changes below Plan: CV Q 15 minute checks dc'd clonidine qhs since not helping with insomnia agrees to increase Trazodone to 100mg (50mg helped a little) increasing mirtazapine to 30mg for continued depression/anxiety will further taper down Gabapentin since not sure if will have daily VNA and concern for overtaking meds continue Zyprexa 5 mg q.h.s. for AH and insomnia head CT: unremarkable Patient educated on: diagnosis, medication risk/benefits, substance abuse and medical condition Informed Consent: understands, does not understand and further education needed Reason for continued inpatient stay Substantial Risk for: rapid decompensation Time Spent With Patient Time: Total time managing care of this patient today ____ minutes.
[2023-07-31] MEDS: Acetaminophen 325 MG TABLET 650 MG PO (11:25)
[2023-07-31 11:38] LABS: Influenza A PCR NEGATIVE (Negative); Influenza B PCR NEGATIVE (Negative); Resp Syncy Virus RNA Qual PCR NEGATIVE (Negative); SARS COV2 PCR INHOUSE NEGATIVE (Negative)
[2023-07-31 16:44] VITALS: BP 116/66; PULSE 72; TEMP 36.7; O2SAT 100
[2023-07-31 18:12] VITALS: BP 139/69; PULSE 76; RESP 18; TEMP 36.7; O2SAT 100
[2023-07-31] MEDS: OLANZapine 5 MG TABLET PO (20:33)
[2023-07-31] MEDS: traZODone HCL 100 MG TABLET PO (20:33)
[2023-07-31] MEDS: Mirtazapine 30 MG TABLET PO (20:33)
[2023-07-31] MEDS: Magnesium Hydrox/Alum Hydrox 30 ML ORAL.SUSP PO (20:38)
[2023-08-01] MEDS: Omeprazole 20 MG CAPSULE.DR PO (05:49)
[2023-08-01 08:15] VITALS: BP 131/74; PULSE 79; RESP 18; TEMP 36.5; O2SAT 98
[2023-08-01] MEDS: Cholecalciferol (Vitamin D3) 25 MCG TABLET 50 MCG PO (08:35)
[2023-08-01] MEDS: Gabapentin 100 MG CAPSULE 200 MG PO ×2 (08:35→20:40)
[2023-08-01] MEDS: Cyanocobalamin (Vitamin B-12) 500 MCG TABLET PO (08:35)
[2023-08-01] MEDS: Pravastatin Sodium 20 MG TABLET PO (08:35)
[2023-08-01] MEDS: Fluticasone Propionate Nasal 16 GM SPRAY 2 SPRAY NOSTRIL-B (09:24)
--- NOTE | 2023-08-01 09:38 | HO.PSYCHPN ---
Subjective Subjective Date of Service: 08/01/23 Reason For Visit: Depression Interim History: met with patient; discussed with team mood still depressed but a little better; stays in bed most of the time saying she's anxious around other patients; however agrees that getting out of her room/bed will help w/ mood. AH remain, though less. still difficult time sleeping; lot's of thoughts and fear of nightmares which happen most nights. Discussed medication regimen and pt agrees to increasing zyprexa and adding prazosin and seroquel Patient asked about discharge wondering when she will be able to go home; visibly reassured when talked about early next week Mental Status Exam Mental Status Exam Narrative: Pt is alert and oriented; behavior is cooperative, calm, a little less isolative; patient is not in distress; dressed in hospital attire with unkempt; mood is described as little?better and affect congruent, brighter, smiling, talking more naturally; eye contact appropriate; Speech regular volume, rate and prosody; no longer latent; some psychomotor retardation present but last; thought process goal directed; Thought content is on treatment; No SI; No HI. Continues to report AH?but?less. Patients insight and judgment impaired but improved and adequate Diagnostics Vital Signs (24Hr): Vital Signs - 24 hr 07/31/23 16:44 07/31/23 18:12 08/01/23 08:15 Temperature 98.0 F 98.1 F 97.7 F Pulse Rate 72 76 79 Respiratory Rate 18 18 Blood Pressure 116/66 139/69 131/74 Pulse Oximetry 100 100 98 Oxygen Delivery Method Room Air Room Air Room Air BMI result Body Mass Index 27.7 Labs 07/25/23 08:08 07/25/23 08:08 Labs: Laboratory Results - last 48 hr 07/31/23 10:52 Influenza Type A (PCR) NEGATIVE Influenza Type B (PCR) NEGATIVE RSV RNA Qual (PCR) NEGATIVE SARS-CoV-2 RNA (RT-PCR) NEGATIVE Imaging Radiology Impressions: ITS Impressions Head CT 07/24/23 11:53 IMPRESSION: No acute intracranial pathology. Medications Medications Current Medications Acetaminophen (Acetaminophen 325 Mg Tablet) 650 mg PO Q6H PRN PRN Reason: Headache/Pain Mild Scale (1-3) Last Admin: 07/31/23 11:25 Dose: 650 mg Al Hydroxide/Mg Hydroxide (Magnesium Hydrox/Alum Hydrox 30 Ml Oral.Susp) 30 ml PO Q6H PRN PRN Reason: Heartburn/Nausea Last Admin: 07/31/23 20:38 Dose: 30 ml Albuterol Sulfate (Albuterol Sulfate 90 Mcg 8 Gm Inhaler) 2 puff INHALE RQ4H PRN PRN Reason: Shortness of Breath Last Admin: 07/24/23 18:31 Dose: 2 puff Cyanocobalamin (Cyanocobalamin (Vitamin B-12) 500 Mcg Tablet) 500 mcg PO DAILY [facility] Last Admin: 08/01/23 08:35 Dose: 500 mcg Fluticasone Propionate (Fluticasone Propionate Nasal 16 Gm [place]) 2 spray NOSTRIL-B DAILY [facility] Last Admin: 08/01/23 09:24 Dose: 2 spray Gabapentin (Gabapentin 100 Mg Capsule) 200 mg PO BID [facility] Last Admin: 08/01/23 08:35 Dose: 200 mg Hydroxyzine HCl (Hydroxyzine Hcl 25 Mg Tablet) 25 mg PO Q6H PRN PRN Reason: Anxiety Last Admin: 07/30/23 22:21 Dose: 25 mg Magnesium Hydroxide (Milk Of Magnesia 30 Ml Oral.Susp) 30 ml PO DAILY PRN PRN Reason: Constipation Mirtazapine (Mirtazapine 30 Mg Tablet) 30 mg PO BEDTIME [facility] Last Admin: 07/31/23 20:33 Dose: 30 mg Olanzapine (Olanzapine 5 Mg Tablet) 5 mg PO BEDTIME [facility] Last Admin: 07/31/23 20:33 Dose: 5 mg Omeprazole (Omeprazole 20 Mg Capsule.Dr) 20 mg PO DAILY@0630 [facility] Last Admin: 08/01/23 05:49 Dose: 20 mg Pravastatin Sodium (Pravastatin Sodium 20 Mg Tablet) 20 mg PO DAILY [facility] Last Admin: 08/01/23 08:35 Dose: 20 mg Trazodone HCl (Trazodone Hcl 50 Mg Tablet) 50 mg PO BEDTIME MRX1 PRN PRN Reason: Insomnia Last Admin: 07/30/23 22:21 Dose: 50 mg Trazodone HCl (Trazodone Hcl 100 Mg Tablet) 100 mg PO BEDTIME [facility] Last Admin: 07/31/23 20:33 Dose: 100 mg Vitamin D (Cholecalciferol (Vitamin D3) 25 Mcg Tablet) 50 mcg PO DAILY [facility] Last Admin: 12/01/23 08:35 Dose: 50 mcg Allergies Allergies Allergy/AdvReac Type Severity Reaction Status Date / Time duloxetine [From CYMBALTA] Allergy Mild ITCHING Verified 07/23/23 00:42 ibuprofen [From MOTRIN] Allergy Unknown ITCHING Verified 07/23/23 00:42 ibuprofen Allergy Unknown Unknown Uncoded 04/09/23 08:23 Assessment & Plan Assessment & Plan (1) MDD (major depressive disorder), recurrent, severe, with psychosis: Status: Acute Code(s): F33.3 - Major depressive disorder, recurrent, severe with psychotic symptoms (2) Fibromyalgia: Status: Acute Code(s): M79.7 - Fibromyalgia (3) Cognitive impairment: Status: Acute Code(s): R41.89 - Other symptoms and signs involving cognitive functions and awareness (4) PTSD (post-traumatic stress disorder): Status: Acute Code(s): F43.10 - Post-traumatic stress disorder, unspecified Plan Seen with spice miller hammer mill Patient is a 57-year-old, Irish-speaking female with history of depression, anxiety, fibromyalgia, seen for consult 11/26/2022, who was found outside, cold and confused and brought to the emergency room, and now presents for depression, SI and some confusion. Patient reports that about 1 month ago, while walking her dog, she fell outside and hit the back of her head. She said she did not go to the hospital. Othwerwise, Patient reports that she was taking her medications and overall doing okay until last week when she lost her apartment, saying she could not afford rent was evicted. Since then she has been streets and not taking any medications. She says she cannot remember how she got to the hospital and is not sure how long she has been here. Patient reports that she became depressed, wanting to . She endorses auditory hallucinations from time to time that her only present when she is upset. She denies any alcohol or drug use saying she only used years ago (though during consult in October patient acknowledged drinking alcohol, using drugs though past/present UDS negative). Discussed depression and patient says that typically she does not like medications for depression or anxiety since it only makes her worse however she reports insomnia, low appetite and agrees to start Remeron since it can also help with depression and anxiety. Alert/oriented: Patient knows the month, day of the week, holiday, year, that she is in [place] at the hospital, her name, and address Impression/plan: Vital stable; benign neuro exam in the ED; UA/UDS WNL; labs grossly WNL however mildly hypokalemic; will see if can do an added on for potassium and will redraw labs including CBC Patient did hit her head about a month ago; discussed with hospitalist who agreed with there being some utility for head CT; discussed this with patient, including exposure to radiation and she agreed with procedure Will otherwise continue home medications and start mirtazapine for depression/anxiety and insomnia and low appetite Currently says no family support; in the past patient reported Two daughters and one brother are a support Hospital course: 07/25 continue current treatment plan Reviewed Head CT and unremarkable; reviewed labs, WBC, potassium WNL 07/28 Over the weekend patient started on Haldol for AH and mirtazapine increased. Remains depressed; says can hear auditory hallucinations of her name being called. Reports much trouble sleeping. Denies any SI. Reviewed medications and changes made over the weekend. Patient agreed to DC Haldol and try Zyprexa instead due to insomnia. Social work obtain collateral from patient's daughter who reports that patient lost son 5 years ago; more recently patient lost mother with whom she lived likely significantly contributing to the depression. But also, daughter reports patient has not not lost her home or car.... Which is what patient reported. Daughter says patient has history of abusing alcohol and her medication and thinks this is what has been occurring. -will taper and dc gabapentin -order MOCA 07/29?patient's?mood?is?a?little?better;?still?depressed,?no?SI.??AH?of?her?name?but?less?audible.??Baseline?some?cognitive?impairment [place]?;? patient?has?needed?a?[employer] MEMBER?to?help?with?daily?living?activities?even?though?in?her?50s.??concern?for?alcohol?abuse?and?potentially Over?taking?prescription?medication?which?include?Xanax?and?Ambien 07/30: Continue current tx plan. 07/31 family meeting; seems that there has been some cognitive decline at least this past year if not for longer, but it is not clear to what degree. At last medical admission in October patient acknowledged that she had been drinking heavily. She does not remember this accurately and so remains a limited historian. It is unclear what her baseline is and unclear if she has been struggling with cognitive issues or psychosis outside of depression. -Still not sleeping well; agreed to medication changes below 12/1 mood still depressed but a little better; stays in bed most of the time saying she's anxious around other patients; however agrees that getting out of her room/bed will help w/ mood. AH remain, though less. still difficult time sleeping; lot's of thoughts and fear of nightmares which happen most nights (endorsed hx of trauma which comes up in nightmares). Discussed medication regimen and pt agrees to increasing zyprexa and adding prazosin and seroquel. Patient has long history of insomnia however has misused Ambien and Xanax and do not want to restart such meds Plan: CV Q 15 minute checks Increase Zyprexa to 10mg qhs since continued AH and trouble sleeping Add prozosin 1mg qhs for nightmares Adding Seroquel 50mg PRN with repreat for continued insomnia Continue mirtazapine 30 q.h.s. for depression/anxiety/insomnia and low appetite dc'd clonidine since did not help -Will taper off gabapentin; although patient has fibromyalgia, concern remains that patient is abusing her medication, along with alcohol, significantly contributing to psychiatric problems; if can secure daily VNA will continue head CT: unremarkable Patient educated on: diagnosis and medication risk/benefits Informed Consent: understands Reason for continued inpatient stay Substantial Risk for: rapid decompensation Time Spent With Patient Time: Total time managing care of this patient today ____ minutes.
[2023-08-01] MEDS: Acetaminophen 325 MG TABLET 650 MG PO (16:04)
[2023-08-01 16:30] VITALS: BP 124/66; PULSE 75; TEMP 36.6; O2SAT 100
[2023-08-01 20:35] VITALS: BP 154/70; PULSE 71
[2023-08-01] MEDS: Mirtazapine 30 MG TABLET PO (20:40)
[2023-08-01] MEDS: Prazosin HCL 1 MG CAPSULE PO (20:41)
[2023-08-01] MEDS: OLANZapine 10 MG TABLET PO (20:41)
[2023-08-01] MEDS: QUEtiapine Fumarate 50 MG TABLET PO ×2 (20:42→22:33)
--- NOTE | 2023-08-02 08:43 | P.PNPSI_ITS ---
Subjective Subjective Date of Service: 08/02/23 Reason For Visit: Depression Subjective Notes: Conditional Voluntary Interim History: Pt seen, reviewed with team. Pt reports poor sleep, headache, anxiety, agitation. Requests Advil prn-states she takes Advil at home without issue and it does help her headache. Requests medications changes to address sleep, anxiety, agitation. Review of Systems Constitutional: Reports other Comments: Headache Mental Status Exam Mental Status Exam Patient Appearance: Fatigued Patient Orientation: Person, Place, Time and Situation Level of Consciousness: Alert Patient Behavior: Talkative and Good Eye Contact Mood Description: Anxious Affect Description: Anxious Patient Cognition Impaired: No Ability to Follow Directions: Fair Speech Pattern: Spontaneous Speech Memory Description: Episodic Impaired Hallucinations: None Delusions: Not Present Thought Process: Rumination Thought Content: positive for Perseveration and positive for Suicidal Ideation (denies) Depressive Symptoms: Increased Anxiety, Insomnia and Difficulty Sleeping Abnormal Motor Activity Signs and Symptoms: Agitation Judgement: Fair Diagnostics Vital Signs (24Hr): Vital Signs - 24 hr 08/01/23 16:30 08/01/23 20:35 Temperature 97.8 F Pulse Rate 75 71 Blood Pressure 124/66 154/70 H Pulse Oximetry 100 BMI result Body Mass Index 27.7 Labs 07/25/23 08:08 07/25/23 08:08 Labs: Laboratory Results - last 48 hr 07/31/23 10:52 Influenza Type A (PCR) NEGATIVE Influenza Type B (PCR) NEGATIVE RSV RNA Qual (PCR) NEGATIVE SARS-CoV-2 RNA (RT-PCR) NEGATIVE Imaging Radiology Impressions: ITS Impressions Head CT 07/24/23 11:53 IMPRESSION: No acute intracranial pathology. Medications Medications Current Medications Acetaminophen (Acetaminophen 325 Mg Tablet) 650 mg PO Q6H PRN PRN Reason: Headache/Pain Mild Scale (1-3) Last Admin: 08/01/23 16:04 Dose: 650 mg Al Hydroxide/Mg Hydroxide (Magnesium Hydrox/Alum Hydrox 30 Ml Oral.Susp) 30 ml PO Q6H PRN PRN Reason: Heartburn/Nausea Last Admin: 07/31/23 20:38 Dose: 30 ml Albuterol Sulfate (Albuterol Sulfate 90 Mcg 8 Gm Inhaler) 2 puff INHALE RQ4H PRN PRN Reason: Shortness of Breath Last Admin: 07/24/23 18:31 Dose: 2 puff Cyanocobalamin (Cyanocobalamin (Vitamin B-12) 500 Mcg Tablet) 500 mcg PO DAILY [facility] Last Admin: 08/01/23 08:35 Dose: 500 mcg Fluticasone Propionate (Fluticasone Propionate Nasal 16 Gm [place]) 2 spray NOSTRIL-B DAILY [facility] Last Admin: 08/01/23 09:24 Dose: 2 spray Gabapentin (Gabapentin 100 Mg Capsule) 200 mg PO BID [facility] Last Admin: 08/01/23 20:40 Dose: 200 mg Hydroxyzine HCl (Hydroxyzine Hcl 25 Mg Tablet) 25 mg PO Q6H PRN PRN Reason: Anxiety Last Admin: 07/30/23 22:21 Dose: 25 mg Magnesium Hydroxide (Milk Of Magnesia 30 Ml Oral.Susp) 30 ml PO DAILY PRN PRN Reason: Constipation Mirtazapine (Mirtazapine 30 Mg Tablet) 30 mg PO BEDTIME [facility] Last Admin: 08/01/23 20:40 Dose: 30 mg Olanzapine (Olanzapine 10 Mg Tablet) 10 mg PO BEDTIME [facility] Last Admin: 08/01/23 20:41 Dose: 10 mg Omeprazole (Omeprazole 20 Mg Capsule.Dr) 20 mg PO DAILY@0630 [facility] Last Admin: 08/01/23 05:49 Dose: 20 mg Pravastatin Sodium (Pravastatin Sodium 20 Mg Tablet) 20 mg PO DAILY [facility] Last Admin: 08/01/23 08:35 Dose: 20 mg Prazosin HCl (Prazosin Hcl 1 Mg Capsule) 1 mg PO BEDTIME [facility]; Protocol Last Admin: 08/01/23 20:41 Dose: 1 mg Quetiapine Fumarate (Quetiapine Fumarate 50 Mg Tablet) 50 mg PO BEDTIME MRX1 PRN PRN Reason: insomnia Last Admin: 08/01/23 22:33 Dose: 50 mg Vitamin D (Cholecalciferol (Vitamin D3) 25 Mcg Tablet) 50 mcg PO DAILY [facility] Last Admin: 08/01/23 08:35 Dose: 50 mcg Allergies Allergies Allergy/AdvReac Type Severity Reaction Status Date / Time duloxetine [From CYMBALTA] Allergy Mild ITCHING Verified 07/23/23 00:42 ibuprofen [From MOTRIN] Allergy Unknown ITCHING Verified 07/23/23 00:42 ibuprofen Allergy Unknown Unknown Uncoded 04/09/23 08:23 Assessment & Plan Assessment & Plan (1) MDD (major depressive disorder), recurrent, severe, with psychosis: Status: Acute Code(s): F33.3 - Major depressive disorder, recurrent, severe with psychotic symptoms (2) Fibromyalgia: Status: Acute Code(s): M79.7 - Fibromyalgia (3) Cognitive impairment: Status: Acute Code(s): R41.89 - Other symptoms and signs involving cognitive functions and awareness (4) PTSD (post-traumatic stress disorder): Status: Acute Code(s): F43.10 - Post-traumatic stress disorder, unspecified 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 Patient reports that about 1 month ago, while walking her dog, she fell outside and hit the back of her head. She said she did not go to the hospital. Othwerwise, Patient reports that she was taking her medications and overall doing okay until last week when she lost her apartment, saying she could not afford rent was evicted. Since then she has been streets and not taking any medications. She says she cannot remember how she got to the hospital and is not sure how long she has been here. Patient reports that she became depressed, wanting to . She endorses auditory hallucinations from time to time that her only present when she is upset. She denies any alcohol or drug use saying she only used years ago (though during consult in October patient acknowledged drinking alcohol, using drugs though past/present UDS negative). Discussed depression and patient says that typically she does not like medications for depression or anxiety since it only makes her worse however she reports insomnia, low appetite and agrees to start Remeron since it can also help with depression and anxiety. Alert/oriented: Patient knows the month, day of the week, holiday, year, that she is in [place] at the hospital, her name, and address Impression/plan: Vital stable; benign neuro exam in the ED; UA/UDS WNL; labs grossly WNL however mildly hypokalemic; will see if can do an added on for potassium and will redraw labs including CBC Patient did hit her head about a month ago; discussed with hospitalist who agreed with there being some utility for head CT; discussed this with patient, including exposure to radiation and she agreed with procedure Will otherwise continue home medications and start mirtazapine for depression/anxiety and insomnia and low appetite Currently says no family support; in the past patient reported Two daughters and one brother are a support Hospital course: 07/25 continue current treatment plan Reviewed Head CT and unremarkable; reviewed labs, WBC, potassium WNL 07/28 Over the weekend patient started on Haldol for AH and mirtazapine increased. Remains depressed; says can hear auditory hallucinations of her name being called. Reports much trouble sleeping. Denies any SI. Reviewed medications and changes made over the weekend. Patient agreed to DC Haldol and try Zyprexa instead due to insomnia. Social work obtain collateral from patient's daughter who reports that patient lost son 5 years ago; more recently patient lost mother with whom she lived likely significantly contributing to the depression. But also, daughter reports patient has not not lost her home or car.... Which is what patient reported. Daughter says patient has history of abusing alcohol and her medication and thinks this is what has been occurring. -will taper and dc gabapentin -order MOCA 1 09/28?patient's?mood?is?a?little?better;?still?depressed,?no?SI.??AH?of?her?name? but?less?audible.??Baseline?some?cognitive?impairment [place]?;? p atient?has?needed?a?[facility]?to?help?with?daily?living?activities?even?though?in?her? 50s.??concern?for?alcohol?abuse?and?potentially Over?taking?prescription?medication?which?include?Xanax?and?Ambien 07/30: Continue current tx plan. 07/31 family meeting; seems that there has been some cognitive decline at least this past year if not for longer, but it is not clear to what degree. At last medical admission in October patient acknowledged that she had been drinking heavily. She does not remember this accurately and so remains a limited historian. It is unclear what her baseline is and unclear if she has been struggling with cognitive issues or psychosis outside of depression. -Still not sleeping well; agreed to medication changes below 08/01 mood still depressed but a little better; stays in bed most of the time saying she's anxious around other patients; however agrees that getting out of her room/bed will help w/ mood. AH remain, though less. still difficult time sleeping; lot's of thoughts and fear of nightmares which happen most nights (endorsed hx of trauma which comes up in nightmares). Discussed medication regimen and pt agrees to increasing zyprexa and adding prazosin and seroquel. Patient has long history of insomnia however has misused Ambien and Xanax and do not want to restart such meds 08/02 Reports headache, states she takes Advil at home, asks for an order, low dose trial ordered Reports agitation, anxiety and insomnia-Increase Prazosin to 2 mg hs Increase Olanzapine to 15 mg hs. Pt reports Quetiapine has not been helpful at this time. Plan: CV Q 15 minute checks Increase Zyprexa to 10mg qhs since continued AH and trouble sleeping Add prozosin 1mg qhs for nightmares Adding Seroquel 50mg PRN with repreat for continued insomnia Continue mirtazapine 30 q.h.s. for depression/anxiety/insomnia and low appetite dc'd clonidine since did not help -Will taper off gabapentin; although patient has fibromyalgia, concern remains that patient is abusing her medication, along with alcohol, significantly contributing to psychiatric problems; if can secure daily VNA will continue head CT: unremarkable Patient educated on: medication risk/benefits and therapeutic strategies Informed Consent: further education needed Reason for continued inpatient stay Substantial Risk for: rapid decompensation Time Spent With Patient Time: Total time managing care of this patient today ____ minutes.
[2023-08-02] MEDS: Omeprazole 20 MG CAPSULE.DR PO (08:46)
[2023-08-02] MEDS: Cholecalciferol (Vitamin D3) 25 MCG TABLET 50 MCG PO (08:46)
[2023-08-02] MEDS: Gabapentin 100 MG CAPSULE 200 MG PO ×2 (08:46→21:03)
[2023-08-02] MEDS: Pravastatin Sodium 20 MG TABLET PO (08:46)
[2023-08-02] MEDS: Cyanocobalamin (Vitamin B-12) 500 MCG TABLET PO (08:47)
[2023-08-02 08:51] VITALS: BP 115/67; PULSE 81; RESP 18; TEMP 36.8; O2SAT 99
[2023-08-02] MEDS: Acetaminophen 325 MG TABLET 650 MG PO (09:09)
[2023-08-02 12:05] LABS: COVID-19 Test Negative (Negative); IDNOW Serial# 08D9AD1C
[2023-08-02 16:57] VITALS: BP 151/72; PULSE 79; TEMP 36.7; O2SAT 99
[2023-08-02] MEDS: OLANZapine 7.5 MG TABLET 15 MG PO (21:02)
[2023-08-02] MEDS: Mirtazapine 30 MG TABLET PO (21:02)
[2023-08-02] MEDS: Prazosin HCL 1 MG CAPSULE 2 MG PO (21:03)
[2023-08-03] MEDS: Omeprazole 20 MG CAPSULE.DR PO (06:39)
[2023-08-03 08:30] VITALS: BP 138/76; PULSE 86; TEMP 36; O2SAT 97
[2023-08-03] MEDS: Pravastatin Sodium 20 MG TABLET PO (08:58)
[2023-08-03] MEDS: Gabapentin 100 MG CAPSULE 200 MG PO ×2 (08:58→20:31)
[2023-08-03] MEDS: Cyanocobalamin (Vitamin B-12) 500 MCG TABLET PO (08:58)
[2023-08-03] MEDS: Cholecalciferol (Vitamin D3) 25 MCG TABLET 50 MCG PO (08:59)
[2023-08-03] MEDS: Acetaminophen 325 MG TABLET 650 MG PO ×2 (08:59→20:31)
[2023-08-03] MEDS: Fluticasone Propionate Nasal 16 GM SPRAY 2 SPRAY NOSTRIL-B (10:29)
[2023-08-03] MEDS: hydrOXYzine HCL 25 MG TABLET PO (10:31)
--- NOTE | 2023-08-03 14:24 | P.PNPSI_ITS ---
Subjective Subjective Date of Service: 08/03/23 Reason For Visit: Depression Subjective Notes: Conditional Voluntary Healthcare Proxy: No Guardianship: No Medical Problems Affecting Mental Status: No Interim History: Pt seen, reviewed with the team. Reports no sleep last evening, night. Tearful, identifies depression/anxiety 05/11 due to no sleep. Reports interventions of 08/02 not helpful. Requests Ambien to be re-started. Reports headache-advil ordered, however not available on forumulary During the afternoon team reports pt fell asleep in the common area and slid out of her chair, hitting L Elbow (XRay ordered). Reported feeling dizzy. Vital signs today 138/76 86; 142/76 87; 149/71 82 Refused orthostatic vital signs Medication Compliance: Yes Side effects from medications: Yes Review of Systems Acute medical concerns: No Medical Review of Systems: unchanged Review of Systems Constitutional: Reports daytime sleepiness, Reports difficulty sleeping and Reports headache(s) Reports headache(s) Reports headache(s) Mental Status Exam Mental Status Exam Patient Appearance: Fatigued Patient Orientation: Person, Place, Time and Situation Level of Consciousness: Alert Patient Behavior: Talkative and Good Eye Contact Mood Description: Depressed and Anxious Affect Description: Anxious and Flat Patient Cognition Impaired: No Ability to Follow Directions: Fair Speech Pattern: Spontaneous Speech Memory Description: Episodic Impaired Hallucinations: None Delusions: Not Present Thought Process: Rumination Thought Content: positive for Perseveration and positive for Suicidal Ideation (denies) Depressive Symptoms: Increased Anxiety, Insomnia and Difficulty Sleeping Abnormal Motor Activity Signs and Symptoms: Agitation Judgement: Fair Diagnostics Vital Signs (24Hr): Vital Signs - 24 hr 08/02/23 16:57 08/03/23 08:30 Temperature 98.1 F 96.8 F Pulse Rate 79 86 Blood Pressure 151/72 H 138/76 Pulse Oximetry 99 97 Oxygen Delivery Method Room Air Room Air BMI result Body Mass Index 27.7 Labs 07/25/23 08:08 07/25/23 08:08 Labs: Laboratory Results - last 48 hr 08/02/23 11:23 COVID-19 ([facility]) Negative COVID-19 Clin Com See Note Imaging Radiology Impressions: ITS Impressions Head CT 07/24/23 11:53 IMPRESSION: No acute intracranial pathology. Medications Medications Current Medications Acetaminophen (Acetaminophen 325 Mg Tablet) 650 mg PO Q6H PRN PRN Reason: Headache/Pain Mild Scale (1-3) Last Admin: 08/03/23 08:59 Dose: 650 mg Al Hydroxide/Mg Hydroxide (Magnesium Hydrox/Alum Hydrox 30 Ml Oral.Susp) 30 ml PO Q6H PRN PRN Reason: Heartburn/Nausea Last Admin: 07/31/23 20:38 Dose: 30 ml Albuterol Sulfate (Albuterol Sulfate 90 Mcg 8 Gm Inhaler) 2 puff INHALE RQ4H PRN PRN Reason: Shortness of Breath Last Admin: 07/24/23 18:31 Dose: 2 puff Cyanocobalamin (Cyanocobalamin (Vitamin B-12) 500 Mcg Tablet) 500 mcg PO DAILY [facility] Last Admin: 08/03/23 08:58 Dose: 500 mcg Fluticasone Propionate (Fluticasone Propionate Nasal 16 Gm [place]) 2 spray NOSTRIL-B DAILY [facility] Last Admin: 08/03/23 10:29 Dose: 2 spray Gabapentin (Gabapentin 100 Mg Capsule) 200 mg PO BID [facility] Last Admin: 08/03/23 08:58 Dose: 200 mg Hydroxyzine HCl (Hydroxyzine Hcl 25 Mg Tablet) 25 mg PO Q6H PRN PRN Reason: Anxiety Last Admin: 08/03/23 10:31 Dose: 25 mg Ibuprofen (Ibuprofen 200 Mg Tablet) 200 mg PO Q8H PRN PRN Reason: Headache Magnesium Hydroxide (Milk Of Magnesia 30 Ml Oral.Susp) 30 ml PO DAILY PRN PRN Reason: Constipation Mirtazapine (Mirtazapine 30 Mg Tablet) 30 mg PO BEDTIME [facility] Last Admin: 08/02/23 21:02 Dose: 30 mg Olanzapine (Olanzapine 7.5 Mg Tablet) 15 mg PO BEDTIME [facility] Last Admin: 08/02/23 21:02 Dose: 15 mg Omeprazole (Omeprazole 20 Mg Capsule.Dr) 20 mg PO DAILY@0630 [facility] Last Admin: 08/03/23 06:39 Dose: 20 mg Pravastatin Sodium (Pravastatin Sodium 20 Mg Tablet) 20 mg PO DAILY [facility] Last Admin: 08/03/23 08:58 Dose: 20 mg Prazosin HCl (Prazosin Hcl 1 Mg Capsule) 2 mg PO BEDTIME [facility]; Protocol Last Admin: 08/02/23 21:03 Dose: 2 mg Quetiapine Fumarate (Quetiapine Fumarate 50 Mg Tablet) 50 mg PO BEDTIME MRX1 PRN PRN Reason: insomnia Last Admin: 08/01/23 22:33 Dose: 50 mg Vitamin D (Cholecalciferol (Vitamin D3) 25 Mcg Tablet) 50 mcg PO DAILY [facility] Last Admin: 08/03/23 08:59 Dose: 50 mcg Allergies Allergies Allergy/AdvReac Type Severity Reaction Status Date / Time duloxetine [From CYMBALTA] Allergy Mild ITCHING Verified 07/23/23 00:42 ibuprofen [From MOTRIN] Allergy Unknown ITCHING Verified 07/23/23 00:42 ibuprofen Allergy Unknown Unknown Uncoded 04/09/23 08:23 Assessment & Plan Assessment & Plan (1) MDD (major depressive disorder), recurrent, severe, with psychosis: Status: Acute Code(s): F33.3 - Major depressive disorder, recurrent, severe with psychotic symptoms (2) Fibromyalgia: Status: Acute Code(s): M79.7 - Fibromyalgia (3) Cognitive impairment: Status: Acute Code(s): R41.89 - Other symptoms and signs involving cognitive functions and awareness (4) PTSD (post-traumatic stress disorder): Status: Acute Code(s): F43.10 - Post-traumatic stress disorder, unspecified 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 Patient reports that about 1 month ago, while walking her dog, she fell outside and hit the back of her head. She said she did not go to the hospital. Othwerwise, Patient reports that she was taking her medications and overall doing okay until last week when she lost her apartment, saying she could not afford rent was evicted. Since then she has been streets and not taking any medications. She says she cannot remember how she got to the hospital and is not sure how long she has been here. Patient reports that she became depressed, wanting to . She endorses auditory hallucinations from time to time that her only present when she is upset. She denies any alcohol or drug use saying she only used years ago (though during consult in October patient acknowledged drinking alcohol, using drugs though past/present UDS negative). Discussed depression and patient says that typically she does not like medications for depression or anxiety since it only makes her worse however she reports insomnia, low appetite and agrees to start Remeron since it can also help with depression and anxiety. Alert/oriented: Patient knows the month, day of the week, holiday, year, that she is in [place] at the hospital, her name, and address Impression/plan: Vital stable; benign neuro exam in the ED; UA/UDS WNL; labs grossly WNL however mildly hypokalemic; will see if can do an added on for potassium and will redraw labs including CBC Patient did hit her head about a month ago; discussed with hospitalist who agreed with there being some utility for head CT; discussed this with patient, including exposure to radiation and she agreed with procedure Will otherwise continue home medications and start mirtazapine for depression/anxiety and insomnia and low appetite Currently says no family support; in the past patient reported Two daughters and one brother are a support Hospital course: 07/25 continue current treatment plan Reviewed Head CT and unremarkable; reviewed labs, WBC, potassium WNL 07/28 Over the weekend patient started on Haldol for AH and mirtazapine increased. Remains depressed; says can hear auditory hallucinations of her name being called. Reports much trouble sleeping. Denies any SI. Reviewed medications and changes made over the weekend. Patient agreed to DC Haldol and try Zyprexa instead due to insomnia. Social work obtain collateral from patient's daughter who reports that patient lost son 5 years ago; more recently patient lost mother with whom she lived likely significantly contributing to the depression. But also, daughter reports patient has not not lost her home or car.... Which is what patient reported. Daughter says patient has history of abusing alcohol and her medication and thinks this is what has been occurring. -will taper and dc gabapentin -order MOCA 1 09/28?patient's?mood?is?a?little?better;?still?depressed,?no?SI.??AH?of?her?name? but?less?audible.??Baseline?some?cognitive?impairment [place]?;? p atient?has?needed?a?[facility] DIRECTOR?to?help?with?daily?living?activities?even?though?in?her? 50s.??concern?for?alcohol?abuse?and?potentially Over?taking?prescription?medication?which?include?Xanax?and?Ambien 07/30: Continue current tx plan. 07/31 family meeting; seems that there has been some cognitive decline at least this past year if not for longer, but it is not clear to what degree. At last medical admission in October patient acknowledged that she had been drinking heavily. She does not remember this accurately and so remains a limited historian. It is unclear what her baseline is and unclear if she has been struggling with cognitive issues or psychosis outside of depression. -Still not sleeping well; agreed to medication changes below 08/01 mood still depressed but a little better; stays in bed most of the time saying she's anxious around other patients; however agrees that getting out of her room/bed will help w/ mood. AH remain, though less. still difficult time sleeping; lot's of thoughts and fear of nightmares which happen most nights (endorsed hx of trauma which comes up in nightmares). Discussed medication regimen and pt agrees to increasing zyprexa and adding prazosin and seroquel. Patient has long history of insomnia however has misused Ambien and Xanax and do not want to restart such meds 08/02 Reports headache, states she takes Advil at home, asks for an order, low dose trial ordered Reports agitation, anxiety and insomnia-Increase Prazosin to 2 mg hs Increase Olanzapine to 15 mg hs. Pt reports Quetiapine has not been helpful at this time. 08/03- Discontinue Advil, not on formulary- pt reports she takes this at home for headache in consideration of ibuprofen allergy. Decrease Prazosin from 2 mg daily to 1 mg daily due to dizziness reported today Ambien 5 mg HS tonight x 1 Monitor sleep carefully. XRay L elbow s/p slipping to the ground while sleeping in a chair. Plan: CV Q 15 minute checks Increase Zyprexa to 10mg qhs since continued AH and trouble sleeping Add prozosin 1mg qhs for nightmares Adding Seroquel 50mg PRN with repreat for continued insomnia Continue mirtazapine 30 q.h.s. for depression/anxiety/insomnia and low appetite dc'd clonidine since did not help -Will taper off gabapentin; although patient has fibromyalgia, concern remains that patient is abusing her medication, along with alcohol, significantly contributing to psychiatric problems; if can secure daily VNA will continue head CT: unremarkable Patient educated on: medication risk/benefits, therapeutic strategies and medical condition Informed Consent: understands and further education needed Reason for continued inpatient stay Substantial Risk for: rapid decompensation Time Spent With Patient Time: Total time managing care of this patient today ____ minutes.
[2023-08-03 14:36] VITALS: BP 142/76
--- NOTE | 2023-08-03 14:37 | PC.NURSE ---
Pt reports headache and dizziness, tylenol given, BP 142/76, 87p, 98% 02.
[2023-08-03 15:09] VITALS: BP 149/71; PULSE 82; RESP 16; O2SAT 100
--- NOTE | 2023-08-03 15:12 | PC.NURSE ---
Pt slid out of her chair in the dining room. Event observed by [facility]. Per [facility] pt appeared to be dozing off prior to. MHC stated pt did not hit her head but appeared to hit her left elbow on the ground. TW assessed pt in bed. Pt able to sit up and explain that she has felt dizzy on/off today, and felt dizzy prior to event. Pt denied hitting her head and stated that she only hit her left elbow on the floor. No redness or changes in skin integrity noted to left elbow. Pt walked back to her room following event. Pt allowed VS while seated in bed, but declined to stand for ortho VS. Haily Granger FORGING MACHINE HAND notified. Pt's primary nurse notified.
[2023-08-03 17:26] VITALS: BP 140/64; PULSE 80; RESP 18; TEMP 36.9; O2SAT 99
[2023-08-03 20:23] VITALS: BP 154/82; PULSE 81
[2023-08-03] MEDS: OLANZapine 7.5 MG TABLET 15 MG PO (20:32)
[2023-08-03] MEDS: Prazosin HCL 1 MG CAPSULE PO (20:32)
[2023-08-03] MEDS: Zolpidem Tartrate 5 MG TABLET PO (20:33)
[2023-08-03] MEDS: Mirtazapine 30 MG TABLET PO (20:34)
[2023-08-04 06:00] VITALS: BP 143/73; PULSE 76; TEMP 37; O2SAT 99
[2023-08-04] MEDS: Omeprazole 20 MG CAPSULE.DR PO (06:54)
[2023-08-04] MEDS: Acetaminophen 325 MG TABLET 650 MG PO ×2 (08:24→19:13)
[2023-08-04] MEDS: Gabapentin 100 MG CAPSULE 200 MG PO (08:25)
[2023-08-04] MEDS: Pravastatin Sodium 20 MG TABLET PO (08:25)
[2023-08-04] MEDS: Cholecalciferol (Vitamin D3) 25 MCG TABLET 50 MCG PO (08:25)
[2023-08-04] MEDS: Cyanocobalamin (Vitamin B-12) 500 MCG TABLET PO (08:26)
--- NOTE | 2023-08-04 09:05 | HO.PSYCHPN ---
Subjective Subjective Date of Service: 08/04/23 Reason For Visit: Depression Interim History: Met with patient; discussed with team; reviewed notes Patient seen with technical analyst Patient reports that her mood remains overall better, no SI and no AVH. She says she is increasingly anxious though because still not sleeping well. She said she slept better last night since she got 1 time dose of Ambien 5 mg. Patient looking forward to going home however agrees to remain on the unit just to see if can improve sleep. Agrees to increase Seroquel and story writer agrees to leave Ambien 5 mg p.r.n. for insomnia. Patient however does not want to be on prazosin anymore, saying she did not have nightmares and wants this medication discontinued. Discussed getting a VNA with patient who agrees it will be very helpful Mental Status Exam Mental Status Exam Narrative: Pt is alert and oriented; behavior is cooperative, calm, cooperative; patient is not in distress; dressed in casual attire with unkempt hair but adequate hygiene;; mood is described as anxious and affect congruent, though overall and more engaged, brighter, smiling, talking more naturally; eye contact appropriate; Speech regular volume, rate and prosody; no longer latent; no psychomotor retardation present; thought process goal directed; Thought content is on continued insomnia, discharge home; No SI; No HI. Denies AVH. Patients insight and judgment fair. Diagnostics Vital Signs (24Hr): Vital Signs - 24 hr 08/03/23 14:36 08/03/23 15:09 08/03/23 17:26 Temperature 98.5 F Pulse Rate 82 80 Respiratory Rate 16 18 Blood Pressure 142/76 H 149/71 H 140/64 H Pulse Oximetry 100 99 Oxygen Delivery Method Room Air Room Air 08/03/23 20:23 08/04/23 06:00 Temperature 98.6 F Pulse Rate 81 76 Respiratory Rate Blood Pressure 154/82 H 143/73 H Pulse Oximetry 99 Oxygen Delivery Method Room Air BMI result Body Mass Index 27.7 Labs 07/25/23 08:08 07/25/23 08:08 Labs: Laboratory Results - last 48 hr 08/02/23 11:23 COVID-19 ([facility]) Negative COVID-19 Clin Com See Note Imaging Radiology Impressions: ITS Impressions Head CT 07/24/23 11:53 IMPRESSION: No acute intracranial pathology. Elbow X-Ray 08/03/23 16:28 IMPRESSION: No acute fracture or subluxation. No evidence of hemarthrosis Medications Medications Current Medications Acetaminophen (Acetaminophen 325 Mg Tablet) 650 mg PO Q6H PRN PRN Reason: Headache/Pain Mild Scale (1-3) Last Admin: 08/04/23 08:24 Dose: 650 mg Al Hydroxide/Mg Hydroxide (Magnesium Hydrox/Alum Hydrox 30 Ml Oral.Susp) 30 ml PO Q6H PRN PRN Reason: Heartburn/Nausea Last Admin: 07/31/23 20:38 Dose: 30 ml Albuterol Sulfate (Albuterol Sulfate 90 Mcg 8 Gm Inhaler) 2 puff INHALE RQ4H PRN PRN Reason: Shortness of Breath Last Admin: 07/24/23 18:31 Dose: 2 puff Cyanocobalamin (Cyanocobalamin (Vitamin B-12) 500 Mcg Tablet) 500 mcg PO DAILY [facility] Last Admin: 08/04/23 08:26 Dose: 500 mcg Fluticasone Propionate (Fluticasone Propionate Nasal 16 Gm [place]) 2 spray NOSTRIL-B DAILY [facility] Last Admin: 08/03/23 10:29 Dose: 2 spray Gabapentin (Gabapentin 100 Mg Capsule) 200 mg PO BID [facility] Last Admin: 08/04/23 08:25 Dose: 200 mg Hydroxyzine HCl (Hydroxyzine Hcl 25 Mg Tablet) 25 mg PO Q6H PRN PRN Reason: Anxiety Last Admin: 08/03/23 10:31 Dose: 25 mg Magnesium Hydroxide (Milk Of Magnesia 30 Ml Oral.Susp) 30 ml PO DAILY PRN PRN Reason: Constipation Mirtazapine (Mirtazapine 30 Mg Tablet) 30 mg PO BEDTIME [facility] Last Admin: 08/03/23 20:34 Dose: 30 mg Olanzapine (Olanzapine 7.5 Mg Tablet) 15 mg PO BEDTIME [facility] Last Admin: 08/03/23 20:32 Dose: 15 mg Omeprazole (Omeprazole 20 Mg Capsule.Dr) 20 mg PO DAILY@0630 [facility] Last Admin: 08/04/23 06:54 Dose: 20 mg Pravastatin Sodium (Pravastatin Sodium 20 Mg Tablet) 20 mg PO DAILY [facility] Last Admin: 08/04/23 08:25 Dose: 20 mg Prazosin HCl (Prazosin Hcl 1 Mg Capsule) 1 mg PO BEDTIME [facility]; Protocol Last Admin: 08/03/23 20:32 Dose: 1 mg Quetiapine Fumarate (Quetiapine Fumarate 50 Mg Tablet) 50 mg PO BEDTIME MRX1 PRN PRN Reason: insomnia Last Admin: 08/01/23 22:33 Dose: 50 mg Vitamin D (Cholecalciferol (Vitamin D3) 25 Mcg Tablet) 50 mcg PO DAILY [facility] Last Admin: 08/04/23 08:25 Dose: 50 mcg Allergies Allergies Allergy/AdvReac Type Severity Reaction Status Date / Time duloxetine [From CYMBALTA] Allergy Mild ITCHING Verified 07/23/23 00:42 ibuprofen [From MOTRIN] Allergy Unknown ITCHING Verified 07/23/23 00:42 ibuprofen Allergy Unknown Unknown Uncoded 04/09/23 08:23 Assessment & Plan Assessment & Plan (1) MDD (major depressive disorder), recurrent, severe, with psychosis: Status: Acute Code(s): F33.3 - Major depressive disorder, recurrent, severe with psychotic symptoms (2) Fibromyalgia: Status: Acute Code(s): M79.7 - Fibromyalgia (3) Cognitive impairment: Status: Acute Code(s): R41.89 - Other symptoms and signs involving cognitive functions and awareness (4) PTSD (post-traumatic stress disorder): Status: Acute Code(s): F43.10 - Post-traumatic stress disorder, unspecified Plan Seen with technical analyst Patient is a 57-year-old, French-speaking female with history of depression, anxiety, fibromyalgia, seen for consult 11/26/2022, who was found outside, cold and confused and brought to the emergency room, and now presents for depression, SI and some confusion. Patient reports that about 1 month ago, while walking her dog, she fell outside and hit the back of her head. She said she did not go to the hospital. Othwerwise, Patient reports that she was taking her medications and overall doing okay until last week when she lost her apartment, saying she could not afford rent was evicted. Since then she has been streets and not taking any medications. She says she cannot remember how she got to the hospital and is not sure how long she has been here. Patient reports that she became depressed, wanting to . She endorses auditory hallucinations from time to time that her only present when she is upset. She denies any alcohol or drug use saying she only used years ago (though during consult in October patient acknowledged drinking alcohol, using drugs though past/present UDS negative). Discussed depression and patient says that typically she does not like medications for depression or anxiety since it only makes her worse however she reports insomnia, low appetite and agrees to start Remeron since it can also help with depression and anxiety. Alert/oriented: Patient knows the month, day of the week, holiday, year, that she is in [place] at the hospital, her name, and address Impression/plan: Vital stable; benign neuro exam in the ED; UA/UDS WNL; labs grossly WNL however mildly hypokalemic; will see if can do an added on for potassium and will redraw labs including CBC Patient did hit her head about a month ago; discussed with hospitalist who agreed with there being some utility for head CT; discussed this with patient, including exposure to radiation and she agreed with procedure Will otherwise continue home medications and start mirtazapine for depression/anxiety and insomnia and low appetite Currently says no family support; in the past patient reported Two daughters and one brother are a support Hospital course: 07/25 continue current treatment plan Reviewed Head CT and unremarkable; reviewed labs, WBC, potassium WNL 07/28 Over the weekend patient started on Haldol for AH and mirtazapine increased. Remains depressed; says can hear auditory hallucinations of her name being called. Reports much trouble sleeping. Denies any SI. Reviewed medications and changes made over the weekend. Patient agreed to DC Haldol and try Zyprexa instead due to insomnia. Social work obtain collateral from patient's daughter who reports that patient lost son 5 years ago; more recently patient lost mother with whom she lived likely significantly contributing to the depression. But also, daughter reports patient has not not lost her home or car.... Which is what patient reported. Daughter says patient has history of abusing alcohol and her medication and thinks this is what has been occurring. -will taper and dc gabapentin -order MOCA 07/29?patient's?mood?is?a?little?better;?still?depressed,?no?SI.??AH?of?her?name?but?less?audible.??Baseline?some?cognitive?impairment [place]?;? patient?has?needed?a?[employer]?to?help?with?daily?living?activities?even?though?in?her?50s.??concern?for?alcohol?abuse?and?potentially Over?taking?prescription?medication?which?include?Xanax?and?Ambien 07/30: Continue current tx plan. 07/31 family meeting; seems that there has been some cognitive decline at least this past year if not for longer, but it is not clear to what degree. At last medical admission in October patient acknowledged that she had been drinking heavily. She does not remember this accurately and so remains a limited historian. It is unclear what her baseline is and unclear if she has been struggling with cognitive issues or psychosis outside of depression. -Still not sleeping well; agreed to medication changes below 08/01 mood still depressed but a little better; stays in bed most of the time saying she's anxious around other patients; however agrees that getting out of her room/bed will help w/ mood. AH remain, though less. still difficult time sleeping; lot's of thoughts and fear of nightmares which happen most nights (endorsed hx of trauma which comes up in nightmares). Discussed medication regimen and pt agrees to increasing zyprexa and adding prazosin and seroquel. Patient has long history of insomnia however has misused Ambien and Xanax and do not want to restart such meds 08/02 Reports headache, states she takes Advil at home, asks for an order, low dose trial ordered Reports agitation, anxiety and insomnia-Increase Prazosin to 2 mg hs Increase Olanzapine to 15 mg hs. Pt reports Quetiapine has not been helpful at this time. 08/03- Discontinue Advil, not on formulary- pt reports she takes this at home for headache in consideration of ibuprofen allergy. Decrease Prazosin from 2 mg daily to 1 mg daily due to dizziness reported today Ambien 5 mg HS tonight x 1 Monitor sleep carefully. XRay L elbow s/p slipping to the ground while sleeping in a chair. 08/04 Patient reports that her mood remains overall better, no SI and no AVH. She says she is increasingly anxious though because still not sleeping well. She said she slept better last night since she got 1 time dose of Ambien 5 mg. Patient looking forward to going home however agrees to remain on the unit just to see if can improve sleep. Agrees to increase Seroquel and story writer agrees to leave Ambien 5 mg p.r.n. for insomnia. Patient however does not want to be on prazosin anymore, saying she did not have nightmares and wants this medication discontinued. Discussed getting a VNA with patient who agrees it will be very helpful Plan: CV Q 15 minute checks -Lower back to Zyprexa to 10mg qhs since increased dose to 15 mg did not help with sleep effort to keep as low and effective doses possible; it seems that AH resolved a 10 mg -DC prozosin; patient does not want -Will schedule Seroquel 100 mg for insomnia in effort to avoid Ambien which patient has abused. -Adding Ambien 5 mg p.r.n. for continued insomnia; patient has a history of alcoholism and chronic insomnia which makes treating insomnia very difficult. Ambien has helped in the past. Working on getting patient VNA which will mitigate risk of medication abuse -Continue mirtazapine 30 q.h.s. for depression/anxiety/insomnia and low appetite -dc'd clonidine since did not help -Will taper off gabapentin; although patient has fibromyalgia, concern remains that patient is abusing her medication, along with alcohol, significantly contributing to psychiatric problems; once daily VNA established, will defer to PCP to restart -head CT: unremarkable Patient educated on: diagnosis and medication risk/benefits Informed Consent: understands Reason for continued inpatient stay Substantial Risk for: stable for discharge Time Spent With Patient Time: Total time managing care of this patient today ____ minutes.
[2023-08-04 11:41] LABS: COVID-19 Test Negative (Negative); IDNOW Serial# 08D9AD1C
[2023-08-04] MEDS: hydrOXYzine HCL 25 MG TABLET PO (16:26)
[2023-08-04 18:00] VITALS: BP 152/83; PULSE 80; RESP 17; TEMP 36.3; O2SAT 99
[2023-08-04] MEDS: OLANZapine 10 MG TABLET PO (19:13)
[2023-08-04] MEDS: Mirtazapine 30 MG TABLET PO (19:13)
[2023-08-04] MEDS: Zolpidem Tartrate 5 MG TABLET PO (19:13)
[2023-08-05] MEDS: Omeprazole 20 MG CAPSULE.DR PO (06:17)
[2023-08-05] MEDS: Cyanocobalamin (Vitamin B-12) 500 MCG TABLET PO (08:32)
[2023-08-05] MEDS: Pravastatin Sodium 20 MG TABLET PO (08:32)
[2023-08-05] MEDS: Gabapentin 100 MG CAPSULE 200 MG PO (08:33)
[2023-08-05] MEDS: Cholecalciferol (Vitamin D3) 25 MCG TABLET 50 MCG PO (08:33)
[2023-08-05] MEDS: Fluticasone Propionate Nasal 16 GM SPRAY 2 SPRAY NOSTRIL-B (08:34)
[2023-08-05 08:40] VITALS: BP 134/64; PULSE 85; RESP 18; TEMP 36.8; O2SAT 99
[2023-08-05 16:50] VITALS: BP 118/65; PULSE 85; RESP 16; TEMP 36.4; O2SAT 99
--- NOTE | 2023-08-05 17:08 | P.PNPSI_ITS ---
Subjective Subjective Date of Service: 08/05/23 Reason For Visit: Depression Interim History: met with pt; discussed with team; seen with justa mullins pt slept better last night, though still not well; she refused seroquel saying it causes her heart to beat fast. She agrees to re-try clonidine. Pt says she is feeling much better, with clearly brighter affect; no AVH and looking forward to going home. Agrees to VNA. Mental Status Exam Mental Status Exam Narrative: Pt is alert and oriented; behavior is cooperative, calm, cooperative; patient is not in distress; dressed in casual attire adequately groomed; mood is described as good and affect congruent, brighter, smiling; eye contact appropriate; Speech regular volume, rate and prosody; no psychomotor retardation present; thought process goal directed; Thought content is on discharge home; No SI; No HI. Denies AVH. Patients insight and judgment fair. Diagnostics Vital Signs (24Hr): Vital Signs - 24 hr 08/04/23 18:00 08/05/23 08:40 08/05/23 16:50 Temperature 97.4 F 98.3 F 97.5 F Pulse Rate 80 85 85 Respiratory Rate 17 18 16 Blood Pressure 152/83 H 134/64 118/65 Pulse Oximetry 99 99 99 Oxygen Delivery Method Room Air Room Air BMI result Body Mass Index 27.7 Labs 07/25/23 08:08 07/25/23 08:08 Labs: Laboratory Results - last 48 hr 08/04/23 11:10 COVID-19 ([facility]) Negative COVID-19 Clin Com See Note Imaging Radiology Impressions: ITS Impressions Head CT 07/24/23 11:53 IMPRESSION: No acute intracranial pathology. Elbow X-Ray 08/03/23 16:28 IMPRESSION: No acute fracture or subluxation. No evidence of hemarthrosis Medications Medications Current Medications Acetaminophen (Acetaminophen 325 Mg Tablet) 650 mg PO Q6H PRN PRN Reason: Headache/Pain Mild Scale (1-3) Last Admin: 08/04/23 19:13 Dose: 650 mg Al Hydroxide/Mg Hydroxide (Magnesium Hydrox/Alum Hydrox 30 Ml Oral.Susp) 30 ml PO Q6H PRN PRN Reason: Heartburn/Nausea Last Admin: 07/31/23 20:38 Dose: 30 ml Albuterol Sulfate (Albuterol Sulfate 90 Mcg 8 Gm Inhaler) 2 puff INHALE RQ4H PRN PRN Reason: Shortness of Breath Last Admin: 07/24/23 18:31 Dose: 2 puff Cyanocobalamin (Cyanocobalamin (Vitamin B-12) 500 Mcg Tablet) 500 mcg PO DAILY ON LICENSE OF [facility] Last Admin: 08/05/23 08:32 Dose: 500 mcg Fluticasone Propionate (Fluticasone Propionate Nasal 16 Gm [place]) 2 spray NOSTRIL-B DAILY ON LICENSE OF [facility] Last Admin: 08/05/23 08:34 Dose: 2 spray Gabapentin (Gabapentin 100 Mg Capsule) 200 mg PO DAILY ON LICENSE OF [facility] Last Admin: 08/05/23 08:33 Dose: 200 mg Hydroxyzine HCl (Hydroxyzine Hcl 25 Mg Tablet) 25 mg PO Q6H PRN PRN Reason: Anxiety Last Admin: 08/04/23 16:26 Dose: 25 mg Magnesium Hydroxide (Milk Of Magnesia 30 Ml Oral.Susp) 30 ml PO DAILY PRN PRN Reason: Constipation Mirtazapine (Mirtazapine 30 Mg Tablet) 30 mg PO BEDTIME ON LICENSE OF [facility] Last Admin: 08/04/23 19:13 Dose: 30 mg Olanzapine (Olanzapine 10 Mg Tablet) 10 mg PO BEDTIME ON LICENSE OF [facility] Last Admin: 08/04/23 19:13 Dose: 10 mg Omeprazole (Omeprazole 20 Mg Capsule.Dr) 20 mg PO DAILY@0630 ON LICENSE OF [facility] Last Admin: 08/05/23 06:17 Dose: 20 mg Pravastatin Sodium (Pravastatin Sodium 20 Mg Tablet) 20 mg PO DAILY ON LICENSE OF [facility] Last Admin: 08/05/23 08:32 Dose: 20 mg Quetiapine Fumarate (Quetiapine Fumarate 100 Mg Tablet) 100 mg PO BEDTIME ON LICENSE OF [facility] Last Admin: 08/05/23 00:16 Dose: Not Given Vitamin D (Cholecalciferol (Vitamin D3) 25 Mcg Tablet) 50 mcg PO DAILY ON LICENSE OF [facility] Last Admin: 08/05/23 08:33 Dose: 50 mcg Zolpidem Tartrate (Zolpidem Tartrate 5 Mg Tablet) 5 mg PO BEDTIME PRN PRN Reason: Insomnia Last Admin: 08/04/23 19:13 Dose: 5 mg Allergies Allergies Allergy/AdvReac Type Severity Reaction Status Date / Time duloxetine [From CYMBALTA] Allergy Mild ITCHING Verified 07/23/23 00:42 ibuprofen [From MOTRIN] Allergy Unknown ITCHING Verified 07/23/23 00:42 ibuprofen Allergy Unknown Unknown Uncoded 04/09/23 08:23 Assessment & Plan Assessment & Plan (1) MDD (major depressive disorder), recurrent, severe, with psychosis: Status: Acute Code(s): F33.3 - Major depressive disorder, recurrent, severe with psychotic symptoms (2) Fibromyalgia: Status: Acute Code(s): M79.7 - Fibromyalgia (3) Cognitive impairment: Status: Acute Code(s): R41.89 - Other symptoms and signs involving cognitive functions and awareness (4) PTSD (post-traumatic stress disorder): Status: Acute Code(s): F43.10 - Post-traumatic stress disorder, unspecified 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 Patient reports that about 1 month ago, while walking her dog, she fell outside and hit the back of her head. She said she did not go to the hospital. Othwerwise, Patient reports that she was taking her medications and overall doing okay until last week when she lost her apartment, saying she could not afford rent was evicted. Since then she has been streets and not taking any medications. She says she cannot remember how she got to the hospital and is not sure how long she has been here. Patient reports that she became depressed, wanting to . She endorses auditory hallucinations from time to time that her only present when she is upset. She denies any alcohol or drug use saying she only used years ago (though during consult in October patient acknowledged drinking alcohol, using drugs though past/present UDS negative). Discussed depression and patient says that typically she does not like medications for depression or anxiety since it only makes her worse however she reports insomnia, low appetite and agrees to start Remeron since it can also help with depression and anxiety. Alert/oriented: Patient knows the month, day of the week, holiday, year, that she is in [place] at the hospital, her name, and address Impression/plan: Vital stable; benign neuro exam in the ED; UA/UDS WNL; labs grossly WNL however mildly hypokalemic; will see if can do an added on for potassium and will redraw labs including CBC Patient did hit her head about a month ago; discussed with hospitalist who agreed with there being some utility for head CT; discussed this with patient, including exposure to radiation and she agreed with procedure Will otherwise continue home medications and start mirtazapine for depression/anxiety and insomnia and low appetite Currently says no family support; in the past patient reported Two daughters and one brother are a support Hospital course: 07/25 continue current treatment plan Reviewed Head CT and unremarkable; reviewed labs, WBC, potassium WNL 07/28 Over the weekend patient started on Haldol for AH and mirtazapine increased. Remains depressed; says can hear auditory hallucinations of her name being called. Reports much trouble sleeping. Denies any SI. Reviewed medications and changes made over the weekend. Patient agreed to DC Haldol and try Zyprexa instead due to insomnia. Social work obtain collateral from patient's daughter who reports that patient lost son 5 years ago; more recently patient lost mother with whom she lived likely significantly contributing to the depression. But also, daughter reports patient has not not lost her home or car.... Which is what patient reported. Daughter says patient has history of abusing alcohol and her medication and thinks this is what has been occurring. -will taper and dc gabapentin -order MOCA 1 09/28?patient's?mood?is?a?little?better;?still?depressed,?no?SI.??AH?of?her?name? but?less?audible.??Baseline?some?cognitive?impairment Porter?;? p atient?has?needed?a?MARKETING MGR?to?help?with?daily?living?activities?even?though?in?her? 50s.??concern?for?alcohol?abuse?and?potentially Over?taking?prescription?medication?which?include?Xanax?and?Ambien 07/30: Continue current tx plan. 07/31 family meeting; seems that there has been some cognitive decline at least this past year if not for longer, but it is not clear to what degree. At last medical admission in October patient acknowledged that she had been drinking heavily. She does not remember this accurately and so remains a limited historian. It is unclear what her baseline is and unclear if she has been struggling with cognitive issues or psychosis outside of depression. -Still not sleeping well; agreed to medication changes below 08/01 mood still depressed but a little better; stays in bed most of the time saying she's anxious around other patients; however agrees that getting out of her room/bed will help w/ mood. AH remain, though less. still difficult time sleeping; lot's of thoughts and fear of nightmares which happen most nights (endorsed hx of trauma which comes up in nightmares). Discussed medication regimen and pt agrees to increasing zyprexa and adding prazosin and seroquel. Patient has long history of insomnia however has misused Ambien and Xanax and do not want to restart such meds 08/02 Reports headache, states she takes Advil at home, asks for an order, low dose trial ordered Reports agitation, anxiety and insomnia-Increase Prazosin to 2 mg hs Increase Olanzapine to 15 mg hs. Pt reports Quetiapine has not been helpful at this time. 08/03- Discontinue Advil, not on formulary- pt reports she takes this at home for headache in consideration of ibuprofen allergy. Decrease Prazosin from 2 mg daily to 1 mg daily due to dizziness reported today Ambien 5 mg HS tonight x 1 Monitor sleep carefully. XRay L elbow s/p slipping to the ground while sleeping in a chair. 08/04 Patient reports that her mood remains overall better, no SI and no AVH. She says she is increasingly anxious though because still not sleeping well. She said she slept better last night since she got 1 time dose of Ambien 5 mg. Patient looking forward to going home however agrees to remain on the unit just to see if can improve sleep. Agrees to increase Seroquel and loan underwriter agrees to leave Ambien 5 mg p.r.n. for insomnia. Patient however does not want to be on prazosin anymore, saying she did not have nightmares and wants this medication discontinued. Discussed getting a VNA with patient who agrees it will be very helpful 08/05 mood good; looking forward to going home tomorrow. social and in [place]; pt more clear minded, though will still have pt see neurology to assess more closely for dementia. Pt Agrees to VNA; daughter will dispense meds tomorrow and VNA will start day after. Still not sleeping great but better; loan underwriter agrees to dc with eliasxenia since she will have VNA and a lock box removing risk for med abuse. Pt is back to baseline; she is not in imminent risk for harm to self/others. Plan: CV Q 15 minute checks start clonidine 0.1mg qhs -Lower back to Zyprexa to 10mg qhs since increased dose to 15 mg did not help with sleep effort to keep as low and effective doses possible; it seems that AH resolved a 10 mg -DC prozosin; patient does not want -Will schedule Seroquel 100 mg for insomnia in effort to avoid Ambien which patient has abused. -Adding Ambien 5 mg p.r.n. for continued insomnia; patient has a history of alcoholism and chronic insomnia which makes treating insomnia very difficult. Eliasien has helped in the past. Working on getting patient VNA which will mitigate risk of medication abuse -Continue mirtazapine 30 q.h.s. for depression/anxiety/insomnia and low appetite -dc'd clonidine since did not help -Will taper off gabapentin; although patient has fibromyalgia, concern remains that patient is abusing her medication, along with alcohol, significantly contributing to psychiatric problems; once daily VNA established, will defer to PCP to restart -head CT: unremarkable Patient educated on: diagnosis and medication risk/benefits Informed Consent: understands Reason for continued inpatient stay Substantial Risk for: stable for discharge Time Spent With Patient Time: Total time managing care of this patient today ____ minutes.
--- NOTE | 2023-08-05 17:27 | P.DS_ITS ---
DS: Providers Provider Date of Service: 08/06/23 Date of admission: 07/23/23 22:30 Date of discharge: 08/06/23 Primary care physician: Unknown Physician Attending physician on admission: Ousmane Terrazas Attending physician on discharge: Ousmane Terrazas DS: Diagnosis Discharge Diagnosis (1) MDD (major depressive disorder), recurrent, severe, with psychosis: Status: Resolved (2) Fibromyalgia: Status: Acute (3) Cognitive impairment: Status: Acute (4) PTSD (post-traumatic stress disorder): Status: Acute DS: Medications Discharge Medications Home Medications: Previous Rx's Medication Instructions Recorded albuterol sulfate 90 mcg/actuation 2 puff inhalation RQ4H PRN 08/05/23 aerosol inhaler (Ventolin HFA) Shortness Of Breath 30 days #6.7 grams cholecalciferol (vitamin D3) 50 50 mcg PO DAILY 30 days #30 tabs 08/05/23 mcg (2,000 unit) tablet (Vitamin D3) clonidine HCl 0.1 mg tablet 0.1 mg PO BEDTIME 30 days #30 tabs 08/05/23 cyanocobalamin (vitamin B-12) 500 500 mcg PO DAILY 30 days #30 tabs 08/05/23 mcg tablet (Vitamin B-12) fluticasone propionate 50 2 spray intranasal DAILY 30 days 08/05/23 mcg/actuation nasal #16 grams spray,suspension hydroxyzine HCl 25 mg tablet 25 mg PO TID PRN Anxiety 30 days 08/05/23 #60 tabs mirtazapine 30 mg tablet 30 mg PO BEDTIME 30 days #30 tabs 08/05/23 olanzapine 10 mg tablet 10 mg PO BEDTIME 30 days #30 tabs 08/05/23 omeprazole 20 mg capsule,delayed 20 mg PO DAILY 30 days #30 caps 08/05/23 release pravastatin 20 mg tablet 20 mg PO DAILY 30 days #30 tabs 08/05/23 zolpidem 5 mg tablet 5 mg PO BEDTIME PRN insomnia 30 08/05/23 days #30 tabs Mental Status Exam Mental Status Exam Narrative: Pt is alert and oriented; behavior is cooperative, calm, cooperative; patient is not in distress; dressed in casual attire adequately groomed; mood is described as good and affect congruent, brighter, smiling; eye contact appropriate; Speech regular volume, rate and prosody; no psychomotor retardation present; thought process goal directed; Thought content is on discharge home; No SI; No HI. Denies AVH. Patients insight and judgment fair. Data Data Completed and Pending Completed studies during hospitalization [Text1]: 07/31/23 08/02/23 08/04/23 10:52 11:23 11:10 COVID-19 ([facility]) Negative Negative COVID-19 Clin Com See Note See Note Influenza Type A (PCR) NEGATIVE Influenza Type B (PCR) NEGATIVE RSV RNA Qual (PCR) NEGATIVE SARS-CoV-2 RNA (RT-PCR) NEGATIVE Imaging Diagnostic Imaging Impressions Head CT 07/24/23 11:53 IMPRESSION: No acute intracranial pathology. Elbow X-Ray 08/03/23 16:28 IMPRESSION: No acute fracture or subluxation. No evidence of hemarthrosis DS: Summary Hospital Course Hospital Course: Seen with edge kitter Patient is a 57-year-old, Kinyarwanda-speaking female with history of depression, anxiety, fibromyalgia, seen for consult 11/26/2022, who was found outside, cold and confused and brought to the emergency room, and now presents for depression, SI and some confusion. Patient reports that about 1 month ago, while walking her dog, she fell outside and hit the back of her head. She said she did not go to the hospital. Othwerwise, Patient reports that she was taking her medications and overall doing okay until last week when she lost her apartment, saying she could not afford rent was evicted. Since then she has been streets and not taking any medications. She says she cannot remember how she got to the hospital and is not sure how long she has been here. Patient re ports that she became depressed, wanting to . She endorses auditory hallucinations from time to time that her only present when she is upset. She denies any alcohol or drug use saying she only used years ago (though during consult in October patient acknowledged drinking alcohol, using drugs though past/present UDS negative). Discussed depression and patient says that typically she does not like medications for depression or anxiety since it only makes her worse however she reports insomnia, low appetite and agrees to start Remeron since it can also help with depression and anxiety. Alert/oriented: Patient knows the month, day of the week, holiday, year, that she is in [place] at the hospital, her name, and address Impression/plan: Vital stable; benign neuro exam in the ED; UA/UDS WNL; labs grossly WNL however mildly hypokalemic; will see if can do an added on for potassium and will redraw labs including CBC Patient did hit her head about a month ago; discussed with hospitalist who agreed with there being some utility for head CT (-head CT: unremarkable); discussed this with patient, including exposure to radiation and she agreed with procedure Will otherwise continue home medications and start mirtazapine for depression/anxiety and insomnia and low appetite Currently says no family support; in the past patient reported Two daughters and one brother are a support Hospital course: 07/25 continue current treatment plan Reviewed Head CT and unremarkable; reviewed labs, WBC, potassium WNL 07/28 Over the weekend patient started on Haldol for AH and mirtazapine increased. Remains depressed; says can hear auditory hallucinations of her name being called. Reports much trouble sleeping. Denies any SI. Reviewed medications and changes made over the weekend. Patient agreed to DC Haldol and try Zyprexa instead due to insomnia. Social work obtain collateral from patient's daughter who reports that patient lost son 5 years ago; more recently patient lost mother with whom she lived likely significantly contributing to the depression. But also, daughter reports patient has not not lost her home or car.... Which is what patient reported. Daughter says patient has history of abusing alcohol and her medication and thinks this is what has been occurring. -will taper and dc gabapentin -order MOCA 07/29?pat ient's?mood?is?a?little?better;?still?depressed,?no?SI.??AH?of?her?name?but?less ?audible.??Baseline?some?cognitive?impairment [place]?;? patient?has?needed?a?PREMIUM SERVICE REPRESENTATIVE?to?help?with?daily?living?activities ?even?though?in?her?50s.??concern?for?alcohol?abuse?and?potentially Over?taking?prescription?medication?which?include?Xanax?and?Ambien 07/30: Continue current tx plan. 07/31 family meeting; seems that there has been some cognitive decline at least this past year if not for longer, but it is not clear to what degree. At last medical admission in October patient acknowledged that she had been drinking heavily. She does not remember this accurately and so remains a limited historian. It is unclear what her baseline is and unclear if she has been struggling with cognitive issues or psychosis outside of depression. -Still not sleeping well; agreed to medication changes below 08/01 mood still depressed but a little better; stays in bed most of the time saying she's anxious around other patients; however agrees that getting out of her room/bed will help w/ mood. AH remain, though less. still difficult time sleeping; lot's of thoughts and fear of nightmares which happen most nights (endorsed hx of trauma which comes up in nightmares). Discussed medication regimen and pt agrees to increasing zyprexa and adding prazosin and seroquel. Patient has long history of insomnia however has misused Ambien and Xanax and do not want to restart such meds 08/02 Reports headache, states she takes Advil at home, asks for an order, low dose trial ordered Reports agitation, anxiety and insomnia-Increase Prazosin to 2 mg hs Increase Olanzapine to 15 mg hs. Pt reports Quetiapine has not been helpful at this time. 08/03- Discontinue Advil, not on formulary- pt reports she takes this at home for headache in consideration of ibuprofen allergy. Decrease Prazosin from 2 mg daily to 1 mg daily due to dizziness reported today Ambien 5 mg HS tonight x 1 Monitor sleep carefully. XRay L elbow s/p slipping to the ground while sleeping in a chair IMPRESSION: No acute fracture or subluxation. No evidence of hemarthrosis 08/04 Patient reports that her mood remains overall better, no SI and no AVH. She says she is increasingly anxious though because still not sleeping well. She said she slept better last night since she got 1 time dose of Ambien 5 mg. Patient looking forward to going home however agrees to remain on the unit just to see if can improve sleep. Agrees to increase Seroquel and va underwriter agrees to leave Ambien 5 mg p.r.n. for insomnia. Patient however does not want to be on prazosin anymore, saying she did not have nightmares and wants this medication discontinued. Discussed getting a VNA with patient who agrees it will be very helpful 12/5 mood good; looking forward to going home tomorrow. social and in [place]; pt more clear minded, though will still have pt see neurology to assess more closely for dementia. Pt Agrees to VNA; daughter will dispense meds tomorrow and VNA will start day after. Sleep has improved; va underwriter agrees to dc with ambien since she will have VNA and a lock box removing risk for med abuse. Pt is back to baseline; she is not in imminent risk for harm to self/others. Time spent discussing smoking cessation with patient: 3 to 10 minutes Status at Discharge Functional status at discharge: independent ambulation Overall status at discharge: patient is back to baseline Time Spent with Patient Time attestation: Total time managing care of this patient today ____ minutes. Time spent: Less than 30 minutes Discharge Plan Discharge Anticipated Discharge Date/Time: 08/06/23 09:30 Patient Disposition: Home, Self-Care Discharge Diagnosis: MDD, recurrent, severe with psychotic symptoms in full remission Referrals: [facility] Intake jessica Mooney [Other] - 08/06/23 10:00 am [facility] [Other] - 1 Week (Referral has been placed. If they do not get in touch with you in the next few days give them a call.) Psychiatry Appt jessica Muñoz [Other] - 08/07/23 11:00 am [facility] Visiting RN [Other] - 08/07/23 (fax- [phone] The family will picking machine operator the medication. Visiting RN will call and set up a time of the fist visit which will be on 08/07/23. ) Jodie Farnsworth MD [Physician] - 08/12/23 11:45 am (IN OFFICE) Discharge Medications: New albuterol sulfate [Ventolin HFA] 90 mcg/actuation Hfa Aerosol Inhaler 2 puff inhalation RQ4H PRN (Reason: Shortness Of Breath) 30 Days Qty: 6.7 0RF hydroxyzine HCl 25 mg Tablet 25 mg PO TID PRN (Reason: Anxiety) 30 Days Qty: 60 0RF mirtazapine 30 mg Tablet 30 mg PO BEDTIME 30 Days Qty: 30 0RF olanzapine 10 mg Tablet 10 mg PO BEDTIME 30 Days Qty: 30 0RF clonidine HCl 0.1 mg tablet 0.1 mg PO BEDTIME 30 Days Qty: 30 0RF Continued cyanocobalamin (vitamin B-12) [Vitamin B-12] 500 mcg tablet 500 mcg PO DAILY 30 Days Qty: 30 0RF omeprazole 20 mg capsule,delayed release(DR/EC) 20 mg PO DAILY 30 Days Qty: 30 0RF fluticasone propionate 50 mcg/actuation spray,suspension 2 spray intranasal DAILY 30 Days Qty: 16 0RF cholecalciferol (vitamin D3) [Vitamin D3] 50 mcg (2,000 unit) tablet 50 mcg PO DAILY 30 Days Qty: 30 0RF Changed pravastatin 20 mg tablet 20 mg PO DAILY 30 Days Qty: 30 0RF zolpidem 5 mg tablet 5 mg PO BEDTIME PRN (Reason: insomnia) 30 Days Qty: 30 0RF Discontinued gabapentin 300 mg capsule 300 mg PO TID alprazolam 2 mg tablet 2 mg PO TID PRN (Reason: anxiety) duloxetine 60 mg capsule,delayed release(DR/EC) 120 mg PO DAILY ramelteon 8 mg tablet 8 mg PO BEDTIME Discharge Orders: Discharge Order (Routine); Ordered 08/06/23 Ordered By: Ousmane Terrazas Diet: Regular diet Activity on Discharge: As tolerated Stand Alone Forms: Patient Portal Discharge page, Community Support Care Plan Goals: Maintain mood and safe behaviors Take medications as prescribed Continue to pursue sobriety Practice coping skills Continue with outpatient providers and reach out to them as needed Health Concerns: Mood stability and behaviors Sobriety Fibromyalgia Plan of Treatment: Follow up with your PCP, psychiatric provider and other outpatient providers reg arding above concerns Take medications as prescribed Assessment: Risk assessment at time of discharge:? Patient was interviewed prior to discharge and found to be fully oriented and without any SI or HI. Patient has improved insight and judgment and wants to continue treatment. Patient is not in imminent risk of harm to self or others and has a safety plan that includes presenting to the closest ER or calling 911 if feeling unsafe.? Patient has been observed closely by nursing and unit staff throughout admission; patient has not engaged in any behaviors that suggest dangerousness to self or others and has demonstrated appropriate behaviors and impulse control Discharge Date/Time: 08/06/23 09:45
[2023-08-05] MEDS: OLANZapine 10 MG TABLET PO (20:08)
[2023-08-05] MEDS: Mirtazapine 30 MG TABLET PO (20:08)
[2023-08-05] MEDS: Acetaminophen 325 MG TABLET 650 MG PO (20:08)
[2023-08-05] MEDS: hydrOXYzine HCL 25 MG TABLET PO (20:08)
[2023-08-05] MEDS: Zolpidem Tartrate 5 MG TABLET PO (20:08)
[2023-08-06] MEDS: Omeprazole 20 MG CAPSULE.DR PO (05:54)
[2023-08-06] MEDS: Cyanocobalamin (Vitamin B-12) 500 MCG TABLET PO (08:19)
[2023-08-06] MEDS: Fluticasone Propionate Nasal 16 GM SPRAY 2 SPRAY NOSTRIL-B (08:19)
[2023-08-06] MEDS: Gabapentin 100 MG CAPSULE 200 MG PO (08:19)
[2023-08-06] MEDS: Pravastatin Sodium 20 MG TABLET PO (08:19)
[2023-08-06] MEDS: Cholecalciferol (Vitamin D3) 25 MCG TABLET 50 MCG PO (08:19)
[2023-08-06 08:24] VITALS: BP 150/82; PULSE 87; RESP 16; TEMP 36.6; O2SAT 97
== END 2023-08-06 09:45 | disposition home or self-care (01) | DRG 751 ==
LOC: HO.ED 06:25 → HO.PM5 22:33
PROVIDERS: Clinical Nurse Specialist Psychiatric/Mental Health, Adult; Psychiatry & Neurology Psychiatry; Admitting Provider Psychiatry & Neurology Psychiatry; Emergency Provider Emergency Medicine Emergency Medical Services; Visit Provider Psychiatry & Neurology Psychiatry
DX: F33.3 Major depressive disorder, recurrent, severe with psychotic symptoms (principal); F03.90 Unspecified dementia, unspecified severity, without behavioral disturbance, psychotic disturbance, mood disturbance, and anxiety; Z91.148 Patient's other noncompliance with medication regimen for other reason; E87.6 Hypokalemia; F43.10 Post-traumatic stress disorder, unspecified; M79.7 Fibromyalgia; Z20.822 Contact with and (suspected) exposure to COVID-19; Z59.02 Unsheltered homelessness; Z79.51 Long term (current) use of inhaled steroids; Z79.899 Other long term (current) drug therapy
CPT/HCPCS: 0241U; 36415; 70450; 73080; 80053; 80061; 80307; 82607; 82746; 83036; 83735; 84132; 84439; 84443; 85025; 85027; 87635; 93005; 99285; J1630; J2060; S9485

== ENCOUNTER → 2023-07-23 22:30 | Outpatient (BNV) | payer OTHER, SELFPAY | PROVIDERS: Admitting Provider Psychiatry & Neurology Psychiatry; Emergency Provider Emergency Medicine Emergency Medical Services; Visit Provider Psychiatry & Neurology Psychiatry | DX: F33.3 Major depressive disorder, recurrent, severe with psychotic symptoms (principal); F43.11 Post-traumatic stress disorder, acute; R41.89 Other symptoms and signs involving cognitive functions and awareness; M79.7 Fibromyalgia | CPT/HCPCS: 90792; 99231; 99232; 99238 ==

== ENCOUNTER 2023-10-14 13:55 | Emergency (ER) | payer OTHER, SELFPAY ==
--- NOTE | ~2023-10-14 | CT_ITS ---
EXAMINATION: CT ABDOMEN AND PELVIS WITH CONTRAST CLINICAL INFORMATION: Abdominal pain, worse on the left side COMPARISON: None available. TECHNIQUE: Multidetector volumetric images were obtained from the superior aspect of the liver through the pubic symphysis following administration 85 mL of Omnipaque 350 intravenous contrast. Sagittal and coronal reformatted images were obtained on the technologist's workstation. Oral contrast: No This CT examination was performed using dose optimization techniques as appropriate, variously including the following: *Automated exposure control *Adjustment of mA and/or kV according to patient size (this includes techniques or standardized protocols for targeted exams where dose is matched to indication/reason for exam; i.e. extremities or head) *Use of iterative reconstruction technique DLP: 654 mGy-cm FINDINGS: LUNG BASES: The visualized lung bases are unremarkable. LIVER, GALLBLADDER, AND BILIARY TREE: The liver is normal in size, shape, and attenuation. No focal hepatic lesion or biliary ductal dilatation is present. The gallbladder is unremarkable with no evidence of radiopaque gallstones, gallbladder wall thickening, or obvious pericholecystic inflammatory changes. PANCREAS: Unremarkable. SPLEEN: Unremarkable. ADRENAL GLANDS: Unremarkable. KIDNEYS AND URETERS: The kidneys are normal in size, shape, and attenuation. No hydronephrosis, hydroureter, or calculi seen. No perinephric stranding. BLADDER: Unremarkable. GASTROINTESTINAL TRACT: There is scattered stool and gas seen throughout the colon without distention. Appendix is normal caliber the IC junction is normal. There is fluid-filled nondilated small bowel loops in midabdomen. Cecum lies in the right lower pelvis. No free air or free fluid seen. ABDOMINAL WALL: No significant hernia is appreciated. LYMPH NODES: Normal. VASCULAR: Unremarkable. PELVIC VISCERA: The uterus is not visualized likely surgically absent. No adnexal mass or free fluid. OSSEOUS STRUCTURES: No aggressive lytic or sclerotic process seen. CT/CT abdomen pelvis w IV con IMPRESSION: 1. No acute intra-abdominal process seen. 2. Mild constipation. Low-lying cecum in the right pelvis. Appendix is normal. Fleischner guidelines were followed.
--- NOTE | ~2023-10-14 | XR_ITS ---
EXAMINATION: XR CHEST CLINICAL INFORMATION: Shortness of breath COMPARISON: 07/20/2023 TECHNIQUE: Frontal view of the chest was obtained. FINDINGS: Clear lungs. No effusion or pneumothorax. Cardiomediastinal silhouette is unchanged. XR/XR chest 1V IMPRESSION: Unremarkable examination.
[2023-10-14 14:10] VITALS: BP 150/65; BP 160/100; PULSE 110; PULSE 88; RESP 16; TEMP 36.9; O2SAT 98; BMI 30.2
[2023-10-14 14:44] LABS: MANUAL DIFF FLAG NO
[2023-10-14 14:48] LABS: Basophils Percent Auto 0.3 % (0-2); Eosinophils Absolute Auto 0.1 X10*3/uL (0.0-0.4); Eosinophils Percent Auto 1.3 % (0-4); Hematocrit 39.3 % (37.0-47.0); Imm Gran Abs Auto 0.03 X10*3/uL (0.00-0.03); Imm Gran Pct Auto 0.3 % (0.0-0.4); Lymphocytes Absolute Auto 2.4 X10*3/uL (1.2-4.9); Mean Corpuscular HGB Conc 33.1 g/dl (31.0-35.0); Mean Corpuscular Hemoglobin 27.1 pg (27.0-33.0); Mean Platelet Volume 9.3 fL (9.4-12.3); Monocytes Absolute Auto 0.6 X10*3/uL (0.1-1.2); Neutrophils Absolute Auto 5.6 x10*3/uL (2.0-8.3); Neutrophils Percent Auto 64.1 % (45-73); Platelet Count 287 X10*3/uL (160-400); Red Blood Count 4.79 X10*6/uL (4.20-5.50); Red Cell Distribution Width 13.5 % (11.0-16.0); White Blood Count 8.8 X10*3/uL (4.8-10.8)
[2023-10-14] MEDS: HYDROmorphone HCl 0.5 MG/0.5 ML SYRINGE IVPUSH (15:00)
[2023-10-14] MEDS: 0.9 % Sodium Chloride 1,000 ML 999 ML IV (15:01)
--- NOTE | 2023-10-14 15:03 | PC.NURSE ---
20gIV placed in the left AC - labs obtained/sent to lab. medication/IVF administered per provider order. effectiveness pending. pt waiting to go to CT at this time. respirations remain even and unlabored. call leyva placed within reach.
[2023-10-14 15:05] LABS: Alanine Aminotransferase 16 U/L (0-31); Albumin Level 4.3 g/dL (3.5-5.0); Alkaline Phosphatase 84 U/L (39-117); Anion Gap 16 (12-20); Aspartate Amino Transferase 16 U/L (5-31); Bilirubin Direct < 0.2 mg/dL (0.0-0.5); Bilirubin Total 0.2 mg/dL (0.0-1.0); Blood Urea Nitrogen 16 mg/dL (9-16); Calcium 9.4 mg/dL (8.4-10.2); Carbon Dioxide 26 mmol/L (22-29); Chloride 104 mmol/L (96-108); Creatinine Clr Calc Pharmacy 80.3; Estimated Glomerular Filt Rate > 60; Glucose Random 111 mg/dL (60-115); Lipase 31 U/L (8-78); Potassium 4.8 mmol/L (3.3-5.1); Sodium 141 mmol/L (135-145); Total Protein 7.8 g/dL (6.5-8.0)
--- NOTE | 2023-10-14 15:23 | ED_ITS ---
HPI - General Adult General Chief complaint: Back Pain/Injury Stated complaint: NAUSEA,VOMITING,WEAK,L LOW BACK PAIN PER EMS Time Seen by Provider: 10/14/23 13:58 History of Present Illness HPI narrative: The 58-year-old female with a history fibromyalgia PTSD presents today with having abdominal pain mainly over the left lower quadrant for the last 3 days associated with some nausea there is no pain on urination. There has no fever no chills positive coughing congestion upper respiratory symptoms. No history of abdominal surgery in the past no history of kidney stones Related Data Previous Rx's Medication Instructions Recorded albuterol sulfate 90 mcg/actuation 2 puff inhalation RQ4H PRN 08/05/23 aerosol inhaler (Ventolin HFA) Shortness Of Breath 30 days #6.7 grams cholecalciferol (vitamin D3) 50 50 mcg PO DAILY 30 days #30 tabs 08/05/23 mcg (2,000 unit) tablet (Vitamin D3) clonidine HCl 0.1 mg tablet 0.1 mg PO BEDTIME 30 days #30 tabs 08/05/23 cyanocobalamin (vitamin B-12) 500 500 mcg PO DAILY 30 days #30 tabs 08/05/23 mcg tablet (Vitamin B-12) fluticasone propionate 50 2 spray intranasal DAILY 30 days 08/05/23 mcg/actuation nasal #16 grams spray,suspension hydroxyzine HCl 25 mg tablet 25 mg PO TID PRN Anxiety 30 days 08/05/23 #60 tabs mirtazapine 30 mg tablet 30 mg PO BEDTIME 30 days #30 tabs 08/05/23 olanzapine 10 mg tablet 10 mg PO BEDTIME 30 days #30 tabs 08/05/23 omeprazole 20 mg capsule,delayed 20 mg PO DAILY 30 days #30 caps 08/05/23 release pravastatin 20 mg tablet 20 mg PO DAILY 30 days #30 tabs 08/05/23 zolpidem 5 mg tablet 5 mg PO BEDTIME PRN insomnia 30 08/05/23 days #30 tabs Allergies Allergy/AdvReac Type Severity Reaction Status Date / Time duloxetine [From CYMBALTA] Allergy Mild ITCHING Verified 10/14/23 14:09 ibuprofen [From MOTRIN] Allergy Unknown ITCHING Verified 10/14/23 14:09 ibuprofen Allergy Unknown Unknown Uncoded 10/14/23 14:09 Review of Systems 2 Review of Systems: Yes all other systems are reviewed and are negative [facility] Past Medical History Medical History (Updated 10/14/23 @ 15:41 by Steff Rosales MD) PTSD (post-traumatic stress disorder) Cognitive impairment MDD (major depressive disorder), recurrent, severe, with psychosis Alcohol abuse Asthma Anxiety Insomnia Fibromyalgia Surgical History H/O knee surgery Hx of tubal ligation History of partial hysterectomy Family History Family History Mother Diabetes HTN (hypertension) CVD (cardiovascular disease) Father Arthritis CVD (cardiovascular disease) Social History Social History Household Members: None Housing: Homeless Do you presently have visiting nurse or other home services: Yes Unable to assess alcohol history related to: Unknown Alcohol intake: current Alcohol intake frequency: does not drink Patient Tobacco Use Status: Never used Tobacco Smoked in Last 30 Days: No e-Cigarette/Vaping Use: Never Used Second Hand Smoke Exposure: No Use of substances other than those prescribed or required for medical reasons: No Advance Directives: Yes Advance Directives on File: Yes Advance Directives Date on File: 11/27/22 Patient : No service: No Current occupational status: disabled Sexual orientation: Straight/Heterosexual Physical Exam ED Vital Signs: Vital Signs - 24 hr 10/14/23 14:10 Temperature 98.4 F Pulse Rate 88 Respiratory Rate 16 Blood Pressure 150/65 H Pulse Oximetry 98 Oxygen Delivery Method Room Air BMI result Body Mass Index 30.2 Patient's past medical history includes fibromyalgia and PTSD Appearance: Alert. Oriented X3. No acute distress. Eyes: Pupils equal, round and reactive to light. ENT: Pharynx normal. Neck: Normal inspection. Neck supple. No lymph nodes noted. No crepitus CVS: Normal heart rate and rhythm. Pulses normal. Normal S1 and S2 Respiratory: No respiratory distress. Breath sounds normal. No Wheezing. No rales Abdomen: Soft mild left lower quadrant tenderness no rebound or guarding No rigidity. No distention. good BS x4 Skin: Skin warm and dry. Normal skin color. Normal skin turgor. Extremities: No lower extremity edema. Neurovascular intact to all extremities. No Lacerations. No Rash Neuro: Oriented X 3. No motor deficit. No sensory deficit. Moving all extermities. No slurred speech Medications Administered Discontinued Medications Generic Name Dose Route Start Last Admin Trade Name Rajesh PRN Reason Stop Dose Admin Hydromorphone HCl 0.5 mg 10/14/23 14:19 10/14/23 15:00 Hydromorphone Hcl 0.5 Mg/0.5 Ml Syringe IVPUSH 10/14/23 14:20 0.5 mg ONCE ONE Administration Protocol Sodium Chloride 1,000 mls @ 999 mls/hr 10/14/23 14:30 10/14/23 15:01 Ns IV 10/14/23 15:30 999 mls/hr .Q1H1M REINIER Administration Iohexol 85 ml 10/14/23 15:27 10/14/23 15:31 Iohexol 350 Mg/Ml 100 Ml Infus..Btl IV 10/14/23 15:28 85 ml ONCE ONE Administration Medical Decision Making Medical Decision Making [facility] Narrative: Positive left lower quadrant abdominal pain. CT scan of the abdomen was ordered urine ordered. Mild coughing a chest x-ray was ordered. Flu RSV COVID were ordered. Patient's white count was normal. LFTs are normal. Lipase is normal no evidence of pancreatitis. COVID flu RSV were all negative. Lab Data [facility] Lab Attestation statement: I reviewed the patient's lab results. 10/14/23 14:39 10/14/23 14:39 Labs: Lab Results 10/14/23 Range/Units 14:39 WBC 8.8 (4.8-10.8) X10*3/uL RBC 4.79 (4.20-5.50) X10*6/uL Hgb 13.0 (12.0-16.0) g/dl Hct 39.3 (37.0-47.0) % MCV 82.0 (80.0-98.0) fL MCH 27.1 (27.0-33.0) pg MCHC 33.1 (31.0-35.0) g/dl RDW 13.5 (11.0-16.0) % Plt Count 287 (160-400) X10*3/uL MPV 9.3 L (9.4-12.3) fL Immature Gran % (Auto) 0.3 (0.0-0.4) % Neut % (Auto) 64.1 (45-73) % Lymph % (Auto) 27.0 (20-40) % Caroline % (Auto) 7.0 (2-11) % Eos % (Auto) 1.3 (0-4) % Baso % (Auto) 0.3 (0-2) % Lymph # (Auto) 2.4 (1.2-4.9) X10*3/uL Caroline # (Auto) 0.6 (0.1-1.2) X10*3/uL Eos # (Auto) 0.1 (0.0-0.4) X10*3/uL Baso # (Auto) 0.0 (0.0-0.2) X10*3/uL Abs Immat Gran (auto) 0.03 (0.00-0.03) X10*3/uL Absolute Neuts (auto) 5.6 (2.0-8.3) x10*3/uL Absolute Nucleated RBC 0.000 (0.0-0.012) X10*3/uL Nucleated RBC % (auto) 0.0 (0.0-0.2) /100WBC Sodium 141 (135-145) mmol/L Potassium 4.8 (3.3-5.1) mmol/L Chloride 104 (96-108) mmol/L Carbon Dioxide 26 (22-29) mmol/L Anion Gap 16 (12-20) BUN 16 (9-16) mg/dL Creatinine 0.74 (0.5-1.4) mg/dL Estim Creat Clear Calc 80.3 Estimated GFR > 60 Random Glucose 111 (60-115) mg/dL Calcium 9.4 (8.4-10.2) mg/dL Total Bilirubin 0.2 (0.0-1.0) mg/dL Direct Bilirubin < 0.2 (0.0-0.5) mg/dL AST 16 (5-31) U/L ALT 16 (0-31) U/L Alkaline Phosphatase 84 (39-117) U/L Total Protein 7.8 (6.5-8.0) g/dL Albumin 4.3 (3.5-5.0) g/dL Lipase 31 (8-78) U/L Influenza Type A (PCR) NEGATIVE (Negative) Influenza Type B (PCR) NEGATIVE (Negative) RSV RNA Qual (PCR) NEGATIVE (Negative) SARS-CoV-2 RNA (RT-PCR) NEGATIVE (Negative) Independent Interpretation I performed an independent interpretation of an: Plain X-Ray (My interpretation patient's chest x-ray is grossly negative for any acute evidence of pneumonia, pneumothorax) Discharge Plan Discharge Clinical Impression: Abdominal pain Prescriptions: No Action albuterol sulfate [Ventolin HFA] 90 mcg/actuation Hfa Aerosol Inhaler 2 puff inhalation RQ4H PRN (Reason: Shortness Of Breath) 30 Days Qty: 6.7 0RF hydroxyzine HCl 25 mg Tablet 25 mg PO TID PRN (Reason: Anxiety) 30 Days Qty: 60 0RF mirtazapine 30 mg Tablet 30 mg PO BEDTIME 30 Days Qty: 30 0RF olanzapine 10 mg Tablet 10 mg PO BEDTIME 30 Days Qty: 30 0RF clonidine HCl 0.1 mg tablet 0.1 mg PO BEDTIME 30 Days Qty: 30 0RF cyanocobalamin (vitamin B-12) [Vitamin B-12] 500 mcg tablet 500 mcg PO DAILY 30 Days Qty: 30 0RF omeprazole 20 mg capsule,delayed release(DR/EC) 20 mg PO DAILY 30 Days Qty: 30 0RF pravastatin 20 mg tablet 20 mg PO DAILY 30 Days Qty: 30 0RF zolpidem 5 mg tablet 5 mg PO BEDTIME PRN (Reason: insomnia) 30 Days Qty: 30 0RF fluticasone propionate 50 mcg/actuation spray,suspension 2 spray intranasal DAILY 30 Days Qty: 16 0RF cholecalciferol (vitamin D3) [Vitamin D3] 50 mcg (2,000 unit) tablet 50 mcg PO DAILY 30 Days Qty: 30 0RF
[2023-10-14] MEDS: iohexoL 350 MG/ML 100 ML INFUS..BTL 85 ML IV (15:31)
[2023-10-14 15:33] LABS: Influenza A PCR NEGATIVE (Negative); Influenza B PCR NEGATIVE (Negative); Resp Syncy Virus RNA Qual PCR NEGATIVE (Negative); SARS COV2 PCR INHOUSE NEGATIVE (Negative)
[2023-10-14 16:22] LABS: Appearance Urine Clear; Color Urine Yellow; Glucose Urine UA Negative (Negative); Leukocyte Esterase Urine Negative (Negative); Nitrite Urine Negative (Negative); Specific Gravity - Urine >= 1.030 (1.005-1.025); Urine Blood Negative (Negative); Urine Ketones Negative (Negative); Urine Protein Negative (Neg-Trace)
[2023-10-14 16:24] LABS: Bacteria Urine None Seen (None Seen); Hyaline Casts Urine 0-2 /LPF (0-2); RBC Urine 0-2 /HPF (0-2); Squamous Epithelial Cell Urine 0-2 /HPF (0-2); WBC Urine 0-5 /HPF (0-5)
[2023-10-14 16:28] VITALS: BP 157/93; PULSE 88; RESP 18; TEMP 36.7; O2SAT 94
--- NOTE | 2023-10-14 16:29 | PC.NURSE ---
vss and up to date at this time. pt still verbalizing 8/10 back pain despite medication administration. urine obtained/sent to lab by tech. IVF still infusing at this time. respirations remain even and unlabored. call leyva placed within reach.
== END 2023-10-14 18:04 | disposition home or self-care (01) ==
PROVIDERS: Emergency Provider Emergency Medicine Emergency Medical Services; PCP Internal Medicine
DX: R10.32 Left lower quadrant pain (principal); R11.2 Nausea with vomiting, unspecified; M54.50 Low back pain, unspecified; R05.9 Cough, unspecified; Z79.899 Other long term (current) drug therapy; Z20.828 Contact with and (suspected) exposure to other viral communicable diseases; Z20.822 Contact with and (suspected) exposure to COVID-19
CPT/HCPCS: 0241U; 36415; 71045; 74177; 80048; 80076; 81001; 83690; 85025; 96361; 96374; 99284; J1170; Q9967

== ENCOUNTER 2025-01-26 13:37 | Emergency (ER) | payer OTHER, SELFPAY ==
--- NOTE | ~2025-01-26 | XR_ITS ---
EXAMINATION: XR KNEE, LEFT CLINICAL INFORMATION: pain COMPARISON: 04/09/2023. TECHNIQUE: Four views of the left knee. FINDINGS: No fracture or joint effusion. Alignment is anatomic. Minimal medial compartment joint space narrowing with tiny marginal osteophytes. Remainder of the joint spaces are preserved. Minimal spurring of the tibial spines. Soft tissues appear normal. XR/XR knee LT 4V IMPRESSION: 1. No acute bony abnormalities. No joint effusion. 2. Very mild medial compartment osteoarthritis. Electronically signed by: Merlin Ramirez MD 01/26/2025 02:59 PM EDT
--- NOTE | ~2025-01-26 | US_ITS ---
EXAMINATION: US TRIPLEX LOWER EXTREMITY, LEFT CLINICAL INFORMATION: Medial knee pain. Edema. Swelling. COMPARISON: None available. TECHNIQUE: Color-flow triplex imaging with spectral analysis and compression Doppler were performed on the left lower extremity. FINDINGS: Respiratory variation, normal compression and augmented flow are noted throughout the left lower extremity. The visualized common femoral vein, superficial femoral vein, profunda femoral vein, popliteal vein and midcalf peroneal and posterior tibial venous segments show no evidence of deep venous thrombosis. There is no Costa's cyst. Small fluid collection in the medial knee in the area of pain. This could potentially represent bursitis of the pes anserine. US/US venous duplex LE LT IMPRESSION: 1. No evidence of deep venous thrombosis involving the left lower extremity. 2. Small fluid collection in the medial knee in the area of pain. This could potentially represent bursitis of the pes anserine. Electronically signed by: Merlin Ramirez MD 01/26/2025 03:21 PM EDT
[2025-01-26 14:29] VITALS: BP 118/69; PULSE 74; RESP 16; TEMP 36.2; O2SAT 98; BMI 31.8
--- NOTE | 2025-01-26 14:33 | ED_ITS ---
HPI - Extremity Problem General Chief complaint: Extremity Injury, Lower Stated complaint: leg pain Time Seen by Provider: 01/26/25 14:30 Source: patient Mode of arrival: ambulatory Limitations: no limitations History of Present Illness HPI Narrative: 59 yo female with PMH of PTSD, cognitive impairment, asthma, fibromyalgia, anxiety here with c/o L knee pain x 2 weeks but no known trauma, injury and no rash or fevers. She has no swelling. NO recent travel or procedures. It is not responding to her tramadol. She states she has pain every time she walks. MD Complaint: joint swelling and joint pain Onset (ago): day(s) (14) Pain Consistency: constant Location: right and knee Quality: aching Radiation: proximal Relieving factors: immobilization Exacerbating factors: range of motion, weight bearing, walking and palpation Associated symptoms: denies other symptoms Related Data Previous Rx's ?Medication ?Instructions ?Recorded albuterol sulfate 90 mcg/actuation 2 puff inhalation RQ4H PRN 08/05/23 aerosol inhaler (Ventolin HFA) Shortness Of Breath 30 days #6.7 grams cholecalciferol (vitamin D3) 50 50 mcg PO DAILY 30 days #30 tabs 08/05/23 mcg (2,000 unit) tablet (Vitamin D3) clonidine HCl 0.1 mg tablet 0.1 mg PO BEDTIME 30 days #30 tabs 08/05/23 cyanocobalamin (vitamin B-12) 500 500 mcg PO DAILY 30 days #30 tabs 08/05/23 mcg tablet (Vitamin B-12) fluticasone propionate 50 2 spray intranasal DAILY 30 days 08/05/23 mcg/actuation nasal #16 grams spray,suspension hydroxyzine HCl 25 mg tablet 25 mg PO TID PRN Anxiety 30 days 08/05/23 #60 tabs mirtazapine 30 mg tablet 30 mg PO BEDTIME 30 days #30 tabs 08/05/23 olanzapine 10 mg tablet 10 mg PO BEDTIME 30 days #30 tabs 08/05/23 omeprazole 20 mg capsule,delayed 20 mg PO DAILY 30 days #30 caps 08/05/23 release pravastatin 20 mg tablet 20 mg PO DAILY 30 days #30 tabs 08/05/23 zolpidem 5 mg tablet 5 mg PO BEDTIME PRN insomnia 30 08/05/23 days #30 tabs prednisone 20 mg tablet 40 mg (2 x 20 mg) PO DAILY 5 days 01/26/25 #10 tabs Allergies Allergy/AdvReac Type Severity Reaction Status Date / Time duloxetine [From CYMBALTA] Allergy Mild ITCHING Verified 01/26/25 14:29 ibuprofen [From MOTRIN] Allergy Unknown ITCHING Verified 01/26/25 14:29 ibuprofen Allergy Unknown Unknown Uncoded 10/14/23 14:09 Review of Systems Review of Systems: Constitutional : No Fever, No Chills ENT/Mouth : No Ear Pain, No Hoarseness, No sore throat Eyes: No Eye Pain, No Swelling, No Redness, No Foreign Body Cardiovascular : No Chest Pain, No SOB Respiratory : No Cough, No Dyspnea Gastrointestinal : No Nausea, No Vomiting, No Diarrhea, No abdominal Pain Genitourinary : No Dysuria, No Hematuria Musculoskeletal : positive joint pain, No Myalgias, No Joint Swelling Skin : No Skin lacerations, No rash Neuro : No Weakness, No Numbness, No Loss of Consciousness, No Dizziness, No Headache All other systems reviewed and are negative [facility] Past Medical History Medical History (Updated 01/26/25 @ 15:28 by Arlette Lepe DO) PTSD (post-traumatic stress disorder) Cognitive impairment MDD (major depressive disorder), recurrent, severe, with psychosis Alcohol abuse Asthma Anxiety Insomnia Fibromyalgia Surgical History H/O knee surgery Hx of tubal ligation History of partial hysterectomy Family History Family History Mother Diabetes HTN (hypertension) CVD (cardiovascular disease) Father Arthritis CVD (cardiovascular disease) Social History Social History Household Members: None Housing: Homeless Do you presently have visiting nurse or other home services: Yes Unable to assess alcohol history related to: Unknown Alcohol intake: current Alcohol intake frequency: does not drink Patient Tobacco Use Status: Never used Tobacco e-Cigarette/Vaping Use: Never Used Second Hand Smoke Exposure: No Advance Directives Date on File: 11/27/22 Do you have a plan to hurt others: No Plan service: No Current occupational status: disabled Sexual orientation: Straight/Heterosexual Physical Exam Vital Signs: Vital Signs: Last Vital Signs Temp 97.2 F 01/26/25 14:29 Pulse 74 01/26/25 14:29 Resp 16 01/26/25 14:29 BP 118/69 01/26/25 14:29 Pulse Ox 98 01/26/25 14:29 O2 Del Method Room Air 01/26/25 14:29 BMI result Body Mass Index 31.8 Appearance: Alert. Oriented X3. No acute distress. Eyes: Pupils equal, round and reactive to light. ENT: Pharynx normal. Neck: Normal inspection. Neck supple. CVS: Normal heart rate and rhythm. Pulses normal. Respiratory: No respiratory distress. Breath sounds normal. Abdomen: Soft and nontender. Skin: Skin warm and dry. Normal skin color. Normal skin turgor. Extremities: No lower extremity edema. ttp along medial inner thigh no rash, distal pulses intact, ttp along anterior medial aspect of R knee. Neuro: Oriented X 3. No motor deficit. No sensory deficit. CN2-12 intact Course Course Course Narrative: 59 yo female with PMH of PTSD, cognitive impairment, asthma, fibromyalgia, anxiety here with c/o L knee pain x 2 weeks hurts to walk, pain in front of knee, difficulty going upstairs. No known trauma, no rash, no numbness. She states tramadol Q8H does not help. No other complaints. Xray and DVT study ordered. this is a RAPID medical screening exam the rest of the history and physical exam is to be done by the main provider. MAGUE 01/26/25 234pm Medical Decision Making Medical Decision Making MDM Narrative: 59 yo female with PMH of PTSD, cognitive impairment, asthma, fibromyalgia, anxiety here with c/o L knee pain x 2 weeks hurts to walk, pain in front of knee, difficulty going upstairs. No known trauma, no rash, no numbness. She states tramadol Q8H does not help. No other complaints. Xray and DVT study ordered. Differential Diagnosis Differential Diagnoses: The differential diagnosis associated with the presentation includes DVT, arthritis, tendonitis Admission/Observation Consideration of admission/observation: Escalation of care including admission/observation considered can ambulate stable for DC Independent Interpretation I performed an independent interpretation of an: Plain X-Ray (arthritis) and Ultrasound (no DVT) Radiology Impression Discussion of test interpretation with radiology: I have reviewed the radiologist's reading. External Record Review External record reviewed: Outpatient record Prescription Management I considered prescription management with: Pain Medication and Other Discharge Plan Discharge Clinical Impression: Tendinitis of right knee Bursitis Qualifiers: Bursitis location: unspecified site Qualified Code(s): M71.9 - Bursopathy, unspecified Patient Disposition: Home, Self-Care Instructions: Knee Bursitis (ED), Tendinitis (ED) Additional Instructions: no broken bones, pos bursitis of R knee please follow up with your doctor return for any worsening symptoms or concerns. Prescriptions: New prednisone 20 mg tablet 40 mg PO DAILY 5 Days Qty: 10 0RF No Action albuterol sulfate [Ventolin HFA] 90 mcg/actuation Hfa Aerosol Inhaler 2 puff inhalation RQ4H PRN (Reason: Shortness Of Breath) 30 Days Qty: 6.7 0RF hydroxyzine HCl 25 mg Tablet 25 mg PO TID PRN (Reason: Anxiety) 30 Days Qty: 60 0RF mirtazapine 30 mg Tablet 30 mg PO BEDTIME 30 Days Qty: 30 0RF olanzapine 10 mg Tablet 10 mg PO BEDTIME 30 Days Qty: 30 0RF clonidine HCl 0.1 mg tablet 0.1 mg PO BEDTIME 30 Days Qty: 30 0RF cyanocobalamin (vitamin B-12) [Vitamin B-12] 500 mcg tablet 500 mcg PO DAILY 30 Days Qty: 30 0RF omeprazole 20 mg capsule,delayed release(DR/EC) 20 mg PO DAILY 30 Days Qty: 30 0RF pravastatin 20 mg tablet 20 mg PO DAILY 30 Days Qty: 30 0RF zolpidem 5 mg tablet 5 mg PO BEDTIME PRN (Reason: insomnia) 30 Days Qty: 30 0RF fluticasone propionate 50 mcg/actuation spray,suspension 2 spray intranasal DAILY 30 Days Qty: 16 0RF cholecalciferol (vitamin D3) [Vitamin D3] 50 mcg (2,000 unit) tablet 50 mcg PO DAILY 30 Days Qty: 30 0RF Print Language: Kazakh
[2025-01-26 16:05] VITALS: BP 118/69; PULSE 74; RESP 16; TEMP 36.2; O2SAT 98
--- OUTSIDE RECORDS SUMMARY | 2025-01-26 16:07 | XMS_ITS | Clinical Summary ---
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 without difficulty. The patient tolerated the procedure well. The quality of the bowel preparation was good. Findings: An anal fissure was found on perianal exam. A medium anal fissure was found in the analcanal. The exam was otherwise without abnormality ondirect and retroflexion views. Procedure Code(s): --- Professional --- G0121, Colorectal cancer screening; colonoscopy on individual not meeting criteria for high risk Diagnosis Code(s): --- Professional --- Z12.11, Encounter for screening for malignantneoplasm of colon CPT copyright 2020 [employer]. All rights reserved. The codes documented in this report are preliminary and upon glassine machine tender reviewmay be revised to meet current compliance requirements. Mal Arshad MD 10/12/2024 9:52:52 AM This report has been signed electronically.Mal Arshad MD Number of Addenda: 0 Note Initiated On: 10/12/2024 9:35 AM Scope Withdrawal Time: 0 hours 7 minutes 35 seconds Scope In: 9:38:32 AM Scope Out: 9:48:46 AM Endoscopy Department at [facility] - [address] [place] [id number] IMPRESSION: - Anal fissure found on perianal exam. - Anal fissure. - The examination was otherwise normal on directand retroflexion views. - No specimens collected. Recommendation: - Written discharge instructions were provided tothe patient. - Repeat colonoscopy in 10 years for screening purposes. - Miralax 1 capful (17 grams) in 8 ounces of waterPO daily. us Mla Arshad MD GI~PROCEDURE ORDERABLES Fin al Result * MG Mammo Digital Diagnostic w [place] Right (08/30/2024 2:02 PM EST) Anatomical Region Laterality Modality Breast Right Mammography 08/30/2024 3:35 PM EST Impressions 08/30/2024 3:45 PM EST Recommend 6 month follow-up ultrasound for a probably benign complex cystic lesion at the 1 o'clock position of the right breast. ??Follow-up appointment has been scheduled. BREAST DENSITY: C - The breasts are heterogeneously dense which may obscure small masses. BI-RADS CATEGORY: 3 - PROBABLY BENIGN RECOMMENDATION: Ultrasound of the right breast is recommended in 6 months. MAMMO LOCATION: [facility], [address] [place] [address], [id number], . -------- FINAL REPORT -------- Dictated By: Анна Mane Dictated Date: 08/30/2024 15:35 ET Assigned Physician: Анна Mane Reviewed and Electronically Signed By: Анна Mane Signed Date: 08/30/2024 15:45 ET Workstation ID: [id number] Transcribed By: Self Edit Transcribed Date: 08/30/2024 15:35 ET Narrative 08/30/2024 3:45 PM EST EXAM: MG MAMMO DIGITAL DIAGNOSTIC W [place] RIGHT, US BREAST LIMITED RIGHT HISTORY: Call back from a screening mammogram. FINDINGS: 90 ML and spot compression CC views performed with tomosynthesis. ??Persistent partially circumscribed lesion in the slightly inner breast which has a subtle correlate in the slightly upper breast. Targeted ultrasound was subsequently performed and shows a corresponding 1.1 x 0.9 x 0.4 cm cyst with internal heterogeneous avascular echoes located at the 1 o'clock position, 3 cm from the nipple. ??This is probably benign and 6 month follow-up ultrasound is recommended. Procedure Note Анна Mane MD - 08/30/2024 EXAM: MG MAMMO DIGITAL DIAGNOSTIC W [place] RIGHT, US BREAST LIMITED RIGHT HISTORY: Call back from a screening mammogram. FINDINGS: 90 ML and spot compression CC views performed with tomosynthesis.Persistent partially circumscribed lesion in the slightly inner breastwhich has a subtle correlate in the slightly upper breast. Targeted ultrasound was subsequently performed and shows a corresponding1.1 x 0.9 x 0.4 cm cyst with internal heterogeneous avascular echoeslocated at the 1 o'clock position, 3 cm from the nipple. This is probablybenign and 6 month follow-up ultrasound is recommended. IMPRESSION: Recommend 6 month follow-up ultrasound for a probably benign complexcystic lesion at the 1 o'clock position of the right breast. Follow-upappointment has been scheduled. BREAST DENSITY: C - The breasts are heterogeneously dense which mayobscure small masses. BI-RADS CATEGORY: 3 - PROBABLY BENIGN RECOMMENDATION: Ultrasound of the right breast is recommended in 6months. MAMMO LOCATION: [facility], [address] [place] [address], [id number], . -------- FINAL REPORT -------- Dictated By: Анна Mane Dictated Date: 08/30/2024 15:35 ET Assigned Physician: Анна Mane Reviewed and Electronically Signed By: Анна Mane Signed Date: 08/30/2024 15:45 ET Workstation ID: [id number] Transcribed By: Self Edit Transcribed Date: 08/30/2024 15:35 ET us Jodie Farnsworth MD IMG BI PROCEDURES Final Result * Annual BMP Blood Test (12/24/2023) Annual BMP Blood Test Abstracted us Historical Provider HEALTH MAINTENANCE Final Result * Depression Screening (12/24/2023) Pathologist [facility] Depression Screening Abstracted Historical Provider HEALTH MAINTENANCE Final Result * (ABNORMAL) Lipid panel (01/06/2023) Pathologist [facility] LDL/HDL Ratio 3 0 - 4 Triglycerides 87 0 - 150 mg/dL Cholesterol 199 0 - 200 mg/dL HDL 70 >=40 mg/dL LDL Cholesterol 112(A) 0 - 100 mg/dL Blood Venous blood specimen / Unknown Historical Provider LAB BLOOD ORDERABLES Melinda l Result from Last 3 Months or Most Recently Relevant to Health Maintenance [place] [address] 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
== END 2025-01-26 15:40 | disposition home or self-care (01) ==
LOC: HO.ED 15:40
PROVIDERS: Emergency Provider Emergency Medicine; PCP Internal Medicine
DX: M71.9 Bursopathy, unspecified (principal); M76.9 Unspecified enthesopathy, lower limb, excluding foot; M25.562 Pain in left knee
CPT/HCPCS: 73564; 93971; 99282; 99283; 99284

== ENCOUNTER → 2025-01-26 14:31 | Outpatient (BNV) | payer OTHER, SELFPAY | PROVIDERS: Emergency Provider Emergency Medicine; PCP Internal Medicine; Visit Provider Radiology Diagnostic Radiology | DX: M25.562 Pain in left knee (principal); R60.0 Localized edema | CPT/HCPCS: 73564; 93971 ==